=== PATIENT | female | born 1955 | race Caucasian/White ===

== ENCOUNTER 2017-02-23 10:58 | Observation (INO) | payer OTHER ==
[2017-02-23 11:09] VITALS: BMI 33.9
--- NOTE | 2017-02-23 12:08 | PDOC ---
History of Present Illness - General Chief Complaint: Revisit, Lab Variance Stated Complaint: EVALUATION LOW H/H Time Seen by Provider: 02/23/17 12:05 History Source: Patient Exam Limitations: No Limitations - History of Present Illness Initial Comments: CHIEF COMPLAINT: 61 y/o afebrile female with PMH IDDM, HTN, HLD, CHF, anemia ( last transfusion was 09/2016) sent in by her PCP for low H&H. HISTORY OF PRESENT ILLNESS: The patient had blood work drawn by Dr. Johnson yesterday. he called her today and told her to come to the ER because her H&H was low and her Potassium was high as well. The patient states she feels slightly lightheaded. She denies f/c, n/v/d, JENKINS, cough, CP, SOB, abd pain, back pain, hematuria, dysuris. Vital signs on arrival are within normal limits. REVIEW OF SYSTEMS: GENERAL/CONSTITUTIONAL: No fever/chills. No weakness. No weight change. HEAD, EYES, EARS, NOSE AND THROAT: No change in vision. No ear pain or discharge. No sore throat. CARDIOVASCULAR: No chest pain or shortness of breath. RESPIRATORY: No cough, wheezing, or hemoptysis. GASTROINTESTINAL: No abd pain, nausea, vomiting, diarrhea. GENITOURINARY: No dysuria, frequency, or change in urination. MUSCULOSKELETAL: No joint or muscle swelling or pain. No neck or back pain. SKIN: No rash or easy bruising. NEUROLOGIC: +lightheaded. No headache, loss of consciousness, or loss of sensation. PHYSICAL EXAM: GENERAL: The patient is awake, alert, and fully oriented, in no acute distress. She is obese, well appearing and ambulatory. HEAD: Normal with no signs of trauma. ENT: Pupils equal, round and reactive to light, extraocular movements intact, sclera anicteric, conjunctiva pale. Neck supple. Mucous membranes moist. LUNGS: Clear to auscultation bilaterally. Normal excursion. No respiratory distress or use of accessory muscles. CV: RRR, S1/S2, no MRG. Cap refill < 2 sec. ABDOMEN: Soft, non-distended, non-tender even to deep palpation, no hepatomegaly or splenomegaly, no masses. EXTREMITIES: Normal range of motion, no edema. NEUROLOGICAL: Normal speech, normal gait. CN II-XII grossly intact. PSYCH: Normal mood, normal affect. SKIN: Warm, dry, normal turgor, no rashes or lesions noted. Past History - Past Medical History Allergies/Adverse Reactions: Allergies Allergy/AdvReac Type Severity Reaction Status Date / Time black pepper Allergy Severe Swelling Verified 02/23/17 11:09 Penicillins Allergy Severe Rash Verified 02/23/17 11:09 strawberries Allergy Severe Rash Uncoded 02/23/17 11:09 Home Medications: Ambulatory Orders Acetaminophen [Pain Reliever] 500 mg PO PRN PRN 04/16/16 Amlodipine Besylate [Norvasc -] 10 mg PO DAILY 04/16/16 Hydralazine HCl [Apresoline -] 50 mg PO ASDIR 04/16/16 Levothyroxine [Synthroid -] 100 mcg PO DAILY 04/16/16 Metoprolol Tartrate [Lopressor] 100 mg PO BID 04/16/16 Omeprazole [Prilosec] 40 mg PO DAILY 04/16/16 Fenofibric Acid [Trilipix -] 45 mg PO DAILY cap 04/20/16 Insulin (Levemir) [Levemir Vial] 38 units SQ DAILY@0700 #30 ml 04/20/16 Enalapril Maleate [Vasotec] 10 mg PO ASDIR 02/23/17 Ferrous Sulfate 325 mg PO ASDIR 02/23/17 Furosemide [Lasix -] 40 mg PO ASDIR 02/23/17 Insulin Lispro [Humalog] 0 unit SQ ASDIR 02/23/17 Labetalol HCl [Normodyne -] 200 mg PO ASDIR 02/23/17 Simvastatin 40 mg PO DAILY 02/23/17 Sodium Bicarbonate - 650 mg PO ASDIR 02/23/17 Anemia: Yes Asthma: No Cancer: No Cardiac Disorders: No CVA: No COPD: No CHF: No Dementia: No Diabetes: Yes GI Disorders: Yes (REFLUX) Disorders: Yes (1 kidney) HTN: Yes Hypercholesterolemia: Yes Liver Disease: No Suicide Attempt (Hx): No Seizures: No Thyroid Disease: Yes (hypothyroid) - Surgical History Abdominal Surgery: No Appendectomy: No Cardiac Surgery: No Cholecystectomy: Yes Lung Surgery: No Neurologic Surgery: No Orthopedic Surgery: Yes (R knee replacement 09/17/13) - Psycho/Social/Smoking Cessation Hx Anxiety: No Suicidal Ideation: No Smoking Status: No Smoking History: Never smoked Have you smoked in the past 12 months: No Number of Cigarettes Smoked Daily: 0 Information on smoking cessation initiated: No Hx Alcohol Use: No Drug/Substance Use Hx: No Substance Use Type: None Hx Substance Use Treatment: No *Physical Exam - Vital Signs Last Vital Signs Temp Pulse Resp BP Pulse Ox 98.1 F 67 17 134/64 100 02/23/17 11:07 02/23/17 11:07 02/23/17 11:07 02/23/17 11:07 02/23/17 11:07 Heart Score/ECG Review - ECG Intrepretation Comment:: Twelve-lead EKG was performed and reviewed by Dr. Kahn. There is sinus bradycardia with 1st degree AV block. Impression: Otherwise normal twelve-lead EKG ED Treatment Course - LABORATORY CBC & Chemistry Diagram: 02/23/17 12:20 02/23/17 12:23 Medical Decision Making - Medical Decision Making A/P: 61 y/o female sent in by PCP for possible blood transfusion and high potassium. Plan is as follows: 1. EKG 2. Labs 3. UA 4. Type and screen hemoglobin is 7.6. Potassium normal Ordered 1 unit of PRBCs. Informed the patient of plan for admission. Spoke with Dr. Johnson's HOUSEKEEPING ATTENDANT and she said admit to the hospitalist. Spoke with the hospitalist, Dr. Hightower, accepts admission. *DC/Admit/Observation/Transfer Diagnosis at time of Disposition: Lightheaded Anemia Qualifiers: Anemia type: unspecified type Qualified Code(s): D64.9 - Anemia, unspecified - Discharge Dispostion Admit: Yes - Referrals Referrals: Van Johnson [Primary Care Provider] -
[2017-02-23 13:04] LABS: BASOPHIL 0.8 % (0-2.0); EOSINOPHIL 5.4 % (0-4.5); MCH 30.5 pg (25.7-33.7); MCHC 32.6 g/dl (32.0-36.0); MEAN CELL VOLUME 93.5 fl (80-96); MEAN PLT VOLUME 9.9 fl (7.5-11.1); PLATELET COUNT 180 K/MM3 (134-434); RDW 14.5 % (11.6-15.6)
[2017-02-23 13:18] LABS: INR 1.17 (0.82-1.09); PROTHROMBIN TIME (PATIENT) 12.9 SEC (9.98-11.88)
[2017-02-23 13:31] LABS: ALBUMIN 3.4 g/dl (3.4-5.0); ANION GAP 12 (8-16); BILIRUBIN,TOTAL 0.3 mg/dL (0.2-1.0); CALCIUM 8.4 mg/dL (8.5-10.1); CO2 20 mmol/L (21-32); COCKROFT - GAULT 25.6955; CREATININE 3.5 mg/dL (0.55-1.02); GLUCOSE,RANDOM 128 mg/dL (74-106); SGOT/AST 14 U/L (15-37); SGPT/ALT 28 U/L (12-78); TOT PROT 7.3 g/dl (6.4-8.2)
[2017-02-23 13:33] LABS: ALK PHOS 63 U/L (45-117); TROPONIN I < 0.02 ng/ml (0.00-0.05)
--- NOTE | 2017-02-23 14:16 | EKG ---
Test Reason : Blood Pressure : / mmHG Vent. Rate : 059 BPM Atrial Rate : 059 BPM P-R Int : 218 ms QRS Dur : 082 ms QT Int : 444 ms P-R-T Axes : 053 010 -02 degrees QTc Int : 439 ms SINUS BRADYCARDIA WITH 1ST DEGREE A-V BLOCK OTHERWISE NORMAL ECG WHEN COMPARED WITH ECG OF 13-OCT-2016 13:15, NO SIGNIFICANT CHANGE WAS FOUND Confirmed by MARRY CESAR, [place] ([id number]) on 02/23/2017 2:16:24 PM Referred By: Confirmed By:[place] TUTTLE MD
[2017-02-23] MEDS ORDERED: ACETAMINOPHEN 500 MG TABLET (FP) PO PRN (16:16)
--- NOTE | 2017-02-23 16:24 | HP ---
CHIEF COMPLAINT: "my doctor told me to come here" PCP: Dr Johnson REnal: Dr Reza HISTORY OF PRESENT ILLNESS: This is a 61 yo F known to me with PMH of chronic anemia due to CKD (baseline Hgb 8), CKD (baseline creat 3.5), horseshoe kidney, HFPEF, CAD, HTN, HLD, hypothyroidism, IDDM and morbid obesity, who presents to ED at urging of her PCP , who recently checked her blood and found her to be more anemic than baseline and hyperkalemic. She was at [facility] for anemia and acute on chronic HFPER, at which time her Hgb was 6.5, she was transfused 1 u and d/cd with hgb 8.3 ( baseline). She was also treated for acute failure (had sob and edema) with lasix IV. Her creat on d/c was 3.5. She followed up with Dr Reza on d/c. Her last colonoscopy was in [address] Ahuja, with normal findings. She denies chest pain, sob, cough, orthopnea, weight gain or peripheral edema. She denies weakness or lightheadedness. She denies rectal bleed or melena. ER course was notable for: (1)ekg (2)labs (3)1 u pRBC Recent Travel: denies PAST MEDICAL HISTORY: as above PAST SURGICAL HISTORY: x3 , cholecystectomy, R knee replacement Social History: Smoking: Never Alcohol:2 drinks per month Drugs: Never Family History: Lives alone. Father is alive and has HTN, DMII; mother of DMII complication , had enlarged heart and limb amputation; brother has DMII; sister has DMII, daughter and son have DMII Allergies black pepper Allergy (Severe, Verified 02/23/17 11:09) Swelling Penicillins Allergy (Severe, Verified 02/23/17 11:09) Rash strawberries Allergy (Severe, Uncoded 02/23/17 11:09) Rash HOME MEDICATIONS: Home Medications Medication Instructions Recorded Acetaminophen [Pain Reliever] 500 mg PO PRN PRN 04/16/16 Amlodipine Besylate [Norvasc -] 10 mg PO DAILY 04/16/16 Hydralazine HCl [Apresoline -] 50 mg PO ASDIR 04/16/16 Levothyroxine [Synthroid -] 100 mcg PO DAILY 04/16/16 Metoprolol Tartrate [Lopressor] 100 mg PO BID 04/16/16 Omeprazole [Prilosec] 40 mg PO DAILY 04/16/16 Fenofibric Acid [Trilipix -] 45 mg PO DAILY cap 04/20/16 Insulin (Levemir) [Levemir Vial] 38 units SQ DAILY@0700 #30 ml 04/20/16 Enalapril Maleate [Vasotec] 10 mg PO ASDIR 02/23/17 Ferrous Sulfate 325 mg PO ASDIR 02/23/17 Furosemide [Lasix -] 40 mg PO ASDIR 02/23/17 Insulin Lispro [Humalog] 0 unit SQ ASDIR 02/23/17 Labetalol HCl [Normodyne -] 200 mg PO ASDIR 02/23/17 Simvastatin 40 mg PO DAILY 02/23/17 Sodium Bicarbonate - 650 mg PO ASDIR 02/23/17 REVIEW OF SYSTEMS CONSTITUTIONAL: Absent: fever, chills, diaphoresis, generalized weakness, malaise, loss of appetite, weight change HEENT: Absent: rhinorrhea, nasal congestion, throat pain CARDIOVASCULAR: Absent: chest pain, syncope, palpitations, lightheadedness, peripheral edema RESPIRATORY: Absent: cough, shortness of breath, orthopnea, hemoptysis GASTROINTESTINAL: Absent: abdominal pain, abdominal distension, nausea, vomiting, diarrhea, constipation, melena, hematochezia GENITOURINARY: Absent: dysuria, hematuria, flank pain MUSCULOSKELETAL: Absent: back pain, neck pain SKIN: Absent: rash, itching, pallor HEMATOLOGIC/IMMUNOLOGIC: Absent: easy bleeding, easy bruising ENDOCRINE: Absent: unexplained weight gain, unexplained weight loss NEUROLOGIC: Absent: headache, focal weakness or paresthesias PSYCHIATRIC: Absent: anxiety, depression PHYSICAL EXAMINATION Vital Signs - 24 hr 02/23/17 15:47 Temperature 97.8 F Pulse Rate [ 60 Apical] Respiratory 18 Rate Blood Pressure 153/61 [Right Arm] O2 Sat by Pulse 99 Oximetry (%) GENERAL: Awake, alert, and fully oriented, in no acute distress. HEAD: Normal with no signs of trauma. EYES: Pupils equal, round and reactive to light, extraocular movements intact, sclera anicteric, conjunctiva clear. No lid lag. EARS, NOSE, THROAT: Moist mucous membranes. NECK: supple without JVD LUNGS: Breath sounds equal, clear to auscultation bilaterally. HEART: Regular rate and rhythm, normal S1 and S2 ABDOMEN: Soft, nontender, not distended, normoactive bowel sounds. JONNIE: no lesions, trace brown stool MUSCULOSKELETAL: No CVA tenderness. UPPER EXTREMITIES: 2+ pulses, warm, well-perfused. No cyanosis. No clubbing. No peripheral edema. LOWER EXTREMITIES: 2+ pulses, warm, well-perfused. No calf tenderness. No peripheral edema. NEUROLOGICAL: Cranial nerves II-XII grossly intact. Normal speech. PSYCHIATRIC: Cooperative. Good eye contact. Appropriate mood and affect. SKIN: Warm, dry ASSESSMENT/PLAN: This is a 61 yo F known to me with PMH of chronic anemia due to CKD (baseline Hgb 8), CKD (baseline creat 3.5), horseshoe kidney, HFPEF, CAD, HTN, HLD, hypothyroidism, IDDM and morbid obesity, who presents to ED at urging of her PCP , who recently checked her blood and found her to be more anemic than baseline and hyperkalemic. She was at [facility] for anemia and acute on chronic HFPER, at which time her Hgb was 6.5, she was transfused 1 u and d/cd with hgb 8.3 ( baseline). Chronic anemia -due to CKD -hgb 7.3 (baseline 8.3) -asymptomatic but qualifies for transfusion on 1 U pRBC due to comorbidities -check CBC at 8 pm, then AM -trop negative x1, trend 2 more -r/o GIB: stool guaiaac. Last colonoscopy 2012 -f/u Dr Perez outpatient for further management CKD -creat 3.5 at baseline -f/u dr Reza outpatient IDDM -sliding scale -BGM achs -levemir 38 u daily HFPEF -lasix 40 po bid HTN -norvasc 10 d -hydralazine 50 bid -lopressor 100 bid HLD -atorvastatin 40 d hypothyroidism -levothyroxine 100 d FEN no ivf lytes stable (K 4.3 today) SCD, ppi Dispo: obs in med han Problem List - Problem (1) Anemia Code(s): D64.9 - ANEMIA, UNSPECIFIED Qualifiers: Anemia type: unspecified type Qualified Code(s): D64.9 - Anemia, unspecified (2) Congestive heart failure (CHF) Code(s): I50.9 - HEART FAILURE, UNSPECIFIED (3) Hypothyroidism Code(s): E03.9 - HYPOTHYROIDISM, UNSPECIFIED (4) Kidney disease Code(s): N28.9 - DISORDER OF KIDNEY AND URETER, UNSPECIFIED (5) Obesity Code(s): E66.9 - OBESITY, UNSPECIFIED (6) Renal insufficiency Code(s): N28.9 - DISORDER OF KIDNEY AND URETER, UNSPECIFIED (7) (HFpEF) heart failure with preserved ejection fraction Code(s): I50.30 - UNSPECIFIED DIASTOLIC (CONGESTIVE) HEART FAILURE (8) HLD (hyperlipidemia) Code(s): E78.5 - HYPERLIPIDEMIA, UNSPECIFIED (9) IDDM (insulin dependent diabetes mellitus) Code(s): E11.9 - TYPE 2 DIABETES MELLITUS WITHOUT COMPLICATIONS Z79.4 - RESIDENTIAL (CURRENT) USE OF INSULIN Visit type - Emergency Visit Emergency Visit: Yes ED Registration Date: 02/23/17 Care time: The patient presented to the Emergency Department on the above date and was hospitalized for further evaluation of their emergent condition. - New Patient This patient is new to me today: No - Critical Care Critical Care patient: No
[2017-02-23] MEDS ORDERED: ENALAPRIL MALEATE 10 MG TABLET (FP) PO SCH (16:30)
[2017-02-23] MEDS ORDERED: SODIUM BICARBONATE 650 MG TABLET PO SCH (16:30)
[2017-02-23] MEDS ORDERED: INSULIN SLIDING SCALE (NOVOLOG) 1 VIAL SQ SCH (16:30)
[2017-02-23] MEDS ORDERED: hydrALAZINE HCL 50 MG TABLET (FP) PO SCH (16:30)
[2017-02-23] MEDS ORDERED: LABETALOL HCL 200 MG TABLET (FP) PO SCH (16:30)
[2017-02-23] MEDS ORDERED: FUROSEMIDE 40 MG TABLET (FP) PO SCH (16:30)
--- NOTE | 2017-02-23 17:12 | PN ---
Teaching Attending Note Name of Resident: Padmini Garnica ATTENDING PHYSICIAN STATEMENT I saw and evaluated the patient. I reviewed the resident's note and discussed the case with the resident. I agree with the resident's findings and plan as documented. Patient presented with Lightheadedness, was sent by for elevated Potassium Vital Signs Temperature 98.5 F 02/23/17 16:34 Pulse Rate 61 02/23/17 16:34 Respiratory Rate 18 02/23/17 16:34 Blood Pressure 164/83 02/23/17 16:34 O2 Sat by Pulse Oximetry (%) 99 02/23/17 15:47 CBCD WBC 6.0 K/mm3 (4.0-10.0) 02/23/17 12:20 RBC 2.39 M/mm3 (3.60-5.2) L 02/23/17 12:20 Hgb 7.3 GM/dL (10.7-15.3) L D 02/23/17 12:20 Hct 22.3 % (32.4-45.2) L 02/23/17 12:20 MCV 93.5 fl (80-96) 02/23/17 12:20 MCHC 32.6 g/dl (32.0-36.0) 02/23/17 12:20 RDW 14.5 % (11.6-15.6) 02/23/17 12:20 Plt Count 180 K/MM3 (134-434) 02/23/17 12:20 MPV 9.9 fl (7.5-11.1) 02/23/17 12:20 CMP Sodium 141 mmol/L (136-145) 02/23/17 12:23 Potassium 4.3 mmol/L (3.5-5.1) 02/23/17 12:23 Chloride 109 mmol/L (98-107) H 02/23/17 12:23 Carbon Dioxide 20 mmol/L (21-32) L 02/23/17 12:23 Anion Gap 12 (8-16) 02/23/17 12:23 BUN 50 mg/dL (7-18) H D 02/23/17 12:23 Creatinine 3.5 mg/dL (0.55-1.02) H 02/23/17 12:23 Creat Clearance w eGFR 13.32 (>60) 02/23/17 12:23 Random Glucose 128 mg/dL (74-106) H D 02/23/17 12:23 Calcium 8.4 mg/dL (8.5-10.1) L 02/23/17 12:23 Total Bilirubin 0.3 mg/dL (0.2-1.0) D 02/23/17 12:23 AST 14 U/L (15-37) L D 02/23/17 12:23 ALT 28 U/L (12-78) D 02/23/17 12:23 Alkaline Phosphatase 63 U/L (45-117) 02/23/17 12:23 Total Protein 7.3 g/dl (6.4-8.2) 02/23/17 12:23 Albumin 3.4 g/dl (3.4-5.0) 02/23/17 12:23 CARDIAC ENZYMES Creatine Kinase 81 IU/L (26-192) 02/23/17 12:23 Troponin I < 0.02 ng/ml (0.00-0.05) 02/23/17 12:23 Current Medications Generic Name Dose Route Start Last Admin Trade Name Freq PRN Reason Stop Dose Admin Amlodipine Besylate 10 mg 02/24/17 10:00 Norvasc - PO DAILY [facility] Atorvastatin Calcium 40 mg 02/23/17 22:00 Lipitor - PO HS [facility] Fenofibric Acid 45 mg 02/24/17 10:00 Trilipix - PO DAILY [facility] Furosemide 40 mg 02/23/17 22:00 Lasix - PO BID [facility] Hydralazine HCl 50 mg 02/23/17 22:00 Apresoline - PO BID [facility] Insulin Aspart 1 vial 02/23/17 16:30 Novolog Vial Sliding Scale - SQ TIDAC [facility] Protocol Insulin Detemir 20 units 02/23/17 22:00 Levemir Vial SQ HS [facility] Levothyroxine Sodium 100 mcg 02/24/17 07:00 Synthroid - PO DAILY@0700 [facility] Metoprolol Tartrate 100 mg 02/23/17 22:00 Lopressor - PO BID [facility] Pantoprazole Sodium 40 mg 02/24/17 10:00 Protonix - PO DAILY [facility] Home Medications Medication Instructions Recorded Acetaminophen [Pain Reliever] 500 mg PO PRN PRN 04/16/16 Amlodipine Besylate [Norvasc -] 10 mg PO DAILY 04/16/16 Hydralazine HCl [Apresoline -] 50 mg PO ASDIR 04/16/16 Levothyroxine [Synthroid -] 100 mcg PO DAILY 04/16/16 Metoprolol Tartrate [Lopressor] 100 mg PO BID 04/16/16 Omeprazole [Prilosec] 40 mg PO DAILY 04/16/16 Fenofibric Acid [Trilipix -] 45 mg PO DAILY cap 04/20/16 Insulin (Levemir) [Levemir Vial] 38 units SQ DAILY@0700 #30 ml 04/20/16 Enalapril Maleate [Vasotec] 10 mg PO ASDIR 02/23/17 Ferrous Sulfate 325 mg PO ASDIR 02/23/17 Furosemide [Lasix -] 40 mg PO ASDIR 02/23/17 Insulin Lispro [Humalog] 0 unit SQ ASDIR 02/23/17 Labetalol HCl [Normodyne -] 200 mg PO ASDIR 02/23/17 Simvastatin 40 mg PO DAILY 02/23/17 Sodium Bicarbonate - 650 mg PO ASDIR 02/23/17 ASSESSMENT AND PLAN: Was sent by due to elevated potassium but was found to be in normal range in ED. # Acute symptomatic anemia ; Patient is getting transfused 2 units today # CKF stable at 3.5 # Hx of HTN continue home meds # Hx of DM on Insulin at home SS with coverage #Hx of hypothyroidism continue meds
[2017-02-23 20:34] LABS: MCH 30.6 pg (25.7-33.7); MCHC 33.2 g/dl (32.0-36.0); MEAN CELL VOLUME 92.1 fl (80-96); MEAN PLT VOLUME 10.3 fl (7.5-11.1); PLATELET COUNT 177 K/MM3 (134-434); RDW 14.3 % (11.6-15.6); WHITE BLOOD COUNT 6.4 K/mm3 (4.0-10.0)
[2017-02-23 20:59] LABS: CALCIUM 8.5 mg/dL (8.5-10.1); COCKROFT - GAULT 27.2595; CREATININE 3.3 mg/dL (0.55-1.02)
[2017-02-23] MEDS: FUROSEMIDE 40 MG TABLET (FP) PO SCH (21:45)
[2017-02-23] MEDS: METOPROLOL TARTRATE 50 MG TABLET (FP) PO SCH (21:45)
[2017-02-23] MEDS: hydrALAZINE HCL 50 MG TABLET (FP) PO SCH (21:45)
[2017-02-23] MEDS ORDERED: INSULIN DETEMIR 100 UNITS/ML MDV SQ SCH (22:00)
[2017-02-23] MEDS ORDERED: ATORVASTATIN CA 40 MG TABLET (FP) PO SCH (22:00)
[2017-02-24] MEDS: INSULIN SLIDING SCALE (NOVOLOG) 1 VIAL SQ SCH ×2 (06:32→12:35)
[2017-02-24] MEDS ORDERED: INSULIN DETEMIR 100 UNITS/ML MDV SQ ONE (06:42)
[2017-02-24] MEDS ORDERED: INSULIN DETEMIR 100 UNITS/ML MDV SQ SCH (07:00)
[2017-02-24] MEDS ORDERED: LEVOTHYROXINE NA 100 MCG TABLET (FP) PO SCH (07:00)
[2017-02-24 07:28] LABS: MCH 30.9 pg (25.7-33.7); MCHC 33.7 g/dl (32.0-36.0); MEAN CELL VOLUME 91.6 fl (80-96); MEAN PLT VOLUME 10.1 fl (7.5-11.1); PLATELET COUNT 173 K/MM3 (134-434); RDW 14.5 % (11.6-15.6); WHITE BLOOD COUNT 6.8 K/mm3 (4.0-10.0)
[2017-02-24 07:39] LABS: INR 1.13 (0.82-1.09); PROTHROMBIN TIME (PATIENT) 12.5 SEC (9.98-11.88)
[2017-02-24 07:41] LABS: ACTIVATED PTT 30.8 SECONDS (26.9-34.4)
[2017-02-24 07:44] LABS: CALCIUM 8.7 mg/dL (8.5-10.1); COCKROFT - GAULT 28.1095; CREATININE 3.2 mg/dL (0.55-1.02)
[2017-02-24] MEDS: FUROSEMIDE 40 MG TABLET (FP) PO SCH (09:26)
[2017-02-24] MEDS: hydrALAZINE HCL 50 MG TABLET (FP) PO SCH (09:26)
[2017-02-24] MEDS: METOPROLOL TARTRATE 50 MG TABLET (FP) PO SCH (09:27)
[2017-02-24] MEDS ORDERED: LABETALOL HCL 200 MG TABLET (FP) PO SCH (10:00)
[2017-02-24] MEDS ORDERED: amLODIPine BESYLATE 10 MG TABLET (FP) PO SCH (10:00)
[2017-02-24] MEDS ORDERED: ENALAPRIL MALEATE 10 MG TABLET (FP) PO SCH (10:00)
[2017-02-24] MEDS ORDERED: FENOFIBRIC ACID 45 MG CAP PO SCH (10:00)
[2017-02-24] MEDS ORDERED: PANTOPRAZOLE 40 MG TABLET (FP) PO SCH (10:00)
[2017-02-24 11:00] LABS: URINE APPEARANCE CLEAR; URINE BILIRUBIN NEGATIVE (NEGATIVE); URINE BLOOD NEGATIVE (NEGATIVE); URINE COLOR STRAW; URINE GLUCOSE (UA) NEGATIVE (NEGATIVE); URINE KETONE NEGATIVE (NEGATIVE); URINE LEUK ESTERASE NEGATIVE (NEGATIVE); URINE NITRITE NEGATIVE (NEGATIVE); URINE UROBILINOGEN NEGATIVE E.U./dl (0.2-1.0)
[2017-02-24 11:09] LABS: URINE PROTEIN 2+ (NEGATIVE)
[2017-02-24 11:21] LABS: URINE HYALINE CAST 1 /lpf; URINE MUCUS RARE; URINE RBC <1 /hpf (0-3); URINE WBC 1 /hpf (3-5)
--- NOTE | 2017-02-24 12:52 | DS ---
Physical Exam: SUBJECTIVE: Patient seen and examined Patient resting in bed NAD, No acute events, afebrile, hemodynamically stable. BP 180 systolic so added her enalapril and labetalol, which was confirmed this morning with patient. s/p 1 u PRBC. No dizziness, feels well. denies lightheadedness, chest pain, loc, f/c, cough, abd pain. OBJECTIVE: Vital Signs Period Temp Pulse Resp BP Sys/Duque Pulse Ox Last 24 Hr 97.9 F-98.5 F 60-98 18-20 164-184/62-83 99 PHYSICAL EXAM GENERAL: Awake, alert, and fully oriented, in no acute distress. HEAD: Normal with no signs of trauma. EYES: Pupils equal, round and reactive to light, extraocular movements intact, sclera anicteric, conjunctiva clear. No lid lag. EARS, NOSE, THROAT: Moist mucous membranes. NECK: supple without JVD LUNGS: Breath sounds equal, clear to auscultation bilaterally. HEART: Regular rate and rhythm, normal S1 and S2 ABDOMEN: Soft, nontender, not distended, normoactive bowel sounds. JONNIE: no lesions, trace brown stool MUSCULOSKELETAL: No CVA tenderness. UPPER EXTREMITIES: 2+ pulses, warm, well-perfused. No cyanosis. No clubbing. No peripheral edema. LOWER EXTREMITIES: 2+ pulses, warm, well-perfused. No calf tenderness. No peripheral edema. NEUROLOGICAL: Cranial nerves II-XII grossly intact. Normal speech. PSYCHIATRIC: Cooperative. Good eye contact. Appropriate mood and affect. SKIN: Warm, dry LABS Laboratory Results - last 24 hr 02/23/17 02/23/17 02/23/17 17:00 17:08 19:45 WBC RBC Hgb Hct MCV MCHC RDW Plt Count MPV INR PTT (Actin FS) Sodium Potassium Chloride Carbon Dioxide Anion Gap BUN Creatinine POC Glucometer 138 Random Glucose Calcium Troponin I < 0.02 Stool Occult Blood Cancelled 02/23/17 02/23/17 02/23/17 19:45 19:45 21:38 WBC 6.4 RBC 2.76 L Hgb 8.5 L D Hct 25.5 L MCV 92.1 MCHC 33.2 RDW 14.3 Plt Count 177 MPV 10.3 INR PTT (Actin FS) Sodium 140 Potassium 4.1 Chloride 107 Carbon Dioxide 23 Anion Gap 10 BUN 51 H Creatinine 3.3 H POC Glucometer 191 Random Glucose 193 H D Calcium 8.5 Troponin I Stool Occult Blood 02/24/17 02/24/17 02/24/17 06:00 06:00 06:00 WBC 6.8 RBC 2.82 L Hgb 8.7 L Hct 25.8 L MCV 91.6 MCHC 33.7 RDW 14.5 Plt Count 173 MPV 10.1 INR 1.13 PTT (Actin FS) 30.8 Sodium 141 Potassium 4.0 Chloride 109 H Carbon Dioxide 22 Anion Gap 10 BUN 48 H Creatinine 3.2 H POC Glucometer Random Glucose 76 D Calcium 8.7 Troponin I Stool Occult Blood 02/24/17 02/24/17 06:31 11:42 WBC RBC Hgb Hct MCV MCHC RDW Plt Count MPV INR PTT (Actin FS) Sodium Potassium Chloride Carbon Dioxide Anion Gap BUN Creatinine POC Glucometer 75 125 Random Glucose Calcium Troponin I Stool Occult Blood HOSPITAL COURSE: Date of Admission:02/23/17 This is a 61 yo F, known to ma, with PMH of chronic anemia due to CKD (baseline Hgb 8), CKD (baseline creat 3.5), horseshoe kidney, HFPEF, CAD, HTN, HLD, hypothyroidism, IDDM and morbid obesity, who presents to ED at urging of her PCP , who recently checked her blood and found her to be more anemic than baseline and hyperkalemic. She was at [facility] for anemia and acute on chronic HFPER, at which time her Hgb was 6.5, she was transfused 1 u and d/cd with hgb 8.3 ( baseline). She was also treated for acute failure (had sob and edema) with lasix IV. Her creat on d/c was 3.5. She followed up with Dr Reza on d/c. Her last colonoscopy was in [address] Ahuja, with normal findings. She denies chest pain, sob, cough, orthopnea, weight gain or peripheral edema. She denies weakness or lightheadedness. She denied rectal bleed or melena. No blood on JONNIE. She was admitted for a transfusion on 1 unit pRBC, which brought her hgb to 8.7 from 7.3. She felt well on hosp day 2 and was sent home and asked to f/u with an oncologist Dr Perez and Dr Ahuja for further anemia workup. Date of Discharge: 02/24/17 Minutes to complete discharge: 48 (na) Discharge Summary Reason For Visit: ANEMIA,LIGHTHEADNESS Current Active Problems (HFpEF) heart failure with preserved ejection fraction (Acute) Anemia (Acute) HLD (hyperlipidemia) (Acute) IDDM (insulin dependent diabetes mellitus) (Acute) Lightheaded (Acute) - Instructions Diet, Activity, Other Instructions: You were here because of low hemoglobin (low red blood count). your potassium was normal. you received a transfusion of 1 unit of blood. your hemoglobin went up to your baseline of 8.7. WE recommend you follow up with a blood specialist Dr Perez in 1 week to investigate the cause of anemia and talk about potential treatment like procrit injection. Follow up with Dr Ahuja for a potential colonoscopy Follow up with Dr Cummins in a week Follow up with Dr Cooper to review new blood pressure medication Resume home meds Return to hospital if symptoms worsen. Referrals: Rashawn Ahuja MD [Staff Physician] - 2 Weeks Piter Castaneda MD [Staff Physician] - 2 Weeks Van Johnson [Primary Care Provider] - 1 Week Nick Perez MD [Staff Physician] - 2 Weeks Jourdan Cummins MD [Staff Physician] - 1 Week - Home Medications Comprehensive Discharge Medication List: Ambulatory Orders Acetaminophen [Pain Reliever] 500 mg PO PRN PRN 04/16/16 Amlodipine Besylate [Norvasc -] 10 mg PO DAILY 04/16/16 Hydralazine HCl [Apresoline -] 50 mg PO ASDIR 04/16/16 Levothyroxine [Synthroid -] 100 mcg PO DAILY 04/16/16 Metoprolol Tartrate [Lopressor] 100 mg PO BID 04/16/16 Omeprazole [Prilosec] 40 mg PO DAILY 04/16/16 Fenofibric Acid [Trilipix -] 45 mg PO DAILY cap 04/20/16 Enalapril Maleate [Vasotec] 10 mg PO ASDIR 02/23/17 Ferrous Sulfate 325 mg PO ASDIR 02/23/17 Furosemide [Lasix -] 40 mg PO ASDIR 02/23/17 Insulin Lispro [Humalog Kwikpen U-100] 0 unit SQ ASDIR 02/23/17 Labetalol HCl [Normodyne -] 200 mg PO ASDIR 02/23/17 Simvastatin 40 mg PO DAILY 02/23/17 Sodium Bicarbonate - 650 mg PO ASDIR 02/23/17 Insulin (Levemir) [Levemir Vial] 20 units SQ HS ml 02/24/17 Problem List - Problems (1) Anemia Code(s): D64.9 - ANEMIA, UNSPECIFIED Qualifiers: Anemia type: unspecified type Qualified Code(s): D64.9 - Anemia, unspecified (2) Congestive heart failure (CHF) Code(s): I50.9 - HEART FAILURE, UNSPECIFIED (3) Hypothyroidism Code(s): E03.9 - HYPOTHYROIDISM, UNSPECIFIED (4) Kidney disease Code(s): N28.9 - DISORDER OF KIDNEY AND URETER, UNSPECIFIED (5) Obesity Code(s): E66.9 - OBESITY, UNSPECIFIED (6) Renal insufficiency Code(s): N28.9 - DISORDER OF KIDNEY AND URETER, UNSPECIFIED (7) (HFpEF) heart failure with preserved ejection fraction Code(s): I50.30 - UNSPECIFIED DIASTOLIC (CONGESTIVE) HEART FAILURE (8) HLD (hyperlipidemia) Code(s): E78.5 - HYPERLIPIDEMIA, UNSPECIFIED (9) IDDM (insulin dependent diabetes mellitus) Code(s): E11.9 - TYPE 2 DIABETES MELLITUS WITHOUT COMPLICATIONS Z79.4 - CUSTODIAL (CURRENT) USE OF INSULIN This patient is new to me today: No Emergency Visit: Yes ED Registration Date: 02/23/17 Care time: The patient presented to the Emergency Department on the above date and was hospitalized for further evaluation of their emergent condition. Critical Care patient: No - Discharge Referral Referred to [facility] No
[2017-02-24 13:50] VITALS: BP 174/68; PULSE 65; TEMP 98
--- NOTE | 2017-02-24 17:16 | PN ---
Teaching Attending Note Name of Resident: Padmini Garnica ATTENDING PHYSICIAN STATEMENT I saw and evaluated the patient. I reviewed the resident's note and discussed the case with the resident. I agree with the resident's findings and plan as documented. Patient is comfortable with no further dizziness, no shortness of breath, was transfused 2 units. Vital Signs Temperature 98 F 02/24/17 13:48 Pulse Rate 65 02/24/17 13:48 Respiratory Rate 20 02/24/17 13:48 Blood Pressure 174/68 02/24/17 13:48 O2 Sat by Pulse Oximetry (%) 99 02/24/17 08:00 CBCD WBC 6.8 K/mm3 (4.0-10.0) 02/24/17 06:00 RBC 2.82 M/mm3 (3.60-5.2) L 02/24/17 06:00 Hgb 8.7 GM/dL (10.7-15.3) L 02/24/17 06:00 Hct 25.8 % (32.4-45.2) L 02/24/17 06:00 MCV 91.6 fl (80-96) 02/24/17 06:00 MCHC 33.7 g/dl (32.0-36.0) 02/24/17 06:00 RDW 14.5 % (11.6-15.6) 02/24/17 06:00 Plt Count 173 K/MM3 (134-434) 02/24/17 06:00 MPV 10.1 fl (7.5-11.1) 02/24/17 06:00 CMP Sodium 141 mmol/L (136-145) 02/24/17 06:00 Potassium 4.0 mmol/L (3.5-5.1) 02/24/17 06:00 Chloride 109 mmol/L (98-107) H 02/24/17 06:00 Carbon Dioxide 22 mmol/L (21-32) 02/24/17 06:00 Anion Gap 10 (8-16) 02/24/17 06:00 BUN 48 mg/dL (7-18) H 02/24/17 06:00 Creatinine 3.2 mg/dL (0.55-1.02) H 02/24/17 06:00 Creat Clearance w eGFR 13.32 (>60) 02/23/17 12:23 Random Glucose 76 mg/dL (74-106) D 02/24/17 06:00 Calcium 8.7 mg/dL (8.5-10.1) 02/24/17 06:00 Total Bilirubin 0.3 mg/dL (0.2-1.0) D 02/23/17 12:23 AST 14 U/L (15-37) L D 02/23/17 12:23 ALT 28 U/L (12-78) D 02/23/17 12:23 Alkaline Phosphatase 63 U/L (45-117) 02/23/17 12:23 Total Protein 7.3 g/dl (6.4-8.2) 02/23/17 12:23 Albumin 3.4 g/dl (3.4-5.0) 02/23/17 12:23 CARDIAC ENZYMES Creatine Kinase 81 IU/L (26-192) 02/23/17 12:23 Troponin I < 0.02 ng/ml (0.00-0.05) 02/23/17 19:45 Home Medications Medication Instructions Recorded Acetaminophen [Pain Reliever] 500 mg PO PRN PRN 04/16/16 Amlodipine Besylate [Norvasc -] 10 mg PO DAILY 04/16/16 Hydralazine HCl [Apresoline -] 50 mg PO ASDIR 04/16/16 Levothyroxine [Synthroid -] 100 mcg PO DAILY 04/16/16 Metoprolol Tartrate [Lopressor] 100 mg PO BID 04/16/16 Omeprazole [Prilosec] 40 mg PO DAILY 04/16/16 Fenofibric Acid [Trilipix -] 45 mg PO DAILY cap 04/20/16 Enalapril Maleate [Vasotec] 10 mg PO ASDIR 02/23/17 Ferrous Sulfate 325 mg PO ASDIR 02/23/17 Furosemide [Lasix -] 40 mg PO ASDIR 02/23/17 Insulin Lispro [Humalog Kwikpen 0 unit SQ ASDIR 02/23/17 U-100] Labetalol HCl [Normodyne -] 200 mg PO ASDIR 02/23/17 Simvastatin 40 mg PO DAILY 02/23/17 Sodium Bicarbonate - 650 mg PO ASDIR 02/23/17 Insulin (Levemir) [Levemir Vial] 20 units SQ HS ml 04/13/17 ASSESSMENT AND PLAN: Patient is a 61yo female was sent by due to elevated potassium but was found to be in normal range in ED. # Acute symptomatic anemia improved post 2 units of PRBC , will send patient home on iron supplements # CKF stable at 3.5-->today 3.2 # Hx of HTN continue home meds # Hx of DM continue Levemir at home , and Humalog #Hx of hypothyroidism continue home meds will discharge patient home with follow up with for further treatment and management.
== END 2017-02-24 15:09 | disposition home or self-care (01) ==
LOC: JER 10:58 → UNDOADMOB 15:02 → INTOOBSV 15:02 → JERBED 15:02 → J7W 16:22
PROVIDERS: ADMIT Internal Medicine; ATTEND Internal Medicine
PROC: 3E013VG Introduction of Insulin into Subcutaneous Tissue, Percutaneous Approach (ICD-10-PCS; principal; 2017-02-23)
PROC: 30233N1 Transfusion of Nonautologous Red Blood Cells into Peripheral Vein, Percutaneous Approach (ICD-10-PCS; 2017-02-23)
DX: I12.9 Hypertensive chronic kidney disease with stage 1 through stage 4 chronic kidney disease, or unspecified chronic kidney disease (principal); N18.9 Chronic kidney disease, unspecified; E11.22 Type 2 diabetes mellitus with diabetic chronic kidney disease; Z79.4 Long term (current) use of insulin; D63.1 Anemia in chronic kidney disease; I50.33 Acute on chronic diastolic (congestive) heart failure; E78.5 Hyperlipidemia, unspecified; E03.9 Hypothyroidism, unspecified; K21.9 Gastro-esophageal reflux disease without esophagitis; E66.01 Morbid (severe) obesity due to excess calories; Z68.33 Body mass index [BMI] 33.0-33.9, adult; Z96.651 Presence of right artificial knee joint
CPT/HCPCS: 36415; 36430; 80048; 80053; 81003; 81015; 82550; 84484; 85025; 85027; 85610; 85730; 86850; 86900; 86901; 86922; 93005; 93010; 99284-25; G0378; P9038; P9058

== ENCOUNTER 2017-04-16 11:52 | Observation (INO) | payer OTHER ==
[2017-04-16 11:57] VITALS: BMI 33.9
--- NOTE | 2017-04-16 12:28 | PDOC ---
History of Present Illness - General History Source: Patient, Family (Daughter) Exam Limitations: No Limitations - History of Present Illness Initial Comments: 04/16/17 12:34 The patient is a 61 year old female with a significant past medical history of IDDM, CHF, CAD, horseshoe kidney, HTN, HLD, CHF, anemia (last transfusion was ), who presents to the ER with abdominal pain for five days. Patient was referred to the ER today by her PCP, Dr. Johnson, for low H&H levels (7&21). Patient says she has diffuse abdominal pain accompanied by diarrhea and dark stool. As per patients daughter, patient had two episodes of low H&H levels in the past three months without reason of why this is happening. Denies fever, chills Denies nausea, vomiting Denies lightheadedness PCP: Dr. Van Johnson <Kristy Suarez - Last Filed: 04/16/17 17:24> <Abby Jean - Last Filed: 04/17/17 11:09> - General Chief Complaint: Revisit, Lab Variance Stated Complaint: ABD PAIN (PCP SENT) Time Seen by Provider: 04/16/17 12:03 Past History <Kristy Suarez - Last Filed: 04/16/17 17:24> - Past Medical History Anemia: Yes Asthma: No Cancer: No Cardiac Disorders: No CVA: No COPD: No CHF: No Dementia: No Diabetes: Yes GI Disorders: Yes (REFLUX) Disorders: Yes (1 kidney) HTN: Yes Hypercholesterolemia: Yes Liver Disease: No Suicide Attempt (Hx): No Seizures: No Thyroid Disease: Yes (hypothyroid) - Surgical History Abdominal Surgery: No Appendectomy: No Cardiac Surgery: No Cholecystectomy: Yes Lung Surgery: No Neurologic Surgery: No Orthopedic Surgery: Yes (R knee replacement 09/17/13) - Psycho/Social/Smoking Cessation Hx Anxiety: No Suicidal Ideation: No Smoking Status: No Smoking History: Never smoked Have you smoked in the past 12 months: No Number of Cigarettes Smoked Daily: 0 Hx Alcohol Use: No Drug/Substance Use Hx: No Substance Use Type: None Hx Substance Use Treatment: No <Abby Jean - Last Filed: 04/17/17 11:09> - Past Medical History Allergies/Adverse Reactions: Allergies Allergy/AdvReac Type Severity Reaction Status Date / Time black pepper Allergy Severe Swelling Verified 04/16/17 11:57 Penicillins Allergy Severe Rash Verified 04/16/17 11:57 strawberry Allergy Rash Verified 04/16/17 11:59 Home Medications: Ambulatory Orders Acetaminophen [Pain Reliever] 500 mg PO PRN PRN 04/16/16 Amlodipine Besylate [Norvasc -] 10 mg PO DAILY 04/16/16 Hydralazine HCl [Apresoline -] 50 mg PO BID 04/16/16 Levothyroxine [Synthroid -] 100 mcg PO DAILY 04/16/16 Metoprolol Tartrate [Lopressor] 100 mg PO BID 04/16/16 Omeprazole [Prilosec] 40 mg PO DAILY 04/16/16 Fenofibric Acid [Trilipix -] 45 mg PO DAILY cap 04/20/16 Enalapril Maleate [Vasotec] 10 mg PO DAILY 02/23/17 Ferrous Sulfate 325 mg PO BID 02/23/17 Furosemide [Lasix -] 40 mg PO BID 02/23/17 Insulin Lispro [Humalog Kwikpen U-100] See Protocol SQ ASDIR 02/23/17 Labetalol HCl [Normodyne -] 200 mg PO BID 02/23/17 Simvastatin 40 mg PO DAILY 02/23/17 Sodium Bicarbonate - 650 mg PO DAILY 02/23/17 Review of Systems - Review of Systems Able to Perform ROS?: Yes Comments:: 04/16/17 12:34 GENERAL/CONSTITUTIONAL: No fever or chills. No weakness. HEAD, EYES, EARS, NOSE AND THROAT: No change in vision. No ear pain or discharge. No sore throat. CARDIOVASCULAR: No chest pain or shortness of breath. RESPIRATORY: No cough, wheezing, or hemoptysis. GASTROINTESTINAL: (+) abdominal pain, (+) diarrhea, (+) dark stool. No nausea, vomiting, constipation. GENITOURINARY: No dysuria, frequency, or change in urination. MUSCULOSKELETAL: No joint or muscle swelling or pain. No neck or back pain. SKIN: No rash NEUROLOGIC: No headache, vertigo, loss of consciousness, or change in strength/ sensation. ENDOCRINE: No increased thirst. No abnormal weight change. HEMATOLOGIC/LYMPHATIC: No anemia, easy bleeding, or history of blood clots. ALLERGIC/IMMUNOLOGIC: No hives or skin allergy. <UtsKristy - Last Filed: 04/16/17 17:24> *Physical Exam - Vital Signs Last Vital Signs Temp Pulse Resp BP Pulse Ox 98.0 F 65 20 138/60 100 04/16/17 11:55 04/16/17 11:55 04/16/17 11:55 04/16/17 11:55 04/16/17 11:55 <UtsKristy - Last Filed: 04/16/17 17:24> - Vital Signs Last Vital Signs Temp Pulse Resp BP Pulse Ox 98.0 F 65 20 138/60 100 04/16/17 11:55 04/16/17 11:55 04/16/17 11:55 04/16/17 11:55 04/16/17 11:55 - Physical Exam Comments: GENERAL: Awake, alert, and fully oriented, in no acute distress. Morbidly obese. HEAD: No signs of trauma EYES: PERRLA, EOMI, sclera anicteric, conjunctiva clear ENT: Auricles normal inspection, hearing grossly normal, nares patent, oropharynx clear without exudates. Moist mucosa NECK: Normal ROM, supple, no lymphadenopathy, JVD, or masses LUNGS: Breath sounds equal, clear to auscultation bilaterally. No wheezes, and no crackles HEART: Regular rate and rhythm, normal S1 and S2, no murmurs, rubs or gallops ABDOMEN: Soft, diffusely tender, normoactive bowel sounds. No guarding, no rebound. No masses EXTREMITIES: Normal range of motion, no edema. No clubbing or cyanosis. No cords, erythema, or tenderness NEUROLOGICAL: Cranial nerves II through XII grossly intact. Normal speech, normal gait SKIN: Warm, Dry, normal turgor, no rashes or lesions noted. <Abby Jean - Last Filed: 04/17/17 11:09> Heart Score/ECG Review - ECG Impressions Comment:: EKG read 12:46- NSR 62 bpm, no acute ST/T changes <Abby Jean - Last Filed: 04/17/17 11:09> ED Treatment Course - LABORATORY CBC & Chemistry Diagram: 04/16/17 12:40 04/16/17 12:40 - RADIOLOGY Radiograph Interpretation: 04/16/17 16:[address] impression reported by Dr. 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 This can be confirmed by additional imaging. No evidence of bowel obstruction. <Kristy Suarez - Last Filed: 04/16/17 17:24> - LABORATORY CBC & Chemistry Diagram: 04/17/17 06:30 04/17/17 06:30 <Abby Jean - Last Filed: 04/17/17 11:09> Medical Decision Making - Medical Decision Making Pt sent by Dr. Johnson. She has history of anemia requiring transfusion in the past, she is unclear on the etiology. She has cardiac history, including history of CHF, which will require slow transfusions followed by lasix. In addition to the anemia she has been having abdominal pain for past day with diarrhea. I obtained CT a/p without contrast (history of CKD with history of horseshoe kidney), no acute findings. Endorsed to hospitalist. <Abby Jean - Last Filed: 04/17/17 11:09> *DC/Admit/Observation/Transfer - Attestations Scribe Attestion: 04/16/17 12:35 Documentation prepared by Kristy Suarez, acting as regional medical director for Abby Jean MD. <Kristy Suarez - Last Filed: 04/16/17 17:24> - Discharge Dispostion Admit: Yes <Abby Jean - Last Filed: 04/17/17 11:09> Diagnosis at time of Disposition: Symptomatic anemia Congestive heart failure (CHF) Qualifiers: Congestive heart failure type: unspecified congestive heart failure type Congestive heart failure chronicity: unspecified congestive heart failure chronicity Qualified Code(s): I50.9 - Heart failure, unspecified Anemia Qualifiers: Anemia type: unspecified type Qualified Code(s): D64.9 - Anemia, unspecified - Discharge Dispostion Condition at time of disposition: Stable - Referrals - Patient Instructions
[2017-04-16] MEDS ORDERED: ACETAMINOPHEN 1000 MG/100 ML VIAL (NON FORMULARY) IVPB ONE (12:30)
[2017-04-16] MEDS ORDERED: SODIUM CHLORIDE 1,000 ML IV STA (12:30)
[2017-04-16] MEDS ORDERED: ACETAMINOPHEN INJECTION 100 ML IVPB ONE (12:41)
[2017-04-16 12:56] LABS: BASOPHIL 0.8 % (0-2.0); EOSINOPHIL 5.2 % (0-4.5); MCH 30.9 pg (25.7-33.7); MCHC 32.6 g/dl (32.0-36.0); MEAN CELL VOLUME 94.8 fl (80-96); MEAN PLT VOLUME 9.8 fl (7.5-11.1); NEUTROPHILS 79.7 % (42.8-82.8); PLATELET COUNT 176 K/MM3 (134-434); RDW 15.2 % (11.6-15.6); WHITE BLOOD COUNT 7.3 K/mm3 (4.0-10.0)
[2017-04-16 13:11] LABS: INR 1.28 (0.82-1.09); PROTHROMBIN TIME (PATIENT) 14.2 SEC (9.98-11.88)
[2017-04-16 13:22] LABS: ALBUMIN 3.3 g/dl (3.4-5.0); BILIRUBIN,TOTAL 0.3 mg/dL (0.2-1.0); CALCIUM 9.4 mg/dL (8.5-10.1); COCKROFT - GAULT 25.6955; CREATININE 3.5 mg/dL (0.55-1.02); TOT PROT 7.4 g/dl (6.4-8.2)
[2017-04-16 14:37] LABS: FERRITIN 288.638 ng/ml (6.9-282.5)
[2017-04-16 15:46] LABS: URINE APPEARANCE CLEAR; URINE BILIRUBIN NEGATIVE (NEGATIVE); URINE BLOOD NEGATIVE (NEGATIVE); URINE COLOR LTYELLOW; URINE GLUCOSE (UA) 2+ (NEGATIVE); URINE KETONE NEGATIVE (NEGATIVE); URINE LEUK ESTERASE NEGATIVE (NEGATIVE); URINE NITRITE NEGATIVE (NEGATIVE); URINE UROBILINOGEN NEGATIVE E.U./dl (0.2-1.0)
[2017-04-16 15:49] LABS: URINE PROTEIN 2+ (NEGATIVE)
[2017-04-16 16:00] LABS: URINE HYALINE CAST 1 /lpf; URINE MUCUS RARE; URINE RBC 1 /hpf (0-3); URINE WBC 2 /hpf (3-5)
--- NOTE | 2017-04-16 17:45 | PN ---
Teaching Attending Note Name of Resident: Prashant Ritchie ATTENDING PHYSICIAN STATEMENT I saw and evaluated the patient. I reviewed the resident's note and discussed the case with the resident. I agree with the resident's findings and plan as documented. 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 Denies lightheadedness, dizziness, SOB or syncope. ROS positive for 2 day history of loose BM x 2 episodes otherwise all points are negative Most recent blood transfusion was in February 2017 PAST MEDICAL HISTORY: Anemia of Chronic Disease requiring multiple transfusions in the past CKD with baseline CR 3.5 HFPEF HTN CAD HLD Hypothyroidism IDDM Morbid obesity Horseshoe kidney PAST SURGICAL HISTORY: x3 cholecystectomy R knee replacement Social History: Smoking: Never Alcohol:2 drinks per month Drugs: Never Family History: LFather is alive and has HTN, DMII; mother of DMII complications brother and sister has DMII daughter and son have DMII Allergies black pepper Allergy (Severe, Verified 02/23/17 11:09) Swelling Penicillins Allergy (Severe, Verified 02/23/17 11:09) Rash strawberries Allergy (Severe, Uncoded 02/23/17 11:09) Rash OBJECTIVE: Vital Signs Temperature 97.7 F 04/16/17 16:15 Pulse Rate 57 L 04/16/17 16:15 Respiratory Rate 18 04/16/17 16:15 Blood Pressure 146/90 04/16/17 16:15 O2 Sat by Pulse Oximetry (%) 97 04/16/17 16:15 ENERAL: Awake, alert, and fully oriented, in no acute distress. HEAD: Normal with no signs of trauma. EYES: Pupils equal, round and reactive to light EARS, NOSE, THROAT: Moist mucous membranes. NECK: supple without JVD HEART: Regular rate and rhythm, normal S1 and S2 ABDOMEN: Soft, nontender,obese not distended MUSCULOSKELETAL: No CVA tenderness. UPPER EXTREMITIES: 2+ pulses, warm, well-perfused. No cyanosis. No clubbing. LOWER EXTREMITIES: 2+ pulses, warm, well-perfused. No calf tenderness. 2+ peripheral edema. NEUROLOGICAL: Cranial nerves II-XII grossly intact. Normal speech. PSYCHIATRIC: Cooperative. Good eye contact. Appropriate mood and affect Abnormal Lab Results 04/16/17 04/16/17 04/16/17 12:40 12:40 12:40 RBC 2.29 L Hgb 7.1 L D Hct 21.7 L D Eosinophils % 5.2 H Retic Count INR 1.28 H Potassium 5.3 H D Carbon Dioxide 18 L BUN 51 H Creatinine 3.5 H Random Glucose 205 H D Ferritin AST 7 L D Albumin 3.3 L Urine Protein Urine Glucose (UA) Crossmatch 04/16/17 04/16/17 04/16/17 12:40 13:15 13:57 RBC Hgb Hct Eosinophils % Retic Count 2.12 H D INR Potassium Carbon Dioxide BUN Creatinine Random Glucose Ferritin 288.638 H AST Albumin Urine Protein Urine Glucose (UA) Crossmatch See Detail 04/16/17 15:30 RBC Hgb Hct Eosinophils % Retic Count INR Potassium Carbon Dioxide BUN Creatinine Random Glucose Ferritin AST Albumin Urine Protein 2+ H Urine Glucose (UA) 2+ H Crossmatch ASSESSMENT AND PLAN: 1. Anemia - chronic , asymptomatic at this time. - 1 unit of PRBC ordered in ED and being transfused - will check cbc after transfusion - Lasix post transfusion considering history of CHF 2. Hyperkalemia - secondary to renal insufficiency - lasix - insulin/cagl/dextrose -repeat BMP 3. CKD - at baseline otherwise stable at this time and should be followed on OP basis May d/c after transfusion if K improved
[2017-04-16] MEDS ORDERED: INSULIN REGULAR HUMAN 100 UNITS/ML *VIAL IVPUSH ONE (18:03)
[2017-04-16] MEDS ORDERED: CALCIUM GLUCONATE 10% - 1,000 MG/10 ML VIAL IVPB ONE (18:04)
[2017-04-16] MEDS ORDERED: DEXTROSE 50%-WATER 50 ML DISP.SYRIN IVPUSH ONE ×2 (18:06→18:45)
[2017-04-16] MEDS ORDERED: ACETAMINOPHEN 500 MG TABLET (FP) PO PRN (18:09)
[2017-04-16] MEDS ORDERED: FUROSEMIDE 40 MG/4 ML INJECTABLE VIAL IVPUSH ONE (18:11)
[2017-04-16] MEDS ORDERED: SODIUM POLYSTYRENE SULFONATE 15 GM/60 ML BOTTLE PO ONE (18:45)
--- NOTE | 2017-04-16 18:56 | HP ---
CHIEF COMPLAINT: Abdominal pain PCP:Dr. Van Johnson HISTORY OF PRESENT ILLNESS: 61 yo F with a significant PMHx of IDDM, CHF, CAD, horseshoe kidney, HTN, HLD, CHF, anemia (last transfusion was 02/28), who presents to the ER sent by PCP for low Hgb levels found on routine labs. She was found to have a Hgb of 7.1. She endorses 5 day history of intermittent 10/10 epigastric tightness that radiates to bilateral upper quadrants. No aggravating factors and alleviated Tylenol. She states that she has recently start a new physical therapy regimen. She had mentioned some diarrhea to ER doc , however upon further questioning it was only two bouts of loose stool 1 day apart. No blood noted and she said they were dark but she's also on iron supplementation. She denies symptoms of JENKINS, SOB, fatigue, lightheadedness, chest pain, or fever. ER course was notable for: (1)CT of abdomen showed no acute pathology. (2)K+ - 5.3 (3)Stool occult blood was negative. Recent Travel: denies. PAST MEDICAL HISTORY: IDDM, CHF, CAD, horseshoe kidney, HTN, HLD, CHF PAST SURGICAL HISTORY: CCY and 3 Social History: Smoking:never Alcohol:no Drugs: no Family History: Allergies black pepper Allergy (Severe, Verified 04/16/17 11:57) Swelling Penicillins Allergy (Severe, Verified 04/16/17 11:57) Rash strawberry Allergy (Verified 04/16/17 11:59) Rash HOME MEDICATIONS: Home Medications Medication Instructions Recorded Acetaminophen [Pain Reliever] 500 mg PO PRN PRN 04/16/16 Amlodipine Besylate [Norvasc -] 10 mg PO DAILY 04/16/16 Hydralazine HCl [Apresoline -] 50 mg PO DAILY 04/16/16 Levothyroxine [Synthroid -] 100 mcg PO DAILY 04/16/16 Metoprolol Tartrate [Lopressor] 100 mg PO BID 04/16/16 Omeprazole [Prilosec] 40 mg PO DAILY 04/16/16 Fenofibric Acid [Trilipix -] 45 mg PO DAILY cap 04/20/16 Enalapril Maleate [Vasotec] 10 mg PO DAILY 02/23/17 Ferrous Sulfate 325 mg PO BID 02/23/17 Furosemide [Lasix -] 40 mg PO BID 02/23/17 Insulin Lispro [Humalog Kwikpen 0 unit SQ ASDIR 02/23/17 U-100] Labetalol HCl [Normodyne -] 200 mg PO BID 02/23/17 Simvastatin 40 mg PO DAILY 02/23/17 Sodium Bicarbonate - 650 mg PO DAILY 02/23/17 Insulin (Levemir) [Levemir Vial] 20 units SQ HS ml 02/24/17 REVIEW OF SYSTEMS CONSTITUTIONAL: Absent: fever, chills, diaphoresis, generalized weakness, malaise, loss of appetite, weight change HEENT: Absent: rhinorrhea, nasal congestion, throat pain, throat swelling, difficulty swallowing, mouth swelling, ear pain, eye pain, visual changes CARDIOVASCULAR: Absent: chest pain, syncope, palpitations, irregular heart rate, lightheadedness , peripheral edema RESPIRATORY: Absent: cough, shortness of breath, dyspnea with exertion, orthopnea, wheezing, stridor, hemoptysis GASTROINTESTINAL:(+)abdominal pain Absent: , abdominal distension, nausea, vomiting, diarrhea, constipation, melena , hematochezia GENITOURINARY: Absent: dysuria, frequency, urgency, hesitancy, hematuria, flank pain, genital pain MUSCULOSKELETAL: Absent: myalgia, arthralgia, joint swelling, back pain, neck pain SKIN: Absent: rash, itching, pallor HEMATOLOGIC/IMMUNOLOGIC: Absent: easy bleeding, easy bruising, lymphadenopathy, frequent infections ENDOCRINE: Absent: unexplained weight gain, unexplained weight loss, heat intolerance, cold intolerance NEUROLOGIC: Absent: headache, focal weakness or paresthesias, dizziness, unsteady gait, seizure, mental status changes, bladder or bowel incontinence PSYCHIATRIC: Absent: anxiety, depression, suicidal or homicidal ideation, hallucinations. PHYSICAL EXAMINATION Vital Signs - 24 hr 04/16/17 17:53 Temperature 97.7 F Pulse Rate 57 L Respiratory 18 Rate Blood Pressure 146/90 O2 Sat by Pulse 97 Oximetry (%) GENERAL: AAOx3 , NAD, hirsutism HEAD: NC/AT EYES: PERRLA, extraocular movements intact, sclera pale/anicteric, conjunctiva clear. No lid lag. EARS, NOSE, THROAT: dry mucous membranes. NECK: Normal range of motion, supple without lymphadenopathy, JVD, or masses. LUNGS: CTAB. No wheezes, and no crackles. No accessory muscle use. HEART: RRR, no M/G/R ABDOMEN: Soft,obese, epigastric tender, not distended, normoactive bowel sounds , no guarding, no rebound, no masses. No hepatomegaly or splenomegaly. MUSCULOSKELETAL: decreased ROM of lower ext. UPPER EXTREMITIES: 2+ pulses, warm, well-perfused. No cyanosis. No clubbing. No peripheral edema. LOWER EXTREMITIES: 2+ pulses, warm, well-perfused. No calf tenderness. 1+ edema. NEUROLOGICAL: Cranial nerves II-XII intact. Normal speech. gait not observed( ambulates with walker) ASSESSMENT/PLAN: 61 yo F with a significant PMHx of IDDM, CHF, CAD, horseshoe kidney, HTN, HLD, CHF, anemia (last transfusion was 02/28), who presents to the ER sent by PCP for transfusion of PRBC after discovering low Hgb levels on routine labs. Problem List - Problem (1) Anemia Assessment/Plan: * Transfuse one unit PRBC * Repeat CBC post transfusion * Will give lasix 20mg IV post transfusion. * Iron studies pending (2) Hyperkalemia Assessment/Plan: * Kayexelate 15gm PO * Repeat BMP 22:00 (3) Abdominal pain of unknown cause Assessment/Plan: * CT was negative for acute process. * Most likely MS from new physical therapy regimen. * Tylenol PRN (4) (HFpEF) heart failure with preserved ejection fraction Assessment/Plan: * No acute exacerbation * Continue * Atorvastatin Calcium (Lipitor -) 20 mg PO HS * Enalapril Maleate (Vasotec -) 10 mg PO DAILY * Furosemide (Lasix -) 40 mg PO BID REZA Metoprolol Tartrate (Lopressor -) 100 mg PO BID REZA (5) Hypothyroidism Assessment/Plan: * Continue Levothyroxin 100mcg daily (6) IDDM (insulin dependent diabetes mellitus) Assessment/Plan: * ADA/sodium diet * BGM ACHS * ISS ACHS * Levemir 20units. (7) CKD (chronic kidney disease) Assessment/Plan: * Seen by Dr. Yuan * history of horseshoe kidney * At baseline for BUN and Cr. Visit type - Emergency Visit Emergency Visit: Yes ED Registration Date: 04/16/17 Care time: The patient presented to the Emergency Department on the above date and was hospitalized for further evaluation of their emergent condition. - New Patient This patient is new to me today: Yes Date on this admission: 04/17/17 - Critical Care Critical Care patient: No
--- NOTE | 2017-04-16 19:15 | EKG ---
Test Reason : Blood Pressure : / mmHG Vent. Rate : 062 BPM Atrial Rate : 062 BPM P-R Int : 206 ms QRS Dur : 078 ms QT Int : 430 ms P-R-T Axes : 027 017 005 degrees QTc Int : 436 ms NORMAL SINUS RHYTHM NORMAL ECG WHEN COMPARED WITH ECG OF 23-FEB-2017 13:12, NO SIGNIFICANT CHANGE WAS FOUND Confirmed by KAYLI LUGO MD ([id number]) on 04/16/2017 7:14:42 PM Referred By: Confirmed By:KAYLI LUGO MD
[2017-04-16] MEDS ORDERED: FUROSEMIDE 40 MG/4 ML INJECTABLE VIAL ONE (20:36)
[2017-04-16] MEDS ORDERED: INSULIN DETEMIR 100 UNITS/ML MDV SQ SCH (22:00)
[2017-04-16] MEDS ORDERED: ATORVASTATIN CA 20 MG TABLET (FP) PO SCH (22:00)
[2017-04-16] MEDS: LABETALOL HCL 200 MG TABLET (FP) PO SCH (22:18)
[2017-04-16] MEDS: FERROUS SO4 325 MG TABLET (FP) PO SCH (22:18)
[2017-04-16] MEDS: METOPROLOL TARTRATE 50 MG TABLET (FP) PO SCH (22:18)
[2017-04-16] MEDS: FUROSEMIDE 40 MG TABLET (FP) PO SCH (22:18)
[2017-04-16 22:29] LABS: CALCIUM 8.9 mg/dL (8.5-10.1); COCKROFT - GAULT 25.6955; CREATININE 3.5 mg/dL (0.55-1.02)
[2017-04-17] MEDS ORDERED: LEVOTHYROXINE NA 100 MCG TABLET (FP) PO SCH (07:00)
[2017-04-17 08:43] LABS: MCH 30.7 pg (25.7-33.7); MCHC 33.8 g/dl (32.0-36.0); MEAN PLT VOLUME 9.9 fl (7.5-11.1); PLATELET COUNT 196 K/MM3 (134-434); RDW 17.1 % (11.6-15.6); WHITE BLOOD COUNT 8.5 K/mm3 (4.0-10.0)
[2017-04-17 08:46] LABS: CALCIUM 9.2 mg/dL (8.5-10.1); COCKROFT - GAULT 27.2595; CREATININE 3.3 mg/dL (0.55-1.02)
[2017-04-17] MEDS: FERROUS SO4 325 MG TABLET (FP) PO SCH (09:52)
[2017-04-17] MEDS: METOPROLOL TARTRATE 50 MG TABLET (FP) PO SCH (09:52)
[2017-04-17] MEDS: FUROSEMIDE 40 MG TABLET (FP) PO SCH (09:52)
[2017-04-17] MEDS: LABETALOL HCL 200 MG TABLET (FP) PO SCH (09:52)
[2017-04-17] MEDS ORDERED: ENALAPRIL MALEATE 10 MG TABLET (FP) PO SCH (10:00)
[2017-04-17] MEDS ORDERED: hydrALAZINE HCL 50 MG TABLET (FP) PO SCH (10:00)
[2017-04-17] MEDS ORDERED: SODIUM BICARBONATE 650 MG TABLET PO SCH (10:00)
[2017-04-17] MEDS ORDERED: PANTOPRAZOLE 40 MG TABLET (FP) PO SCH (10:00)
[2017-04-17] MEDS ORDERED: FENOFIBRIC ACID 45 MG CAP PO SCH (10:00)
[2017-04-17] MEDS ORDERED: amLODIPine BESYLATE 10 MG TABLET (FP) PO SCH (10:00)
[2017-04-17 10:29] VITALS: BP 156/57; PULSE 69; TEMP 98.4
--- NOTE | 2017-04-17 15:28 | DS ---
Physical Examination Vital Signs: Vital Signs Temperature 98.4 F 04/17/17 10:00 Pulse Rate 69 04/17/17 10:00 Respiratory Rate 18 04/17/17 10:00 Blood Pressure 156/57 04/17/17 10:00 O2 Sat by Pulse Oximetry (%) 97 04/17/17 10:00 Findings/Remarks: denies any abd pain today, has no SOB , denies any GI bleed or diarrhea . has no urinary sx . Constitutional: Yes: Well Nourished, No Distress, Calm Eyes: Yes: Conjunctiva Clear, EOM Intact HENT: Yes: Atraumatic, Normocephalic Neck: Yes: Supple Cardiovascular: Yes: Regular Rate and Rhythm, S1. No: JVD, Murmur Respiratory: Yes: Regular, CTA Bilaterally Gastrointestinal: Yes: Normal Bowel Sounds, Soft, Abdomen, Obese. No: Palpable Mass, Tenderness Extremities: No: Cold, Cool, Cyanosis Edema: No Neurological: Yes: Alert, Oriented Labs: CBC, BMP 04/17/17 06:30 04/17/17 06:30 Discharge Summary Reason For Visit: CHF, ANEMIA Hospital Course: 61 y/o lady with h/o DM , CHF, CAD, horseshoe kidney with CKD , HTN, HLD, and chronic anemia needing transfusion , who presented with low HB from her PCP office . upon presentation , her HB was 7.1 without any evidence of active bleed. she also had abd pain. work up in ER included CT of abd /pelvis which showed no active acute process in Abd ( horse shoe kidney) . on admission she had abd pain but that resolved today and abd exam was benign. HEr anemia was thought to be due to worsening chronic anemia due to chronic Dz / renal failure . she received 2 units of RBC and HB improved to 10 . she has no sx today. of note , last colonoscopy and EGD were [address] Ahuja ( in office a) and showed no evidence of bleed per her. last colonoscopy in our system from 2012 with polyp . She showed no evidence of fluid overload. last echo 09/29 with nl EF . her cr was at [facility] and she is to follow with her renal doctor . dispo : dc home condition : stable f/u PMD, GI and renal Condition: Stable - Instructions Diet, Activity, Other Instructions: - please follow with your pCP in 1 week - please report any bleeding to your PCP . - follow with your GI and renal doctors. - no change i n your home meds Referrals: Rashawn Ahuja MD [Staff Physician] - Van Johnson [Primary Care Provider] - 1 Week Jourdan Cummins MD [Staff Physician] - Disposition: HOME - Home Medications Comprehensive Discharge Medication List: Ambulatory Orders Acetaminophen [Pain Reliever] 500 mg PO PRN PRN 04/16/16 Amlodipine Besylate [Norvasc -] 10 mg PO DAILY 04/16/16 Hydralazine HCl [Apresoline -] 50 mg PO BID 04/16/16 Levothyroxine [Synthroid -] 100 mcg PO DAILY 04/16/16 Metoprolol Tartrate [Lopressor] 100 mg PO BID 04/16/16 Omeprazole [Prilosec] 40 mg PO DAILY 04/16/16 Fenofibric Acid [Trilipix -] 45 mg PO DAILY cap 04/20/16 Enalapril Maleate [Vasotec] 10 mg PO DAILY 02/23/17 Ferrous Sulfate 325 mg PO BID 02/23/17 Furosemide [Lasix -] 40 mg PO BID 02/23/17 Insulin Lispro [Humalog Kwikpen U-100] See Protocol SQ ASDIR 02/23/17 Labetalol HCl [Normodyne -] 200 mg PO BID 02/23/17 Simvastatin 40 mg PO DAILY 02/23/17 Sodium Bicarbonate - 650 mg PO DAILY 02/23/17 This patient is new to me today: Yes Date on this admission: 04/17/17 Emergency Visit: Yes ED Registration Date: 04/16/17 Care time: The patient presented to the Emergency Department on the above date and was hospitalized for further evaluation of their emergent condition. Critical Care patient: No - Discharge Referral Referred to [facility] No
[2017-04-19 08:10] LABS: HAPTOGLOBIN 118 mg/dL (34-200); TRANSFERRIN 199 mg/dL (200-370)
[2017-04-22 06:07] LABS: SERUM IRON 97 ug/dL (27-159); TOTAL IRON BINDING CAPACITY 234 ug/dL (250-450); UIBC 137 ug/dL (131-425)
== END 2017-04-17 12:51 | disposition home or self-care (01) | DRG 812 ==
LOC: JER 11:52 → UNDOADMIN 17:20 → JERBED 17:20 → UNDOADMIN 17:25 → JERBED 17:25 → INTOOBSV 17:52 → J8W 18:16 → JERBED 18:16
PROVIDERS: ADMIT Internal Medicine; ATTEND Internal Medicine
PROC: 30233N1 Transfusion of Nonautologous Red Blood Cells into Peripheral Vein, Percutaneous Approach (ICD-10-PCS; principal; 2017-04-16)
DX: D64.9 Anemia, unspecified (principal); I13.0 Hypertensive heart and chronic kidney disease with heart failure and stage 1 through stage 4 chronic kidney disease, or unspecified chronic kidney disease; I50.20 Unspecified systolic (congestive) heart failure; I25.10 Atherosclerotic heart disease of native coronary artery without angina pectoris; Q63.1 Lobulated, fused and horseshoe kidney; D63.8 Anemia in other chronic diseases classified elsewhere; E78.5 Hyperlipidemia, unspecified; E87.5 Hyperkalemia; K21.9 Gastro-esophageal reflux disease without esophagitis; E03.9 Hypothyroidism, unspecified; E66.01 Morbid (severe) obesity due to excess calories; Z68.33 Body mass index [BMI] 33.0-33.9, adult; Z71.3 Dietary counseling and surveillance; E11.22 Type 2 diabetes mellitus with diabetic chronic kidney disease; N18.9 Chronic kidney disease, unspecified; Z96.651 Presence of right artificial knee joint; Z79.4 Long term (current) use of insulin
CPT/HCPCS: 36415; 36430; 74176-TC; 80048; 80053; 81003; 81015; 82272; 82728; 83010; 83540; 83550; 83615; 83690; 84466; 85025; 85027; 85044; 85610; 86850; 86900; 86901; 86922; 93005; 93010; 99285-25; G0378; P9038; P9058

== ENCOUNTER 2017-10-13 09:05 | Day surgery (SDC) | payer OTHER ==
[2017-10-13 10:56] VITALS: BMI 30.7
[2017-10-13] MEDS ORDERED: MIDAZOLAM HCL 2 MG/2 ML SINGLE DOSE VIAL ONE ×2 (12:36)
[2017-10-13] MEDS ORDERED: LIDOCAINE HCL 1%, 10 MG/ML (20ML VIAL) ONE (12:42)
[2017-10-13] MEDS ORDERED: HEPARIN NA (PORCINE) 5,000 UNITS/ML 1ML VIAL ONE ×2 (12:42→13:22)
--- NOTE | 2017-10-13 12:49 | HP ---
History & Physical Update - History History: No Change - Physical Physical: No Change - Assessment Assessment: No Change - Plan Plan: No Change
[2017-10-13] MEDS ORDERED: ONDANSETRON 4 MG/2 ML VIAL IVPUSH PRN (13:16)
[2017-10-13] MEDS ORDERED: oxyCODONE HCL 5 MG TABLET PO PRN (13:16)
[2017-10-13] MEDS ORDERED: LIDOCAINE HCL/PF 2% SDV 5ML VIAL ONE (13:22)
[2017-10-13] MEDS ORDERED: PROPOFOL 20 ML ONE ×2 (13:22)
[2017-10-13] MEDS ORDERED: SODIUM CHLORIDE 1,000 ML IV SCH (13:30)
[2017-10-13] MEDS ORDERED: ceFAZolin SODIUM 1 GM VIAL ONE (13:43)
[2017-10-13] MEDS ORDERED: hydrALAZINE HCL 20 MG/ML VIAL ONE (13:45)
[2017-10-13] MEDS ORDERED: ceFAZolin SODIUM 1 GM VIAL IVPB ONE (13:48)
[2017-10-13] MEDS ORDERED: LIDOCAINE HCL 1%, 10 MG/ML (20ML VIAL) NR ONE (14:15)
--- NOTE | 2017-10-13 15:26 | SURG ---
Surgery Claims Adjustor Note Claims Adjustor: Harper Pinzon PA-C Date of Service: 10/13/17 Diagnosis: End stage renal disease Procedure: Creation of left cephalic vein fistula I was present for the entirety of the operative procedure. For further detail, please refer to operative report. Visit type - Case Type Case Type: Scheduled Admission - Emergency Emergency Visit: No - New patient This patient is new to me today: Yes Date on this admission: 10/13/17
--- NOTE | 2017-10-13 15:28 | OP ---
Operative Note - Note: Operative Date: 10/13/17 Pre-Operative Diagnosis: CRF Operation: creation of left cephalic vein fistula. Post-Operative Diagnosis: Same as Pre-op Surgeon: Jesse Ledesma Anesthesia: Fractional Estimated Blood Loss (mls): 30 Operative Report Dictated: Yes
[2017-10-13 17:05] VITALS: TEMP 98
--- NOTE | 2017-10-13 17:37 | OP ---
DATE OF OPERATION: 10/13/2017 PREOPERATIVE DIAGNOSIS: Chronic renal failure. POSTOPERATIVE DIAGNOSIS: Chronic renal failure. PROCEDURE: Creation of left arteriovenous fistula. SURGEON: Jesse Hernandez DO ANESTHESIA: Nerve block and fractional. INDICATION FOR PROCEDURE: The patient is a 62-year-old female who needs permanent dialysis access because she is going to be going onto dialysis in a couple of months. She had a preoperative ultrasound showing that she has a good cephalic vein in her left arm, and it was decided that she should get a left AV fistula. Patient was consented for the procedure understanding all risks, benefits, and alternatives, then taken to the operating room. Prior to going to [facility] operating room, she received a supraclavicular nerve block to the left arm, and patient was then brought into the operating room. PROCEDURE IN DETAIL: She was laid on the operating room table in the supine manner, and the area of the left arm was prepped and draped in a sterile surgical manner. Under ultrasound guidance, we were able to visualize the cephalic vein below the antecubital space, and that was marked on the skin with a skin marker, along with the brachial artery being marked as well. We then christiano a diagonal incision across both blood vessels, below the antecubital fossa. We then injected 10 mL of % in the area. We then took a number-15 blade and made our 4-cm incision using a 15 blade. Bovie electrocautery used to control hemostasis, and we were able to get down to the cephalic vein. The cephalic vein was then dissected anterior and posterior, and all branches were ligated using 4-0 silk. We then went medially and went through the fascia and dissected out our brachial artery. Brachial artery was dissected anteriorly and posteriorly, and Vesseloops were placed proximally and distally. At this point, 5000 units of IV heparin were administered to the patient. We then went ahead and ligated our vein distally using 2-0 silk. We then placed a 4-Qatari feeding tube into the vein and into the cephalic vein. There was good blood flow, and there was good back-bleeding. At this point, we went ahead and made a 7-mm venotomy on the vein. We then got distal and proximal control on our artery. We then used a 15 blade, made an arteriotomy, extended it to 7 mm using Hill scissors. Next, 6-0 Prolene stay sutures were placed. We then used 6-0 Prolene double arm, went outside in on the vein and inside on the artery and ran the suture around, performing anastomosis between the artery and the vein. Once completed, we opened the distal artery first, then the proximal artery. There was no bleeding. Our AV fistula vein bifurcated up higher to the basilic vein, and the basilic vein was then tied off using 2-0 silk. All the blood flow went into the cephalic vein, and there was a good thrill in the cephalic vein in the upper arm. At this point, we irrigated the wound copiously. Next, 3-0 Vicryl was used, and the subcutaneous tissue was approximated in interrupted manner, and the skin was closed with skin mya. Area was wet and dried, and 4 x 4, Tegaderms were placed. The patient tolerated the procedure with no complication. Patient transferred to PACU in stable condition. JESSE HERNANDEZ DO NP/[id number]
[2017-10-13 18:00] VITALS: BP 136/47; PULSE 58
== END 2017-10-13 18:02 | disposition home or self-care (01) ==
LOC: JASU-SURG 09:05
PROVIDERS: ATTEND Surgery Vascular Surgery
PROC: 03180ZD Bypass Left Brachial Artery to Upper Arm Vein, Open Approach (ICD-10-PCS; principal; 2017-10-13 12:00)
DX: I12.0 Hypertensive chronic kidney disease with stage 5 chronic kidney disease or end stage renal disease (principal); E11.9 Type 2 diabetes mellitus without complications; I50.9 Heart failure, unspecified; N18.6 End stage renal disease
CPT/HCPCS: 36415; 84132; 94760; J1644

== ENCOUNTER 2018-01-11 15:47 | Emergency (ER) | payer OTHER ==
[2018-01-11 15:53] VITALS: BP 158/61; PULSE 72; TEMP 97.6; BMI 28.0
--- NOTE | 2018-01-11 17:26 | PDOC ---
History of Present Illness - General Chief Complaint: Revisit, Lab Variance Stated Complaint: HEADACHES, LAB VARIANCE (PCP SENT) Time Seen by Provider: 01/11/18 17:24 History Source: Patient - History of Present Illness Timing/Duration: other Associated Symptoms: reports: headaches, nausea/vomiting. denies: chest pain, cough, diaphoresis, fever/chills, shortness of breath, weakness Past History - Past Medical History Allergies/Adverse Reactions: Allergies Allergy/AdvReac Type Severity Reaction Status Date / Time black pepper Allergy Severe Swelling Verified 01/11/18 15:50 Penicillins Allergy Severe Rash Verified 01/11/18 15:50 strawberry Allergy Rash Verified 01/11/18 15:50 Home Medications: Ambulatory Orders Acetaminophen [Pain Reliever] 500 mg PO PRN PRN 04/16/16 Amlodipine Besylate [Norvasc -] 10 mg PO DAILY 04/16/16 Levothyroxine [Synthroid -] 100 mcg PO DAILY 04/16/16 Metoprolol Tartrate [Lopressor] 100 mg PO BID 04/16/16 Omeprazole [Prilosec] 40 mg PO DAILY 04/16/16 hydrALAZINE HCL [Apresoline -] 50 mg PO BID 04/16/16 Fenofibric Acid [Trilipix -] 45 mg PO DAILY cap 04/20/16 Enalapril Maleate [Vasotec] 10 mg PO DAILY 02/23/17 Ferrous Sulfate 325 mg PO BID 02/23/17 Furosemide [Lasix -] 40 mg PO BID 02/23/17 Labetalol HCl [Normodyne -] 200 mg PO BID 02/23/17 Simvastatin 40 mg PO DAILY 02/23/17 Aspirin [ASA -] 81 mg PO DAILY 08/22/17 Insulin Glargine,Hum.rec.anlog [Lantus (nf)] 20 units SQ DAILY 10/13/17 Insulin NPH Human Isophane [Humulin N] 20 unit SQ HS 10/13/17 Anemia: Yes Asthma: No Cancer: No Cardiac Disorders: No CVA: No COPD: No CHF: No Dementia: No Diabetes: Yes GI Disorders: Yes (REFLUX) Disorders: Yes (1 kidney) HTN: Yes Hypercholesterolemia: Yes Liver Disease: No Seizures: No Thyroid Disease: Yes (hypothyroid) - Surgical History Abdominal Surgery: No Appendectomy: No Cardiac Surgery: No Cholecystectomy: Yes Lung Surgery: No Neurologic Surgery: No Orthopedic Surgery: Yes (R knee replacement 09/17/13) - Suicide/Smoking/Psychosocial Hx Smoking Status: No Smoking History: Never smoked Have you smoked in the past 12 months: No Number of Cigarettes Smoked Daily: 0 Hx Alcohol Use: No Drug/Substance Use Hx: No Substance Use Type: None Hx Substance Use Treatment: No Review of Systems - Review of Systems Constitutional: No: Chills, Fever Respiratory: No: Cough, Shortness of Breath Cardiac (ROS): No: Chest Pain ABD/GI: Yes: Nausea. No: Diarrhea, Vomiting, Abdominal cramping : No: Dysuria Neurological: Yes: Headache. No: Dizziness *Physical Exam - Vital Signs Last Vital Signs Temp Pulse Resp BP Pulse Ox 97.6 F 72 19 158/61 98 01/11/18 15:50 01/11/18 15:50 01/11/18 15:50 01/11/18 15:50 01/11/18 15:50 - Physical Exam General Appearance: Yes: Appropriately Dressed. No: Apparent Distress HEENT: positive: Normal Voice Respiratory/Chest: positive: Lungs Clear, Normal Breath Sounds. negative: Respiratory Distress Cardiovascular: positive: Regular Rate, S1, S2 Gastrointestinal/Abdominal: positive: Soft. negative: Tender Musculoskeletal: negative: CVA Tenderness Integumentary: positive: Dry, Warm Neurologic: positive: Fully Oriented, Alert, Normal Mood/Affect, Motor Strength 5/5. negative: Facial Droop, Confused, Disoriented ED Treatment Course - LABORATORY CBC & Chemistry Diagram: 01/11/18 18:30 01/11/18 18:30 Medical Decision Making - Medical Decision Making 01/11/18 17:25 62-year-old female, history of diabetes, CHF, CAD, horseshoe kidney with COPD, hypertension, hyperlipidemia, chronic anemia needing transfusions, sent in from her doctor for hyperkalemia on labs today. States her potassium was 6.3. Complaining of a headache today and states she threw up once last night. Otherwise states she is feeling well with no weakness, dizziness, chest pain, shortness of breath, abdominal pain, change in bowel movements or dysuria. See exam Hyperkalemia K 6.3 in pmd's office today H/o CKD, not on HD Currently c/o vague JENKINS only Stable in ED -labs/dispo pending 01/11/18 19:00 Signed out to RANJANA Vieyra pending chem and renal c/s
[2018-01-11 18:35] LABS: BASO % 0.3 % (0-2.0); EOS % 8.2 % (0-4.5); HEMATOCRIT 28.6 % (32.4-45.2); HEMOGLOBIN 9.6 GM/dL (10.7-15.3); LYMPH % 8.6 % (8-40); MCH 31.3 pg (25.7-33.7); MCHC 33.4 g/dl (32.0-36.0); MEAN CELL VOLUME 93.5 fl (80-96); MEAN PLT VOLUME 8.8 fl (7.5-11.1); MONO % 5.7 % (3.8-10.2); NEUT % 77.2 % (42.8-82.8); PLATELET COUNT 260 K/MM3 (134-434); RBC 3.06 M/mm3 (3.60-5.2); RDW 14.1 % (11.6-15.6); WHITE BLOOD COUNT 9.3 K/mm3 (4.0-10.0)
[2018-01-11 18:59] LABS: ALBUMIN 2.7 g/dl (3.4-5.0); ANION GAP 11 (8-16); BILIRUBIN,TOTAL 0.3 mg/dL (0.2-1.0); BLOOD UREA NITROGEN 63 mg/dL (7-18); CALCIUM 8.3 mg/dL (8.5-10.1); CHLORIDE 106 mmol/L (98-107); CO2 20 mmol/L (21-32); CREATININE 4.5 mg/dL (0.55-1.02); GLUCOSE,RANDOM 159 mg/dL (74-106); SGOT/AST 23 U/L (15-37); SGPT/ALT 47 U/L (12-78); SODIUM 137 mmol/L (136-145)
[2018-01-11 19:00] LABS: ALK PHOS 110 U/L (45-117)
--- NOTE | 2018-01-11 19:59 | PDOC ---
*Physical Exam - Vital Signs Last Vital Signs Temp Pulse Resp BP Pulse Ox 97.6 F 72 19 158/61 98 01/11/18 15:50 01/11/18 15:50 01/11/18 15:50 01/11/18 15:50 01/11/18 15:50 - Physical Exam General Appearance: Yes: Appropriately Dressed Respiratory/Chest: positive: Lungs Clear, Normal Breath Sounds Cardiovascular: positive: Regular Rhythm, Regular Rate Gastrointestinal/Abdominal: positive: Normal Bowel Sounds, Soft Extremity: positive: Normal Capillary Refill, Normal Inspection, Normal Range of Motion, Other (Left AC AV fistula + bruit. ) Integumentary: positive: Normal Color, Dry, Warm Neurologic: positive: Fully Oriented, Alert, Normal Mood/Affect ED Treatment Course - LABORATORY CBC & Chemistry Diagram: 01/11/18 18:30 01/11/18 18:30 - ADDITIONAL ORDERS Additional order review: Laboratory Results 01/11/18 18:30 Sodium 137 Potassium 5.0 Chloride 106 Carbon Dioxide 20 L Anion Gap 11 BUN 63 H Creatinine 4.5 H Creat Clearance w eGFR 9.94 Random Glucose 159 H Calcium 8.3 L Total Bilirubin 0.3 D AST 23 ALT 47 Alkaline Phosphatase 110 Total Protein 7.0 Albumin 2.7 L 01/11/18 18:30 RBC 3.06 L MCV 93.5 MCHC 33.4 RDW 14.1 MPV 8.8 D Neutrophils % 77.2 D Lymphocytes % 8.6 D Monocytes % 5.7 Eosinophils % 8.2 H Basophils % 0.3 Medical Decision Making - Medical Decision Making 01/11/18 20:21 Repeat Potassium 5.0. patient is asymptomatic. 01/11/18 20:22 patient reports headache today, typical in nature for patient. usually take Tylenol. will give dose now. 01/11/18 20:27 *DC/Admit/Observation/Transfer Diagnosis at time of Disposition: CKD (chronic kidney disease) Qualifiers: Chronic kidney disease stage: stage 4 (severe) Qualified Code(s): N18.4 - Chronic kidney disease, stage 4 (severe) Anemia Qualifiers: Anemia type: due to chronic kidney disease Chronic kidney disease stage: stage 3 (moderate) Qualified Code(s): N18.3 - Chronic kidney disease, stage 3 ( moderate); D63.1 - Anemia in chronic kidney disease; D63.1 - Anemia in chronic kidney disease - Discharge Dispostion Disposition: HOME - Referrals - Patient Instructions Printed Discharge Instructions: Chronic Renal Failure Additional Instructions: follow up with Dr. dalton and Dr. Johnson as soon as possible. return to the ER if symptoms worsen - Post Discharge Activity
--- NOTE | 2018-01-11 20:19 | PDOC ---
*Physical Exam - Vital Signs Last Vital Signs Temp Pulse Resp BP Pulse Ox 97.6 F 72 19 158/61 98 01/11/18 15:50 01/11/18 15:50 01/11/18 15:50 01/11/18 15:50 01/11/18 15:50 ED Treatment Course - LABORATORY CBC & Chemistry Diagram: 01/11/18 18:30 01/11/18 18:30 - ADDITIONAL ORDERS Additional order review: Laboratory Results 01/11/18 18:30 Sodium 137 Potassium 5.0 Chloride 106 Carbon Dioxide 20 L Anion Gap 11 BUN 63 H Creatinine 4.5 H Creat Clearance w eGFR 9.94 Random Glucose 159 H Calcium 8.3 L Total Bilirubin 0.3 D AST 23 ALT 47 Alkaline Phosphatase 110 Total Protein 7.0 Albumin 2.7 L 01/11/18 18:30 RBC 3.06 L MCV 93.5 MCHC 33.4 RDW 14.1 MPV 8.8 D Neutrophils % 77.2 D Lymphocytes % 8.6 D Monocytes % 5.7 Eosinophils % 8.2 H Basophils % 0.3 Medical Decision Making - Medical Decision Making 01/11/18 20:19 agree with care from RANJANA Vieyra
[2018-01-11] MEDS ORDERED: ACETAMINOPHEN 325 MG TABLET (FP) PO ONE (20:20)
== END 2018-01-11 21:19 | disposition home or self-care (01) ==
LOC: JER 15:47
DX: N18.4 Chronic kidney disease, stage 4 (severe) (principal); N18.3 Chronic kidney disease, stage 3 (moderate)
CPT/HCPCS: 36415; 80053; 85025; 99282-25

== ENCOUNTER 2018-01-19 08:52 | Day surgery (SDC) | payer OTHER ==
[2018-01-19] MEDS ORDERED: LIDOCAINE HCL/PF 2% SDV 5ML VIAL ONE (09:30)
[2018-01-19] MEDS ORDERED: HEPARIN NA (PORCINE) 5,000 UNITS/ML 1ML VIAL ONE (09:30)
[2018-01-19] MEDS ORDERED: MIDAZOLAM HCL 2 MG/2 ML SINGLE DOSE VIAL ONE (09:31)
[2018-01-19] MEDS ORDERED: PROPOFOL 20 ML ONE ×2 (09:31)
[2018-01-19] MEDS ORDERED: ceFAZolin SODIUM 1 GM VIAL IVPB ONE (11:47)
[2018-01-19] MEDS ORDERED: LIDOCAINE HCL 1%, 10 MG/ML (20ML VIAL) INF ONE ×2 (11:53)
--- NOTE | 2018-01-19 12:25 | OP ---
Operative Note - Note: Operative Date: 01/19/18 Pre-Operative Diagnosis: stenosis left avf Operation: venogram, venoplasty left avf Post-Operative Diagnosis: Same as Pre-op Surgeon: Jesse Ledesma Anesthesia: Fractional Estimated Blood Loss (mls): 10 Operative Report Dictated: Yes
--- NOTE | 2018-01-19 12:26 | HP ---
Admitting History and Physical - Admission Chief Complaint: Stenosis left avf, immature. Limitations to Obtaining History: No Limitations - Past Medical History Cardiovascular: Yes: CHF, HTN, Hyperlipdemia. No: AFIB, Aneurysm, Aortic Insufficiency, Aortic Stenosis, CAD, Deep Vein Thrombosis, PR, Mitral Insufficiency, Mitral Stenosis, Murmur, Pulmonary Hypertension, Other Pulmonary: No: Asthma, Bronchitis, Cancer, COPD, O2 Dependent, Pneumonia, Previously Intubated, Pulmonary Embolus, Pulmonary Fibrosis, Sleep Apnea, Other Renal/: Yes: Renal Inusuff, Other (congential horseshoe kidney). No: Renal Failure, BPH, Cancer, Hematuria, Hemodialysis, Neurogenic Bladder, Renal Calculi , UTI Heme/Onc: No: Anemia, B12 Deficiency, Bleeding Disorder, Cancer, Current Chemotherapy, Current Radiation Therapy, Hemochromatosis, Hypercoaguable State, Myeloproliferative Synd, Sickle Cell Disease, Sickle Cell Trait, Thrombocytopenia, Other Endocrine: Yes: Diabetes Mellitus, Hypothyroidism, Other (hyponatremia) - Past Surgical History Past Surgical History: Yes: Cataract Removal, Cholecystectomy, (x3), Tubal Ligation - Smoking History Smoking history: Never smoked Have you smoked in the past 12 months: No Aproximately how many cigarettes per day: 0 - Alcohol/Substance Use Hx Alcohol Use: No History of Substance Use: reports: None - Social History ADL: Support Services ([facility] 4 hours for 2days/week) History of Recent Travel: No Home Medications - Allergies Allergies/Adverse Reactions: Allergies Allergy/AdvReac Type Severity Reaction Status Date / Time black pepper Allergy Severe Swelling Verified 01/18/18 09:52 Penicillins Allergy Severe Rash Verified 01/18/18 09:52 strawberry Allergy Rash Verified 01/18/18 09:52 - Home Medications Home Medications: Ambulatory Orders Acetaminophen [Pain Reliever] 500 mg PO PRN PRN 04/16/16 Amlodipine Besylate [Norvasc -] 10 mg PO DAILY 04/16/16 Levothyroxine [Synthroid -] 100 mcg PO DAILY 04/16/16 hydrALAZINE HCL [Apresoline -] 50 mg PO BID 04/16/16 Fenofibric Acid [Trilipix -] 45 mg PO DAILY cap 04/20/16 Enalapril Maleate [Vasotec] 10 mg PO DAILY 02/23/17 Ferrous Sulfate 325 mg PO BID 02/23/17 Furosemide [Lasix -] 40 mg PO BID 02/23/17 Labetalol HCl [Normodyne -] 200 mg PO BID 02/23/17 Aspirin [ASA -] 81 mg PO DAILY 08/22/17 Insulin Glargine,Hum.rec.anlog [Lantus (nf)] 20 units SQ DAILY 10/13/17 Insulin NPH Human Isophane [Humulin N] 20 unit SQ HS 10/13/17 Metoprolol Tartrate 100 mg PO BID 01/19/18 Omeprazole 40 mg PO DAILY 01/19/18 Simvastatin 40 mg PO DAILY 01/19/18 Family Disease History - Family Disease History Family Disease History: Diabetes: Father, Mother, Heart Disease: Mother Review of Systems - Review of Systems Constitutional: reports: No Symptoms Eyes: reports: No Symptoms HENT: reports: No Symptoms Neck: reports: No Symptoms Cardiovascular: reports: No Symptoms Respiratory: reports: No Symptoms Gastrointestinal: reports: No Symptoms Genitourinary: reports: No Symptoms Musculoskeletal: reports: No Symptoms Integumentary: reports: No Symptoms Neurological: reports: No Symptoms Physical Examination Vital Signs: Vital Signs Temperature 98.2 F 01/19/18 10:29 Pulse Rate 57 L 01/19/18 10:29 Respiratory Rate 20 01/19/18 10:29 Blood Pressure 149/63 01/19/18 10:29 O2 Sat by Pulse Oximetry (%) 100 01/19/18 10:28 Constitutional: Yes: Well Nourished, No Distress, Calm Eyes: Yes: WNL, Conjunctiva Clear, EOM Intact HENT: Yes: WNL, Atraumatic, Normocephalic Neck: Yes: WNL, Supple, Trachea Midline Cardiovascular: Yes: WNL, Regular Rate and Rhythm Respiratory: Yes: WNL, Regular, CTA Bilaterally Gastrointestinal: Yes: WNL, Normal Bowel Sounds Musculoskeletal: Yes: WNL Extremities: Yes: WNL Edema: No Integumentary: Yes: WNL Neurological: Yes: WNL, Alert, Oriented ...Motor Strength: WNL Psychiatric: Yes: WNL Labs: CBC, BMP 01/19/18 09:00 Problem List - Problems (1) Hemodialysis AV fistula stenosis Code(s): T82.858A - STENOSIS OF OTHER VASCULAR PROSTH DEV/GRFT, INIT Assessment/Plan Stenosis left avf 1. For venogram today
[2018-01-19] MEDS ORDERED: ONDANSETRON 4 MG/2 ML VIAL IVPUSH PRN (12:41)
[2018-01-19] MEDS ORDERED: ACETAMINOPHEN 325 MG TABLET (FP) PO PRN (12:41)
[2018-01-19 13:14] VITALS: TEMP 98.2
[2018-01-19 14:24] VITALS: BP 158/71; PULSE 63
--- NOTE | 2018-01-19 15:32 | OP ---
DATE OF OPERATION: 01/19/2018 PREOPERATIVE DIAGNOSIS: Stenosis, left arteriovenous fistula. POSTOPERATIVE DIAGNOSIS: Stenosis, left arteriovenous fistula. PROCEDURE: Venogram, venoplasty of left arteriovenous fistula. SURGEON: Jesse Hernandez DO ANESTHESIA: Fractional. BLOOD LOSS: 10 mL INDICATION FOR PROCEDURE: The patient is a 62-year-old female who is not on dialysis yet but has a fistula that was created 3 months ago. Due to lack of followup, you know, the fistula has not matured as of yet and seems stenotic in the body of the fistula. It was decided that she would need a venogram. Patient came in through Ambulatory Surgery. Patient was consented for the procedure, understanding all risks, benefits, and alternatives, then taken to the operating room. DESCRIPTION OF PROCEDURE: Once in the operating room, she was laid down on the operating room table in supine manner, and the area of the left arm was prepped and draped in a sterile surgical manner. We then injected 5 mL of lidocaine 1% in the proximal AV fistula and used our micropuncture needle and punctured the AV fistula. A micropuncture wire was inserted. Micropuncture sheath was inserted, and a traditional short 6-Tajik sheath was inserted. Next, 5000 units of IV heparin were administered to the patient. We then shot a venogram of the left AV fistula, showing that the fistula was small in size. However, the vein was very winding and tortuous. At this point, we placed a 0.035 floppy guidewire up into the shoulder area into the cephalic vein, and we then went ahead and used a 6 x 8 balloon and performed venoplasty of the entire AV fistula. We then used an 8 x 8 balloon Durata balloon and performed venoplasty of the entire AV fistula. A completion venogram now showed that the fistula size was much greater. There was good brisk flow in the fistula. All the tortuous stenotic areas were now relieved. There were no recoil in the fistula, and at this point, we decided that there was no more intervention needed. We then took a 4-0 Biosyn stitch and placed a figure-of-8 stitch around our sheath, and the sheath was pulled. The area was wet and dried, and Dermabond was placed. Patient tolerated the procedure with no complication. Patient transferred to PACU in stable condition. JESSE HERNANDEZ DO [employer]OR [employer]/[id number]
== END 2018-01-19 14:41 | disposition home or self-care (01) ==
LOC: JASU-SURG 08:52
PROVIDERS: ATTEND Surgery Vascular Surgery
PROC: 057F3ZZ Dilation of Left Cephalic Vein, Percutaneous Approach (ICD-10-PCS; principal; 2018-01-19 09:00)
DX: T82.858A Stenosis of other vascular prosthetic devices, implants and grafts, initial encounter (principal); I12.0 Hypertensive chronic kidney disease with stage 5 chronic kidney disease or end stage renal disease; E11.22 Type 2 diabetes mellitus with diabetic chronic kidney disease; N18.6 End stage renal disease; Z99.2 Dependence on renal dialysis; I25.10 Atherosclerotic heart disease of native coronary artery without angina pectoris; E03.9 Hypothyroidism, unspecified; E78.5 Hyperlipidemia, unspecified
CPT/HCPCS: 36415; 76000-TC-FY; 80048; 82962; 84132; 94760; J1644

== ENCOUNTER 2018-10-20 13:36 | Observation (INO) | payer OTHER ==
--- NOTE | 2018-10-20 14:38 | PDOC ---
History of Present Illness - General Chief Complaint: Chest Pain Stated Complaint: CHEST PAIN Time Seen by Provider: 10/20/18 14:17 - History of Present Illness Initial Comments: 10/20/18 14:34 63 yo F with h/o IDDM, HTN, HLD, anemia, hypothyroidism, CHF, congenital horsehoe kidney, CKD ( HD m/w/f with left AVF placement), HfpEF who p/w left sided chest pain. Patient reports left sided, unremitting, sharp, pleuritic, non radiating chest pain with radiation to jaw and neck beginning yesterday evening with activity. Symptoms now present at rest beginning this AM. No identifiable alleviators. Patient attended dialysis today. Patient denies N/V, palpitations, leg pain/swelling, wheezing, cough, swelling, wheezing, F/C, SOB, urinary complaints, abdominal pain, diarrhea, constipation, lightheadedness, weakness, sensory changes. PMHx: as noted above. H/o cath 2012, and stress test 2014 unremarkable. ROS: as noted SHx: Allergies: NKDA Human Factors Ergonomist : Dr. Curry Past History - Past Medical History Allergies/Adverse Reactions: Allergies Allergy/AdvReac Type Severity Reaction Status Date / Time black pepper Allergy Severe Swelling Verified 10/20/18 13:48 Penicillins Allergy Severe Rash Verified 10/20/18 13:48 strawberry Allergy Rash Verified 10/20/18 13:48 Home Medications: Ambulatory Orders Acetaminophen [Pain Reliever] 500 mg PO PRN PRN 04/16/16 Amlodipine Besylate [Norvasc -] 10 mg PO DAILY 04/16/16 Levothyroxine [Synthroid -] 100 mcg PO DAILY 04/16/16 hydrALAZINE HCL [Apresoline -] 50 mg PO BID 04/16/16 Fenofibric Acid [Trilipix -] 45 mg PO DAILY cap 04/20/16 Enalapril Maleate [Vasotec] 10 mg PO DAILY 02/23/17 Ferrous Sulfate 325 mg PO BID 02/23/17 Furosemide [Lasix -] 40 mg PO BID 02/23/17 Labetalol HCl [Normodyne -] 200 mg PO BID 02/23/17 Insulin Glargine,Hum.rec.anlog [Lantus (nf)] 20 units SQ DAILY 10/13/17 Insulin NPH Human Isophane [Humulin N] 20 unit SQ HS 10/13/17 Metoprolol Tartrate 100 mg PO BID 01/19/18 Omeprazole 40 mg PO DAILY 01/19/18 Simvastatin 40 mg PO DAILY 01/19/18 Anemia: Yes Asthma: No Cancer: No Cardiac Disorders: Yes (enlarged heart) CVA: No COPD: No CHF: No Dementia: No Diabetes: Yes GI Disorders: Yes (REFLUX) Disorders: Yes (1 kidney) HTN: Yes Hypercholesterolemia: Yes Liver Disease: No Seizures: No Thyroid Disease: Yes (hypothyroid) - Surgical History Abdominal Surgery: No Appendectomy: No Cardiac Surgery: No Cholecystectomy: Yes Lung Surgery: No Neurologic Surgery: No Orthopedic Surgery: Yes (R knee replacement 09/17/13) - Suicide/Smoking/Psychosocial Hx Smoking Status: No Smoking History: Never smoked Have you smoked in the past 12 months: No Number of Cigarettes Smoked Daily: 0 Hx Alcohol Use: Yes (occasionally) Drug/Substance Use Hx: No Substance Use Type: None Hx Substance Use Treatment: No Review of Systems - Review of Systems Comments:: 10/20/18 14:37 GENERAL/CONSTITUTIONAL: No fever or chills. No weakness. HEAD, EYES, EARS, NOSE AND THROAT: No change in vision. No ear pain or discharge. No sore throat. CARDIOVASCULAR: +chest pain. No shortness of breath RESPIRATORY: No cough, wheezing, or hemoptysis. GASTROINTESTINAL: No nausea, vomiting, diarrhea or constipation. GENITOURINARY: No dysuria, frequency, or change in urination. MUSCULOSKELETAL: No joint or muscle swelling or pain. No neck or back pain. SKIN: No rash NEUROLOGIC: No headache, vertigo, loss of consciousness, or change in strength/ sensation. ENDOCRINE: No increased thirst. No abnormal weight change HEMATOLOGIC/LYMPHATIC: No anemia, easy bleeding, or history of blood clots. ALLERGIC/IMMUNOLOGIC: No hives or skin allergy. *Physical Exam - Vital Signs Last Vital Signs Temp Pulse Resp BP Pulse Ox 98.2 F 67 18 146/44 L 99 10/20/18 13:48 10/20/18 13:48 10/20/18 13:48 10/20/18 13:48 10/20/18 13:48 - Physical Exam Comments: 10/20/18 14:37 GENERAL: Awake, alert, and fully oriented, in no acute distress HEAD: No signs of trauma, normocephalic, atraumatic EYES: PERRLA, EOMI, sclera anicteric, conjunctiva clear ENT: Hearing grossly normal, nares patent, oropharynx clear without exudates. Moist mucosa NECK: Normal ROM, supple, no lymphadenopathy, JVD, or masses LUNGS: No distress, speaks full sentences, clear to auscultation bilaterally HEART: Regular rate and rhythm, normal S1 and S2, no murmurs, rubs or gallops, peripheral pulses normal and equal bilaterally. ABDOMEN: Soft, nontender, normoactive bowel sounds. No guarding, no rebound. No masses EXTREMITIES : R sided AV fistula preset with audible flow.Normal inspection, Normal range of motion, no edema. No clubbing or cyanosis. SKIN: Warm, Dry, normal turgor, no rashes or lesions noted Moderate Sedation - Procedure Monitoring Vital Signs: Procedure Monitoring Vital Signs Temperature 98.2 F 10/20/18 13:48 Pulse Rate 67 10/20/18 13:48 Respiratory Rate 18 10/20/18 13:48 Blood Pressure 146/44 L 10/20/18 13:48 O2 Sat by Pulse Oximetry (%) 99 10/20/18 13:48 Heart Score/ECG Review - History History: Moderately suspicious - Electrocardiogram EKG: Non specific repolarization disturbance - Age Age: 45-65 - Risk Factors Risk Factors Heart Score: Yes Hx Hypercholesterolemia, Yes Hx Hypertension, Yes Hx Diabetes, Yes Smoking History, Yes Positive family hx of cardiac disease, Yes Hx Obesity Based on the list above the patient has:: >/=3 risk factors or Hx atherosclerotic disease - Troponin Troponin: </= normal limit - Score Heart Score - Total: 5 ED Treatment Course - LABORATORY CBC & Chemistry Diagram: 10/20/18 16:50 10/20/18 16:50 Medical Decision Making - Medical Decision Making 10/20/18 15:16 63 yo F with h/o IDDM, HTN, HLD, anemia, hypothyroidism, CHF, congenital horsehoe kidney, CKD ( HD m/w/f with left AVF placement), HfpEF who p/w left sided chest pain. VSS, AF, A&Ox3. ACS/OH r/o. R/o PNA. Although, low suspicion will consider CHF, COPD, Ao dissection, pancreatitis, pericarditis, pleural effusion. Low risk PE Weils criteria. ED Course: CBC, CMP, Cardiac Pr. Lipase, UA Ranitidine, sublinugal nitro EKG, CXR EKG: NSR with rate 62, absent acute DAFNE, STD. Nml interval duration and axis. Poor R wave progression. 10/20/18 16:[address] Dominguez. CXR: Unremarkable 10/20/18 18:36 Heart score 5 Bedside cardiac and lung U/S unremarkable with absent effusions ( pericardial or pleural) Will admit tele/obs 10/20/18 21:[address] Cruz Admit to tele/obs Ifudu *DC/Admit/Observation/Transfer Diagnosis at time of Disposition: Chest pain at rest - Discharge Dispostion Condition at time of disposition: Stable Decision to Admit order: Yes - Referrals - Patient Instructions Additional Instructions: Please return to the emergency department with any new or worsening symptoms or concerns. Please follow up with your primary care physician within 72 hours. - Post Discharge Activity - Attestations Physician Attestion: 10/20/18 14:38 I attest to the information provided in this note.
[2018-10-20] MEDS ORDERED: ASPIRIN 325 MG ENTERIC COATED TABLET (FP) PO ONE (14:50)
[2018-10-20] MEDS ORDERED: NITROGLYCERIN SUBLINGUAL 1/150 0.4 MG TAB SL ONE (16:49)
[2018-10-20] MEDS ORDERED: RANITIDINE HCL 150 MG TABLET (FP) PO ONE (16:49)
[2018-10-20] MEDS ORDERED: ASPIRIN 325 MG TABLET ONE (16:52)
[2018-10-20 17:13] LABS: BASO % 0.6 % (0-2.0); EOS % 8.1 % (0-4.5); HEMATOCRIT 32.1 % (32.4-45.2); HEMOGLOBIN 11.2 GM/dL (10.7-15.3); LYMPH % 20.1 % (8-40); MCH 33.5 pg (25.7-33.7); MEAN CELL VOLUME 95.9 fl (80-96); MEAN PLT VOLUME 9.8 fl (7.5-11.1); MONO % 7.8 % (3.8-10.2); NEUT % 63.4 % (42.8-82.8); PLATELET COUNT 223 K/MM3 (134-434); RBC 3.35 M/mm3 (3.60-5.2); RDW 13.3 % (11.6-15.6); WHITE BLOOD COUNT 8.5 K/mm3 (4.0-10.0)
--- NOTE | 2018-10-20 17:31 | PDOC ---
Attending Attestation - HPI HPI: 10/20/18 17:43 The patient is a 63-year-old female with a past medical history significant for CHF, HTN, HLD, congenital horseshoe Kidney, DM and CKD (on HD M/W/F) presents to the emergency department with chest pain. The patient presents with 2 days of localized sharp pain to the L. anterior chest, thats intensified with deep breathing, that worsened into constant pain earlier today. Allergies: Penicillins, Pepper, and [place]. PCP: Dr Johnson Renal: Dr. Reza. - Medical Decision Making 10/20/18 17:43 Documentation prepared by Anna Marx, acting as medical records assistant for Slmi Pickens MD. <Anna Marx - Last Filed: 10/20/18 17:43> - Resident Resident Name: Pavel Mcintosh - Physicial Exam PE: 10/20/18 18:32 Patient is awake and alert, well-nourished, in no distress Normocephalic and atraumatic PERRLA, EOMI, conjunctiva pink + Poor dentition No JVD CTA RRR No lower extremity edema - Medical Decision Making 10/20/18 18:33 63-year-old female with multiple comorbidities, history of end-stage renal disease on hemodialysis (Tuesday/Tuesday/Tuesday) presents with intermittent substernal chest pain radiating to the left arm and throat. EKG shows poor R- wave progression but no evidence of acute ischemia. Bedside echo shows no evidence of pericardial or pleural effusion. First set of cardiac enzymes within normal limit. Chest x-ray reveals no evidence of infiltrate or effusion. Patient's heart score is 5. We'll administer aspirin, sublingual nitroglycerin and H2 blockers. Will consult cardiology. Will place on telemetry. <Slim Pickens - Last Filed: 10/20/18 18:34> Heart Score/ECG Review - History History: Moderately suspicious - Electrocardiogram EKG: Non specific repolarization disturbance - Age Age: 45-65 - Risk Factors Risk Factors Heart Score: Yes Hx Hypercholesterolemia, Yes Hx Hypertension, Yes Hx Diabetes, Yes Hx Obesity Based on the list above the patient has:: >/=3 risk factors or Hx atherosclerotic disease - Troponin Troponin: </= normal limit - Score Heart Score - Total: 5 <Slim Pickens - Last Filed: 10/20/18 18:34>
[2018-10-20 17:49] LABS: ALBUMIN 3.5 g/dl (3.4-5.0); ALK PHOS 97 U/L (45-117); ANION GAP 11 MMOL/L (8-16); BILIRUBIN,TOTAL 0.3 mg/dL (0.2-1); BLOOD UREA NITROGEN 43 mg/dL (7-18); CALCIUM 9.3 mg/dL (8.5-10.1); CHLORIDE 98 mmol/L (98-107); CO2 25 mmol/L (21-32); CREATININE 4.2 mg/dL (0.55-1.3); GLUCOSE,RANDOM 102 mg/dL (74-106); LIPASE 311 U/L (73-393); SGOT/AST 14 U/L (15-37); SGPT/ALT 16 U/L (13-61); SODIUM 134 mmol/L (136-145); TOT PROT 7.8 g/dl (6.4-8.2)
[2018-10-20] MEDS ORDERED: RANITIDINE HCL 150 MG TABLET (FP) ONE (18:18)
[2018-10-20] MEDS ORDERED: NITROGLYCERIN SUBLINGUAL 1/150 0.4 MG TAB ONE (18:19)
--- NOTE | 2018-10-20 20:23 | PN ---
Teaching Attending Note Name of Resident: Jorge Luis Cruz ATTENDING PHYSICIAN STATEMENT I saw and evaluated the patient. I reviewed the resident's note and discussed the case with the resident. I agree with the resident's findings and plan as documented. SUBJECTIVE: Patient is a 63 year old woman with history of Insulin-treated DM, HTN, HLD, anemia, hypothyroidism, CHF, congenital horsehoe kidney, ESRD ( HD m/w/f with left AVF placement), HfpEF who p/w left sided chest pain. Patient reports left sided, unremitting, sharp, pleuritic, non radiating chest pain with radiation to jaw and neck beginning yesterday evening with activity. Symptoms now present at rest beginning this AM. No identifiable alleviators. Patient attended dialysis today. Patient denies N/V, palpitations, leg pain/swelling, wheezing, cough, swelling, wheezing, SOB, or lightheadedness. OBJECTIVE: Alert Vital Signs Period Temp Pulse Resp BP Sys/[place]que Pulse Ox Last 24 Hr 98.2 F 67-75 18-18 146-172/44-54 97-99 HEENT: No Jaundice, eye redness or discharge, PERRLA, EOMI. Normocephalic, atraumatic. External ears are normal and hearing is grossly intact. No nasal discharge. Neck: Supple, nontender. No palpable adenopathy or thyromegaly. No JVD Chest: Good effort. Clear to auscultation and percussion. Heart: Regular. No S3, rub or murmur Abdomen: Not distended, soft, nontender and no HSM. No rebound or guarding. Normoactive bowel sounds. Ext: Peripheral pulses intact. No leg edema. Right arm AVF. Skin: Warm and dry. No petechiae, rash or ecchymosis. Neuro: Alert. Oriented x3. CN 2-12 grossly intact. Sensation grossly intact in all four extremities and DTR are symmetric. Home Medications Medication Instructions Recorded Acetaminophen [Pain Reliever] 500 mg PO PRN PRN 04/16/16 Amlodipine Besylate [Norvasc -] 10 mg PO DAILY 04/16/16 Levothyroxine [Synthroid -] 100 mcg PO DAILY 04/16/16 hydrALAZINE HCL [Apresoline -] 50 mg PO BID 04/16/16 Fenofibric Acid [Trilipix -] 45 mg PO DAILY cap 04/20/16 Enalapril Maleate [Vasotec] 10 mg PO DAILY 02/23/17 Ferrous Sulfate 325 mg PO BID 02/23/17 Furosemide [Lasix -] 40 mg PO BID 02/23/17 Labetalol HCl [Normodyne -] 200 mg PO BID 02/23/17 Insulin Glargine,Hum.rec.anlog 20 units SQ DAILY 10/13/17 [Lantus (nf)] Insulin NPH Human Isophane 20 unit SQ HS 10/13/17 [Humulin N] Metoprolol Tartrate 100 mg PO BID 01/19/18 Omeprazole 40 mg PO DAILY 01/19/18 Simvastatin 40 mg PO DAILY 01/19/18 Abnormal Lab Results 10/20/18 10/20/18 16:50 16:50 RBC 3.35 L Hct 32.1 L D Eosinophils % 8.1 H D Sodium 134 L BUN 43 H Creatinine 4.2 H AST 14 L ASSESSMENT AND PLAN: 1. Chest pain - No significant ST-T wave changes on EKG and troponin is negative. Has multiple risk factors for ACS. Will admit to telemetry to rule out ACS, get ECHO, fasting lipid and consult cardiology. Getting metoprolol, aspirin and nitroglycerin. 2. DM - For now, we will hold the home diabetes drugs and implement sliding scale insulin regimen. Provide comprehensive diabetes care with patient teaching and counseling about the importance of euglycemia, eye care and foot care. 3. Obesity - Will provide patient all the necessary assistance, counseling and positive reinforcement to facilitate weight loss. Consult scrap separator. 4. DVT prophylaxis - Heparin 5000u sq tid. 5. Advance directives - Full code
--- NOTE | 2018-10-20 22:35 | CON.CARD ---
Consult Consult Specialty:: cardiology Reason for Consultation:: atypical chest pain. - History of Present Illness Chief Complaint: Pt A&Ox3; intermittent left chest and shoulder sharp pains. Daughter at bedside History of Present Illness: 63 yo woman with h/o ESRD (on HD , , Tue); left AVF placement, IDDM, HTN, HLD, anemia, hypothyroidism, congenital horsehoe kidney, reported HfpEF who c/o left sided chest pain. Patient reports left sided, unremitting, sharp, pleuritic , non radiating chest pain with radiation to jaw and neck beginning yesterday evening with activity. Symptoms now present at rest beginning this AM. No identifiable alleviators. Patient attended dialysis today. She says she was told of having "clots" in the AV graft, and feels this triggered the left arm and chest pain. Sedentary (" I get tired and short of breath if I walk too much"). Denies cigarettes; occasional drink of alcohol. PMHx: as noted above. H/o cath 2012 showing nonobstructive CAD (?after 09/2013 stress MIBI that showed moderate ischemia), and stress test 2014 that was unremarkable. ROS: as noted SHx: Allergies: NKDA Butcher Supervisor : Dr. Castaneda - History Source History Provided By: Patient, Family Member, Medical Record Limitations to Obtaining History: No Limitations - Past Medical History Cardio/Vascular: Yes: CHF, HTN, Hyperlipdemia. No: AFIB, Aneurysm, Aortic Insufficiency, Aortic Stenosis, CAD, Deep Vein Thrombosis, [place], Mitral Insufficiency, Mitral Stenosis, Murmur, Pulmonary Hypertension, Other Pulmonary: No: Asthma, Bronchitis, Cancer, COPD, O2 Dependent, Pneumonia, Previously Intubated, Pulmonary Embolus, Pulmonary Fibrosis, Sleep Apnea, Other Renal/: Yes: Renal Inusuff, Other (congential horseshoe kidney). No: Renal Failure, BPH, Cancer, Hematuria, Hemodialysis, Neurogenic Bladder, Renal Calculi , UTI Reproductive: Yes: Postmenopausal Heme/Onc: Yes: Anemia Endocrine: Yes: Diabetes Mellitus, Hypothyroidism, Other (hyponatremia) Additional Medical History: hyperkalemia, morbid obesity BMI=37 - Past Surgical History Past Surgical History: Yes: Cataract Removal, Cholecystectomy, (x3), Tubal Ligation - Alcohol/Substance Use Hx Alcohol Use: Yes (occasionally) History of Substance Use: reports: None - Smoking History Smoking history: Never smoked Have you smoked in the past 12 months: No Aproximately how many cigarettes per day: 0 - Social History Usual Living Arrangement: Alone ADL: Support Services ([facility]AA 4 hours for 2days/week) History of Recent Travel: No Home Medications - Allergies Allergies/Adverse Reactions: Allergies Allergy/AdvReac Type Severity Reaction Status Date / Time black pepper Allergy Severe Swelling Verified 10/20/18 13:48 Penicillins Allergy Severe Rash Verified 10/20/18 13:48 strawberry Allergy Rash Verified 10/20/18 13:48 - Home Medications Home Medications: Ambulatory Orders Acetaminophen [Pain Reliever] 500 mg PO PRN PRN 04/16/16 Amlodipine Besylate [Norvasc -] 10 mg PO DAILY 04/16/16 Levothyroxine [Synthroid -] 100 mcg PO DAILY 04/16/16 hydrALAZINE HCL [Apresoline -] 50 mg PO BID 04/16/16 Fenofibric Acid [Trilipix -] 45 mg PO DAILY cap 04/20/16 Enalapril Maleate [Vasotec] 10 mg PO DAILY 02/23/17 Ferrous Sulfate 325 mg PO BID 02/23/17 Furosemide [Lasix -] 40 mg PO BID 02/23/17 Labetalol HCl [Normodyne -] 200 mg PO BID 02/23/17 Insulin Glargine,Hum.rec.anlog [Lantus (nf)] 20 units SQ DAILY 10/13/17 Insulin NPH Human Isophane [Humulin N] 20 unit SQ HS 10/13/17 Metoprolol Tartrate 100 mg PO BID 01/19/18 Omeprazole 40 mg PO DAILY 01/19/18 Simvastatin 40 mg PO DAILY 01/19/18 Family Disease History - Family Disease History Family Disease History: Diabetes: Father, Mother, Heart Disease: Mother Review of Systems - Review of Systems Constitutional: reports: Weakness Eyes: reports: No Symptoms HENT: reports: No Symptoms Neck: reports: No Symptoms Cardiovascular: reports: Chest Pain Respiratory: reports: SOB on Exertion Gastrointestinal: reports: Bloating Genitourinary: reports: No Symptoms Breasts: reports: No Symptoms Reported Musculoskeletal: reports: Extremity Pain, Muscle Weakness Integumentary: reports: Bruising, Other (left UE AV graft) Neurological: reports: Weakness Endocrine: reports: No Symptoms Hematology/Lymphatic: reports: No Symptoms Psychiatric: reports: Anxiety - Risk Factors Known Risk Factors: Yes: Age, Diabetes Mellitus, Hypercholesterolemia, Hypertension, Physical Inactivity Vital Signs: Vital Signs Temperature 98.1 F 10/20/18 19:10 Pulse Rate 67 10/20/18 19:10 Respiratory Rate 20 10/20/18 19:10 Blood Pressure 147/54 L 10/20/18 19:10 O2 Sat by Pulse Oximetry (%) 100 10/20/18 19:10 Constitutional: Yes: Calm, Obese Eyes: Yes: WNL HENT: Yes: WNL Neck: Yes: WNL Respiratory: Yes: WNL Gastrointestinal: Yes: Soft, Abdomen, Obese Renal/: Yes: Anuria Cardiovascular: Yes: WNL JVD: No Carotid Bruit: No PMI: Non-Displaced Heart Sounds: Yes: S1, S2 Musculoskeletal: Yes: Other (palpatin of left sided chest wall or left shoulder , or pt moving left shoulder reproduces pain pt presented to ER with) Extremities: Yes: Other (left UE AV graft) Edema: No Peripheral Pulses WNL: Yes Integumentary: Yes: Other Neurological: Yes: Alert, Oriented, Weakness Psychiatric: Yes: WNL - Other Data Labs, Other Data: CBC, BMP 10/20/18 16:50 10/20/18 16:50 Troponin, BNP 10/20/18 16:50 Troponin I < 0.02 Troponin, BNP 10/20/18 16:50 Troponin I < 0.02 Abnormal Lab Results 10/20/18 10/20/18 16:50 16:50 RBC 3.35 L Hct 32.1 L D Eosinophils % 8.1 H D Sodium 134 L BUN 43 H Creatinine 4.2 H AST 14 L Imaging - Results Chest X-ray: Image Reviewed (enlarged heart; no acute pathology) EKG: Image Reviewed (NSR; 1st degree AV block) Problem List - Problems (1) [place] cardiac risk >20% in next 10 years Assessment/Plan: Initially TNI < 0.02; F/u serially F/u EKG. Lipid profile. Stress MIBI when stable; consider doing as outpatient. Code(s): Z91.89 - OT PERSONAL RISK FACTORS, NOT ELSEWHERE CLASSIFIED (2) Chest pain at rest Assessment/Plan: atypical presentation; pain is reproduced with palpation of left-sided chest wall or left shoulder. Code(s): R07.9 - CHEST PAIN, UNSPECIFIED (3) AV fistula Code(s): I77.0 - ARTERIOVENOUS FISTULA, ACQUIRED (4) Anemia Code(s): D64.9 - ANEMIA, UNSPECIFIED Qualifiers: Anemia type: due to chronic kidney disease Chronic kidney disease stage: stage 3 (moderate) Qualified Code(s): N18.3 - Chronic kidney disease, stage 3 (moderate); D63.1 - Anemia in chronic kidney disease; D63.1 - Anemia in chronic kidney disease (5) HLD (hyperlipidemia) Assessment/Plan: f/u lipid profile. 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
--- NOTE | 2018-10-20 22:45 | HP ---
CHIEF COMPLAINT: Chest pain w/ radiation to neck and left arm PCP: Dr. Christina HISTORY OF PRESENT ILLNESS: Pt. states that chest pain started during dialysis and has gotten progressively worse. Pt. states that the pain radiates to her neck and to her left arm. Pt. states that the nurse told her she has a clot on her left arm and that she should see Dr. Ledesma. Pt. believes that the clot is what started her chest pain. Pt. denies having clots in the past in her legs, heart or lungs. Pt. denies any family history of clots. Pt. denies any chest pain, shortness of breath or any symptoms at this time. 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 Now lives alone and is able to take care of herself with [employer] on . Family History: Mom of MT in 2013, Dad has DM and kidney stones. Pt. has 2 brothers (61 and 52) with DM2. Pt. has 1 sister(51) with pre-diabetes and 1 sister (50) with DM2 Allergies black pepper Allergy (Severe, Verified 10/20/18 13:48) Swelling Penicillins Allergy (Severe, Verified 10/20/18 13:48) Rash strawberry Allergy (Verified 10/20/18 13:48) Rash HOME MEDICATIONS: Home Medications Medication Instructions Recorded Acetaminophen [Pain Reliever] 500 mg PO PRN PRN 04/16/16 Amlodipine Besylate [Norvasc -] 10 mg PO DAILY 04/16/16 Levothyroxine [Synthroid -] 100 mcg PO DAILY 04/16/16 hydrALAZINE HCL [Apresoline -] 50 mg PO BID 04/16/16 Fenofibric Acid [Trilipix -] 45 mg PO DAILY cap 04/20/16 Enalapril Maleate [Vasotec] 10 mg PO DAILY 02/23/17 Ferrous Sulfate 325 mg PO BID 02/23/17 Furosemide [Lasix -] 40 mg PO BID 02/23/17 Labetalol HCl [Normodyne -] 200 mg PO BID 02/23/17 Insulin Glargine,Hum.rec.anlog 20 units SQ DAILY 10/13/17 [Lantus (nf)] Insulin NPH Human Isophane 20 unit SQ HS 10/13/17 [Humulin N] Metoprolol Tartrate 100 mg PO BID 01/19/18 Omeprazole 40 mg PO DAILY 01/19/18 Simvastatin 40 mg PO DAILY 01/19/18 REVIEW OF SYSTEMS CONSTITUTIONAL: Absent: fever, chills, diaphoresis, generalized weakness, malaise, loss of appetite, weight change HEENT: Absent: rhinorrhea, nasal congestion, throat pain, throat swelling, difficulty swallowing, mouth swelling, ear pain, eye pain, visual changes CARDIOVASCULAR: Present: chest pain, lightheadedness Absent: syncope, palpitations, irregular heart rate, peripheral edema RESPIRATORY: Absent: cough, shortness of breath, dyspnea with exertion, orthopnea, wheezing, stridor, hemoptysis GASTROINTESTINAL: Absent: abdominal pain, abdominal distension, nausea, vomiting , diarrhea, constipation, melena, hematochezia GENITOURINARY: Absent: dysuria, frequency, urgency, hesitancy, hematuria, flank pain, genital pain MUSCULOSKELETAL: Absent: myalgia, arthralgia, joint swelling, back pain, neck pain SKIN: Absent: rash, itching, pallor HEMATOLOGIC/IMMUNOLOGIC: Absent: easy bleeding, easy bruising, lymphadenopathy, frequent infections ENDOCRINE: Absent: unexplained weight gain, unexplained weight loss, heat intolerance, cold intolerance NEUROLOGIC: Absent: headache, focal weakness or paresthesias, dizziness, unsteady gait, seizure, mental status changes, bladder or bowel incontinence PSYCHIATRIC: Absent: anxiety, depression, suicidal or homicidal ideation, hallucinations. PHYSICAL EXAMINATION Vital Signs - 24 hr 10/20/18 10/20/18 10/20/18 13:48 18:50 19:10 Temperature 98.2 F 98.1 F Pulse Rate 67 Pulse Rate [ 75 67 Radial] Respiratory 18 18 20 Rate Blood Pressure 146/44 L Blood Pressure 172/54 H 147/54 L [Right Arm] O2 Sat by Pulse 99 97 100 Oximetry (%) GENERAL: Awake, alert, and fully oriented, in no acute distress. HEAD: Normal with no signs of trauma. EYES: Pupils equal, round and reactive to light, sclera anicteric, conjunctiva clear. No lid lag. EARS, NOSE, THROAT: Ears normal, nares patent, oropharynx clear without exudates. Moist mucous membranes. NECK: Normal range of motion, supple without lymphadenopathy, JVD LUNGS: Breath sounds equal, clear to auscultation bilaterally. No wheezes, and no crackles. No accessory muscle use. No CVA tenderness. HEART: Regular rate and rhythm, normal S1 and S2 without murmur. Chest pain reproducible on palpation. ABDOMEN: Soft, nontender, not distended, normoactive bowel sounds, no guarding, no rebound UPPER EXTREMITIES: 2+ radial pulses, warm, well-perfused. No cyanosis. No clubbing. No peripheral edema, AVF on LUE, thrills present, clot no appreciated LOWER EXTREMITIES: Warm, well-perfused. No calf tenderness. No peripheral edema. NEUROLOGICAL: Normal speech. Gait not assessed PSYCHIATRIC: Cooperative. Good eye contact. Appropriate mood and affect. SKIN: Warm, dry, normal turgor, no rashes or lesions noted. Laboratory Results - last 24 hr 10/20/18 10/20/18 10/20/18 16:50 16:50 16:50 WBC 8.5 RBC 3.35 L Hgb 11.2 Hct 32.1 L D MCV 95.9 MCH 33.5 MCHC 35.0 RDW 13.3 Plt Count 223 MPV 9.8 Absolute Neuts (auto) 5.4 Neutrophils % 63.4 Lymphocytes % 20.1 D Monocytes % 7.8 Eosinophils % 8.1 H D Basophils % 0.6 Nucleated RBC % 0 Sodium 134 L Potassium 5.0 Chloride 98 Carbon Dioxide 25 Anion Gap 11 BUN 43 H Creatinine 4.2 H Creat Clearance w eGFR 10.72 Random Glucose 102 Calcium 9.3 Total Bilirubin 0.3 AST 14 L ALT 16 Alkaline Phosphatase 97 Creatine Kinase 77 Troponin I < 0.02 Total Protein 7.8 Albumin 3.5 Lipase 311 ASSESSMENT/PLAN: Pt. is a 63 y.o. F w/ PMHx. of NIDDM, HTN, HLD, Anemia, Hypothyroidism, CHFpEF, ESRD(T,Th,Sat) presents with chest pain radiating to neck and left arm. #R/O ACS EKG: QTc: 416, cannot r/o anterior infarct, age undetermined f/u rpt. EKG and Troponin Troponin - c/w cardiac monitoring Stress test in 2014 was unremarkable Cardiology consult (Dr. Li) appreciated Lipid Panel wnl #ESRD w/ anemia Hemodialysis Tuesday, , Tuesday- Pt. completed HD yesterday(10/19/18) c/w Sevelamer consider nephrology consult consider consult to Dr. Ledesma to evaluate for clot in AVF #CHFrEF c/w Lasix #Hypothyroidism c/w Levothyroxine #HLD c/w Simvastatin or pharmacy equivalent #HTN c/w Hydralazine, Labetalol, Enalapril and Norvasc #GERD c/w Omeprazole #NIDDM Hold home meds ISS ACHS BGM ACHS #DVT Ppx. Lovenox 40mg SQ #F/E/N -No IVF, encourage PO intake -monitor electrolytes and replete as needed -Diabetic salt restricted diet. Visit type - Emergency Visit Emergency Visit: Yes ED Registration Date: 10/20/18 Care time: The patient presented to the Emergency Department on the above date and was hospitalized for further evaluation of their emergent condition. - New Patient This patient is new to me today: Yes Date on this admission: 10/20/18 - Critical Care Critical Care patient: No
[2018-10-20] MEDS ORDERED: ACETAMINOPHEN 500 MG TABLET (FP) PO PRN (23:35)
[2018-10-21 01:02] LABS: CHOLESTEROL 151 mg/dL (50-200); HDL CHOLESTEROL 56 mg/dL (40-60); TRIGLYCERIDES 115 mg/dL (0-150)
[2018-10-21 01:22] VITALS: BMI 31.1
[2018-10-21] MEDS: FUROSEMIDE 40 MG TABLET (FP) PO SCH ×2 (05:57→13:31)
[2018-10-21] MEDS: HEPARIN NA (PORCINE) 5,000 UNITS/ML 1ML VIAL SQ SCH ×3 (05:57→21:36)
[2018-10-21] MEDS: INSULIN SLIDING SCALE (NOVOLOG) 1 VIAL SQ SCH ×4 (06:08→21:45)
[2018-10-21] MEDS: LEVOTHYROXINE NA 100 MCG TABLET (FP) PO SCH (06:08)
[2018-10-21] MEDS: ENALAPRIL MALEATE 10 MG TABLET (FP) PO SCH (09:43)
[2018-10-21] MEDS: METOPROLOL TARTRATE 50 MG TABLET (FP) PO SCH ×2 (09:43→21:36)
[2018-10-21] MEDS: FERROUS SO4 325 MG TABLET (FP) PO SCH ×2 (09:43→18:39)
[2018-10-21] MEDS: PANTOPRAZOLE 40 MG TABLET (FP) PO SCH (09:43)
[2018-10-21] MEDS: hydrALAZINE HCL 50 MG TABLET (FP) PO SCH ×2 (09:44→21:36)
[2018-10-21] MEDS: amLODIPine BESYLATE 10 MG TABLET (FP) PO SCH (09:44)
[2018-10-21] MEDS: LABETALOL HCL 200 MG TABLET (FP) PO SCH ×2 (09:44→21:36)
--- NOTE | 2018-10-21 21:19 | EKG ---
Test Reason : Blood Pressure : / mmHG Vent. Rate : 071 BPM Atrial Rate : 071 BPM P-R Int : 226 ms QRS Dur : 086 ms QT Int : 410 ms P-R-T Axes : 068 007 025 degrees QTc Int : 445 ms SINUS RHYTHM WITH SINUS ARRHYTHMIA WITH 1ST DEGREE A-V BLOCK OTHERWISE NORMAL ECG WHEN COMPARED WITH ECG OF 20-OCT-2018 13:47, NO SIGNIFICANT CHANGE WAS FOUND Confirmed by MARRY CESAR, [place] ([id number]) on 10/21/2018 9:19:18 PM Referred By: Confirmed By:[place] TUTTLE MD
--- NOTE | 2018-10-21 21:23 | EKG ---
Test Reason : Blood Pressure : / mmHG Vent. Rate : 062 BPM Atrial Rate : 062 BPM P-R Int : 202 ms QRS Dur : 076 ms QT Int : 410 ms P-R-T Axes : 068 -01 016 degrees QTc Int : 416 ms POOR DATA QUALITY, INTERPRETATION MAY BE ADVERSELY AFFECTED SINUS RHYTHM WITH MARKED SINUS ARRHYTHMIA CANNOT RULE OUT ANTERIOR INFARCT , AGE UNDETERMINED ABNORMAL ECG WHEN COMPARED WITH ECG OF 30-JUN-2018 15:17, PREMATURE SUPRAVENTRICULAR COMPLEXES ARE NO LONGER PRESENT Confirmed by MARRY CESAR, [place] ([id number]) on 10/21/2018 9:22:43 PM Referred By: Confirmed By:[place] TUTTLE MD
[2018-10-21] MEDS ORDERED: INSULIN (NOVOLOG) ASPART 100 UNITS/ML 10ML VIAL ONE (21:39)
[2018-10-22] MEDS: HEPARIN NA (PORCINE) 5,000 UNITS/ML 1ML VIAL SQ SCH ×2 (06:59→16:53)
[2018-10-22] MEDS: LEVOTHYROXINE NA 100 MCG TABLET (FP) PO SCH (06:59)
[2018-10-22] MEDS: FUROSEMIDE 40 MG TABLET (FP) PO SCH ×2 (06:59→16:53)
[2018-10-22] MEDS: INSULIN SLIDING SCALE (NOVOLOG) 1 VIAL SQ SCH ×4 (07:00→17:49)
--- NOTE | 2018-10-22 07:30 | PN ---
Progress Note (short form) - Note Progress Note: Patient is comfortable with no further chest pain. No nausea or vomiting. Vital Signs Temperature 98.0 F 10/22/18 02:01 Pulse Rate 64 10/22/18 02:01 Respiratory Rate 18 10/22/18 02:01 Blood Pressure 115/47 L 10/22/18 02:01 O2 Sat by Pulse Oximetry (%) 98 10/21/18 21:00 GENERAL: Awake, alert, and fully oriented, in NAD. HEAD: Normal with no signs of trauma. EYES: Pupils equal, round and reactive to light, sclera anicteric, conjunctiva clear. EARS, NOSE, THROAT: Ears normal, oropharynx clear without exudates. Moist mucous membranes. NECK: Normal range of motion, supple without lymphadenopathy, JVD LUNGS: Breath sounds equal, clear to auscultation bilaterally. No wheezes, and no crackles. No accessory muscle use. HEART: Regular rate and rhythm, normal S1 and S2 without murmur. Chest pain reproducible on palpation. ABDOMEN: Soft, nontender, not distended, normoactive bowel sounds, no guarding, no rebound EXTREMITIES: 2+ pulses, warm, well-perfused. No peripheral edema, LUE: AVF, positive for bruit . NEUROLOGICAL: Normal speech. Gait not assessed PSYCHIATRIC: Cooperative. Good eye contact. Appropriate mood and affect. SKIN: Warm, dry, normal turgor, no rashes or lesions noted. CBCD WBC 8.5 K/mm3 (4.0-10.0) 10/20/18 16:50 RBC 3.35 M/mm3 (3.60-5.2) L 10/20/18 16:50 Hgb 11.2 GM/dL (10.7-15.3) 10/20/18 16:50 Hct 32.1 % (32.4-45.2) L D 10/20/18 16:50 MCV 95.9 fl (80-96) 10/20/18 16:50 MCHC 35.0 g/dl (32.0-36.0) 10/20/18 16:50 RDW 13.3 % (11.6-15.6) 10/20/18 16:50 Plt Count 223 K/MM3 (134-434) 10/20/18 16:50 MPV 9.8 fl (7.5-11.1) 10/20/18 16:50 CMP Sodium 134 mmol/L (136-145) L 10/20/18 16:50 Potassium 5.0 mmol/L (3.5-5.1) 10/20/18 16:50 Chloride 98 mmol/L (98-107) 10/20/18 16:50 Carbon Dioxide 25 mmol/L (21-32) 10/20/18 16:50 Anion Gap 11 MMOL/L (8-16) 10/20/18 16:50 BUN 43 mg/dL (7-18) H 10/20/18 16:50 Creatinine 4.2 mg/dL (0.55-1.3) H 10/20/18 16:50 Creat Clearance w eGFR 10.72 (>60) 10/20/18 16:50 Random Glucose 102 mg/dL (74-106) 10/20/18 16:50 Calcium 9.3 mg/dL (8.5-10.1) 10/20/18 16:50 Total Bilirubin 0.3 mg/dL (0.2-1) 10/20/18 16:50 AST 14 U/L (15-37) L 10/20/18 16:50 ALT 16 U/L (13-61) 10/20/18 16:50 Alkaline Phosphatase 97 U/L (45-117) 10/20/18 16:50 Total Protein 7.8 g/dl (6.4-8.2) 10/20/18 16:50 Albumin 3.5 g/dl (3.4-5.0) 10/20/18 16:50 CARDIAC ENZYMES Creatine Kinase 77 IU/L (26-192) 10/20/18 16:50 Troponin I < 0.02 ng/ml (0.00-0.05) 10/20/18 23:13 Current Medications Generic Name Dose Route Start Last Admin Trade Name Freq PRN Reason Stop Dose Admin Acetaminophen 500 mg 10/20/18 23:35 Tylenol - PO Q4H PRN PAIN LEVEL 1-5 Amlodipine Besylate 10 mg 10/21/18 10:00 10/21/18 09:44 Norvasc - PO 10 mg DAILY REZA Administration Enalapril Maleate 10 mg 10/21/18 10:00 10/21/18 09:43 Vasotec - PO 10 mg DAILY REZA Administration Ferrous Sulfate 325 mg 10/21/18 08:00 10/21/18 18:39 Feosol - PO 325 mg BIDWM REZA Administration Furosemide 40 mg 10/21/18 06:00 10/22/18 06:59 Lasix - PO 40 mg BIDLASIX REZA Administration Heparin Sodium (Porcine) 5,000 unit 10/21/18 06:00 10/22/18 06:59 Heparin - SQ 5,000 unit TID REZA Administration Hydralazine HCl 50 mg 10/21/18 10:00 10/21/18 21:36 Apresoline - PO 50 mg BID REZA Administration Insulin Aspart 1 vial 10/21/18 07:00 10/22/18 07:00 Novolog Vial Sliding Scale - SQ 2 units ACHS REZA Administration Protocol Labetalol HCl 200 mg 10/21/18 10:00 10/21/18 21:36 Normodyne - PO 200 mg BID REZA Administration Levothyroxine Sodium 100 mcg 10/21/18 07:00 10/22/18 06:59 Synthroid - PO 100 mcg DAILY@0700 REZA Administration Metoprolol Tartrate 100 mg 10/21/18 10:00 10/21/18 21:36 Lopressor - PO 100 mg BID REZA Administration Pantoprazole Sodium 40 mg 10/21/18 10:00 10/21/18 09:43 Protonix - PO 40 mg DAILY REZA Administration Home Medications Medication Instructions Recorded Acetaminophen [Pain Reliever] 500 mg PO PRN PRN 04/16/16 Amlodipine Besylate [Norvasc -] 10 mg PO DAILY 04/16/16 Levothyroxine [Synthroid -] 100 mcg PO DAILY 04/16/16 hydrALAZINE HCL [Apresoline -] 50 mg PO BID 04/16/16 Fenofibric Acid [Trilipix -] 45 mg PO DAILY cap 04/20/16 Enalapril Maleate [Vasotec] 10 mg PO DAILY 02/23/17 Ferrous Sulfate 325 mg PO BID 02/23/17 Furosemide [Lasix -] 40 mg PO BID 02/23/17 Labetalol HCl [Normodyne -] 200 mg PO BID 02/23/17 Insulin Glargine,Hum.rec.anlog 20 units SQ DAILY 10/13/17 [Lantus (nf)] Insulin NPH Human Isophane 20 unit SQ HS 10/13/17 [Humulin N] Metoprolol Tartrate 100 mg PO BID 01/19/18 Omeprazole 40 mg PO DAILY 01/19/18 Simvastatin 40 mg PO DAILY 01/19/18 Chest X-ray: Image Reviewed (enlarged heart; no acute pathology) EKG: Image Reviewed (NSR; 1st degree AV block) EKG: QTc: 416, cannot r/o anterior infarct, age undetermined A/P: Pt. is a 63 y.o. F w/ PMHx. of NIDDM, HTN, HLD, Anemia, Hypothyroidism, CHFpEF, ESRD(T,Th,Sat) presents with chest pain radiating to neck and left arm. # Acute chest pain R/O ACS : 1st set of troponins is negative, in tele. Stress test in 2014 was unremarkable Cardiology consult (Dr. Li) appreciated, Lipid Panel WNL # Anemia of chronic disease on Feso4 #ESRD on HD (TTRSa) completed HD (10/19/18), nephro appreciated, continue home meds.,Dr. Ledesma to evaluate for clot in AVF #CHFrEF continue Lasix #Hypothyroidism continue Levothyroxine #HLD continue Simvastatin #HTN continue Hydralazine, Labetalol, Enalapril and Norvasc #GERD continue Omeprazole #NIDDM with Sliding scale ,BGM ACHS DVT Ppx: Lovenox 40mg SQ Visit type - Emergency Visit Emergency Visit: Yes ED Registration Date: 10/20/18 Care time: The patient presented to the Emergency Department on the above date and was hospitalized for further evaluation of their emergent condition. - New Patient This patient is new to me today: Yes Date on this admission: 10/21/18 - Critical Care Critical Care patient: No - Discharge Referral Referred to [facility] No
[2018-10-22] MEDS: FERROUS SO4 325 MG TABLET (FP) PO SCH ×2 (08:33→17:49)
[2018-10-22 09:00] LABS: HEMOGLOBIN 9.9 GM/dL (10.7-15.3); MCH 31.4 pg (25.7-33.7); MCHC 32.1 g/dl (32.0-36.0); MEAN PLT VOLUME 9.9 fl (7.5-11.1); PLATELET COUNT 195 K/MM3 (134-434); RBC 3.16 M/mm3 (3.60-5.2); RDW 13.3 % (11.6-15.6); WHITE BLOOD COUNT 6.5 K/mm3 (4.0-10.0)
[2018-10-22 09:40] LABS: ALBUMIN 3.1 g/dl (3.4-5.0); ALK PHOS 90 U/L (45-117); ANION GAP 16 MMOL/L (8-16); BILIRUBIN,TOTAL 0.5 mg/dL (0.2-1); BLOOD UREA NITROGEN 69 mg/dL (7-18); CALCIUM 8.4 mg/dL (8.5-10.1); CHLORIDE 98 mmol/L (98-107); CO2 20 mmol/L (21-32); CREATININE 5.9 mg/dL (0.55-1.3); GLUCOSE,RANDOM 79 mg/dL (74-106); POTASSIUM 4.7 mmol/L (3.5-5.1); SGOT/AST 12 U/L (15-37); SGPT/ALT 15 U/L (13-61); SODIUM 133 mmol/L (136-145); TOT PROT 7.3 g/dl (6.4-8.2)
[2018-10-22] MEDS: ENALAPRIL MALEATE 10 MG TABLET (FP) PO SCH (10:04)
[2018-10-22] MEDS: hydrALAZINE HCL 50 MG TABLET (FP) PO SCH (10:04)
[2018-10-22] MEDS: LABETALOL HCL 200 MG TABLET (FP) PO SCH (10:05)
[2018-10-22] MEDS: METOPROLOL TARTRATE 50 MG TABLET (FP) PO SCH (10:05)
[2018-10-22] MEDS: amLODIPine BESYLATE 10 MG TABLET (FP) PO SCH (10:05)
[2018-10-22] MEDS: PANTOPRAZOLE 40 MG TABLET (FP) PO SCH (10:05)
[2018-10-22] MEDS ORDERED: SODIUM CHLORIDE 250 ML IV PRN (10:30)
--- NOTE | 2018-10-22 12:53 | PN ---
Teaching Attending Note Name of Resident: Madeleine Vernon ATTENDING PHYSICIAN STATEMENT I saw and evaluated the patient. I reviewed the resident's note and discussed the case with the resident. I agree with the resident's findings and plan as documented. SUBJECTIVE: Patient is comfortable with no acute distress. OBJECTIVE: Vital Signs Temperature 97.5 F L 10/22/18 08:41 Pulse Rate 64 10/22/18 08:41 Respiratory Rate 16 10/22/18 09:00 Blood Pressure 136/52 L 10/22/18 08:41 O2 Sat by Pulse Oximetry (%) 98 10/22/18 09:00 GENERAL: Awake, alert, and fully oriented, in NAD. HEAD: Normal with no signs of trauma. EYES: Pupils equal, round and reactive to light, sclera anicteric, conjunctiva clear. EARS, NOSE, THROAT: Ears normal, oropharynx clear without exudates. Moist mucous membranes. NECK: Normal range of motion, supple without lymphadenopathy, JVD LUNGS: Breath sounds equal, clear to auscultation bilaterally. No wheezes, and no crackles. No accessory muscle use. HEART: Regular rate and rhythm, normal S1 and S2 without murmur. Chest pain reproducible on palpation. ABDOMEN: Soft, nontender, not distended, normoactive bowel sounds, no guarding, no rebound EXTREMITIES: 2+ pulses, warm, well-perfused. No peripheral edema, LUE: AVF, positive for bruit . NEUROLOGICAL: Normal speech. Gait not assessed PSYCHIATRIC: Cooperative. Good eye contact. Appropriate mood and affect. SKIN: Warm, dry, normal turgor, no rashes or lesions noted. CBCD WBC 6.5 K/mm3 (4.0-10.0) 10/22/18 08:20 RBC 3.16 M/mm3 (3.60-5.2) L 10/22/18 08:20 Hgb 9.9 GM/dL (10.7-15.3) L 10/22/18 08:20 Hct 31.0 % (32.4-45.2) L 10/22/18 08:20 MCV 98.0 fl (80-96) H 10/22/18 08:20 MCHC 32.1 g/dl (32.0-36.0) 10/22/18 08:20 RDW 13.3 % (11.6-15.6) 10/22/18 08:20 Plt Count 195 K/MM3 (134-434) 10/22/18 08:20 MPV 9.9 fl (7.5-11.1) 10/22/18 08:20 CMP Sodium 133 mmol/L (136-145) L 10/22/18 08:20 Potassium 4.7 mmol/L (3.5-5.1) 10/22/18 08:20 Chloride 98 mmol/L (98-107) 10/22/18 08:20 Carbon Dioxide 20 mmol/L (21-32) L 10/22/18 08:20 Anion Gap 16 MMOL/L (8-16) 10/22/18 08:20 BUN 69 mg/dL (7-18) H 10/22/18 08:20 Creatinine 5.9 mg/dL (0.55-1.3) H 10/22/18 08:20 Creat Clearance w eGFR 7.24 (>60) 10/22/18 08:20 Random Glucose 79 mg/dL (74-106) 10/22/18 08:20 Calcium 8.4 mg/dL (8.5-10.1) L 10/22/18 08:20 Total Bilirubin 0.5 mg/dL (0.2-1) 10/22/18 08:20 AST 12 U/L (15-37) L 10/22/18 08:20 ALT 15 U/L (13-61) 10/22/18 08:20 Alkaline Phosphatase 90 U/L (45-117) 10/22/18 08:20 Total Protein 7.3 g/dl (6.4-8.2) 10/22/18 08:20 Albumin 3.1 g/dl (3.4-5.0) L 10/22/18 08:20 CARDIAC ENZYMES Creatine Kinase 77 IU/L (26-192) 10/20/18 16:50 Troponin I < 0.02 ng/ml (0.00-0.05) 10/20/18 23:13 Current Medications Generic Name Dose Route Start Last Admin Trade Name Freq PRN Reason Stop Dose Admin Acetaminophen 500 mg 10/20/18 23:35 Tylenol - PO Q4H PRN PAIN LEVEL 1-5 Amlodipine Besylate 10 mg 10/21/18 10:00 10/22/18 10:05 Norvasc - PO 10 mg DAILY REZA Administration Enalapril Maleate 10 mg 10/21/18 10:00 10/22/18 10:04 Vasotec - PO 10 mg DAILY REZA Administration Ferrous Sulfate 325 mg 10/21/18 08:00 10/22/18 08:33 Feosol - PO 325 mg BIDWM REZA Administration Furosemide 40 mg 10/21/18 06:00 10/22/18 06:59 Lasix - PO 40 mg BIDLASIX REZA Administration Heparin Sodium (Porcine) 5,000 unit 10/21/18 06:00 10/22/18 06:59 Heparin - SQ 5,000 unit TID REZA Administration Hydralazine HCl 50 mg 10/21/18 10:00 10/22/18 10:04 Apresoline - PO 50 mg BID REZA Administration Sodium Chloride 250 mls @ 3,000 mls/hr 10/22/18 10:30 Normal Saline - IV 10/23/18 10:30 PRN PRN Hypotension during Dialysis Insulin Aspart 1 vial 10/21/18 07:00 10/22/18 12:03 Novolog Vial Sliding Scale - SQ Not Given ACHS [facility] Protocol Labetalol HCl 200 mg 10/21/18 10:00 10/22/18 10:05 Normodyne - PO 200 mg BID REZA Administration Levothyroxine Sodium 100 mcg 10/21/18 07:00 10/22/18 06:59 Synthroid - PO 100 mcg DAILY@0700 [facility] Administration Metoprolol Tartrate 100 mg 10/21/18 10:00 10/22/18 10:05 Lopressor - PO 100 mg BID REZA Administration Pantoprazole Sodium 40 mg 10/21/18 10:00 10/22/18 10:05 Protonix - PO 40 mg DAILY REZA Administration Home Medications Medication Instructions Recorded Acetaminophen [Pain Reliever] 500 mg PO PRN PRN 04/16/16 Amlodipine Besylate [Norvasc -] 10 mg PO DAILY 04/16/16 Levothyroxine [Synthroid -] 100 mcg PO DAILY 04/16/16 hydrALAZINE HCL [Apresoline -] 50 mg PO BID 04/16/16 Fenofibric Acid [Trilipix -] 45 mg PO DAILY cap 04/20/16 Enalapril Maleate [Vasotec] 10 mg PO DAILY 02/23/17 Ferrous Sulfate 325 mg PO BID 02/23/17 Furosemide [Lasix -] 40 mg PO BID 02/23/17 Labetalol HCl [Normodyne -] 200 mg PO BID 02/23/17 Insulin Glargine,Hum.rec.anlog 20 units SQ DAILY 10/13/17 [Lantus (nf)] Insulin NPH Human Isophane 20 unit SQ HS 10/13/17 [Humulin N] Metoprolol Tartrate 100 mg PO BID 01/19/18 Omeprazole 40 mg PO DAILY 01/19/18 Simvastatin 40 mg PO DAILY 01/19/18 Chest X-ray: Image Reviewed (enlarged heart; no acute pathology) EKG: Image Reviewed (NSR; 1st degree AV block) EKG: QTc: 416, cannot r/o anterior infarct, age undetermined ASSESSMENT AND PLAN: Pt. is a 63 y.o. F w/ PMHx of NIDDM, HTN, HLD, Anemia, Hypothyroidism, CHFpEF, ESRD(T,Th,Sat) presents with chest pain radiating to neck and left arm. # Acute chest pain R/O ACS : 2 sets of troponins are negative, off tele. now Stress test in 2014 was unremarkable Cardiology consult (Dr. Li) appreciated, Lipid Panel WNL # Anemia of chronic disease on Feso4 #ESRD on HD (TTRSa) , nephro appreciated, continue home meds. patient is going for HD today.Dr. au for consult. #CHFrEF continue Lasix #Hypothyroidism continue Levothyroxine #HLD continue Simvastatin #HTN continue Hydralazine, Labetalol, Enalapril and Norvasc #GERD continue Omeprazole #NIDDM with Sliding scale ,BGM ACHS DVT Ppx: Lovenox 40mg SQ discharge today if stable.
[2018-10-22] MEDS ORDERED: EPOETIN ALFA 10,000 UNIT/1 ML VIAL IVPUSH ONE (16:03)
--- NOTE | 2018-10-22 16:08 | CONSULT ---
Consult Consult Specialty:: Nephrology Reason for Consultation:: ESRD - History of Present Illness Chief Complaint: chest pain History of Present Illness: Pt is a 63 year old female with pmhx of ESRD, DM, anemia, HTN, hypothyroidism and CHF who presents for chest pain. She missed her HD yesterday. She was worked up for chest pain and was to be discharged today however she is unable to get HD until Tuesday so I was called. She denies shortness of breath. She currently denies chest pain. She is tolerating HD. She denies palpitations. - Past Medical History Cardio/Vascular: Yes: CHF, HTN, Hyperlipdemia Renal/: Yes: Renal Inusuff, Hemodialysis, Other (congential horseshoe kidney) ...: No Endocrine: Yes: Diabetes Mellitus, Hypothyroidism, Other (hyponatremia) Additional Medical History: hyperkalemia, morbid obesity BMI=37 - Past Surgical History Past Surgical History: Yes: AV Fistula/Graft, Cataract Removal, Cholecystectomy , (x3), Tubal Ligation - Alcohol/Substance Use Hx Alcohol Use: Yes (occasionally) History of Substance Use: reports: None - Smoking History Smoking history: Never smoked Have you smoked in the past 12 months: No Aproximately how many cigarettes per day: 0 - Social History Usual Living Arrangement: Alone ADL: Support Services ([facility] 4 hours for 2days/week) History of Recent Travel: No Home Medications - Allergies Allergies/Adverse Reactions: Allergies Allergy/AdvReac Type Severity Reaction Status Date / Time black pepper Allergy Severe Swelling Verified 10/20/18 13:48 Penicillins Allergy Severe Rash Verified 10/20/18 13:48 strawberry Allergy Rash Verified 10/20/18 13:48 - Home Medications Home Medications: Ambulatory Orders RX: Acetaminophen [Pain Reliever] 500 mg PO PRN PRN 04/16/16 RX: Amlodipine Besylate [Norvasc -] 10 mg PO DAILY 04/16/16 RX: Levothyroxine [Synthroid -] 100 mcg PO DAILY 04/16/16 RX: hydrALAZINE HCL [Apresoline -] 50 mg PO BID 04/16/16 RX: Fenofibric Acid [Trilipix -] 45 mg PO DAILY cap 04/20/16 RX: Enalapril Maleate [Vasotec] 10 mg PO DAILY 02/23/17 RX: Ferrous Sulfate 325 mg PO BID 02/23/17 RX: Furosemide [Lasix -] 40 mg PO BID 02/23/17 RX: Labetalol HCl [Normodyne -] 200 mg PO BID 02/23/17 Insulin Glargine,Hum.rec.anlog [Lantus (nf)] 20 units SQ DAILY 10/13/17 Insulin NPH Human Isophane [Humulin N] 20 unit SQ HS 10/13/17 RX: Metoprolol Tartrate 100 mg PO BID 01/19/18 RX: Omeprazole 40 mg PO DAILY 01/19/18 RX: Simvastatin 40 mg PO DAILY 01/19/18 Family Disease History - Family Disease History Family Disease History: Diabetes: Father, Mother, Heart Disease: Mother Review of Systems - Review of Systems Constitutional: reports: No Symptoms Eyes: reports: No Symptoms HENT: reports: No Symptoms Neck: reports: No Symptoms Cardiovascular: reports: Chest Pain Respiratory: reports: No Symptoms Gastrointestinal: reports: No Symptoms Genitourinary: reports: No Symptoms Musculoskeletal: reports: No Symptoms Integumentary: reports: No Symptoms Neurological: reports: No Symptoms Endocrine: reports: No Symptoms Hematology/Lymphatic: reports: No Symptoms Physical Exam Vital Signs: Vital Signs Temperature 97.4 F L 10/22/18 12:50 Pulse Rate 60 10/22/18 15:30 Respiratory Rate 18 10/22/18 15:30 Blood Pressure 101/44 L 10/22/18 15:30 O2 Sat by Pulse Oximetry (%) 98 10/22/18 09:00 Constitutional: Yes: Calm Eyes: Yes: Conjunctiva Clear HENT: Yes: Atraumatic Neck: Yes: Supple Cardiovascular: Yes: S1, S2 Respiratory: Yes: CTA Bilaterally Gastrointestinal: Yes: Normal Bowel Sounds, Soft, Abdomen, Obese Renal/: Yes: WNL Musculoskeletal: Yes: WNL Edema: No Neurological: Yes: Oriented Psychiatric: Yes: Oriented Labs: CBC, BMP 10/22/18 08:20 10/22/18 08:20 Imaging - Results Chest X-ray: Report Reviewed Problem List - Problems (1) ESRD (end stage renal disease) Code(s): N18.6 - END STAGE RENAL DISEASE (2) Anemia Code(s): D64.9 - ANEMIA, UNSPECIFIED Qualifiers: Anemia type: due to chronic kidney disease Chronic kidney disease stage: stage 3 (moderate) Qualified Code(s): N18.3 - Chronic kidney disease, stage 3 (moderate); D63.1 - Anemia in chronic kidney disease; D63.1 - Anemia in chronic kidney disease Assessment/Plan Current Medications Generic Name Dose Route Start Last Admin Trade Name Freq PRN Reason Stop Dose Admin Acetaminophen 500 mg 10/20/18 23:35 Tylenol - PO Q4H PRN PAIN LEVEL 1-5 Amlodipine Besylate 10 mg 10/21/18 10:00 10/22/18 10:05 Norvasc - PO 10 mg DAILY REZA Administration Enalapril Maleate 10 mg 10/21/18 10:00 10/22/18 10:04 Vasotec - PO 10 mg DAILY REZA Administration Epoetin Jordan 5,000 unit 10/22/18 16:03 Procrit - IVPUSH 10/22/18 16:04 ONCE ONE Ferrous Sulfate 325 mg 10/21/18 08:00 10/22/18 08:33 Feosol - PO 325 mg BIDWM REZA Administration Furosemide 40 mg 10/21/18 06:00 10/22/18 06:59 Lasix - PO 40 mg BIDLASIX REZA Administration Heparin Sodium (Porcine) 5,000 unit 10/21/18 06:00 10/22/18 06:59 Heparin - SQ 5,000 unit TID REZA Administration Hydralazine HCl 50 mg 10/21/18 10:00 10/22/18 10:04 Apresoline - PO 50 mg BID REZA Administration Sodium Chloride 250 mls @ 3,000 mls/hr 10/22/18 10:30 Normal Saline - IV 10/23/18 10:30 PRN PRN Hypotension during Dialysis Insulin Aspart 1 vial 10/21/18 07:00 10/22/18 12:03 Novolog Vial Sliding Scale - SQ Not Given ACHS [facility] Protocol Labetalol HCl 200 mg 10/21/18 10:00 10/22/18 10:05 Normodyne - PO 200 mg BID REZA Administration Levothyroxine Sodium 100 mcg 10/21/18 07:00 10/22/18 06:59 Synthroid - PO 100 mcg DAILY@0700 REZA Administration Metoprolol Tartrate 100 mg 10/21/18 10:00 10/22/18 10:05 Lopressor - PO 100 mg BID REZA Administration Pantoprazole Sodium 40 mg 10/21/18 10:00 10/22/18 10:05 Protonix - PO 40 mg DAILY REZA Administration Impression 1. ESRD 2. horseshoe kidney 3. chest pain 4. DM 5. HTN 6. hypothryoidism 7. anemia 8. CHF Plan - will arrange for HD today, nurse called in - monitor bp - epogen for anemia - chest pain has resolved - discussed with medical team - next HD is on Tuesday - will follow while in the hospital Dr Yuan
[2018-10-22] MEDS ORDERED: EPOETIN ALFA 2,000 UNIT, EPOETIN ALFA 3,000 UNIT IVPUSH ONE (16:30)
--- NOTE | 2018-10-22 17:39 | DS ---
Physical Exam: SUBJECTIVE: Patient seen today and without complaints. No acute events overnight. OBJECTIVE: Vital Signs Period Temp Pulse Resp BP Sys/Duque Pulse Ox Last 24 Hr 97.4 F-98.0 F 60-64 16-18 92-136/43-52 98-98 PHYSICAL EXAM GENERAL: Awake, alert, and fully oriented, in no acute distress. HEAD: Normal with no signs of trauma. EYES: Pupils equal, round and reactive to light, sclera anicteric, conjunctiva clear. No lid lag. EARS, NOSE, THROAT: Ears normal, nares patent, oropharynx clear without exudates. Moist mucous membranes. NECK: Normal range of motion, supple without lymphadenopathy, JVD LUNGS: Breath sounds equal, clear to auscultation bilaterally. No wheezes, and no crackles. No accessory muscle use. No CVA tenderness. HEART: Regular rate and rhythm, normal S1 and S2 without murmur. Chest pain reproducible on palpation. ABDOMEN: Soft, nontender, not distended, normoactive bowel sounds, no guarding, no rebound UPPER EXTREMITIES: 2+ radial pulses, warm, well-perfused. No cyanosis. No clubbing. No peripheral edema, AVF on LUE, thrills present, clot no appreciated LOWER EXTREMITIES: Warm, well-perfused. No calf tenderness. No peripheral edema. NEUROLOGICAL: Normal speech. Gait not assessed PSYCHIATRIC: Cooperative. Good eye contact. Appropriate mood and affect. SKIN: Warm, dry, normal turgor, no rashes or lesions noted. LABS 2 CBC, BMP 10/22/18 08:20 10/22/18 08:20 HOSPITAL COURSE: Date of Admission:10/20/18 Patient was admitted for chest pain. Trops negative x2 and ekg showed no abnormalities. Patient evaluated by Dr. gonzalez and to have a stress test done as an outpatient. Pain resolved. While here patient received dialysis and fistula functioning properly. patient stable with stable vitals. CXR: no acute pathology Date of Discharge: 10/22/18 Minutes to complete discharge: 35 Discharge Summary Reason For Visit: CHEST PAIN AT REST Current Active Problems ESRD (end stage renal disease) (Acute) [place] cardiac risk >20% in next 10 years (Chronic) Sedentary lifestyle (Chronic) Condition: Improved - Instructions Diet, Activity, Other Instructions: You were admitted to the hospital for chest pain. We monitored your heart and found that its functioning properly. While you were here you received dialysis. Please continue to have your dialysis on your regular schedule and follow up with your cabin equipment supervisor in one week. To continue to monitor your heart make an appointment with your Gastrointestinal Technician in one week. Please follow up with your primary care physician within one week. Please continue all of your home medications as prescribed. Return to the Emergency Department if you have headache, nausea, vomiting, shortness of breath, chest pain or your fistula is not working. Referrals: Piter Castaneda MD [Staff Physician] - 1 Week Disposition: HOME - Home Medications Comprehensive Discharge Medication List: Ambulatory Orders Acetaminophen [Pain Reliever] 500 mg PO PRN PRN 04/16/16 Amlodipine Besylate [Norvasc -] 10 mg PO DAILY 04/16/16 Levothyroxine [Synthroid -] 100 mcg PO DAILY 04/16/16 hydrALAZINE HCL [Apresoline -] 50 mg PO BID 04/16/16 Fenofibric Acid [Trilipix -] 45 mg PO DAILY cap 04/20/16 Enalapril Maleate [Vasotec] 10 mg PO DAILY 02/23/17 Ferrous Sulfate 325 mg PO BID 02/23/17 Furosemide [Lasix -] 40 mg PO BID 02/23/17 Labetalol HCl [Normodyne -] 200 mg PO BID 02/23/17 Insulin Glargine,Hum.rec.anlog [Lantus (nf)] 20 units SQ DAILY 10/13/17 Insulin NPH Human Isophane [Humulin N] 20 unit SQ HS 10/13/17 Metoprolol Tartrate 100 mg PO BID 01/19/18 Omeprazole 40 mg PO DAILY 01/19/18 Simvastatin 40 mg PO DAILY 01/19/18 This patient is new to me today: No Emergency Visit: No Critical Care patient: No - Discharge Referral Referred to [facility] Med [facility] No
[2018-10-22 19:28] VITALS: BP 133/90; PULSE 68; TEMP 98.8
[2018-10-24 22:12] LABS: HBSAG SCREEN Negative (Negative); HEP A AB, IGM Negative (Negative); HEP B CORE AB, TOT Negative (Negative)
== END 2018-10-22 19:04 | disposition home or self-care (01) ==
LOC: JER 13:36 → JERBED 18:39 → J4W 23:52
PROVIDERS: ADMIT Internal Medicine; ATTEND Internal Medicine
PROC: 3E033GC Introduction of Other Therapeutic Substance into Peripheral Vein, Percutaneous Approach (ICD-10-PCS; principal; 2018-10-20)
PROC: 3E013VG Introduction of Insulin into Subcutaneous Tissue, Percutaneous Approach (ICD-10-PCS; 2018-10-20)
PROC: BB4BZZZ Ultrasonography of Pleura (ICD-10-PCS; 2018-10-20)
DX: R07.9 Chest pain, unspecified (principal); I25.10 Atherosclerotic heart disease of native coronary artery without angina pectoris; Z98.61 Coronary angioplasty status; I13.2 Hypertensive heart and chronic kidney disease with heart failure and with stage 5 chronic kidney disease, or end stage renal disease; N18.6 End stage renal disease; I50.89 Other heart failure; F17.210 Nicotine dependence, cigarettes, uncomplicated; Z99.2 Dependence on renal dialysis; D63.1 Anemia in chronic kidney disease; E11.9 Type 2 diabetes mellitus without complications; Z79.4 Long term (current) use of insulin; E03.9 Hypothyroidism, unspecified; E78.5 Hyperlipidemia, unspecified; K21.9 Gastro-esophageal reflux disease without esophagitis; Z91.89 Other specified personal risk factors, not elsewhere classified; Z96.651 Presence of right artificial knee joint; Z88.0 Allergy status to penicillin; E66.9 Obesity, unspecified; Z68.31 Body mass index [BMI] 31.0-31.9, adult; Z87.448 Personal history of other diseases of urinary system; Q63.1 Lobulated, fused and horseshoe kidney
CPT/HCPCS: 36415; 71045-TC-FY; 80053; 80061; 82550; 82962; 83690; 83721; 84484; 85025; 85027; 86704; 86706; 86708; 86803; 87340; 93005; 93010; 96372; 96374; 99284-25; G0378; J0885; J1644

== ENCOUNTER 2018-10-31 11:16 | Inpatient (IN) | payer OTHER ==
[2018-10-31] MEDS ORDERED: HEPARIN NA (PORCINE) 5,000 UNITS/ML 1ML VIAL ONE (13:48)
[2018-10-31] MEDS ORDERED: LIDOCAINE HCL 1%, 10 MG/ML (20ML VIAL) ONE (13:48)
[2018-10-31] MEDS ORDERED: PROPOFOL 20 ML ONE (14:03)
[2018-10-31] MEDS ORDERED: LIDOCAINE HCL/PF 2% SDV 5ML VIAL ONE (14:04)
[2018-10-31] MEDS ORDERED: MIDAZOLAM HCL 2 MG/2 ML SINGLE DOSE VIAL ONE (14:04)
[2018-10-31] MEDS ORDERED: ceFAZolin SODIUM 1 GM VIAL ONE (14:14)
[2018-10-31] MEDS ORDERED: ceFAZolin SODIUM 1 GM VIAL IVPB ONE (14:17)
[2018-10-31] MEDS ORDERED: LIDOCAINE HCL 1%, 10 MG/ML (20ML VIAL) INF ONE (14:32)
--- NOTE | 2018-10-31 15:21 | OP ---
Operative Note - Note: Operative Date: 10/31/18 Pre-Operative Diagnosis: Stenosis left aVF Operation: venogram, venoplasty left avf Findings: occlusion of cephalic vein Post-Operative Diagnosis: Same as Pre-op Surgeon: Jesse Ledesma Anesthesia: Fractional Estimated Blood Loss (mls): 20 Operative Report Dictated: Yes
--- NOTE | 2018-10-31 15:22 | HP ---
Admitting History and Physical - Admission Chief Complaint: stenosis left avf Limitations to Obtaining History: No Limitations - Past Medical History Cardiovascular: Yes: CHF, HTN, Hyperlipdemia Pulmonary: No: Asthma, Bronchitis, Cancer, COPD, O2 Dependent, Pneumonia, Previously Intubated, Pulmonary Embolus, Pulmonary Fibrosis, Sleep Apnea, Other Renal/: Yes: Renal Inusuff, Hemodialysis, Other Heme/Onc: Yes: Anemia Endocrine: Yes: Diabetes Mellitus, Hypothyroidism, Other (hyponatremia) - Past Surgical History Past Surgical History: Yes: AV Fistula/Graft, Cataract Removal, Cholecystectomy , , Tubal Ligation - Smoking History Smoking history: Never smoked Have you smoked in the past 12 months: No Aproximately how many cigarettes per day: 0 - Alcohol/Substance Use Hx Alcohol Use: No (occasionally) History of Substance Use: reports: None - Social History ADL: Support Services ([facility] 4 hours for 2days/week) History of Recent Travel: No Home Medications - Allergies Allergies/Adverse Reactions: Allergies Allergy/AdvReac Type Severity Reaction Status Date / Time black pepper Allergy Severe Swelling Verified 10/20/18 13:48 Penicillins Allergy Severe Rash Verified 10/20/18 13:48 strawberry Allergy Rash Verified 10/20/18 13:48 - Home Medications Home Medications: Ambulatory Orders Acetaminophen [Pain Reliever] 500 mg PO PRN PRN 04/16/16 Amlodipine Besylate [Norvasc -] 10 mg PO DAILY 04/16/16 Levothyroxine [Synthroid -] 100 mcg PO DAILY 04/16/16 hydrALAZINE HCL [Apresoline -] 50 mg PO BID 04/16/16 Fenofibric Acid [Trilipix -] 45 mg PO DAILY cap 04/20/16 Enalapril Maleate [Vasotec] 10 mg PO DAILY 02/23/17 Ferrous Sulfate 325 mg PO BID 02/23/17 Furosemide [Lasix -] 40 mg PO BID 02/23/17 Labetalol HCl [Normodyne -] 200 mg PO BID 02/23/17 Insulin Glargine,Hum.rec.anlog [Lantus (nf)] 20 units SQ DAILY 10/13/17 Insulin NPH Human Isophane [Humulin N] 20 unit SQ HS 10/13/17 Metoprolol Tartrate 100 mg PO BID 01/19/18 Omeprazole 40 mg PO DAILY 01/19/18 Simvastatin 40 mg PO DAILY 01/19/18 Aspirin Coated [Ecotrin -] 25 mg PO DAILY 10/31/18 Family Disease History - Family Disease History Family Disease History: Diabetes: Father, Mother, Heart Disease: Mother Review of Systems - Review of Systems Constitutional: reports: No Symptoms Eyes: reports: No Symptoms HENT: reports: No Symptoms Neck: reports: No Symptoms Cardiovascular: reports: No Symptoms Respiratory: reports: No Symptoms Gastrointestinal: reports: No Symptoms Genitourinary: reports: No Symptoms Musculoskeletal: reports: No Symptoms Integumentary: reports: No Symptoms Neurological: reports: No Symptoms Endocrine: reports: No Symptoms Hematology/Lymphatic: reports: No Symptoms Psychiatric: reports: No Symptoms Physical Examination Vital Signs: Vital Signs Temperature 98.2 F 10/31/18 12:09 Pulse Rate 63 10/31/18 12:09 Respiratory Rate 18 10/31/18 12:09 Blood Pressure 122/64 10/31/18 12:09 O2 Sat by Pulse Oximetry (%) 100 10/31/18 12:09 Constitutional: Yes: Well Nourished, No Distress, Calm Eyes: Yes: WNL, Conjunctiva Clear, EOM Intact HENT: Yes: WNL, Atraumatic, Normocephalic Neck: Yes: WNL, Supple, Trachea Midline Cardiovascular: Yes: WNL, Regular Rate and Rhythm Respiratory: Yes: WNL, Regular, CTA Bilaterally Gastrointestinal: Yes: WNL, Normal Bowel Sounds Musculoskeletal: Yes: WNL Extremities: Yes: WNL Edema: No Integumentary: Yes: WNL Neurological: Yes: WNL, Alert, Oriented ...Motor Strength: WNL Psychiatric: Yes: WNL Labs: CBC, BMP 10/31/18 11:46 Problem List - Problems (1) ESRD (end stage renal disease) Assessment/Plan: stenosis left avf 1. For venogram today Code(s): N18.6 - END STAGE RENAL DISEASE
[2018-10-31] MEDS ORDERED: SODIUM CHLORIDE 250 ML IV PRN (16:39)
[2018-10-31] MEDS ORDERED: EPOETIN ALFA 2,000 UNIT/1 ML VIAL IVPUSH ONE (16:45)
[2018-10-31 17:33] LABS: ANION GAP 11 MMOL/L (8-16); BLOOD UREA NITROGEN 71 mg/dL (7-18); CALCIUM 8.7 mg/dL (8.5-10.1); CHLORIDE 102 mmol/L (98-107); CO2 19 mmol/L (21-32); CREATININE 6.4 mg/dL (0.55-1.3); GLUCOSE,RANDOM 96 mg/dL (74-106); SODIUM 132 mmol/L (136-145)
--- NOTE | 2018-10-31 17:50 | CONSULT ---
Consult Consult Specialty:: Nephrology Reason for Consultation:: ESRD - History of Present Illness Chief Complaint: s/p venogram History of Present Illness: Pt is a 63 year old female with pmhx of ESRD who is here getting and venogram. She missed her last HD. I was called by vascular as she was hyperkalemic. She denies shortness of breath. - History Source History Provided By: Patient, Medical Record - Past Medical History Cardio/Vascular: Yes: CHF, HTN, Hyperlipdemia Renal/: Yes: Renal Inusuff, Hemodialysis, Other Endocrine: Yes: Diabetes Mellitus, Hypothyroidism, Other (hyponatremia) Additional Medical History: hyperkalemia, morbid obesity BMI=37 - Past Surgical History Past Surgical History: Yes: AV Fistula/Graft, Cataract Removal, Cholecystectomy , , Tubal Ligation - Alcohol/Substance Use Hx Alcohol Use: No (occasionally) History of Substance Use: reports: None - Smoking History Smoking history: Never smoked Have you smoked in the past 12 months: No Aproximately how many cigarettes per day: 0 - Social History Usual Living Arrangement: Alone ADL: Support Services ([facility] 4 hours for 2days/week) History of Recent Travel: No Home Medications - Allergies Allergies/Adverse Reactions: Allergies Allergy/AdvReac Type Severity Reaction Status Date / Time black pepper Allergy Severe Swelling Verified 10/20/18 13:48 Penicillins Allergy Severe Rash Verified 10/20/18 13:48 strawberry Allergy Rash Verified 10/20/18 13:48 - Home Medications Home Medications: Ambulatory Orders RX: Acetaminophen [Pain Reliever] 500 mg PO PRN PRN 04/16/16 RX: Amlodipine Besylate [Norvasc -] 10 mg PO DAILY 04/16/16 RX: Levothyroxine [Synthroid -] 100 mcg PO DAILY 04/16/16 RX: hydrALAZINE HCL [Apresoline -] 50 mg PO BID 04/16/16 RX: Fenofibric Acid [Trilipix -] 45 mg PO DAILY cap 04/20/16 RX: Enalapril Maleate [Vasotec] 10 mg PO DAILY 02/23/17 RX: Ferrous Sulfate 325 mg PO BID 02/23/17 RX: Furosemide [Lasix -] 40 mg PO BID 02/23/17 RX: Labetalol HCl [Normodyne -] 200 mg PO BID 02/23/17 Insulin Glargine,Hum.rec.anlog [Lantus (nf)] 20 units SQ DAILY 10/13/17 Insulin NPH Human Isophane [Humulin N] 20 unit SQ HS 10/13/17 RX: Metoprolol Tartrate 100 mg PO BID 01/19/18 RX: Omeprazole 40 mg PO DAILY 01/19/18 RX: Simvastatin 40 mg PO DAILY 01/19/18 Aspirin Coated [Ecotrin -] 25 mg PO DAILY 10/31/18 Family Disease History - Family Disease History Family Disease History: Diabetes: Father, Mother, Heart Disease: Mother Review of Systems - Review of Systems Constitutional: reports: No Symptoms Eyes: reports: No Symptoms HENT: reports: No Symptoms Neck: reports: No Symptoms Cardiovascular: reports: No Symptoms Respiratory: reports: No Symptoms Gastrointestinal: reports: No Symptoms Genitourinary: reports: No Symptoms Musculoskeletal: reports: No Symptoms Integumentary: reports: No Symptoms Neurological: reports: No Symptoms Endocrine: reports: No Symptoms Hematology/Lymphatic: reports: No Symptoms Psychiatric: reports: No Symptoms Physical Exam Vital Signs: Vital Signs Temperature 98.1 F 10/31/18 16:00 Pulse Rate 58 L 10/31/18 16:25 Respiratory Rate 18 10/31/18 16:25 Blood Pressure 121/44 L 10/31/18 16:25 O2 Sat by Pulse Oximetry (%) 100 10/31/18 15:45 Constitutional: Yes: Calm Eyes: Yes: Conjunctiva Clear HENT: Yes: Atraumatic Neck: Yes: Supple Cardiovascular: Yes: S1, S2 Respiratory: Yes: CTA Bilaterally Gastrointestinal: Yes: Normal Bowel Sounds, Soft, Abdomen, Obese Musculoskeletal: Yes: WNL Edema: Yes Edema: LLE: 1+, RLE: 1+ Neurological: Yes: Oriented Psychiatric: Yes: Oriented Labs: CBC, BMP 10/31/18 16:30 Problem List - Problems (1) ESRD (end stage renal disease) Code(s): N18.6 - END STAGE RENAL DISEASE Assessment/Plan Current Medications Generic Name Dose Route Start Last Admin Trade Name Freq PRN Reason Stop Dose Admin Amlodipine Besylate 10 mg 11/01/18 10:00 Norvasc - PO DAILY REZA Enalapril Maleate 10 mg 11/01/18 10:00 Vasotec - PO DAILY REZA Fentanyl 25 mcg 10/31/18 15:46 Sublimaze Injection - IVPUSH [id number] PRN PAIN-PACU ORDER X 4 DOSES ONLY Furosemide 40 mg 11/01/18 06:00 Lasix - PO BID@0600,1400 REZA Hydralazine HCl 50 mg 10/31/18 22:00 Apresoline - PO BID [facility] Sodium Chloride 250 mls @ 3,000 mls/hr 10/31/18 16:39 Normal Saline - IV 11/01/18 16:38 PRN PRN Hypotension during Dialysis Metoprolol Succinate 100 mg 10/31/18 22:00 Toprol Xl - PO BID REZA Impression 1. ESRD 2. horseshoe kidney 3. av fistula malfunction 4. DM 5. HTN 6. hypothryoidism 7. anemia 8. CHF 9. hyperkalemia Plan - will arrange for HD today - will treat potassium with HD - discussed with vascular - discussed with HD team - orders written - pre HD potassium is elevated - monitor vitals - will follow Dr Yuan
[2018-10-31 21:08] LABS: CREATININE 2.7 mg/dL (0.55-1.3)
[2018-10-31] MEDS: hydrALAZINE HCL 50 MG TABLET (FP) PO SCH (22:06)
[2018-11-01 04:18] VITALS: BMI 31.6
[2018-11-01] MEDS ORDERED: FUROSEMIDE 40 MG TABLET (FP) PO SCH (06:00)
[2018-11-01] MEDS ORDERED: LEVOTHYROXINE NA 100 MCG TABLET (FP) PO SCH (06:15)
[2018-11-01 07:54] LABS: ANION GAP 8 MMOL/L (8-16); BLOOD UREA NITROGEN 36 mg/dL (7-18); CALCIUM 8.6 mg/dL (8.5-10.1); CHLORIDE 100 mmol/L (98-107); CO2 28 mmol/L (21-32); CREATININE 4.3 mg/dL (0.55-1.3); GLUCOSE,RANDOM 102 mg/dL (74-106); POTASSIUM 4.7 mmol/L (3.5-5.1); SODIUM 136 mmol/L (136-145)
--- NOTE | 2018-11-01 09:06 | PN ---
Progress Note (short form) - Note Progress Note: 63yo F s/p fistulagram POD 1. Pt received HD yesterday after fistulagram. Pt states that she feels well, denies fever, chills, n/v. Last Vital Signs Temp Pulse Resp BP Pulse Ox 98.3 F 64 20 109/49 L 98 11/01/18 06:00 11/01/18 06:00 11/01/18 06:00 11/01/18 06:00 10/31/18 21:20 CBC, BMP 11/01/18 06:45 PE: Gen: A&O x3 Resp: breathing comfortably Ext: LUE show fistula in place, good thrill, hand is warm, no numbness/weakness Problem List - Problems (1) AV fistula Assessment/Plan: Plan -Pt appears to be doing well. Is cleared to be discharged home. -pt should follow up with [facility] in 1 week for suture removal Code(s): I77.0 - ARTERIOVENOUS FISTULA, ACQUIRED
[2018-11-01] MEDS ORDERED: ENALAPRIL MALEATE 10 MG TABLET (FP) PO SCH (10:00)
[2018-11-01] MEDS ORDERED: amLODIPine BESYLATE 10 MG TABLET (FP) PO SCH (10:00)
[2018-11-01 10:41] VITALS: BP 142/57; PULSE 71; TEMP 98.4
[2018-11-01] MEDS: hydrALAZINE HCL 50 MG TABLET (FP) PO SCH (10:42)
--- NOTE | 2018-11-01 11:50 | PN ---
Progress Note, Physician History of Present Illness: Pt seen and examined at bedside. She is awake and alert. She denies shortness of breath. She tolerated HD last night. - Current Medication List Current Medications: Active Medications Amlodipine Besylate (Norvasc -) 10 mg PO DAILY [facility] Last Admin: 11/01/18 10:42 Dose: 10 mg Enalapril Maleate (Vasotec -) 10 mg PO DAILY [facility] Last Admin: 11/01/18 10:42 Dose: 10 mg Fentanyl (Sublimaze Injection -) 25 mcg IVPUSH [id number] PRN PRN Reason: PAIN-PACU ORDER X 4 DOSES ONLY Furosemide (Lasix -) 40 mg PO BID@0600,1400 [facility] Last Admin: 11/01/18 05:56 Dose: 40 mg Hydralazine HCl (Apresoline -) 50 mg PO BID [facility] Last Admin: 11/01/18 10:42 Dose: 50 mg Sodium Chloride (Normal Saline -) 250 mls @ 3,000 mls/hr IV PRN PRN PRN Reason: Hypotension during Dialysis Stop: 11/01/18 16:38 Levothyroxine Sodium (Synthroid -) 100 mcg PO DAILY@0600 [facility] Last Admin: 11/01/18 06:50 Dose: 100 mcg Metoprolol Succinate (Toprol Xl -) 100 mg PO BID [facility] Last Admin: 11/01/18 10:42 Dose: 100 mg - Objective Vital Signs: Vital Signs Temperature 98.4 F 11/01/18 10:34 Pulse Rate 71 11/01/18 10:34 Respiratory Rate 20 11/01/18 10:34 Blood Pressure 142/57 L 11/01/18 10:34 O2 Sat by Pulse Oximetry (%) 98 10/31/18 21:20 Constitutional: Yes: Calm Eyes: Yes: Conjunctiva Clear HENT: Yes: Atraumatic Neck: Yes: Supple Cardiovascular: Yes: S1, S2 Respiratory: Yes: CTA Bilaterally Gastrointestinal: Yes: Normal Bowel Sounds, Soft Genitourinary: Yes: WNL Extremities: Yes: Other (fistula with thrill and bruit) Neurological: Yes: Oriented Psychiatric: Yes: Oriented Labs: CBC, BMP 11/01/18 06:45 Problem List - Problems (1) ESRD (end stage renal disease) Code(s): N18.6 - END STAGE RENAL DISEASE Assessment/Plan Current Medications Generic Name Dose Route Start Last Admin Trade Name Freq PRN Reason Stop Dose Admin Amlodipine Besylate 10 mg 11/01/18 10:00 11/01/18 10:42 Norvasc - PO 10 mg DAILY REZA Administration Enalapril Maleate 10 mg 11/01/18 10:00 11/01/18 10:42 Vasotec - PO 10 mg DAILY REZA Administration Fentanyl 25 mcg 10/31/18 15:46 Sublimaze Injection - IVPUSH [id number] PRN PAIN-PACU ORDER X 4 DOSES ONLY Furosemide 40 mg 11/01/18 06:00 11/01/18 05:56 Lasix - PO 40 mg BID@0600,1400 REZA Administration Hydralazine HCl 50 mg 10/31/18 22:00 11/01/18 10:42 Apresoline - PO 50 mg BID REZA Administration Sodium Chloride 250 mls @ 3,000 mls/hr 10/31/18 16:39 Normal Saline - IV 11/01/18 16:38 PRN PRN Hypotension during Dialysis Levothyroxine Sodium 100 mcg 11/01/18 06:15 11/01/18 06:50 Synthroid - PO 100 mcg DAILY@0600 REZA Administration Metoprolol Succinate 100 mg 10/31/18 22:00 11/01/18 10:42 Toprol Xl - PO 100 mg BID REZA Administration Impression 1. ESRD 2. horseshoe kidney 3. av fistula malfunction 4. DM 5. HTN 6. hypothryoidism 7. anemia 8. CHF 9. hyperkalemia Plan - pt tolerated HD last night - potassium is improved - pt has HD scheduled as outpt tomorrow - discussed with surgical team - renal diet - will follow Dr Yuan
--- NOTE | 2018-11-16 10:55 | OP ---
DATE OF OPERATION: 10/31/2018 PREOPERATIVE DIAGNOSIS: Stenosis, left arteriovenous fistula. POSTOPERATIVE DIAGNOSIS: Stenosis, left arteriovenous fistula. PROCEDURE: Venogram, venoplasty, left arteriovenous fistula. FINDINGS: Occlusion of cephalic vein. SURGEON: Jesse Hernandez DO ANESTHESIA: Fractional. BLOOD LOSS: 20 mL The patient is a 63-year-old female who had a preoperative ultrasound showing that she has an occlusion of her cephalic vein in her upper arm. It was decided that she would need a venogram. Patient was consented for the procedure, understanding all risks, benefits, and alternatives, and came in through Ambulatory Surgery. Patient was then brought into the operating room, laid on the operating table in supine manner, and the area of the left arm was prepped and draped in a sterile surgical manner. We then went ahead and injected 10 mL of lidocaine 1% over the proximal AV fistula above the anastomosis. We then took our micropuncture needle, punctured the fistula, and micropuncture wire was inserted. Micropuncture sheath was inserted, and our short 6-Jordanian sheath was inserted. We then administered 3000 units of IV heparin to the patient. We then shot our venogram showing that the cephalic vein was patent, but in the [id number] arm the cephalic vein was occluded. At this point, we placed a 0.035 floppy guidewire along with the catheter, and we were able to cross the occlusion and place the wire all the way up into the cephalic arch. We then went ahead and used a 7 x 7 Forrest balloon and performed venoplasty of the entire fistula from the arch all the way to the mid/upper arm. Completion venogram now showed that the cephalic vein was patent all the way up to the cephalic arch with good outflow. At this point, no more intervention was needed. There was a good thrill in the AV fistula going up the arm. We went ahead and used a 4-0 Biosyn stitch and a [id number] stitch was placed around the sheath and the sheath was pulled. Area was wet and dried, and Dermabond was placed. Patient tolerated the procedure with no complications. Patient transferred to PACU in stable condition. JESSE HERNANDEZ DO THAI MASSEUR/[id number]
== END 2018-11-01 14:23 | disposition home or self-care (01) | DRG 252 ==
LOC: JASU-SURG 11:16 → JSAMEDAYSX 15:13 → J5S 19:59
PROVIDERS: ADMIT Surgery Vascular Surgery; ATTEND Surgery Vascular Surgery
PROC: B51NZZZ Fluoroscopy of Left Upper Extremity Veins (ICD-10-PCS; 2018-10-31)
PROC: 057F3ZZ Dilation of Left Cephalic Vein, Percutaneous Approach (ICD-10-PCS; principal; 2018-10-31 14:00)
DX: T82.590A Other mechanical complication of surgically created arteriovenous fistula, initial encounter (principal); N18.6 End stage renal disease; I13.2 Hypertensive heart and chronic kidney disease with heart failure and with stage 5 chronic kidney disease, or end stage renal disease; T82.868A Thrombosis due to vascular prosthetic devices, implants and grafts, initial encounter; Y83.8 Other surgical procedures as the cause of abnormal reaction of the patient, or of later complication, without mention of misadventure at the time of the procedure; I50.9 Heart failure, unspecified; Z99.2 Dependence on renal dialysis; E11.22 Type 2 diabetes mellitus with diabetic chronic kidney disease; E03.9 Hypothyroidism, unspecified; D64.9 Anemia, unspecified; E87.5 Hyperkalemia; Q63.1 Lobulated, fused and horseshoe kidney; E78.5 Hyperlipidemia, unspecified; E66.9 Obesity, unspecified; Z68.31 Body mass index [BMI] 31.0-31.9, adult
CPT/HCPCS: 36415; 76000-TC-FY; 80048; 82565; 82962; 84132; 84520; 94760; G0463-25; J0885; J1644

== ENCOUNTER 2019-02-01 08:34 | Inpatient (IN) | payer OTHER ==
[2019-01-31 12:24] VITALS: BMI 36.2
[2019-02-01] MEDS ORDERED: LIDOCAINE HCL 1%, 10 MG/ML (20ML VIAL) ONE (11:02)
[2019-02-01] MEDS ORDERED: HEPARIN NA (PORCINE) 5,000 UNITS/ML 1ML VIAL ONE (11:02)
[2019-02-01] MEDS ORDERED: CALCIUM GLUCONATE 10% - 1,000 MG/10 ML VIAL IVPUSH ONE (12:38)
[2019-02-01] MEDS ORDERED: INSULIN REGULAR HUMAN 100 UNITS/ML *VIAL IVPUSH ONE (12:38)
[2019-02-01] MEDS ORDERED: DEXTROSE 50%-WATER - 25 GM/50 ML VIAL IVPUSH ONE (12:39)
[2019-02-01] MEDS ORDERED: SODIUM BICARBONATE 8.4% 50 MEQ/50 ML DISP.SYRIN IVPUSH ONE (12:39)
[2019-02-01] MEDS ORDERED: ALBUTEROL SO4 0.083% IH SOL 2.5 MG/3 ML VIAL.NEB. NEB ONE ×5 (12:39→14:04)
[2019-02-01] MEDS ORDERED: SODIUM POLYSTYRENE SULFONATE 15 GM/60 ML BOTTLE PO ONE (12:56)
--- NOTE | 2019-02-01 13:19 | PN ---
Progress Note (short form) - Note Progress Note: VAscular Surgery K is 6.9 with ekg changes. Left femoral shiley placed. Guidewire removed. All ports flushed. CAn use for HD. Will do venogram shelby at 330pm. Jesse Ledesma DO
--- NOTE | 2019-02-01 14:45 | CONSULT ---
Consult Consult Specialty:: Nephrology Reason for Consultation:: ESRD - History of Present Illness Chief Complaint: admitted for access repair and found to be hyperkalemic History of Present Illness: Pt is a 63 year old female with pmhx of ESRD, DM, HTN, anemia, CHF, and hypothyroidism was was admitted to [facility] surgery for hd access repair. She was found to have elevated potassium. I was called this afternoon to evaluate her. She did get her regular HD however it appears that she may have been recirculating. She denies chest pain or palpitaitons. She denies shortness of breath. She denies fevers or chills. She does complain of lower ext edema. - History Source History Provided By: Patient - Past Medical History Cardio/Vascular: Yes: CHF, HTN, Hyperlipdemia Renal/: Yes: Renal Inusuff, Hemodialysis, Other ...: No Endocrine: Yes: Diabetes Mellitus, Hypothyroidism, Other (hyponatremia) Additional Medical History: hyperkalemia, morbid obesity BMI=37 - Past Surgical History Past Surgical History: Yes: AV Fistula/Graft, Cataract Removal, Cholecystectomy , , Tubal Ligation - Alcohol/Substance Use Hx Alcohol Use: No (occasionally) History of Substance Use: reports: None - Smoking History Smoking history: Never smoked Have you smoked in the past 12 months: No Aproximately how many cigarettes per day: 0 - Social History Usual Living Arrangement: Alone ADL: Support Services ([facility] 4 hours for 2days/week) History of Recent Travel: No Home Medications - Allergies Allergies/Adverse Reactions: Allergies Allergy/AdvReac Type Severity Reaction Status Date / Time black pepper Allergy Severe Swelling Verified 02/01/19 09:33 Penicillins Allergy Severe Rash Verified 02/01/19 09:33 strawberry Allergy Rash Verified 02/01/19 09:33 - Home Medications Home Medications: Ambulatory Orders Acetaminophen [Pain Reliever] 500 mg PO PRN PRN 04/16/16 Amlodipine Besylate [Norvasc -] 10 mg PO DAILY 04/16/16 Levothyroxine [Synthroid -] 100 mcg PO DAILY 04/16/16 hydrALAZINE HCL [Apresoline -] 50 mg PO BID 04/16/16 Fenofibric Acid [Trilipix -] 45 mg PO DAILY cap 04/20/16 Enalapril Maleate [Vasotec] 10 mg PO DAILY 02/23/17 Ferrous Sulfate 325 mg PO BID 02/23/17 Furosemide [Lasix -] 40 mg PO BID 02/23/17 Labetalol HCl [Normodyne -] 200 mg PO BID 02/23/17 Insulin Glargine,Hum.rec.anlog [Lantus (10mL VIAL) -] 20 units SQ DAILY Insulin NPH Human Isophane [Humulin N] 20 unit SQ HS 10/13/17 Metoprolol Tartrate 100 mg PO BID 01/19/18 Omeprazole 40 mg PO DAILY 01/19/18 Simvastatin 40 mg PO DAILY 01/19/18 Aspirin Coated [Ecotrin -] 81 mg PO DAILY 10/31/18 Family Disease History - Family Disease History Family Disease History: Diabetes: Father, Mother, Heart Disease: Mother Review of Systems - Review of Systems Constitutional: reports: No Symptoms Eyes: reports: No Symptoms HENT: reports: No Symptoms Neck: reports: No Symptoms Cardiovascular: reports: No Symptoms Respiratory: reports: No Symptoms Gastrointestinal: reports: No Symptoms Genitourinary: reports: No Symptoms Musculoskeletal: reports: No Symptoms Integumentary: reports: No Symptoms Neurological: reports: No Symptoms Endocrine: reports: No Symptoms Hematology/Lymphatic: reports: No Symptoms Psychiatric: reports: No Symptoms Physical Exam Vital Signs: Vital Signs Temperature 98.2 F 02/01/19 09:31 Pulse Rate 58 L 02/01/19 09:31 Respiratory Rate 18 02/01/19 09:31 Blood Pressure 134/62 02/01/19 09:31 O2 Sat by Pulse Oximetry (%) 99 02/01/19 09:30 Constitutional: Yes: Calm Eyes: Yes: Conjunctiva Clear HENT: Yes: Atraumatic Neck: Yes: Supple Cardiovascular: Yes: S1, S2 Respiratory: Yes: On Nasal O2 Gastrointestinal: Yes: Soft, Abdomen, Obese Renal/: Yes: WNL Musculoskeletal: Yes: WNL Edema: Yes Edema: LLE: 1+, RLE: 1+ Neurological: Yes: Oriented Psychiatric: Yes: Oriented Labs: CBC, BMP 02/01/19 08:45 Laboratory Tests 02/01/19 08:45 Potassium 6.9 H* Problem List - Problems (1) Hyperkalemia Code(s): E87.5 - HYPERKALEMIA (2) ESRD (end stage renal disease) Code(s): N18.6 - END STAGE RENAL DISEASE Assessment/Plan Impression 1. ESRD 2. horseshoe kidney 3. chest pain 4. DM 5. HTN 6. hypothryoidism 7. anemia 8. CHF 9. hyperkalemia Plan - potassium treated medically in amb surgery as HD was not available - pt will get HD at about 3:30 - admit to tele on monitored unit - peaked t waves on ecg - discussed with medical attending - pt has rubens for HD - hd - av fistula, 3:30 2 k bath, 450 abf, aranesp 35, heparin [address] Yuan
--- NOTE | 2019-02-01 15:36 | PN ---
Teaching Attending Note Name of Resident: Steffany Stewart ATTENDING PHYSICIAN STATEMENT I saw and evaluated the patient. I reviewed the resident's note and discussed the case with the resident. I agree with the resident's findings and plan as documented. CC: I feel fine HPI: Ms Scott is a 63 year old female who is here for recanalization of her AV fistula. She was found to be hyperkalemic with peaked T-waves so surgery was cancelled and she is presenting for admission. Ms Scott is without complaint and says she is feeling fine aside from the fact she wants to sit up. She denies fevers, chills, lightheadedness, dizziness, chest pain or pressure, palpitation , shortness of breath, nausea, vomiting, diarrhea, constipation, difficulty or pain on urination, or swelling. PMHx: ESRD on HD, HLD, HTN, DM, hypothyroid, iron deficiency anemia, GERD PSHx: fistula Allergies: pcn Meds: Home Medications Medication Instructions Recorded Acetaminophen [Pain Reliever] 500 mg PO PRN PRN 04/16/16 Amlodipine Besylate [Norvasc -] 10 mg PO DAILY 04/16/16 Levothyroxine [Synthroid -] 100 mcg PO DAILY 04/16/16 hydrALAZINE HCL [Apresoline -] 50 mg PO BID 04/16/16 Fenofibric Acid [Trilipix -] 45 mg PO DAILY cap 04/20/16 Enalapril Maleate [Vasotec] 10 mg PO DAILY 02/23/17 Ferrous Sulfate 325 mg PO BID 02/23/17 Furosemide [Lasix -] 40 mg PO BID 02/23/17 Labetalol HCl [Normodyne -] 200 mg PO BID 02/23/17 Insulin Glargine,Hum.rec.anlog 20 units SQ DAILY 10/13/17 [Lantus (10mL VIAL) -] Insulin NPH Human Isophane 20 unit SQ HS 10/13/17 [Humulin N] Metoprolol Tartrate 100 mg PO BID 01/19/18 Omeprazole 40 mg PO DAILY 01/19/18 Simvastatin 40 mg PO DAILY 01/19/18 Aspirin Coated [Ecotrin -] 81 mg PO DAILY 10/31/18 SHx: denies tobacco, alcohol, [employer] FHx: father with DM, mother with DM and CAD ROS: full review of systems obtained, as per HPI and otherwise negative OBJECTIVE: Last Vital Signs Temp Pulse Resp BP Pulse Ox 36.9 C 62 18 152/53 L 100 02/01/19 15:13 02/01/19 15:13 02/01/19 15:13 02/01/19 15:13 02/01/19 14:10 Gen: nad, obese Pulm: ctab w/o w/r/r CV: rrr w/o m/r/g Abd: +bs, s/nt/nd Ext: no c/c/e Labs: potassium 6.9, full labs pending Problem List - Problems (1) Hyperkalemia Assessment/Plan: -case d/w Dr Yuan -will give albuterol, calcium gluconate, sodium bicarbonate, IV insulin with D50 , and kayexalate -planning for urgent HD when available Code(s): E87.5 - HYPERKALEMIA (2) ESRD (end stage renal disease) Assessment/Plan: -case d/w Dr Yuan -HD today Code(s): N18.6 - END STAGE RENAL DISEASE (3) Anemia Assessment/Plan: -monitor -transfuse if needed Code(s): D64.9 - ANEMIA, UNSPECIFIED Qualifiers: Anemia type: due to chronic kidney disease Chronic kidney disease stage: stage 3 (moderate) Qualified Code(s): N18.3 - Chronic kidney disease, stage 3 (moderate); D63.1 - Anemia in chronic kidney disease; D63.1 - Anemia in chronic kidney disease (4) HLD (hyperlipidemia) Assessment/Plan: -continue statin Code(s): E78.5 - HYPERLIPIDEMIA, UNSPECIFIED (5) Hypothyroidism Assessment/Plan: -continue levothyroxine Code(s): E03.9 - HYPOTHYROIDISM, UNSPECIFIED Qualifiers: Hypothyroidism type: acquired Qualified Code(s): E03.9 - Hypothyroidism, unspecified (6) IDDM (insulin dependent diabetes mellitus) Assessment/Plan: -diabetic diet -SSI and levemir Code(s): E11.9 - TYPE 2 DIABETES MELLITUS WITHOUT COMPLICATIONS; Z79.4 - PRISON (CURRENT) USE OF INSULIN (7) Obesity Assessment/Plan: -outpatient management Code(s): E66.9 - OBESITY, UNSPECIFIED
--- NOTE | 2019-02-01 15:49 | EKG ---
Test Reason : Blood Pressure : / mmHG Vent. Rate : 062 BPM Atrial Rate : 062 BPM P-R Int : 214 ms QRS Dur : 088 ms QT Int : 430 ms P-R-T Axes : 069 003 027 degrees QTc Int : 436 ms SINUS RHYTHM WITH 1ST DEGREE A-V BLOCK OTHERWISE NORMAL ECG WHEN COMPARED WITH ECG OF 21-OCT-2018 10:08, NO SIGNIFICANT CHANGE WAS FOUND Confirmed by CRISTINA CESAR, ARNOLD ([id number]) on 02/01/2019 3:49:11 PM Referred By: Jesse Ledesma Confirmed By:ARNOLD EVANS MD
[2019-02-01 15:58] LABS: ANION GAP 10 MMOL/L (8-16); BLOOD UREA NITROGEN 65 mg/dL (7-18); CALCIUM 9.8 mg/dL (8.5-10.1); CHLORIDE 101 mmol/L (98-107); CO2 24 mmol/L (21-32); CREATININE 6.2 mg/dL (0.55-1.3); GLUCOSE,RANDOM 104 mg/dL (74-106); POTASSIUM 5.9 mmol/L (3.5-5.1); SODIUM 134 mmol/L (136-145)
[2019-02-01] MEDS ORDERED: SODIUM CHLORIDE 250 ML IV PRN (16:01)
[2019-02-01] MEDS ORDERED: HEPARIN NA (PORCINE) 5,000 UNITS/ML 1ML VIAL IVPUSH ONE (16:15)
--- NOTE | 2019-02-01 16:22 | HP ---
CHIEF COMPLAINT: abnormal lab PCP: Dr. Reza HISTORY OF PRESENT ILLNESS: This is a 63 year old female with a history of ESRD, (TTS), was here for AV fistula placement when she was found to have a potassium of 6.9 and peaked T waves on ECG. Patient was given calcium gluconate, insulin, bicarb, albuterol, d5IVP. She was then placed in telemetry. NO associated symptoms were reported. Denies chest pain, sob, cunningham, blurry vision , n, v. Allergies; penicillin Recent Travel: no PAST MEDICAL HISTORY: PMHx: NIDDM, HTN, HLD, anemia, hypothyroid, diastolic CHF, ESRD (T, T, S), PAST SURGICAL HISTORY: PSHx: 3 C sections; cataract, knee surgery Social History:Social HX; denies tobacco, alcohol, drug use Family History: Allergies black pepper Allergy (Severe, Verified 02/01/19 09:33) Swelling Penicillins Allergy (Severe, Verified 02/01/19 09:33) Rash strawberry Allergy (Verified 02/01/19 09:33) Rash HOME MEDICATIONS: Home Medications Medication Instructions Recorded Acetaminophen [Pain Reliever] 500 mg PO PRN PRN 04/16/16 Amlodipine Besylate [Norvasc -] 10 mg PO DAILY 04/16/16 Levothyroxine [Synthroid -] 100 mcg PO DAILY 04/16/16 hydrALAZINE HCL [Apresoline -] 50 mg PO BID 04/16/16 Fenofibric Acid [Trilipix -] 45 mg PO DAILY cap 04/20/16 Enalapril Maleate [Vasotec] 10 mg PO DAILY 02/23/17 Ferrous Sulfate 325 mg PO BID 02/23/17 Furosemide [Lasix -] 40 mg PO BID 02/23/17 Labetalol HCl [Normodyne -] 200 mg PO BID 02/23/17 Insulin Glargine,Hum.rec.anlog 20 units SQ DAILY 10/13/17 [Lantus (10mL VIAL) -] Insulin NPH Human Isophane 20 unit SQ HS 10/13/17 [Humulin N] Metoprolol Tartrate 100 mg PO BID 01/19/18 Omeprazole 40 mg PO DAILY 01/19/18 Simvastatin 40 mg PO DAILY 01/19/18 Aspirin Coated [Ecotrin -] 81 mg PO DAILY 10/31/18 REVIEW OF SYSTEMS CONSTITUTIONAL: Absent: fever, chills, diaphoresis, generalized weakness, malaise, loss of appetite, weight change HEENT: Absent: rhinorrhea, nasal congestion, throat pain, throat swelling, difficulty swallowing, mouth swelling, ear pain, eye pain, visual changes CARDIOVASCULAR: Absent: chest pain, syncope, palpitations, irregular heart rate, lightheadedness , peripheral edema RESPIRATORY: Absent: cough, shortness of breath, dyspnea with exertion, orthopnea, wheezing, stridor, hemoptysis GASTROINTESTINAL: Absent: abdominal pain, abdominal distension, nausea, vomiting, diarrhea, constipation, melena, hematochezia GENITOURINARY: Absent: dysuria, frequency, urgency, hesitancy, hematuria, flank pain, genital pain MUSCULOSKELETAL: Absent: myalgia, arthralgia, joint swelling, back pain, neck pain SKIN: Absent: rash, itching, pallor HEMATOLOGIC/IMMUNOLOGIC: Absent: easy bleeding, easy bruising, lymphadenopathy, frequent infections ENDOCRINE: Absent: unexplained weight gain, unexplained weight loss, heat intolerance, cold intolerance NEUROLOGIC: Absent: headache, focal weakness or paresthesias, dizziness, unsteady gait, seizure, mental status changes, bladder or bowel incontinence PSYCHIATRIC: Absent: anxiety, depression, suicidal or homicidal ideation, hallucinations. PHYSICAL EXAMINATION Vital Signs - 24 hr 02/01/19 02/01/19 02/01/19 09:27 09:30 09:31 Temperature 98.2 F Pulse Rate 58 L Respiratory 18 Rate Blood Pressure 134/62 O2 Sat by Pulse 99 99 Oximetry (%) 02/01/19 02/01/19 02/01/19 12:25 12:40 12:55 Temperature 98 F Pulse Rate 71 77 81 Respiratory 18 20 20 Rate Blood Pressure 184/72 H 188/93 H 191/100 H O2 Sat by Pulse 100 100 100 Oximetry (%) 02/01/19 02/01/19 02/01/19 13:10 13:25 13:40 Temperature Pulse Rate 71 72 77 Respiratory 18 20 18 Rate Blood Pressure 180/50 H 189/93 H 153/83 O2 Sat by Pulse 100 100 100 Oximetry (%) 02/01/19 02/01/19 02/01/19 13:55 14:10 15:13 Temperature 97.8 F 98.4 F Pulse Rate 70 70 62 Respiratory 20 20 18 Rate Blood Pressure 191/91 H 180/91 H 152/53 L O2 Sat by Pulse 100 100 Oximetry (%) GENERAL: Awake, alert, and fully oriented, in no acute distress; obese LUNGS: Breath sounds equal, clear to auscultation bilaterally. No wheezes, and no crackles. No accessory muscle use. HEART: Regular rate and rhythm, normal S1 and S2 without murmur, rub or gallop. ABDOMEN: Soft, nontender, not distended, normoactive bowel sounds, no guarding, no rebound, no masses. No hepatomegaly or splenomegaly. MUSCULOSKELETAL: Normal range of motion at all joints. No bony deformities or tenderness. No CVA tenderness. UPPER EXTREMITIES: 2+ pulses, warm, well-perfused. No cyanosis. No clubbing. No peripheral edema. LOWER EXTREMITIES: 2+ pulses, warm, well-perfused. No calf tenderness. No peripheral edema. NEUROLOGICAL: Cranial nerves II-XII intact. Normal speech. Laboratory Results - last 24 hr 02/01/19 02/01/19 02/01/19 08:45 09:20 14:30 Sodium 134 L Potassium 6.9 H* 5.9 H Chloride 101 Carbon Dioxide 24 Anion Gap 10 BUN 65 H Creatinine 6.2 H Creat Clearance w eGFR 6.84 POC Glucometer 163 Random Glucose 104 Calcium 9.8 ASSESSMENT/PLAN: This is a 63 year old female with a history of ESRD planned for AV today although she as found to have peaked t waves on ECG and K of 6.9. #Hyperkalemia: -s/p cocktail; calcium gluc, insulin, albuterol, bicarb -repeat bmp -will get dialyzed today #ESRD: -shiley placed today; will get HD today -venogram tomorrow -vascular following DIET: renal ; npo aftermidnight VTE; heparin sq Visit type - Emergency Visit Emergency Visit: No - New Patient This patient is new to me today: Yes Date on this admission: 02/01/19 - Critical Care Critical Care patient: No
[2019-02-01 21:04] LABS: ANION GAP 9 MMOL/L (8-16); BLOOD UREA NITROGEN 30 mg/dL (7-18); CALCIUM 8.5 mg/dL (8.5-10.1); CHLORIDE 99 mmol/L (98-107); CO2 28 mmol/L (21-32); CREATININE 3.2 mg/dL (0.55-1.3); GLUCOSE,RANDOM 163 mg/dL (74-106); POTASSIUM 4.4 mmol/L (3.5-5.1); SODIUM 136 mmol/L (136-145)
[2019-02-01] MEDS: HEPARIN NA (PORCINE) 5,000 UNITS/ML 1ML VIAL IVPUSH SCH (21:38)
[2019-02-01] MEDS: HEPARIN NA (PORCINE) 5,000 UNITS/ML 1ML VIAL SQ SCH (21:52)
[2019-02-02] MEDS: HEPARIN NA (PORCINE) 5,000 UNITS/ML 1ML VIAL SQ SCH ×3 (05:30→21:55)
[2019-02-02 06:32] LABS: BASO % 0.7 % (0-2.0); HEMATOCRIT 35.7 % (32.4-45.2); HEMOGLOBIN 12.2 GM/dL (10.7-15.3); LYMPH % 18.2 % (8-40); MCH 33.8 pg (25.7-33.7); MCHC 34.2 g/dl (32.0-36.0); MEAN CELL VOLUME 98.7 fl (80-96); MEAN PLT VOLUME 9.3 fl (7.5-11.1); MONO % 7.2 % (3.8-10.2); NEUT % 69.9 % (42.8-82.8); PLATELET COUNT 194 K/MM3 (134-434); RBC 3.61 M/mm3 (3.60-5.2); RDW 14.8 % (11.6-15.6); WHITE BLOOD COUNT 6.3 K/mm3 (4.0-10.0)
[2019-02-02 07:03] LABS: ALK PHOS 96 U/L (45-117); ANION GAP 9 MMOL/L (8-16); BILIRUBIN,TOTAL 0.4 mg/dL (0.2-1); BLOOD UREA NITROGEN 40 mg/dL (7-18); CALCIUM 8.7 mg/dL (8.5-10.1); CHLORIDE 99 mmol/L (98-107); CO2 26 mmol/L (21-32); CREATININE 4.4 mg/dL (0.55-1.3); GLUCOSE,RANDOM 162 mg/dL (74-106); MAGNESIUM 2.4 mg/dL (1.8-2.4); PHOSPHOROUS 6.8 mg/dL (2.5-4.9); SGOT/AST 6 U/L (15-37); SGPT/ALT 13 U/L (13-61); SODIUM 134 mmol/L (136-145); TOT PROT 7.3 g/dl (6.4-8.2)
[2019-02-02] MEDS ORDERED: PATIENT'S OWN MEDICATION (NON-FORMULARY) (Insulin Glargine,Hum.Rec.Anlog 20 UNITS) SQ SCH (10:00)
[2019-02-02] MEDS ORDERED: ASPIRIN COATED 81 MG TABLET.EC PO SCH (10:00)
[2019-02-02] MEDS ORDERED: FENOFIBRIC ACID 45 MG CAP PO SCH (10:00)
[2019-02-02] MEDS ORDERED: LABETALOL HCL 200 MG TABLET (FP) PO SCH ×2 (10:00→22:00)
[2019-02-02] MEDS ORDERED: ENALAPRIL MALEATE 10 MG TABLET (FP) PO SCH (10:15)
[2019-02-02] MEDS ORDERED: FERROUS SO4 325 MG TABLET (FP) PO SCH (10:15)
[2019-02-02] MEDS ORDERED: amLODIPine BESYLATE 10 MG TABLET (FP) PO SCH (10:15)
[2019-02-02] MEDS ORDERED: hydrALAZINE HCL 50 MG TABLET (FP) PO SCH (10:15)
[2019-02-02] MEDS ORDERED: LIDOCAINE HCL 1%, 10 MG/ML (20ML VIAL) ONE (10:25)
[2019-02-02] MEDS ORDERED: HEPARIN NA (PORCINE) 5,000 UNITS/ML 1ML VIAL ONE ×2 (10:25→11:26)
[2019-02-02] MEDS: INSULIN SLIDING SCALE (NOVOLOG) 1 VIAL SQ SCH ×3 (10:29→21:59)
[2019-02-02] MEDS: LEVOTHYROXINE NA 100 MCG TABLET (FP) PO SCH (10:29)
[2019-02-02] MEDS ORDERED: MIDAZOLAM HCL 2 MG/2 ML SINGLE DOSE VIAL ONE ×2 (10:54→11:46)
[2019-02-02] MEDS ORDERED: ceFAZolin SODIUM 1 GM VIAL IVPB ONE (11:12)
[2019-02-02] MEDS ORDERED: LIDOCAINE HCL 1%, 10 MG/ML (20ML VIAL) NR ONE (11:14)
[2019-02-02] MEDS ORDERED: ceFAZolin SODIUM 1 GM VIAL ONE (11:21)
--- NOTE | 2019-02-02 12:16 | OP ---
Operative Note - Note: Operative Date: 02/02/19 Pre-Operative Diagnosis: clotted left avf Operation: venogram, suction thrombectomy left avf. Insertion of permacath Findings: Pt with good basilic vein -- can do avg using left avf . Post-Operative Diagnosis: Same as Pre-op Surgeon: Jesse Ledesma Anesthesia: Fractional Estimated Blood Loss (mls): 50 Operative Report Dictated: Yes
[2019-02-02] MEDS: FUROSEMIDE 40 MG TABLET (FP) PO SCH ×2 (12:19→17:56)
--- NOTE | 2019-02-02 12:19 | PN ---
Progress Note (short form) - Note Progress Note: Vascular Surgery S/P suction thrombectomy left avf. Unable to open avf as there is occlusion of the vein in the cephalic arch. Permacath placed right IJ Pt can be DC home after HD. Can place left avg as outpt using proximal portion of avf. Pt has a good basilic vein to connect to. Jesse Ledesma DO
[2019-02-02] MEDS: METOPROLOL TARTRATE 50 MG TABLET (FP) PO SCH ×2 (12:20→21:56)
[2019-02-02] MEDS: FERROUS SO4 325 MG TABLET (FP) PO SCH ×2 (12:21→21:56)
[2019-02-02] MEDS ORDERED: SODIUM CHLORIDE 1,000 ML IV SCH (12:30)
[2019-02-02] MEDS: hydrALAZINE HCL 50 MG TABLET (FP) PO SCH ×2 (15:00→21:56)
--- NOTE | 2019-02-02 15:44 | PN ---
Physical Exam: SUBJECTIVE: Patient seen and examined; no acute events ; gettin OBJECTIVE: Vital Signs Period Temp Pulse Resp BP Sys/Duque Pulse Ox Last 24 Hr 97.5 F-98.4 F 60-100 15-20 107-165/41-78 95-100 GENERAL: The patient is awake, alert, and fully oriented, in no acute distress. NECK: permacath right IJ LUNGS: Breath sounds equal, clear to auscultation bilaterally, no wheezes, no crackles, no accessory muscle use. HEART: Regular rate and rhythm, S1, S2 without murmur, rub or gallop. ABDOMEN: Soft, nontender, nondistended, normoactive bowel sounds, no guarding, no rebound, no hepatosplenomegaly, no masses. EXTREMITIES: 2+ pulses, warm, well-perfused, no edema. NEUROLOGICAL: Cranial nerves II through XII grossly intact. Normal speech, gait not observed. PSYCH: Normal mood, normal affect. SKIN: Warm, dry, normal turgor, no rashes or lesions noted Laboratory Results - last 24 hr 02/01/19 02/01/19 02/02/19 14:30 20:00 05:30 WBC 6.3 RBC 3.61 Hgb 12.2 Hct 35.7 MCV 98.7 H MCH 33.8 H MCHC 34.2 RDW 14.8 Plt Count 194 MPV 9.3 Absolute Neuts (auto) 4.4 Neutrophils % 69.9 Lymphocytes % 18.2 Monocytes % 7.2 Eosinophils % 4.0 Basophils % 0.7 Nucleated RBC % 0 Sodium 134 L 136 Potassium 5.9 H 4.4 Chloride 101 99 Carbon Dioxide 24 28 Anion Gap 10 9 BUN 65 H 30 H Creatinine 6.2 H 3.2 H Creat Clearance w eGFR 6.84 14.68 POC Glucometer Random Glucose 104 163 H Calcium 9.8 8.5 Phosphorus Magnesium Total Bilirubin AST ALT Alkaline Phosphatase Total Protein Albumin 02/02/19 02/02/19 02/02/19 05:30 07:23 13:48 WBC RBC Hgb Hct MCV MCH MCHC RDW Plt Count MPV Absolute Neuts (auto) Neutrophils % Lymphocytes % Monocytes % Eosinophils % Basophils % Nucleated RBC % Sodium 134 L Potassium 5.0 Chloride 99 Carbon Dioxide 26 Anion Gap 9 BUN 40 H Creatinine 4.4 H Creat Clearance w eGFR 10.16 POC Glucometer 163 128 Random Glucose 162 H Calcium 8.7 Phosphorus 6.8 H Magnesium 2.4 Total Bilirubin 0.4 AST 6 L ALT 13 Alkaline Phosphatase 96 Total Protein 7.3 Albumin 3.0 L Active Medications Generic Name Dose Route Start Last Admin Trade Name Freq PRN Reason Stop Dose Admin Atorvastatin Calcium 20 mg 02/02/19 22:00 Lipitor - PO HS [facility] Fenofibric Acid 45 mg 02/02/19 10:00 02/02/19 12:20 Trilipix - PO Not Given DAILY [facility] Fentanyl 25 mcg 02/02/19 12:28 Sublimaze Injection - IVPUSH [id number] PRN PAIN-PACU ORDER X 4 DOSES ONLY Ferrous Sulfate 325 mg 02/02/19 12:00 02/02/19 12:21 Feosol - PO Not Given BID [facility] Furosemide 40 mg 02/02/19 10:00 02/02/19 12:19 Lasix - PO Not Given BIDLASIX [facility] Heparin Sodium (Porcine) 5,000 unit 02/01/19 22:00 02/02/19 05:30 Heparin - SQ 5,000 unit TID [facility] Administration Hydralazine HCl 50 mg 02/02/19 14:00 Apresoline - PO TID [facility] Sodium Chloride 250 mls @ 3,000 mls/hr 02/01/19 16:01 Normal Saline - IV 02/02/19 16:00 PRN PRN Hypotension during Dialysis Sodium Chloride 1,000 mls @ 42 mls/hr 02/02/19 12:30 Normal Saline - IV ASDIR [facility] Insulin Aspart 1 vial 02/02/19 10:00 02/02/19 10:29 Novolog Vial Sliding Scale - SQ Not Given Q6H [facility] Protocol Levothyroxine Sodium 100 mcg 02/02/19 10:15 02/02/19 10:29 Synthroid - PO 100 mcg DAILY@0700 [facility] Administration Metoprolol Tartrate 100 mg 02/02/19 10:00 02/02/19 12:20 Lopressor - PO Not Given BID [facility] ASSESSMENT/PLAN: This is a 63 year old female with a history of ESRD planned for AV today although she as found to have peaked t waves on ECG and K of 6.9. #S/P suction thrombectomy left AV fistula -as per surgery note; unable to open avf due to occlusion of the vein in the cephalic arch. -Permacath placed right IJ #Hyperkalemia:resolved -s/p cocktail; calcium gluc, insulin, albuterol, bicarb -repeat bmp -will get dialyzed today #ESRD: HD tomorrow #hypothyroid; cont levothyroxine #dchf; cont lasix #HTN: hydralizine; metoprolol DIET: renal ; VTE; heparin sq Disposition; can d/c after HD [facility] Visit type - Emergency Visit Emergency Visit: Yes ED Registration Date: 02/01/19 Care time: The patient presented to the Emergency Department on the above date and was hospitalized for further evaluation of their emergent condition. - New Patient This patient is new to me today: No - Critical Care Critical Care patient: No
--- NOTE | 2019-02-02 15:54 | PN ---
Progress Note, Physician History of Present Illness: Pt seen and examined at bedside. She is awake and alert. She had the permacath placed today. - Current Medication List Current Medications: Active Medications Atorvastatin Calcium (Lipitor -) 20 mg PO HS [facility] Fenofibric Acid (Trilipix -) 45 mg PO DAILY [facility] Last Admin: 02/02/19 12:20 Dose: Not Given Fentanyl (Sublimaze Injection -) 25 mcg IVPUSH [id number] PRN PRN Reason: PAIN-PACU ORDER X 4 DOSES ONLY Ferrous Sulfate (Feosol -) 325 mg PO BID [facility] Last Admin: 02/02/19 12:21 Dose: Not Given Furosemide (Lasix -) 40 mg PO BIDLASIX [facility] Last Admin: 02/02/19 12:19 Dose: Not Given Heparin Sodium (Porcine) (Heparin -) 5,000 unit SQ TID [facility] Last Admin: 02/02/19 05:30 Dose: 5,000 unit Hydralazine HCl (Apresoline -) 50 mg PO TID [facility] Sodium Chloride (Normal Saline -) 250 mls @ 3,000 mls/hr IV PRN PRN PRN Reason: Hypotension during Dialysis Stop: 02/02/19 16:00 Sodium Chloride (Normal Saline -) 1,000 mls @ 42 mls/hr IV ASDIR [facility] Insulin Aspart (Novolog Vial Sliding Scale -) 1 vial SQ Q6H [facility]; Protocol Last Admin: 02/02/19 10:29 Dose: Not Given Levothyroxine Sodium (Synthroid -) 100 mcg PO DAILY@0700 [facility] Last Admin: 02/02/19 10:29 Dose: 100 mcg Metoprolol Tartrate (Lopressor -) 100 mg PO BID [facility] Last Admin: 02/02/19 12:20 Dose: Not Given - Objective Vital Signs: Vital Signs Temperature 98.7 F 02/02/19 14:51 Pulse Rate 84 02/02/19 14:51 Respiratory Rate 20 02/02/19 14:51 Blood Pressure 142/65 02/02/19 14:51 O2 Sat by Pulse Oximetry (%) 98 02/02/19 14:51 Constitutional: Yes: Calm Eyes: Yes: Conjunctiva Clear HENT: Yes: Atraumatic Neck: Yes: Supple Cardiovascular: Yes: S1, S2 Respiratory: Yes: CTA Bilaterally Gastrointestinal: Yes: Soft, Abdomen, Obese Genitourinary: Yes: WNL Musculoskeletal: Yes: WNL Edema: Yes Edema: LLE: 1+, RLE: 1+ Neurological: Yes: Oriented Psychiatric: Yes: Oriented Labs: CBC, BMP 02/02/19 05:30 02/02/19 05:30 Problem List - Problems (1) Hyperkalemia Code(s): E87.5 - HYPERKALEMIA (2) ESRD (end stage renal disease) Code(s): N18.6 - END STAGE RENAL DISEASE Assessment/Plan Current Medications Generic Name Dose Route Start Last Admin Trade Name Freq PRN Reason Stop Dose Admin Atorvastatin Calcium 20 mg 02/02/19 22:00 Lipitor - PO HS [facility] Fenofibric Acid 45 mg 02/02/19 10:00 02/02/19 12:20 Trilipix - PO Not Given DAILY [facility] Fentanyl 25 mcg 02/02/19 12:28 Sublimaze Injection - IVPUSH [id number] PRN PAIN-PACU ORDER X 4 DOSES ONLY Ferrous Sulfate 325 mg 02/02/19 12:00 02/02/19 12:21 Feosol - PO Not Given BID [facility] Furosemide 40 mg 02/02/19 10:00 02/02/19 12:19 Lasix - PO Not Given BIDLASIX [facility] Heparin Sodium (Porcine) 5,000 unit 02/01/19 22:00 02/02/19 05:30 Heparin - SQ 5,000 unit TID [facility] Administration Hydralazine HCl 50 mg 02/02/19 14:00 Apresoline - PO TID [facility] Sodium Chloride 250 mls @ 3,000 mls/hr 02/01/19 16:01 Normal Saline - IV 02/02/19 16:00 PRN PRN Hypotension during Dialysis Sodium Chloride 1,000 mls @ 42 mls/hr 02/02/19 12:30 Normal Saline - IV ASDIR [facility] Insulin Aspart 1 vial 02/02/19 10:00 02/02/19 10:29 Novolog Vial Sliding Scale - SQ Not Given Q6H [facility] Protocol Levothyroxine Sodium 100 mcg 02/02/19 10:15 02/02/19 10:29 Synthroid - PO 100 mcg DAILY@0700 [facility] Administration Metoprolol Tartrate 100 mg 02/02/19 10:00 02/02/19 12:20 Lopressor - PO Not Given BID [facility] Impression 1. ESRD 2. horseshoe kidney 3. chest pain 4. DM 5. HTN 6. hypothryoidism 7. anemia 8. CHF 9. hyperkalemia Plan - will arrange for HD tomorrow - pt had permacath placed - will need follow up with vascular - renal diet - discussed with medical team - hd - av fistula, 3:30 2 k bath, 450 abf, aranesp 35, heparin [address] Yuan
--- NOTE | 2019-02-02 16:49 | PN ---
Teaching Attending Note Name of Resident: Steffany Stewart ATTENDING PHYSICIAN STATEMENT I saw and evaluated the patient. I reviewed the resident's note and discussed the case with the resident. I agree with the resident's findings and plan as documented. SUBJECTIVE: Ms Scott is without complaint. No cp, sob, n/v. OBJECTIVE: Last Vital Signs Temp Pulse Resp BP Pulse Ox 37.1 C 84 20 142/65 98 02/02/19 14:51 02/02/19 14:51 02/02/19 14:51 02/02/19 14:51 02/02/19 14:51 Gen: nad, obese Pulm: ctab w/o w/r/r CV: rrr w/o m/r/g Abd: +bs, s/nt/nd Ext: no c/c/e CBC, BMP 02/02/19 05:30 02/02/19 05:30 ASSESSMENT AND PLAN: (1) Hyperkalemia Assessment/Plan: -case d/w Dr Yuan -improved -will need HD tomorrow Code(s): E87.5 - HYPERKALEMIA (2) ESRD (end stage renal disease) Assessment/Plan: -permacath placed today -will need HD before discharge per Dr Yuan and Dr Ledesma -plan for HD tomorrow Code(s): N18.6 - END STAGE RENAL DISEASE (3) Anemia Assessment/Plan: -no need for transfusion Code(s): D64.9 - ANEMIA, UNSPECIFIED Qualifiers: Anemia type: due to chronic kidney disease Chronic kidney disease stage: stage 3 (moderate) Qualified Code(s): N18.3 - Chronic kidney disease, stage 3 (moderate); D63.1 - Anemia in chronic kidney disease; D63.1 - Anemia in chronic kidney disease (4) HLD (hyperlipidemia) Assessment/Plan: -continue statin Code(s): E78.5 - HYPERLIPIDEMIA, UNSPECIFIED (5) Hypothyroidism Assessment/Plan: -continue levothyroxine Code(s): E03.9 - HYPOTHYROIDISM, UNSPECIFIED Qualifiers: Hypothyroidism type: acquired Qualified Code(s): E03.9 - Hypothyroidism, unspecified (6) IDDM (insulin dependent diabetes mellitus) Assessment/Plan: -diabetic diet -SSI and levemir Code(s): E11.9 - TYPE 2 DIABETES MELLITUS WITHOUT COMPLICATIONS; Z79.4 - [facility] (CURRENT) USE OF INSULIN (7) Obesity Assessment/Plan: -outpatient management Code(s): E66.9 - OBESITY, UNSPECIFIED Problem List - Problems (1) Hyperkalemia Code(s): E87.5 - HYPERKALEMIA (2) ESRD (end stage renal disease) Code(s): N18.6 - END STAGE RENAL DISEASE (3) Anemia Code(s): D64.9 - ANEMIA, UNSPECIFIED Qualifiers: Anemia type: due to chronic kidney disease Chronic kidney disease stage: stage 3 (moderate) Qualified Code(s): N18.3 - Chronic kidney disease, stage 3 (moderate); D63.1 - Anemia in chronic kidney disease; D63.1 - Anemia in chronic kidney disease (4) HLD (hyperlipidemia) Code(s): E78.5 - HYPERLIPIDEMIA, UNSPECIFIED (5) Hypothyroidism Code(s): E03.9 - HYPOTHYROIDISM, UNSPECIFIED Qualifiers: Hypothyroidism type: acquired Qualified Code(s): E03.9 - Hypothyroidism, unspecified (6) IDDM (insulin dependent diabetes mellitus) Code(s): E11.9 - TYPE 2 DIABETES MELLITUS WITHOUT COMPLICATIONS; Z79.4 - [facility] (CURRENT) USE OF INSULIN (7) Obesity Code(s): E66.9 - OBESITY, UNSPECIFIED
[2019-02-02] MEDS ORDERED: ATORVASTATIN CA 20 MG TABLET (FP) PO SCH (22:00)
[2019-02-03] MEDS: INSULIN SLIDING SCALE (NOVOLOG) 1 VIAL SQ SCH ×3 (05:47→11:27)
[2019-02-03] MEDS: FUROSEMIDE 40 MG TABLET (FP) PO SCH (05:47)
[2019-02-03] MEDS: hydrALAZINE HCL 50 MG TABLET (FP) PO SCH (05:47)
[2019-02-03] MEDS: HEPARIN NA (PORCINE) 5,000 UNITS/ML 1ML VIAL SQ SCH (05:47)
[2019-02-03] MEDS: LEVOTHYROXINE NA 100 MCG TABLET (FP) PO SCH (06:34)
[2019-02-03 07:27] LABS: ANION GAP 9 MMOL/L (8-16); BLOOD UREA NITROGEN 52 mg/dL (7-18); CALCIUM 8.6 mg/dL (8.5-10.1); CHLORIDE 100 mmol/L (98-107); CO2 26 mmol/L (21-32); CREATININE 5.6 mg/dL (0.55-1.3); GLUCOSE,RANDOM 95 mg/dL (74-106); MAGNESIUM 2.4 mg/dL (1.8-2.4); PHOSPHOROUS 8.3 mg/dL (2.5-4.9); POTASSIUM 5.1 mmol/L (3.5-5.1); SODIUM 135 mmol/L (136-145)
[2019-02-03] MEDS ORDERED: FERROUS SO4 325 MG TABLET (FP) PO SCH (08:00)
[2019-02-03] MEDS ORDERED: PT OWN MED DRAWER 7, Y5N ONE ×2 (09:15→11:27)
[2019-02-03] MEDS ORDERED: METOPROLOL TARTRATE 50 MG TABLET (FP) PO SCH (10:00)
[2019-02-03] MEDS ORDERED: FENOFIBRIC ACID 45 MG CAP PO SCH (10:00)
--- NOTE | 2019-02-03 10:48 | DS ---
Physical Examination Vital Signs: Vital Signs Temperature 36.8 C 02/03/19 09:00 Pulse Rate 68 02/03/19 09:00 Respiratory Rate 18 02/03/19 09:00 Blood Pressure 132/59 L 02/03/19 09:00 O2 Sat by Pulse Oximetry (%) 98 02/03/19 09:00 Constitutional: Yes: No Distress, Calm, Obese Cardiovascular: Yes: Regular Rate and Rhythm. No: Gallop, Murmur, Rub Respiratory: Yes: Regular, CTA Bilaterally. No: Rales, Rhonchi, Wheezes Gastrointestinal: Yes: Normal Bowel Sounds, Soft. No: Distention, Tenderness Extremities: Yes: WNL Edema: No Labs: CBC, BMP 02/02/19 05:30 02/03/19 05:30 Discharge Summary Reason For Visit: STENOSIS LEFT AVF Current Active Problems Hyperkalemia (Acute) Hospital Course: (1) Hyperkalemia Code(s): E87.5 - HYPERKALEMIA (2) ESRD (end stage renal disease) Code(s): N18.6 - END STAGE RENAL DISEASE (3) Anemia Code(s): D64.9 - ANEMIA, UNSPECIFIED Qualifiers: Anemia type: due to chronic kidney disease Chronic kidney disease stage: stage 3 (moderate) Qualified Code(s): N18.3 - Chronic kidney disease, stage 3 (moderate); D63.1 - Anemia in chronic kidney disease; D63.1 - Anemia in chronic kidney disease (4) HLD (hyperlipidemia) Code(s): E78.5 - HYPERLIPIDEMIA, UNSPECIFIED (5) Hypothyroidism Code(s): E03.9 - HYPOTHYROIDISM, UNSPECIFIED Qualifiers: Hypothyroidism type: acquired Qualified Code(s): E03.9 - Hypothyroidism, unspecified (6) IDDM (insulin dependent diabetes mellitus) Code(s): E11.9 - TYPE 2 DIABETES MELLITUS WITHOUT COMPLICATIONS; Z79.4 - [facility] (CURRENT) USE OF INSULIN (7) Obesity Code(s): E66.9 - OBESITY, UNSPECIFIED Ms Scott is a very pleasant 63 year old female who came in for fistula repair and was found to have hyperkalemia with peaked T waves. She was admitted to telemetry. She received albuterol, calcium gluconate, sodium bicarbonate, regular insulin w/ D50, and kayexalate. Case was discussed with Dr Yuan who followed her potassium. It improved with medical management and her EKG normalized. She had a tunnel catheter placed for HD. She successfully had HD and is safe for discharge home. 32 minutes spent in preparation of this discharge Condition: Stable - Instructions Diet, Activity, Other Instructions: resume previous diet and activity Referrals: Jesse Ledemsa MD [Staff Physician] - Jourdan Cummins MD [Staff Physician] - Disposition: HOME - Home Medications Comprehensive Discharge Medication List: Ambulatory Orders Acetaminophen [Pain Reliever] 500 mg PO PRN PRN 04/16/16 Levothyroxine [Synthroid -] 100 mcg PO DAILY 04/16/16 Fenofibric Acid [Trilipix -] 45 mg PO DAILY cap 04/20/16 Ferrous Sulfate 325 mg PO BID 02/23/17 Furosemide [Lasix -] 40 mg PO BID 02/23/17 Metoprolol Tartrate 100 mg PO BID 01/19/18 Amlodipine Besylate [Norvasc -] 10 mg PO DAILY tablet 02/03/19 Aspirin Coated [Ecotrin -] 81 mg PO DAILY #30 tablet.ec 02/03/19 Atorvastatin Ca [Lipitor] 20 mg PO HS #30 tablet 02/03/19 Insulin Glargine,Hum.rec.anlog 20 units SQ DAILY units 02/03/19 Labetalol HCl [Normodyne -] 200 mg PO BID tablet 02/03/19 hydrALAZINE HCL [Apresoline -] 50 mg PO TID #90 tablet 02/03/19
[2019-02-03 11:15] LABS: HBSAG SCREEN Negative (Negative); HEP A AB, IGM Negative (Negative); HEP B CORE AB, TOT Negative (Negative)
[2019-02-03 12:33] LABS: HEMATOCRIT 33.5 % (32.4-45.2); HEMOGLOBIN 11.5 GM/dL (10.7-15.3); MCH 34.5 pg (25.7-33.7); MCHC 34.5 g/dl (32.0-36.0); MEAN CELL VOLUME 100.1 fl (80-96); MEAN PLT VOLUME 10.3 fl (7.5-11.1); PLATELET COUNT 171 K/MM3 (134-434); RBC 3.34 M/mm3 (3.60-5.2); RDW 14.4 % (11.6-15.6); WHITE BLOOD COUNT 7.6 K/mm3 (4.0-10.0)
[2019-02-03 13:19] VITALS: PULSE 60
[2019-02-03 13:42] VITALS: TEMP 98
[2019-02-03] MEDS ORDERED: hydrALAZINE HCL 50 MG TABLET (FP) PO SCH (14:00)
[2019-02-03] MEDS ORDERED: HEPARIN NA (PORCINE) 5,000 UNITS/ML 1ML VIAL SQ SCH (14:00)
[2019-02-03] MEDS ORDERED: FUROSEMIDE 40 MG TABLET (FP) PO SCH (14:00)
[2019-02-03 14:28] VITALS: BP 109/56
[2019-02-03] MEDS: HEPARIN NA (PORCINE) 5,000 UNITS/ML 1ML VIAL IVPUSH SCH ×2 (14:30→15:30)
[2019-02-03] MEDS ORDERED: SODIUM CHLORIDE 250 ML IV PRN (14:30)
[2019-02-03] MEDS ORDERED: HEPARIN NA (PORCINE) 5,000 UNITS/ML 1ML VIAL IVPUSH ONE (14:30)
--- NOTE | 2019-02-03 15:16 | PN ---
Progress Note, Physician History of Present Illness: Pt seen and examined at bedside. SHe is awake and alert. She denies shortness of breath. She is tolerating HD. - Current Medication List Current Medications: Active Medications Atorvastatin Calcium (Lipitor -) 20 mg PO HS [facility] Fenofibric Acid (Trilipix -) 45 mg PO DAILY [facility] Last Admin: 02/03/19 09:25 Dose: 45 mg Fentanyl (Sublimaze Injection -) 25 mcg IVPUSH [id number] PRN PRN Reason: PAIN-PACU ORDER X 4 DOSES ONLY Ferrous Sulfate (Feosol -) 325 mg PO BIDWM [facility] Last Admin: 02/03/19 09:24 Dose: 325 mg Furosemide (Lasix -) 40 mg PO BIDLASIX [facility] Last Admin: 02/03/19 15:03 Dose: 40 mg Heparin Sodium (Porcine) (Heparin -) 500 unit IVPUSH Q1H [facility] Stop: 02/03/19 16:31 Heparin Sodium (Porcine) (Heparin -) 5,000 unit SQ TID [facility] Last Admin: 02/03/19 13:21 Dose: 5,000 unit Hydralazine HCl (Apresoline -) 50 mg PO TID [facility] Last Admin: 02/03/19 15:03 Dose: 50 mg Insulin Aspart (Novolog Vial Sliding Scale -) 1 vial SQ Q6HPO [facility]; Protocol Last Admin: 02/03/19 11:27 Dose: 4 units Levothyroxine Sodium (Synthroid -) 100 mcg PO DAILY@0700 [facility] Metoprolol Tartrate (Lopressor -) 100 mg PO BID [facility] Last Admin: 02/03/19 09:24 Dose: 100 mg - Objective Vital Signs: Vital Signs Temperature 98 F 02/03/19 13:00 Pulse Rate 60 02/03/19 14:15 Respiratory Rate 18 02/03/19 14:15 Blood Pressure 109/56 L 02/03/19 14:15 O2 Sat by Pulse Oximetry (%) 98 02/03/19 09:00 Constitutional: Yes: Calm Eyes: Yes: Conjunctiva Clear HENT: Yes: Atraumatic Neck: Yes: Supple Cardiovascular: Yes: S1, S2 Respiratory: Yes: CTA Bilaterally Gastrointestinal: Yes: Normal Bowel Sounds, Soft Genitourinary: Yes: WNL Musculoskeletal: Yes: WNL Edema: Yes Edema: LLE: 1+, RLE: 1+ Neurological: Yes: Oriented Psychiatric: Yes: Oriented Labs: CBC, BMP 02/03/19 11:20 02/03/19 05:30 Problem List - Problems (1) Hyperkalemia Code(s): E87.5 - HYPERKALEMIA (2) ESRD (end stage renal disease) Code(s): N18.6 - END STAGE RENAL DISEASE Assessment/Plan Current Medications Generic Name Dose Route Start Last Admin Trade Name Freq PRN Reason Stop Dose Admin Atorvastatin Calcium 20 mg 02/03/19 22:00 Lipitor - PO HS [facility] Fenofibric Acid 45 mg 02/03/19 10:00 02/03/19 09:25 Trilipix - PO 45 mg DAILY [facility] Administration Fentanyl 25 mcg 02/02/19 12:28 Sublimaze Injection - IVPUSH [id number] PRN PAIN-PACU ORDER X 4 DOSES ONLY Ferrous Sulfate 325 mg 02/03/19 08:00 02/03/19 09:24 Feosol - PO 325 mg BIDWM [facility] Administration Furosemide 40 mg 02/03/19 14:00 02/03/19 15:03 Lasix - PO 40 mg BIDLASIX [facility] Administration Heparin Sodium (Porcine) 500 unit 02/03/19 14:30 Heparin - IVPUSH 02/03/19 16:31 Q1H [facility] Heparin Sodium (Porcine) 5,000 unit 02/03/19 14:00 02/03/19 13:21 Heparin - SQ 5,000 unit TID [facility] Administration Hydralazine HCl 50 mg 02/03/19 14:00 02/03/19 15:03 Apresoline - PO 50 mg TID [facility] Administration Insulin Aspart 1 vial 02/03/19 07:45 02/03/19 11:27 Novolog Vial Sliding Scale - SQ 4 units Q6HPO [facility] Administration Protocol Levothyroxine Sodium 100 mcg 02/04/19 07:00 Synthroid - PO DAILY@0700 [facility] Metoprolol Tartrate 100 mg 02/03/19 10:00 02/03/19 09:24 Lopressor - PO 100 mg BID [facility] Administration Impression 1. ESRD 2. horseshoe kidney 3. chest pain 4. DM 5. HTN 6. hypothryoidism 7. anemia 8. CHF 9. hyperkalemia Plan - HD today - will need vascular follow up - pt has permacath - renal diet - discussed with medical team - hd - av fistula, 3:30 2 k bath, 450 abf, aranesp 35, heparin [address] Yuan
[2019-02-03] MEDS ORDERED: ATORVASTATIN CA 20 MG TABLET (FP) PO SCH (22:00)
[2019-02-04] MEDS ORDERED: LEVOTHYROXINE NA 100 MCG TABLET (FP) PO SCH (07:00)
--- NOTE | 2019-02-06 01:08 | OP ---
DATE OF OPERATION: 02/02/2019 PREOPERATIVE DIAGNOSIS: Clotted left arteriovenous graft. POSTOPERATIVE DIAGNOSIS: Clotted left arteriovenous graft. PROCEDURE: Venogram, suction thrombectomy of left arteriovenous fistula, and instruction of PermCath. SURGEON: Jesse Hernandez DO ANESTHESIA: Fractional. BLOOD LOSS: 50 mL. INDICATIONS: Patient is a 63-year-old female that comes in with a clotted left AV fistula. She could not be dialyzed at the dialysis unit and thus came in to us. Patient came into Ambulatory Surgery. Patient was consented for the procedure, understanding all risks, benefits, and alternatives. At that time, a potassium was drawn and she was found to have a potassium of 6.7 and a Shiley catheter was placed. We went ahead and dialyzed her overnight and now she comes back today as an inpatient for suction thrombectomy, possible PermCath insertion. Patient consented for the procedure, understanding all risks, benefits, and alternatives. DESCRIPTION OF PROCEDURE: Patient was taken to the operating room where once again was placed on the operating table in the supine manner. The upper left arm was prepped and draped in the sterile surgical manner. We then injected 5 mL of lidocaine 1% over the proximal AV fistula where there was a good thrill. We then went ahead and punctured the AV fistula using a micropuncture needle above the anastomosis. Micropuncture wire was inserted and a micropuncture sheath was inserted. A short 6-Guamanian sheath was inserted. We then shot a venogram showing that the fistula was patent only for the first 7 cm and then was occluded. We then placed a 0.035 floppy guidewire with a burn catheter all of the way up to the upper arm. We could not pass the wire past the cephalic arch. We then went ahead and used an AVX suction thrombectomy catheter and performed suction thrombectomy of the occluded segment. Completion venogram now showed that the vein was still not open since there was no outflow and we could not open the distal vein and get into the chest. At this point, we decided that the vein cannot be opened and that would need a PermCath. We now removed everything and removed our wire and removed or AVX catheter. We then used an 0 Biosyn stitch and [id number] stitch was placed around our 6-Guamanian sheath and the sheath was pulled. Areas were then dried and Dermabond was placed. We then went ahead and prepped and draped the right neck and chest. Under ultrasound guidance, we were able to visualize the right internal jugular vein and 10 mL of lidocaine 1% was then injected over the vein with ultrasound guidance. We then used the micropuncture needle to puncture the right internal jugular vein. Micropuncture wire was inserted. Micropuncture sheath was then placed and a 0.035 floppy guidewire was inserted. We then injected 10 mL of lidocaine 1% above and below the clavicle. We then used a number 15-blade and a 1-cm incision was made at the puncture site. We used a 15-blade and made a 1-cm incision below the clavicle. We then tunneled the PermCath up to the puncture site. We then placed a break-away sheath over the guidewire into the vein under fluoroscopy and the cannula and guidewire were removed. The cannula was placed within the sheath. The sheath was broken away as the catheter was placed at the vein. Neck of the catheter was nice and smooth. The tip of the catheter was located outside the right atrium. We then christiano back on each port of the catheter and there was good flow. Heparinized saline was injected then 2000 units of IV heparin were injected into each port. We then used 4-0 Biosyn and 2 simple sutures were placed at the puncture site. Then 3-0 nylon u sedimentation rate and the catheter was attached to the skin. Biopatch, Steri-Strips, 4 x 4's, and Tegaderm were placed. Patient tolerated the procedure with no complications. The patient was transferred to the PACU in stable condition where a chest x-ray will be ordered. JESSE HERNANDEZ DO [id number]
== END 2019-02-03 16:08 | disposition home or self-care (01) | DRG 628 ==
LOC: JASU-SURG 08:34 → JSAMEDAYSX 11:43 → J4W 14:23
PROVIDERS: ADMIT Surgery Vascular Surgery; ATTEND Surgery Vascular Surgery
PROC: 5A1D70Z Performance of Urinary Filtration, Intermittent, Less than 6 Hours Per Day (ICD-10-PCS; 2019-02-01)
PROC: B50NYZZ Plain Radiography of Left Upper Extremity Veins using Other Contrast (ICD-10-PCS; 2019-02-02)
PROC: 3E043GC Introduction of Other Therapeutic Substance into Central Vein, Percutaneous Approach (ICD-10-PCS; 2019-02-02)
PROC: 02HV33Z Insertion of Infusion Device into Superior Vena Cava, Percutaneous Approach (ICD-10-PCS; 2019-02-02)
PROC: B548ZZA Ultrasonography of Superior Vena Cava, Guidance (ICD-10-PCS; 2019-02-02)
PROC: 05CF3ZZ Extirpation of Matter from Left Cephalic Vein, Percutaneous Approach (ICD-10-PCS; principal; 2019-02-02 16:30)
DX: E87.5 Hyperkalemia (principal); N18.6 End stage renal disease; I13.2 Hypertensive heart and chronic kidney disease with heart failure and with stage 5 chronic kidney disease, or end stage renal disease; I50.32 Chronic diastolic (congestive) heart failure; I82.612 Acute embolism and thrombosis of superficial veins of left upper extremity; E11.22 Type 2 diabetes mellitus with diabetic chronic kidney disease; Z99.2 Dependence on renal dialysis; E03.9 Hypothyroidism, unspecified; E66.01 Morbid (severe) obesity due to excess calories; Z68.37 Body mass index [BMI] 37.0-37.9, adult; Z79.4 Long term (current) use of insulin; Z88.0 Allergy status to penicillin; D50.9 Iron deficiency anemia, unspecified; D63.1 Anemia in chronic kidney disease
CPT/HCPCS: 36415; 71045-TC-FY; 76000-TC-FY; 80048; 80053; 82962; 83735; 84100; 84132; 85025; 85027; 86704; 86706; 86708; 86803; 87340; 93005; 93010; 93990-TC; 94760; G0463-25; J1644

== ENCOUNTER 2019-05-24 09:34 | Day surgery (SDC) | payer OTHER ==
[2019-05-24 11:12] VITALS: BMI 34.5
[2019-05-24] MEDS ORDERED: MIDAZOLAM HCL 2 MG/2 ML SINGLE DOSE VIAL ONE ×3 (13:26→15:31)
[2019-05-24] MEDS ORDERED: SUCCINYLCHOLINE CHLORIDE 200 MG/10 ML SYRINGE ONE (14:03)
[2019-05-24] MEDS ORDERED: POVIDONE-IODINE OINTMENT 10% - 28.4 GM TUBE ONE (14:15)
[2019-05-24] MEDS ORDERED: LIDOCAINE HCL 1%, 10 MG/ML (20ML VIAL) ONE (14:15)
[2019-05-24] MEDS ORDERED: HEPARIN NA (PORCINE) 5,000 UNITS/ML 1ML VIAL ONE (14:15)
[2019-05-24] MEDS ORDERED: ceFAZolin SODIUM 1 GM VIAL IVPB ONE ×2 (14:46)
[2019-05-24] MEDS ORDERED: POVIDONE-IODINE 10% SOLN 118 ML BOTTLE TP ONE (15:00)
--- NOTE | 2019-05-24 16:50 | OP ---
<Nikita Brand - Last Filed: 05/24/19 16:49> Operative Note - Note: Operative Date: 05/24/19 Pre-Operative Diagnosis: ESRD on HD Operation: LUE AV Graft Post-Operative Diagnosis: Same as Pre-op Surgeon: Jesse Ledesma Overweaver: Nikita Brand Anesthesiologist/SKI INSTRUCTOR: Wang Seymour Anesthesia: Local Estimated Blood Loss (mls): 10 Fluid Volume Replaced (mls): 600 Operative Report Dictated: Yes <Jesse Ledesma - Last Filed: 05/24/19 17:15> Operative Note - Note: Operation: accuseal graft inserted
--- NOTE | 2019-05-24 16:51 | SURG ---
Surgery Tyre Fitter Note Tyre Fitter: Nikita Brand PA-C Date of Service: 05/24/19 Diagnosis: ESRD on HD Procedure: LUE AV Graft I was present for the entirety of the operative procedure. For further detail, please refer to operative report. Visit type - Case Type Case Type: Scheduled - New patient This patient is new to me today: Yes Date on this admission: 05/24/19
[2019-05-24] MEDS ORDERED: oxyCODONE HCL 5 MG TABLET PO PRN (16:52)
[2019-05-24] MEDS ORDERED: ONDANSETRON 4 MG/2 ML VIAL IVPUSH PRN (16:52)
--- NOTE | 2019-05-24 17:14 | HP ---
Admitting History and Physical - Admission Chief Complaint: pt here for left avg placement for permanent HD access - Past Medical History Cardiovascular: Yes: CHF, HTN, Hyperlipdemia Pulmonary: No: Asthma, Bronchitis, Cancer, COPD, O2 Dependent, Pneumonia, Previously Intubated, Pulmonary Embolus, Pulmonary Fibrosis, Sleep Apnea, Other Renal/: Yes: Renal Inusuff, Hemodialysis, Other ...: No Heme/Onc: Yes: Anemia Endocrine: Yes: Diabetes Mellitus, Hypothyroidism, Other (hyponatremia) - Past Surgical History Past Surgical History: Yes: AV Fistula/Graft, Cataract Removal, Cholecystectomy , , Tubal Ligation - Smoking History Smoking history: Never smoked Have you smoked in the past 12 months: No Aproximately how many cigarettes per day: 0 - Alcohol/Substance Use Hx Alcohol Use: No (occasionally) History of Substance Use: reports: None - Social History ADL: Support Services ([facility] 4 hours for 2days/week) History of Recent Travel: No Home Medications - Allergies Allergies/Adverse Reactions: Allergies Allergy/AdvReac Type Severity Reaction Status Date / Time black pepper Allergy Severe Swelling Verified 05/24/19 10:44 Penicillins Allergy Severe Rash Verified 05/24/19 10:44 strawberry Allergy Rash Verified 05/24/19 10:44 - Home Medications Home Medications: Ambulatory Orders Acetaminophen [Pain Reliever] 500 mg PO PRN PRN 04/16/16 Levothyroxine [Synthroid -] 100 mcg PO DAILY 04/16/16 Metoprolol Tartrate 100 mg PO BID 01/19/18 Amlodipine Besylate [Norvasc -] 10 mg PO DAILY tablet 02/03/19 Aspirin Coated [Ecotrin -] 81 mg PO DAILY #30 tablet.ec 02/03/19 Insulin Glargine,Hum.rec.anlog 20 units SQ DAILY units 02/03/19 hydrALAZINE HCL [Apresoline -] 50 mg PO TID #90 tablet 02/03/19 Acetaminophen W/ Codeine #3 [Tylenol # 3 -] 1 tab PO Q6H #20 tablet MDD 4 Family Disease History - Family Disease History Family Disease History: Diabetes: Father, Mother, Heart Disease: Mother Review of Systems - Review of Systems Constitutional: reports: No Symptoms Eyes: reports: No Symptoms HENT: reports: No Symptoms Neck: reports: No Symptoms Cardiovascular: reports: No Symptoms Respiratory: reports: No Symptoms Gastrointestinal: reports: No Symptoms Genitourinary: reports: No Symptoms Musculoskeletal: reports: No Symptoms Integumentary: reports: No Symptoms Neurological: reports: No Symptoms Endocrine: reports: No Symptoms Hematology/Lymphatic: reports: No Symptoms Psychiatric: reports: No Symptoms Physical Examination Vital Signs: Vital Signs Temperature 98.5 F 05/24/19 10:52 Pulse Rate 61 05/24/19 10:52 Respiratory Rate 16 05/24/19 10:52 Blood Pressure 135/68 05/24/19 10:52 O2 Sat by Pulse Oximetry (%) 97 05/24/19 10:52 Constitutional: Yes: Well Nourished, No Distress, Calm Eyes: Yes: WNL, Conjunctiva Clear, EOM Intact HENT: Yes: WNL, Atraumatic, Normocephalic Neck: Yes: WNL, Supple, Trachea Midline Cardiovascular: Yes: WNL, Regular Rate and Rhythm Respiratory: Yes: WNL, Regular, CTA Bilaterally Gastrointestinal: Yes: WNL, Normal Bowel Sounds Musculoskeletal: Yes: WNL Extremities: Yes: WNL Edema: No Peripheral Pulses WNL: Yes Integumentary: Yes: WNL Neurological: Yes: WNL, Alert, Oriented ...Motor Strength: WNL Psychiatric: Yes: WNL Labs: CBC, BMP 05/24/19 09:40 Problem List - Problems (1) ESRD (end stage renal disease) Assessment/Plan: for insertion of left avg today Code(s): N18.6 - END STAGE RENAL DISEASE
[2019-05-24 19:22] VITALS: BP 131/55; PULSE 65; TEMP 98
--- NOTE | 2019-06-02 15:58 | OP ---
DATE OF OPERATION: 05/24/2019 PREOPERATIVE DIAGNOSIS: End-stage renal disease. POSTOPERATIVE DIAGNOSIS: End-stage renal disease. PROCEDURE: Insertion of left arteriovenous graft. SURGEON: Jesse Ledesma DO JACQUARD LOOM WEAVER: KEENA Dee ANESTHESIOLOGIST: Cody Seymour MD ANESTHESIA: Fractional. BLOOD LOSS: 10 mL. VOLUME REPLACED: 600. The patient is a 63-year-old female who comes in with a fistula that is clotted, but the proximal and distal portions are patent. It was decided that we would do a jump graft with an AV graft. Patient was consented for the procedure, understanding all risks, benefits, and alternatives; was then taken to the operating room. Once in the operating room, she was laid on the operating table in supine manner, and the area of the left arm was prepped and draped in sterile surgical manner. Using ultrasound guidance, we were able to visualize the proximal AV fistula above the anastomosis, and a 4-cm incision was drawn above it. We then went ahead and under ultrasound guidance looked at our axillary vein, and the axillary vein was marked with a skin marker. We then went ahead and injected 10 mL of lidocaine 1% over the axillary vein. We then made a 5-cm incision using a 15 blade. Bovie electrocautery used to control hemostasis and we were able to get down through all the subcutaneous tissue using Bovie electrocautery and we were able to dissect out the axillary vein using Metzenbaum scissors. We then went ahead and placed vessel loops proximally and distally on the axillary vein. We then went above our anastomosis, and we injected 15 mL of lidocaine 1%. We then used a 15 blade and made a 4-cm incision. Bovie electrocautery used to control hemostasis and we were able to get down through all the subcutaneous tissue. We then dissected out the proximal AV fistula anteriorly and posteriorly using Metzenbaum scissors, and we then placed vessel loops. We then went ahead and used an Acuseal 4 to 7 graft and tunneled it from the venous to the arterial portion. We then beveled our arterial portion. We then administered 5000 units of IV heparin. After 3 minutes, we got proximal and distal control on the proximal AV fistula. We then went ahead and used a 15 blade and made an arteriotomy extending it to 7 mm using Hill scissors. We then went ahead and used 6-0 Prolene double-arm, and we went inside out on the artery and outside in on the graft and ran the stitch around from the anastomosis between the proximal AV fistula and the graft. Once completed, we opened the distal portion of the AV fistula first, then the proximal AV fistula, and there was good flow through the graft, and our vascular clamp was used to clamp the graft. We then flushed the graft with heparinized saline. We then beveled the graft to 1 cm and got proximal and distal control on our vein. We made a venotomy using a 15 blade, extending it to 1 cm using Hill scissors. Next, 6-0 Prolene stay sutures were placed on the vein. We then used 6-0 Prolene double-arm, went outside in on the graft and inside out on the vein, and ran the stitch around to perform an anastomosis between the vein and the graft. Once completed, we let go of our vascular clamp, and there was good flow in our graft. Proximal and distal vein were open. There was a good thrill in our AV graft. On Doppler, there was a good bruit. At this point, we irrigated both the wounds copiously and 3-0 Vicryl was used and the subcutaneous tissue was approximated in an interrupted manner. Skin was closed with skin mya; 4 x 4, Tegaderms were placed. Patient tolerated the procedure with no complications. Total blood loss 10 mL. JESSE LEDESMA DO [id number]
== END 2019-05-24 19:00 | disposition home or self-care (01) ==
LOC: JASU-SURG 09:34
PROVIDERS: ATTEND Surgery Vascular Surgery
PROC: 03160JD Bypass Left Axillary Artery to Upper Arm Vein with Synthetic Substitute, Open Approach (ICD-10-PCS; principal; 2019-05-24 13:30)
DX: I12.0 Hypertensive chronic kidney disease with stage 5 chronic kidney disease or end stage renal disease (principal); E11.22 Type 2 diabetes mellitus with diabetic chronic kidney disease; N18.6 End stage renal disease; Z99.2 Dependence on renal dialysis
CPT/HCPCS: 36415; 82962; 84132; 94760; J1644

== ENCOUNTER 2019-06-21 07:00 | Day surgery (SDC) | payer OTHER ==
[2019-06-20 14:08] VITALS: BMI 34.5
[2019-06-21] MEDS ORDERED: HEPARIN NA (PORCINE) 5,000 UNITS/ML 1ML VIAL ONE ×2 (09:05→09:43)
[2019-06-21] MEDS ORDERED: LIDOCAINE HCL 2% (20ML MULTI-DOSE VIAL) NR ONE (09:06)
[2019-06-21] MEDS ORDERED: LIDOCAINE HCL 1%, 10 MG/ML (20ML VIAL) ONE (09:12)
--- NOTE | 2019-06-21 09:19 | HP ---
Admitting History and Physical - Admission Chief Complaint: clotted left avg . Here for suction thrombectomy Limitations to Obtaining History: No Limitations - Past Medical History Cardiovascular: Yes: CHF, HTN, Hyperlipdemia Pulmonary: No: Asthma, Bronchitis, Cancer, COPD, O2 Dependent, Pneumonia, Previously Intubated, Pulmonary Embolus, Pulmonary Fibrosis, Sleep Apnea, Other Renal/: Yes: Renal Inusuff, Hemodialysis, Other Heme/Onc: Yes: Anemia Endocrine: Yes: Diabetes Mellitus, Hypothyroidism, Other (hyponatremia) - Past Surgical History Past Surgical History: Yes: AV Fistula/Graft, Cataract Removal, Cholecystectomy , , Tubal Ligation - Smoking History Smoking history: Never smoked Have you smoked in the past 12 months: No Aproximately how many cigarettes per day: 0 - Alcohol/Substance Use Hx Alcohol Use: No (occasionally) History of Substance Use: reports: None - Social History ADL: Support Services ([facility] 4 hours for 2days/week) History of Recent Travel: No Home Medications - Allergies Allergies/Adverse Reactions: Allergies Allergy/AdvReac Type Severity Reaction Status Date / Time black pepper Allergy Severe Swelling Verified 06/21/19 07:42 Penicillins Allergy Severe Rash Verified 06/21/19 07:42 strawberry Allergy Rash Verified 06/21/19 07:42 - Home Medications Home Medications: Ambulatory Orders Acetaminophen [Pain Reliever] 500 mg PO PRN PRN 04/16/16 Levothyroxine [Synthroid -] 100 mcg PO DAILY 04/16/16 Metoprolol Tartrate 100 mg PO BID 01/19/18 Amlodipine Besylate [Norvasc -] 10 mg PO DAILY tablet 02/03/19 Aspirin Coated [Ecotrin -] 81 mg PO DAILY #30 tablet.ec 02/03/19 Insulin Glargine,Hum.rec.anlog 20 units SQ DAILY units 02/03/19 hydrALAZINE HCL [Apresoline -] 50 mg PO TID #90 tablet 02/03/19 Acetaminophen W/ Codeine #3 [Tylenol # 3 -] 1 tab PO Q6H #20 tablet MDD 4 Family Disease History - Family Disease History Family Disease History: Diabetes: Father, Mother, Heart Disease: Mother Review of Systems - Review of Systems Constitutional: reports: No Symptoms Eyes: reports: No Symptoms HENT: reports: No Symptoms Neck: reports: No Symptoms Cardiovascular: reports: No Symptoms Respiratory: reports: No Symptoms Gastrointestinal: reports: No Symptoms Genitourinary: reports: No Symptoms Musculoskeletal: reports: No Symptoms Integumentary: reports: No Symptoms Neurological: reports: No Symptoms Endocrine: reports: No Symptoms Hematology/Lymphatic: reports: No Symptoms Psychiatric: reports: No Symptoms Physical Examination Vital Signs: Vital Signs Temperature 98.0 F 06/21/19 07:49 Pulse Rate 56 L 06/21/19 07:49 Respiratory Rate 18 06/21/19 07:49 Blood Pressure 125/59 L 06/21/19 07:49 O2 Sat by Pulse Oximetry (%) 100 06/21/19 07:49 Constitutional: Yes: Well Nourished, No Distress, Calm Eyes: Yes: WNL, Conjunctiva Clear, EOM Intact HENT: Yes: WNL, Atraumatic, Normocephalic Neck: Yes: WNL, Supple, Trachea Midline Cardiovascular: Yes: WNL, Regular Rate and Rhythm Respiratory: Yes: WNL, Regular, CTA Bilaterally Gastrointestinal: Yes: WNL, Normal Bowel Sounds Musculoskeletal: Yes: WNL Extremities: Yes: WNL Edema: No Peripheral Pulses WNL: Yes Integumentary: Yes: WNL Neurological: Yes: WNL, Alert, Oriented ...Motor Strength: WNL Psychiatric: Yes: WNL Labs: CBC, BMP 06/21/19 07:02 Problem List - Problems (1) ESRD (end stage renal disease) Assessment/Plan: for venogram , suction thrombectomy today Code(s): N18.6 - END STAGE RENAL DISEASE
[2019-06-21] MEDS ORDERED: MIDAZOLAM HCL 2 MG/2 ML SINGLE DOSE VIAL ONE ×2 (09:36→09:45)
[2019-06-21] MEDS ORDERED: LIDOCAINE HCL 1%, 10 MG/ML (20ML VIAL) INF ONE ×2 (09:59)
[2019-06-21] MEDS ORDERED: ONDANSETRON 4 MG/2 ML VIAL IVPUSH PRN (10:59)
[2019-06-21] MEDS ORDERED: hydrALAZINE HCL 20 MG/ML VIAL IVPUSH ONE (10:59)
--- NOTE | 2019-06-21 11:08 | OP ---
Operative Note - Note: Operative Date: 06/21/19 Pre-Operative Diagnosis: clotted left avg Operation: Venogram, Suction thrombectomy, venoplasty, covered stent placement left axillary vein Post-Operative Diagnosis: Same as Pre-op Surgeon: Jesse Ledesma Anesthesia: Fractional Estimated Blood Loss (mls): 50 Operative Report Dictated: Yes
[2019-06-21 12:12] VITALS: TEMP 97.4
[2019-06-21 12:40] VITALS: BP 145/57; PULSE 57
--- NOTE | 2019-07-09 11:06 | OP ---
DATE OF OPERATION: 06/21/2019 PREOPERATIVE DIAGNOSIS: Clotted left atrioventricular graft. POSTOPERATIVE DIAGNOSIS: Clotted left atrioventricular graft. PROCEDURE: Venogram, suction thrombectomy, venoplasty, covered stent placement left axillary vein. SURGEON: Jesse Hernandez DO ANESTHESIA: Fractional. BLOOD LOSS: 50 mL. HISTORY: Patient is a 63-year-old female who comes in with a clotted left AV graft. It was decided that she would need a thrombectomy. Patient was consented for the procedure understanding all risks, benefits, alternatives. Was then taken to the operating room. DESCRIPTION OF PROCEDURE: Once in the operative suite, was laid on operating table in supine manner, and the area of the left arm was prepped and draped in a sterile surgical manner. We then went ahead and injected 10 mL of lidocaine 1% over the proximal AV graft above the anastomosis, and we used our micropuncture needle and punctured the AV graft. Micropuncture wire was inserted, and a short 6-American sheath was inserted. We then placed a 0.035 floppy guidewire up into the central vein. We then shot a venogram via hand showing that the graft was clotted. We then used an AV thrombectomy catheter, and we performed suction thrombectomy of the AV graft and the outflow veins including the axillary veins and the central veins. Completion venogram now showed that most of the clot has resolved, but there is a severe stenosis on the venous anastomosis and beyond that. At this point, we used an 8 x 8 [place] balloon, and we went ahead and performed venoplasty of the outflow veins. Patient had been administered 5000 units of IV heparin prior to this. We then went ahead and saw that there was a pseudoaneurysm of the axillary vein, and it was decided that we would go ahead and place a covered stent in that area, so we went ahead and used a Lifestream stent, and we placed a 7 x 3/8 Lifestream stent in the axillary vein and ballooned it in place because it was balloon mounted. Completion venogram now showed that the graft was patent and that the stent was PA and the pseudoaneurysm was excluded. At this point, we went to the distal AV graft, and we punctured it using our needle, and micropuncture wire was inserted. Micropuncture sheath was inserted, and a short 6-American sheath was inserted towards the arterial anastomosis. Placed a 0.035 floppy guidewire across the arterial anastomosis, and we used an AV catheter and did a proximal suction thrombectomy. Once that was performed, AV graft was patent. There was a good thrill in the AV graft. There was no stenosis of the proximal AV graft. At this point, we decided that since there is good flow in the graft, no more intervention is needed. We went ahead and used a 4-0 Biosyn stitch. A csaayv-al-linbh stitch was placed around each sheath, and the sheath was pulled. The area was wet and dried, and Dermabond was placed. Patient tolerated the procedure with no complications. Patient transferred to PACU in stable condition. JESSE HERNANDEZ DO [id number]
== END 2019-06-21 13:00 | disposition home or self-care (01) ==
LOC: JASU-SURG 07:00
PROVIDERS: ATTEND Surgery Vascular Surgery
PROC: 05783DZ Dilation of Left Axillary Vein with Intraluminal Device, Percutaneous Approach (ICD-10-PCS; principal; 2019-06-21 09:00)
DX: T82.898A Other specified complication of vascular prosthetic devices, implants and grafts, initial encounter (principal); I12.0 Hypertensive chronic kidney disease with stage 5 chronic kidney disease or end stage renal disease; E11.22 Type 2 diabetes mellitus with diabetic chronic kidney disease; N18.6 End stage renal disease; Z99.2 Dependence on renal dialysis
CPT/HCPCS: 36906; 36908; C1885; 36415; 76000-TC-FY; 82962; 84132; 94760; J1644

== ENCOUNTER 2019-08-06 10:27 | Day surgery (SDC) | payer OTHER ==
[2019-08-03 18:43] VITALS: BMI 36.6
[2019-08-06 10:50] LABS: HEMATOCRIT 32.8 % (32.4-45.2); HEMOGLOBIN 10.7 GM/dL (10.7-15.3); MCH 32.9 pg (25.7-33.7); MCHC 32.5 g/dl (32.0-36.0); MEAN CELL VOLUME 101.2 fl (80-96); PLATELET COUNT 179 K/MM3 (134-434); RBC 3.24 M/mm3 (3.60-5.2); RDW 14.4 % (11.6-15.6); WHITE BLOOD COUNT 6.6 K/mm3 (4.0-10.0)
[2019-08-06 11:32] LABS: ALBUMIN 3.4 g/dl (3.4-5.0); BILIRUBIN,TOTAL 0.3 mg/dL (0.2-1); BLOOD UREA NITROGEN 66.3 mg/dL (7-18); CALCIUM 9.3 mg/dL (8.5-10.1); CREATININE 5.6 mg/dL (0.55-1.3); POTASSIUM 5.9 mmol/L (3.5-5.1)
[2019-08-06] MEDS ORDERED: MIDAZOLAM HCL 2 MG/2 ML SINGLE DOSE VIAL ONE (13:27)
[2019-08-06] MEDS ORDERED: LIDOCAINE HCL 1%, 10 MG/ML (20ML VIAL) ONE (13:38)
[2019-08-06] MEDS ORDERED: HEPARIN NA (PORCINE) 5,000 UNITS/ML 1ML VIAL ONE ×2 (13:38→15:40)
[2019-08-06] MEDS ORDERED: SODIUM CHLORIDE 0.9% P/F 10 ML VIAL IJ ONE (14:19)
[2019-08-06] MEDS ORDERED: ceFAZolin SODIUM 1 GM VIAL IVPB ONE (14:25)
[2019-08-06] MEDS ORDERED: LIDOCAINE HCL 1%, 10 MG/ML (20ML VIAL) INF ONE (15:22)
--- NOTE | 2019-08-06 15:29 | HP ---
Admitting History and Physical - Admission Chief Complaint: Pt with clotted left avg for over a week Limitations to Obtaining History: No Limitations - Past Medical History Cardiovascular: Yes: CHF, HTN, Hyperlipdemia Pulmonary: No: Asthma, Bronchitis, Cancer, COPD, O2 Dependent, Pneumonia, Previously Intubated, Pulmonary Embolus, Pulmonary Fibrosis, Sleep Apnea, Other Renal/: Yes: Renal Inusuff, Hemodialysis, Other Heme/Onc: Yes: Anemia Endocrine: Yes: Diabetes Mellitus, Hypothyroidism, Other (hyponatremia) - Past Surgical History Past Surgical History: Yes: AV Fistula/Graft, Cataract Removal, Cholecystectomy , , Tubal Ligation - Smoking History Smoking history: Never smoked Have you smoked in the past 12 months: No Aproximately how many cigarettes per day: 0 - Alcohol/Substance Use Hx Alcohol Use: No (occasionally) History of Substance Use: reports: None - Social History ADL: Support Services ([facility] 4 hours for 2days/week) History of Recent Travel: No Home Medications - Allergies Allergies/Adverse Reactions: Allergies Allergy/AdvReac Type Severity Reaction Status Date / Time black pepper Allergy Severe Swelling Verified 06/21/19 07:42 Penicillins Allergy Severe Rash Verified 06/21/19 07:42 strawberry Allergy Rash Verified 06/21/19 07:42 - Home Medications Home Medications: Ambulatory Orders Levothyroxine [Synthroid -] 100 mcg PO DAILY 04/16/16 Metoprolol Tartrate 100 mg PO BID 01/19/18 Amlodipine Besylate [Norvasc -] 10 mg PO DAILY tablet 02/03/19 Aspirin Coated [Ecotrin -] 81 mg PO DAILY #30 tablet.ec 02/03/19 Insulin Glargine,Hum.rec.anlog 20 units SQ DAILY units 02/03/19 hydrALAZINE HCL [Apresoline -] 50 mg PO TID #90 tablet 02/03/19 Acetaminophen W/ Codeine #3 [Tylenol # 3 -] 1 tab PO Q6H #20 tablet MDD 4 Review of Systems - Review of Systems Constitutional: reports: No Symptoms Eyes: reports: No Symptoms HENT: reports: No Symptoms Neck: reports: No Symptoms Cardiovascular: reports: No Symptoms Respiratory: reports: No Symptoms Gastrointestinal: reports: No Symptoms Genitourinary: reports: No Symptoms Endocrine: reports: No Symptoms Hematology/Lymphatic: reports: No Symptoms Psychiatric: reports: No Symptoms Physical Examination Vital Signs: Vital Signs Temperature 97.9 F 08/06/19 12:06 Pulse Rate 59 L 08/06/19 12:06 Respiratory Rate 20 08/06/19 12:06 Blood Pressure 155/77 08/06/19 12:06 O2 Sat by Pulse Oximetry (%) 98 08/06/19 12:06 Constitutional: Yes: Well Nourished, No Distress, Calm Eyes: Yes: WNL, Conjunctiva Clear, EOM Intact HENT: Yes: WNL, Atraumatic, Normocephalic Neck: Yes: WNL, Supple, Trachea Midline Cardiovascular: Yes: WNL, Regular Rate and Rhythm Respiratory: Yes: WNL, Regular, CTA Bilaterally Gastrointestinal: Yes: WNL, Normal Bowel Sounds Musculoskeletal: Yes: WNL Extremities: Yes: WNL Edema: No Integumentary: Yes: WNL Neurological: Yes: WNL, Alert, Oriented ...Motor Strength: WNL Psychiatric: Yes: WNL Labs: CBC, BMP 08/06/19 10:35 08/06/19 10:35 Problem List - Problems (1) ESRD (end stage renal disease) Assessment/Plan: clotted left avg. For venogram today Code(s): N18.6 - END STAGE RENAL DISEASE
--- NOTE | 2019-08-06 15:31 | OP ---
Operative Note - Note: Operative Date: 08/06/19 Pre-Operative Diagnosis: clotted left avg Operation: venogram, suction thrombectomy, venoplasty left avg Post-Operative Diagnosis: Same as Pre-op Surgeon: Jesse Ledesma Anesthesia: Fractional Estimated Blood Loss (mls): 50 Operative Report Dictated: Yes
[2019-08-06] MEDS ORDERED: ONDANSETRON 4 MG/2 ML VIAL IVPUSH PRN (15:40)
[2019-08-06 18:24] VITALS: BP 152/70; PULSE 60; TEMP 98
--- NOTE | 2019-08-09 15:12 | OP ---
DATE OF OPERATION: 08/06/2019 PREOPERATIVE DIAGNOSIS: Clotted left arteriovenous graft. POSTOPERATIVE DIAGNOSIS: Clotted left arteriovenous graft. PROCEDURE: Venogram, suction thrombectomy, venoplasty, left arteriovenous graft. SURGEON: Jesse Hernandez DO ANESTHESIA: Fractional. BLOOD LOSS: 50 mL. Patient is a 63-year-old female who comes in with a clotted left AV graft for an unknown period of time. She has a right IJ PermCath. Patient came into ambulatory surgery. Patient was consented for the procedure, understanding all risks, benefits, and alternatives, then taken to the operating room. Once in the operating room, was laid on the operative table in supine manner, and the area of the left arm was prepped and draped in a sterile surgical manner. We then went ahead and injected 10 mL of lidocaine 1% above the arterial anastomosis proximally. We then went ahead and took our micropuncture needle, punctured the AV graft. Micropuncture wire was inserted. Micropuncture sheath was inserted, and a short 6-[place] sheath was inserted. We then went ahead and shot our venogram, showing that the graft was clotted. We then went ahead and placed a 0.035 floppy guidewire and got it all the way up into the central veins. We then used an ABX suction thrombectomy catheter and performed suction thrombectomy of the entire graft all the way up into the central veins. We then went ahead and used a 9 x 8 [place] balloon after administering 3000 units of IV heparin, and we performed venoplasty of the entire graft, but still, however, the graft was not patent. Patient had 2 areas that were highly pseudoaneurysmal, and there was a lot of clot in those areas. The flow got better, but, however, could not be sustainable and was closing on the table. We once again went ahead and used suction thrombectomy and performed suction thrombectomy of the entire graft again. However, the graft would not stay open due to the volume of clot and the pseudoaneurysms. At this point, we decided that no more intervention was needed, that this graft is not going to open, and patient will need new access. Next, 4-0 Biosyn was used and a smetee-sk-aeucs stitch was placed around the sheath and the sheath was pulled. Area was wet and dried, and Dermabond was placed. Patient tolerated the procedure with no complications. Patient transferred to PACU in stable condition. JESSE HERNANDEZ DO [id number]
== END 2019-08-06 18:00 | disposition home or self-care (01) ==
LOC: JASU-SURG 10:27
PROVIDERS: ATTEND Surgery Vascular Surgery
PROC: 05WY3JZ Revision of Synthetic Substitute in Upper Vein, Percutaneous Approach (ICD-10-PCS; principal; 2019-08-06 14:30)
DX: T82.898A Other specified complication of vascular prosthetic devices, implants and grafts, initial encounter (principal); I12.0 Hypertensive chronic kidney disease with stage 5 chronic kidney disease or end stage renal disease; E11.22 Type 2 diabetes mellitus with diabetic chronic kidney disease; N18.6 End stage renal disease; Z99.2 Dependence on renal dialysis; Z79.4 Long term (current) use of insulin; I50.9 Heart failure, unspecified; E78.5 Hyperlipidemia, unspecified; D64.9 Anemia, unspecified; E03.9 Hypothyroidism, unspecified
CPT/HCPCS: 36415; 76000-TC-FY; 80053; 85027; 94760; J1644

== ENCOUNTER 2020-06-13 05:02 | Day surgery (SDC) | payer OTHER ==
[2020-06-12 15:04] VITALS: BMI 36.6
[2020-06-13 06:25] LABS: HEMATOCRIT 33.8 % (32.4-45.2); HEMOGLOBIN 11.2 GM/dL (10.7-15.3); MCH 32.1 pg (25.7-33.7); MCHC 32.9 g/dl (32.0-36.0); MEAN CELL VOLUME 97.3 fl (80-96); MEAN PLT VOLUME 10.4 fl (7.5-11.1); PLATELET COUNT 172 K/MM3 (134-434); RBC 3.48 M/mm3 (3.60-5.2); RDW 13.9 % (11.6-15.6); WHITE BLOOD COUNT 9.3 K/mm3 (4.0-10.0)
[2020-06-13 06:38] LABS: INR 1.02 (0.83-1.09)
[2020-06-13 07:16] VITALS: TEMP 96
[2020-06-13] MEDS ORDERED: LIDOCAINE HCL 1%, 10 MG/ML (20ML VIAL) ONE (07:20)
[2020-06-13] MEDS ORDERED: HEPARIN NA (PORCINE) 5,000 UNITS/ML 1ML VIAL ONE ×2 (07:20→09:17)
[2020-06-13] MEDS ORDERED: POVIDONE-IODINE OINTMENT 10% - 28.4 GM TUBE ONE (07:20)
[2020-06-13] MEDS ORDERED: MIDAZOLAM HCL 2 MG/2 ML SINGLE DOSE VIAL ONE ×3 (07:40)
[2020-06-13] MEDS ORDERED: PROPOFOL 20 ML ONE ×3 (07:41)
--- NOTE | 2020-06-13 08:10 | HP ---
Admitting History and Physical - Admission Chief Complaint: pt here for creation of right avf History Source: Patient Limitations to Obtaining History: No Limitations - Past Medical History Cardiovascular: Yes: CHF, HTN, Hyperlipdemia Pulmonary: No: Asthma, Bronchitis, Cancer, COPD, O2 Dependent, Pneumonia, Previously Intubated, Pulmonary Embolus, Pulmonary Fibrosis, Sleep Apnea, Other Renal/: Yes: Renal Inusuff, Hemodialysis, Other Heme/Onc: Yes: Anemia Endocrine: Yes: Diabetes Mellitus, Hypothyroidism, Other (hyponatremia) - Past Surgical History Past Surgical History: Yes: AV Fistula/Graft, Cataract Removal, Cholecystectomy, , Tubal Ligation - Smoking History Smoking history: Never smoked Have you smoked in the past 12 months: No Aproximately how many cigarettes per day: 0 - Alcohol/Substance Use Hx Alcohol Use: No (occasionally) History of Substance Use: reports: None - Social History ADL: Support Services ([facility] 4 hours for 2days/week) History of Recent Travel: No Home Medications - Allergies Allergies/Adverse Reactions: Allergies Allergy/AdvReac Type Severity Reaction Status Date / Time black pepper Allergy Severe Swelling Verified 05/23/20 09:01 Penicillins Allergy Severe Rash Verified 05/23/20 09:01 strawberry Allergy Rash Verified 05/23/20 09:01 - Home Medications Home Medications: Ambulatory Orders Levothyroxine [Synthroid -] 100 mcg PO DAILY 04/16/16 Metoprolol Tartrate 100 mg PO BID 01/19/18 Amlodipine Besylate [Norvasc -] 10 mg PO DAILY tablet 02/03/19 Aspirin Coated [Ecotrin -] 81 mg PO DAILY #30 tablet.ec 02/03/19 Insulin Glargine,Hum.rec.anlog 20 units SQ DAILY units 02/03/19 hydrALAZINE HCL [Apresoline -] 50 mg PO TID #90 tablet 02/03/19 Acetaminophen W/ Codeine #3 [Tylenol # 3 -] 1 tab PO Q6H #20 tablet MDD 4 05/24/19 Review of Systems - Review of Systems Constitutional: reports: No Symptoms Eyes: reports: No Symptoms HENT: reports: No Symptoms Neck: reports: No Symptoms Cardiovascular: reports: No Symptoms Respiratory: reports: No Symptoms Gastrointestinal: reports: No Symptoms Genitourinary: reports: No Symptoms Breasts: reports: No Symptoms Reported Musculoskeletal: reports: No Symptoms Integumentary: reports: No Symptoms Neurological: reports: No Symptoms Endocrine: reports: No Symptoms Hematology/Lymphatic: reports: No Symptoms Psychiatric: reports: No Symptoms Physical Examination Vital Signs: Vital Signs Temperature 96.0 F L 06/13/20 07:04 Pulse Rate 62 06/13/20 07:04 Respiratory Rate 20 06/13/20 07:04 Blood Pressure 122/57 L 06/13/20 07:04 O2 Sat by Pulse Oximetry (%) 98 06/13/20 07:04 Constitutional: Yes: Well Nourished, No Distress, Calm Eyes: Yes: WNL, Conjunctiva Clear, EOM Intact HENT: Yes: WNL, Atraumatic, Normocephalic Neck: Yes: WNL, Supple, Trachea Midline Cardiovascular: Yes: WNL, Regular Rate and Rhythm Respiratory: Yes: WNL, Regular, CTA Bilaterally Gastrointestinal: Yes: WNL, Normal Bowel Sounds Musculoskeletal: Yes: WNL Extremities: Yes: WNL Edema: No Peripheral Pulses WNL: Yes Integumentary: Yes: WNL Neurological: Yes: WNL, Alert, Oriented ...Motor Strength: WNL Psychiatric: Yes: WNL Labs: CBC, BMP 06/13/20 06:13 06/13/20 06:13 Problem List - Problems (1) ESRD (end stage renal disease) Assessment/Plan: for right avf today Jesse Ledesma DO Problems reviewed: Yes Code(s): N18.6 - END STAGE RENAL DISEASE
[2020-06-13] MEDS ORDERED: ceFAZolin SODIUM 1 GM VIAL IVPB ONE (08:21)
[2020-06-13] MEDS ORDERED: DEXAMETHASONE SOD PHOSPHATE 4 MG/1 ML VIAL ONE (08:24)
[2020-06-13] MEDS ORDERED: ceFAZolin SODIUM 1 GM VIAL ONE (08:25)
[2020-06-13] MEDS ORDERED: LIDOCAINE HCL 1%, 10 MG/ML (20ML VIAL) INF ONE ×2 (08:38)
[2020-06-13] MEDS ORDERED: oxyCODONE HCL 5 MG TABLET PO PRN (09:48)
[2020-06-13] MEDS ORDERED: ONDANSETRON 4 MG/2 ML VIAL IVPUSH PRN (09:48)
--- NOTE | 2020-06-13 09:53 | OP ---
Operative Note - Note: Operative Date: 06/13/20 Pre-Operative Diagnosis: ESRD Operation: Creation of right avf Post-Operative Diagnosis: Same as Pre-op Surgeon: Jesse Ledesma Anesthesia: MAC Estimated Blood Loss (mls): 30 Operative Report Dictated: Yes
[2020-06-13] MEDS ORDERED: SODIUM CHLORIDE 1,000 ML IV SCH (10:00)
[2020-06-13 11:33] VITALS: PULSE 61
[2020-06-13 12:22] VITALS: BP 117/46
--- NOTE | 2020-06-13 13:56 | SURG ---
Surgery Shirring Tender Note Shirring Tender: Ezra Sanders PA-C (Suzy) Date of Service: 06/13/20 Diagnosis: ESRD Procedure: Operation: Creation of right avf I was present for the entirety of the operative procedure. For further detail, please refer to operative report.
--- NOTE | 2020-06-17 16:35 | OP ---
DATE OF OPERATION: 06/13/2020 PREOPERATIVE DIAGNOSIS: End-stage renal disease. POSTOPERATIVE DIAGNOSIS: End-stage renal disease. PROCEDURE: Creation of right arteriovenous fistula. SURGEON: Jesse Hernandez MD. ANESTHESIA: Fractional. BLOOD LOSS: 30 mL. INDICATION: The patient is a 64-year-old female who needs permanent dialysis access in the right arm. Preoperative vain mapping shows she has a good cephalic vein in the right arm. Patient was consented for the procedure understanding all risks, benefits, and alternatives and taken to the operating room. DESCRIPTION OF PROCEDURE: Once in the operating room, she was laid on the operating table in a supine manner, and the area of the right arm was prepped and draped in sterile surgical manner. Under ultrasound guidance, we mapped out the cephalic vein and the brachial artery, and we were able to draw a transverse incision about the antecubital fossa for about 5 cm. We then went ahead and injected 10 mL of lidocaine 1% in the area. We then took a number 15-blade and made a 4.5-cm incision. Bovie cautery was used to control hemostasis, and we got down through all the subcutaneous tissue. We then dissected out our cephalic vein, dissected it anteriorly and posteriorly, and all branches were ligated using 4-0 silk. We then went medially and went to the fascia using Bovie electrocautery, and then we dissected out our brachial artery. With the artery dissected anteriorly and posteriorly and Vesseloops were placed proximally and distally. 5000 units of IV heparin were administered to the patient. We then went ahead and ligated our cephalic vein distally and then transposed it over to the artery. We placed a 4 [place] feeding tube into the vein, and there was good drawback, and the vein dilated up appropriately. We then made a 7-mm venotomy on the vein. After 3 minutes of being on IV heparin, we got distal and proximal control on our artery using Vesseloops. We then using a number 15-blade, made an arteriotomy setting it to 7 mm using Hill scissors, 6-0 Prolene stay sutures were placed on the artery, we then using 6-0 Prolene outside-in on the vein, inside-out on the artery, and ran the suture around to form anastomosis between the artery and the vein. Once completed, we opened the distal artery first and the proximal artery, and there was good flow in our fistula, there was a good thrill, and there was a good bruit. At this point, we irrigated the wound copiously. Surgicel was placed at the anastomosis, 3-0 Vicryl was used interrupted manner. Skin was closed with skin mya. The area was dried, 4x4s and Tegaderms were placed. Patient tolerated the procedure with no complications. Patient transferred to PACU in stable condition. JESSE HERNANDEZ DO [id number]
== END 2020-06-13 14:09 | disposition home or self-care (01) ==
LOC: JASU-SURG 05:02
PROVIDERS: ATTEND Surgery Vascular Surgery
PROC: 03170ZD Bypass Right Brachial Artery to Upper Arm Vein, Open Approach (ICD-10-PCS; principal; 2020-06-13 08:00)
DX: E11.22 Type 2 diabetes mellitus with diabetic chronic kidney disease (principal); I13.2 Hypertensive heart and chronic kidney disease with heart failure and with stage 5 chronic kidney disease, or end stage renal disease; I50.9 Heart failure, unspecified; N18.6 End stage renal disease; Z99.2 Dependence on renal dialysis; Z79.4 Long term (current) use of insulin; E78.5 Hyperlipidemia, unspecified; E03.9 Hypothyroidism, unspecified; D64.9 Anemia, unspecified; Z79.82 Long term (current) use of aspirin
CPT/HCPCS: 36415; 82962; 84132; 85027; 85610; 85730; 94760; J1644

== ENCOUNTER 2020-06-30 15:51 | Inpatient (IN) | payer OTHER ==
--- NOTE | 2020-06-30 18:47 | PDOC ---
History of Present Illness - General Chief Complaint: Respiratory Stated Complaint: RESPIRATORY Time Seen by Provider: 06/30/20 18:43 - History of Present Illness Initial Comments: 06/30/20 18:43 64 yo female with pmh of IDDM, CHF, HTN, HLD, CKD presents to ED for chest pain and SOB for two days. Pt explains since yesterday morning pt has had midsternal stabbing chest pain that woke her up from sleep. Pt explains she never had symptoms before, pain comes and goes is pleuritic and worse with exertion but present during rest. Pain is nonpositional. Pt denies nausea, emesis, diaphoresis, and radiation to arms or back. Pt also has associated vertigo symptoms but has known history of vertigo where she takes meclizine for. Pt denies any fevers, chills, cough, abdominal pain or dysuria or urinary frequency. PMH: CHF, IDDM, HTN, HLD, CKD, HLD (T, TH, Sat), hypothyroidism PSH: Right AV fistula (June 13), knee surgery Allergies: Penicillin Social: Denies smoking, drugs and alcohol PCP: Dr. Tang Cardio: Dr. Georges Nephro: Dr. Denise Past History - Medical History Allergies/Adverse Reactions: Allergies Allergy/AdvReac Type Severity Reaction Status Date / Time black pepper Allergy Severe Swelling Verified 05/23/20 09:01 Penicillins Allergy Severe Rash Verified 05/23/20 09:01 strawberry Allergy Rash Verified 05/23/20 09:01 Home Medications: Ambulatory Orders Levothyroxine [Synthroid -] 100 mcg PO DAILY 04/16/16 Metoprolol Tartrate 100 mg PO BID 01/19/18 Amlodipine Besylate [Norvasc -] 10 mg PO DAILY tablet 02/03/19 Aspirin Coated [Ecotrin -] 81 mg PO DAILY #30 tablet.ec 02/03/19 Insulin Glargine,Hum.rec.anlog 20 units SQ DAILY units 02/03/19 hydrALAZINE HCL [Apresoline -] 50 mg PO TID #90 tablet 02/03/19 Acetaminophen W/ Codeine #3 [Tylenol # 3 -] 1 tab PO Q6H #20 tablet MDD 4 05/24 Anemia: Yes Asthma: No Cancer: No Cardiac Disorders: No CVA: No COPD: No CHF: Yes Dementia: No Diabetes: Yes Dialysis: Yes (tues,thurs,sat) GI Disorders: No Disorders: No HTN: Yes Hypercholesterolemia: Yes Liver Disease: No Seizures: No Thyroid Disease: Yes - Surgical History Abdominal Surgery: No Appendectomy: No Cardiac Surgery: No Cholecystectomy: Yes Lung Surgery: No Neurologic Surgery: No Orthopedic Surgery: Yes (right knee replacement) - Psycho-Social/Smoking History Smoking Status: No Smoking History: Never smoked Have you smoked in the past 12 months: No Number of Cigarettes Smoked Daily: 0 - Substance Abuse Hx (Audit-C & DAST Scrn) How often the patient has a drink containing alcohol: Never Score: In Men: 4 or > Positive; In Women: 3 or > Positive: 0 Screen Result (Pos requires Nsg. Audit-10AR): Negative Review of Systems - Review of Systems Comments:: 06/30/20 19:25 GENERAL/CONSTITUTIONAL: No fever or chills. Generalized weakness. HEAD, EYES, EARS, NOSE AND THROAT: No change in vision. . No sore throat. Left sided ear pain. CARDIOVASCULAR:Chest pain and SOB RESPIRATORY: No cough, wheezing, or hemoptysis. GASTROINTESTINAL: No nausea, vomiting, diarrhea or constipation. GENITOURINARY: No dysuria, frequency, or change in urination. MUSCULOSKELETAL: No joint or muscle swelling or pain. Chronic back pain and neck pain SKIN: No rash NEUROLOGIC: No headache, loss of consciousness, or change in strength/sensation. Chronic vertiog ENDOCRINE: No increased thirst. No abnormal weight change ALLERGIC/IMMUNOLOGIC: No hives or skin allergy. *Physical Exam - Vital Signs Last Vital Signs Temp Pulse Resp BP Pulse Ox 98.3 F 84 18 131/57 L 97 06/30/20 17:02 06/30/20 17:02 06/30/20 17:02 06/30/20 17:02 06/30/20 17:02 - Physical Exam 06/30/20 19:27 GENERAL: Awake, alert, and fully oriented, in no acute distress HEAD: No signs of trauma, normocephalic, atraumatic EYES: PERRLA, EOMI, sclera anicteric, conjunctiva clear ENT: Auricles normal inspection, hearing grossly normal, nares patent, oropharynx clear without exudates. Moist mucosa NECK: Normal ROM, supple, no lymphadenopathy, JVD, or masses LUNGS: No distress, speaks full sentences, clear to auscultation bilaterally HEART: Regular rate and rhythm, normal S1 and S2, no murmurs, rubs or gallops, peripheral pulses normal and equal bilaterally. Tenderness to chest wall palpation. ABDOMEN: Soft, nontender, normoactive bowel sounds. No guarding, no rebound. No masses EXTREMITIES : Normal inspection, Normal range of motion, no edema. No clubbing or cyanosis. NEUROLOGICAL: Cranial nerves II through XII grossly intact. Normal speech SKIN: Warm, Dry, normal turgor, no rashes or lesions noted Heart Score/ECG Review - History History: Moderately suspicious - Electrocardiogram EKG: Non specific repolarization disturbance - Age Age: 45-65 - Risk Factors Risk Factors Heart Score: Yes Hx Hypercholesterolemia, Yes Hx Hypertension, Yes Hx Diabetes, Yes Hx Obesity Based on the list above the patient has:: >/=3 risk factors or Hx atherosclerotic disease - ECG Impressions Comment:: 06/30/20 20:00 Normal sinus rhythm at 60 bpm GA interval prolonged to 272 (1st degree heart block), Normal QRS, Normal QT interval T wave inversion in III and aVF (aVF new from prior) ED Treatment Course - LABORATORY CBC & Chemistry Diagram: 06/30/20 19:30 06/30/20 19:30 Medical Decision Making - Medical Decision Making 06/30/20 19:28 64 yo female presents to ED for chest pain and SOB. Pt EKG showed new t wave inversions will R/o ACS. Initial trop was negative. Will admit to hospitalist. 324 mg of aspirin was given at presentation. Pt HPI, ED course, and plan was discussed with RANJANA Flores. Pt was admitted to Dr. Melvin. Consulted to Dr. Denise for dialysis tomorrow. Discharge - Discharge Information Problems reviewed: Yes Clinical Impression/Diagnosis: Chest pain, EKG abnormalities Condition: Guarded - Admission Yes - Follow up/Referral - Patient Discharge Instructions - Post Discharge Activity
[2020-06-30] MEDS ORDERED: ASPIRIN 81 MG CHEWABLE TABLETS PO ONE (19:10)
[2020-06-30] MEDS ORDERED: MECLIZINE HCL 25 MG TABLET (FP) PO ONE (19:11)
--- NOTE | 2020-06-30 19:19 | PDOC ---
Attending Attestation - Resident Resident Name: Checo Hart - ED Attending Attestation I have performed the following: I have examined & evaluated the patient, The case was reviewed & discussed with the resident, I agree w/resident's findings & plan - HPI HPI: 06/30/20 19:47 see resident hpi - Physicial Exam PE: 06/30/20 19:47 see resident exam - Medical Decision Making 06/30/20 19:50 64-year-old female with multiple cardiac risk factors complaining of intermittent chest pain on exertion EKG shows a sinus bradycardia at 59 bpm with a first-degree AV block Q waves present in inferior leads new when compared to previous dated January 2019 Otherwise there are no acute ST segment elevations There are new T wave inversions in lead aVF Pending labs plan for admission to medical service Of note patient is due for dialysis tomorrow, will notify nephrology as well Discharge - Discharge Information Problems reviewed: Yes Clinical Impression/Diagnosis: Chest pain, EKG abnormalities - Follow up/Referral Referrals: Justin Hyde MD [Primary Care Provider] - - Patient Discharge Instructions - Post Discharge Activity
[2020-06-30 20:00] LABS: BASO % 0.7 % (0-2.0); HEMATOCRIT 29.1 % (32.4-45.2); HEMOGLOBIN 9.7 GM/dL (10.7-15.3); LYMPH % 14.3 % (8-40); MCH 32.9 pg (25.7-33.7); MCHC 33.3 g/dl (32.0-36.0); MEAN CELL VOLUME 98.7 fl (80-96); MEAN PLT VOLUME 10.4 fl (7.5-11.1); MONO % 6.4 % (3.8-10.2); NEUT % 74.6 % (42.8-82.8); PLATELET COUNT 199 K/MM3 (134-434); RBC 2.95 M/mm3 (3.60-5.2); RDW 14.3 % (11.6-15.6); WHITE BLOOD COUNT 8.7 K/mm3 (4.0-10.0)
[2020-06-30 20:18] LABS: INR 1.02 (0.83-1.09)
[2020-06-30 20:21] LABS: ACTIVATED PTT 24.9 SECONDS (25.2-36.5)
[2020-06-30 20:41] LABS: ALBUMIN 3.3 g/dl (3.4-5.0); ALK PHOS 134 U/L (45-117); ANION GAP 13 MMOL/L (8-16); BILIRUBIN,TOTAL 0.3 mg/dL (0.2-1); BLOOD UREA NITROGEN 31.5 mg/dL (7-18); CALCIUM 9.3 mg/dL (8.5-10.1); CHLORIDE 93 mmol/L (98-107); CO2 22 mmol/L (21-32); CREATININE 4.3 mg/dL (0.55-1.3); GLUCOSE,RANDOM 167 mg/dL (74-106); SGOT/AST 10 U/L (15-37); SGPT/ALT 9 U/L (13-61); SODIUM 128 mmol/L (136-145); TOT PROT 7.7 g/dl (6.4-8.2)
--- NOTE | 2020-06-30 21:35 | HP ---
Admitting History and Physical - Primary Care Physician PCP: Justin Hyde - Admission Chief Complaint: SOB, Chest Pain History of Present Illness: This is a 64 y/o female with a PMHx of ESRD (HD- TuThSa), CHF, HTN, HLD, IDDM. Who presents to the ED with SOB and CP x 2 days. Patient describes the pain and sharp non-radiating occurred at rest. Patient reports her last dialysis was on Tuesday. Patient denies fever, chills, dizziness, JENKINS, palpitations, AP, N/V/D, constipation. Patient denies sick contacts or recent travel. History Source: Patient Limitations to Obtaining History: No Limitations - Past Medical History Cardiovascular: Yes: CHF, HTN, Hyperlipdemia Pulmonary: No: Asthma, Bronchitis, Cancer, COPD, O2 Dependent, Pneumonia, Previously Intubated, Pulmonary Embolus, Pulmonary Fibrosis, Sleep Apnea, Other Renal/: Yes: Renal Inusuff, Hemodialysis, Other Heme/Onc: Yes: Anemia Endocrine: Yes: Diabetes Mellitus, Hypothyroidism, Other (hyponatremia) - Past Surgical History Past Surgical History: Yes: AV Fistula/Graft, Cataract Removal, Cholecystectomy, , Tubal Ligation - Smoking History Smoking history: Never smoked Have you smoked in the past 12 months: No Aproximately how many cigarettes per day: 0 - Alcohol/Substance Use Hx Alcohol Use: No (occasionally) History of Substance Use: reports: None - Social History ADL: Support Services ([facility] 4 hours for 2days/week) History of Recent Travel: No Home Medications - Allergies Allergies/Adverse Reactions: Allergies Allergy/AdvReac Type Severity Reaction Status Date / Time black pepper Allergy Severe Swelling Verified 05/23/20 09:01 Penicillins Allergy Severe Rash Verified 05/23/20 09:01 strawberry Allergy Rash Verified 05/23/20 09:01 - Home Medications Home Medications: Ambulatory Orders Levothyroxine [Synthroid -] 100 mcg PO DAILY 04/16/16 Metoprolol Tartrate 100 mg PO BID 01/19/18 Amlodipine Besylate [Norvasc -] 10 mg PO DAILY tablet 02/03/19 Aspirin Coated [Ecotrin -] 81 mg PO DAILY #30 tablet.ec 02/03/19 hydrALAZINE HCL [Apresoline -] 50 mg PO TID #90 tablet 02/03/19 Acetaminophen W/ Codeine #3 [Tylenol # 3 -] 1 tab PO Q6H #20 tablet MDD 4 05/24/19 Ferric Citrate [Auryxia] 210 mg PO BID 06/30/20 Ferrous Sulfate 325 mg PO DAILY 06/30/20 Insulin (Levemir) [Levemir Vial] 0 units SQ BID 06/30/20 Insulin Glulisine [Apidra] 10 unit SQ AM 06/30/20 Insulin Glulisine [Apidra] 15 unit SQ HS 06/30/20 Family Medical History Family History: As Documented Family Hx Coronary Artery Disease: Mother ( age 75) Family Hx Diabetes: Father Physical Examination Vital Signs: Vital Signs Temperature 98.3 F 06/30/20 17:02 Pulse Rate 84 06/30/20 17:02 Respiratory Rate 18 06/30/20 17:02 Blood Pressure 131/57 L 06/30/20 17:02 O2 Sat by Pulse Oximetry (%) 97 06/30/20 17:02 Constitutional: Yes: Well Nourished, No Distress, Calm, Obese Eyes: Yes: WNL, Conjunctiva Clear, EOM Intact, PERRL HENT: Yes: WNL, Atraumatic, Normocephalic Neck: Yes: Supple, Trachea Midline Cardiovascular: Yes: Regular Rate and Rhythm, S1, S2, Other (permacath- RCW CP reproduciible to LCW) Respiratory: Yes: Regular, Diminished, On Nasal O2, SOB on Exertion Gastrointestinal: Yes: Normal Bowel Sounds, Soft, Abdomen, Obese ...Rectal Exam: Yes: Deferred Breast(s): Yes: WNL Musculoskeletal: Yes: WNL Extremities: Yes: WNL, Other (Right AV Fistula) Edema: Yes (facial swelling) Edema: LLE: 1+, RLE: 1+ Peripheral Pulses WNL: Yes Neurological: Yes: WNL, Alert, Oriented, Cran Nerves II-XII Intact ...Motor Strength: WNL Psychiatric: Yes: WNL, Alert, Oriented Labs: CBC, BMP 06/30/20 19:30 06/30/20 19:30 Laboratory Results - last 24 hr 06/30/20 06/30/20 06/30/20 19:30 19:30 19:30 WBC 8.7 RBC 2.95 L Hgb 9.7 L Hct 29.1 L MCV 98.7 H MCH 32.9 MCHC 33.3 RDW 14.3 Plt Count 199 MPV 10.4 Absolute Neuts (auto) 6.5 Neutrophils % 74.6 Lymphocytes % 14.3 Monocytes % 6.4 Eosinophils % 4.0 Basophils % 0.7 Nucleated RBC % 0 PT with INR 12.00 INR 1.02 PTT (Actin FS) 24.9 L Sodium 128 L Potassium 5.0 Chloride 93 L Carbon Dioxide 22 Anion Gap 13 BUN 31.5 H Creatinine 4.3 H Est GFR (CKD-EPI)AfAm 11.90 Est GFR (CKD-EPI)NonAf 10.27 POC Glucometer Random Glucose 167 H Calcium 9.3 Magnesium 2.0 Total Bilirubin 0.3 AST 10 L ALT 9 L Alkaline Phosphatase 134 H Creatine Kinase 62 Troponin I < 0.02 B-Natriuretic Peptide 8753.7 H Total Protein 7.7 Albumin 3.3 L 06/30/20 22:24 WBC RBC Hgb Hct MCV MCH MCHC RDW Plt Count MPV Absolute Neuts (auto) Neutrophils % Lymphocytes % Monocytes % Eosinophils % Basophils % Nucleated RBC % PT with INR INR PTT (Actin FS) Sodium Potassium Chloride Carbon Dioxide Anion Gap BUN Creatinine Est GFR (CKD-EPI)AfAm Est GFR (CKD-EPI)NonAf POC Glucometer 148 Random Glucose Calcium Magnesium Total Bilirubin AST ALT Alkaline Phosphatase Creatine Kinase Troponin I B-Natriuretic Peptide Total Protein Albumin Current Medications Generic Name Dose Route Start Last Admin Trade Name Freq PRN Reason Stop Dose Admin Amlodipine Besylate 10 mg 07/01/20 10:00 Norvasc - PO DAILY [facility] Aspirin 81 mg 07/01/20 10:00 Ecotrin - PO DAILY [facility] Atorvastatin Calcium 20 mg 07/01/20 22:00 Lipitor - PO HS [facility] Ferrous Sulfate 325 mg 07/01/20 10:00 Feosol - PO DAILY [facility] Gabapentin 300 mg 07/01/20 10:00 Neurontin - PO BID [facility] Levothyroxine Sodium 100 mcg 07/01/20 07:00 Synthroid - PO DAILY@0700 [facility] Metoprolol Tartrate 100 mg 07/01/20 10:00 Lopressor - PO BID [facility] Non-Formulary Medication 210 mg 07/01/20 10:00 Ferric Citrate [Auryxia] PO BID [facility] Imaging - Results Chest X-ray: Image Reviewed EKG: Image Reviewed Problem List - Problems (1) Chest pain Assessment/Plan: r/o ACS HEART Score 4 Continue cardiac monitoring Serial Enzymes Appreciate Cardiology consult Asa given in ED, will continue Chest Xray reviewed- pulm vascular congestion EKG reviewed- TWI in III, AVF new Monitor CBC, CMP last echo 2016- EF 56.5%, lvsf-nl, mild dilated-la, mild-mod mr, mild pvr Code(s): R07.9 - CHEST PAIN, UNSPECIFIED (2) EKG abnormalities Assessment/Plan: EKG reviewed Appreciate Cardiology consult Continue cardiac monitoring Serial Enzymes Code(s): R94.31 - ABNORMAL ELECTROCARDIOGRAM [ECG] [EKG] (3) Hyponatremia Assessment/Plan: Likely secondary to Dehydration Na Deficit 413 Appreciate Nephrology consult Will defer IVF secondary to ESRD, concern for fluid overload Monitor CMP Monitor vitals Code(s): E87.1 - HYPO-OSMOLALITY AND HYPONATREMIA (4) ESRD (end stage renal disease) Assessment/Plan: HD- ,,Sa Appreciate Nephrology consult- HD management Monitor CMP Monitor vitals Avoid nephrotoxic drugs Code(s): N18.6 - END STAGE RENAL DISEASE (5) Anemia Assessment/Plan: Likely due to ESRD Will transfuse if HgB < 7.0 Monitor CBC Code(s): D64.9 - ANEMIA, UNSPECIFIED Qualifiers: Anemia type: due to chronic kidney disease Chronic kidney disease stage: stage 3 (moderate) Qualified Code(s): N18.3 - Chronic kidney disease, stage 3 (moderate); D63.1 - Anemia in chronic kidney disease; D63.1 - Anemia in chronic kidney disease (6) HLD (hyperlipidemia) Assessment/Plan: stable Continue Atorvastatin Monitor LFTs Code(s): E78.5 - HYPERLIPIDEMIA, UNSPECIFIED (7) Hypothyroidism Assessment/Plan: stable Continue Levothyroxine TSH in am Code(s): E03.9 - HYPOTHYROIDISM, UNSPECIFIED Qualifiers: Hypothyroidism type: acquired Qualified Code(s): E03.9 - Hypothyroidism, unspecified (8) IDDM (insulin dependent diabetes mellitus) Assessment/Plan: stable BGMs ISS HgbA1c in am Code(s): E11.9 - TYPE 2 DIABETES MELLITUS WITHOUT COMPLICATIONS; Z79.4 - EXTENSION SERVICE ADVISOR (CURRENT) USE OF INSULIN (9) Obesity Assessment/Plan: Counseled on weight reduction and healthier lifestyle choices Code(s): E66.9 - OBESITY, UNSPECIFIED (10) Encounter for screening laboratory testing for COVID-19 virus Assessment/Plan: Low Risk COVID PCR-pending Isolation Precautions Code(s): Z11.59 - ENCOUNTER FOR SCREENING FOR OTHER VIRAL DISEASES Assessment/Plan This is a 64 y/o female with a PMHx of ESRD (HD- TuThSa), CHF, HTN, HLD, IDDM. Admitted to Telemetry for Chest Pain, Hyponatremia, ESRD for further evaluation of their emergent condition. Plan: See Problem List FEN Fluid Restriction 1L Replete lytes prn Renal, Diabetic Diet DVT ppx OOB SCDs Heparin SQ Dispo: Requires Inpatient Care Visit type - Emergency Visit Emergency Visit: Yes ED Registration Date: 06/30/20 Care time: The patient presented to the Emergency Department on the above date and was hospitalized for further evaluation of their emergent condition. - New Patient This patient is new to me today: Yes Date on this admission: 06/30/20 - Critical Care Critical Care patient: No
[2020-06-30] MEDS ORDERED: MORPHINE SULFATE 2 MG/ML VIAL IVPUSH ONE (21:42)
[2020-06-30] MEDS ORDERED: MORPHINE SULFATE 2 MG/ML VIAL ONE (22:53)
[2020-07-01 00:36] LABS: N-TERMINAL BNP 8753.7 pg/ml (5-125)
--- NOTE | 2020-07-01 07:34 | CON.CARD ---
Consult - History of Present Illness History of Present Illness: 64 yo female with pmh of IDDM, CHF, HTN, HLD, CKD presents to ED for chest pain and SOB for two days. Pt explains since yesterday morning pt has had midsternal stabbing chest pain that woke her up from sleep. Pt explains she never had symptoms before, pain comes and goes is pleuritic and worse with exertion but present during rest. Pain is nonpositional. Pt denies nausea, emesis, diaphoresis, and radiation to arms or back. Pt also has associated vertigo symptoms but has known history of vertigo where she takes meclizine for. Pt denies any fevers, chills, cough, abdominal pain or dysuria or urinary frequency. PMH: CHF, IDDM, HTN, HLD, CKD, HLD (, , Tue), hypothyroidism PSH: Right AV fistula (June 13), knee surgery Allergies: Penicillin Social: Denies smoking, drugs and alcohol PCP: Dr. Tang Cardio: Dr. Georges Nephro: Dr. Denise H ASHD Cardiac cath - OM2 50% otherwise non- obstructive disease 30- 40% October 05, 2013 CHF diastolic CRI 2014 DM HTN Hyperkalemia K 6.8 2011 [place] [facility]. Hyperlipidemia Negative MIBI stress test 2014, 2018 End stage Renal Disease on hemo- dialysis since 2017 - Past Medical History Cardio/Vascular: Yes: CHF, HTN, Hyperlipdemia Pulmonary: No: Asthma, Bronchitis, Cancer, COPD, O2 Dependent, Pneumonia, Previously Intubated, Pulmonary Embolus, Pulmonary Fibrosis, Sleep Apnea, Other Renal/: Yes: Renal Inusuff, Hemodialysis, Other Endocrine: Yes: Diabetes Mellitus, Hypothyroidism, Other (hyponatremia) Additional Medical History: hyperkalemia, morbid obesity BMI=37 - Past Surgical History Past Surgical History: Yes: AV Fistula/Graft, Cataract Removal, Cholecystectomy, , Tubal Ligation - Alcohol/Substance Use Hx Alcohol Use: No (occasionally) History of Substance Use: reports: None - Smoking History Smoking history: Never smoked Have you smoked in the past 12 months: No Aproximately how many cigarettes per day: 0 - Social History Usual Living Arrangement: Alone ADL: Support Services ([facility] 4 hours for 2days/week) History of Recent Travel: No Home Medications - Allergies Allergies/Adverse Reactions: Allergies Allergy/AdvReac Type Severity Reaction Status Date / Time black pepper Allergy Severe Swelling Verified 05/23/20 09:01 Penicillins Allergy Severe Rash Verified 05/23/20 09:01 strawberry Allergy Rash Verified 05/23/20 09:01 - Home Medications Home Medications: Ambulatory Orders Levothyroxine [Synthroid -] 100 mcg PO DAILY 04/16/16 Metoprolol Tartrate 100 mg PO BID 01/19/18 Amlodipine Besylate [Norvasc -] 10 mg PO DAILY tablet 02/03/19 Aspirin Coated [Ecotrin -] 81 mg PO DAILY #30 tablet.ec 02/03/19 hydrALAZINE HCL [Apresoline -] 50 mg PO TID #90 tablet 02/03/19 Acetaminophen W/ Codeine #3 [Tylenol # 3 -] 1 tab PO Q6H #20 tablet MDD 4 05/24/19 Ferric Citrate [Auryxia] 210 mg PO BID 06/30/20 Ferrous Sulfate 325 mg PO DAILY 06/30/20 Insulin (Levemir) [Levemir Vial] 0 units SQ BID 06/30/20 Insulin Glulisine [Apidra] 10 unit SQ AM 06/30/20 Insulin Glulisine [Apidra] 15 unit SQ HS 06/30/20 Family Medical History Family Hx Coronary Artery Disease: Mother ( age 75) Family Hx Diabetes: Father Review of Systems - Review of Systems Constitutional: reports: No Symptoms Eyes: reports: No Symptoms HENT: reports: No Symptoms Neck: reports: No Symptoms Cardiovascular: reports: Chest Pain Respiratory: reports: No Symptoms Gastrointestinal: reports: No Symptoms Genitourinary: reports: No Symptoms Breasts: reports: No Symptoms Reported Musculoskeletal: reports: No Symptoms Integumentary: reports: No Symptoms Neurological: reports: No Symptoms Endocrine: reports: No Symptoms Hematology/Lymphatic: reports: No Symptoms Psychiatric: reports: No Symptoms Vital Signs: Vital Signs Temperature 97.9 F 07/01/20 06:05 Pulse Rate 60 07/01/20 06:05 Respiratory Rate 19 07/01/20 06:05 Blood Pressure 138/64 07/01/20 06:05 O2 Sat by Pulse Oximetry (%) 98 07/01/20 06:05 Constitutional: Yes: Well Nourished, No Distress, Calm Eyes: Yes: WNL, Conjunctiva Clear, EOM Intact HENT: Yes: WNL, Atraumatic, Normocephalic Neck: Yes: WNL, Supple, Trachea Midline Respiratory: Yes: WNL, Regular, CTA Bilaterally Gastrointestinal: Yes: WNL, Normal Bowel Sounds Renal/: Yes: WNL Cardiovascular: Yes: WNL, Regular Rate and Rhythm Musculoskeletal: Yes: WNL Extremities: Yes: WNL Integumentary: Yes: WNL Neurological: Yes: WNL, Alert, Oriented ...Motor Strength: WNL Psychiatric: Yes: WNL, Alert, Oriented - Other Data Labs, Other Data: CBC, BMP 06/30/20 19:30 06/30/20 19:30 INR, PTT INR 1.02 (0.83-1.09) 06/30/20 19:30 Troponin, BNP 06/30/20 19:30 Troponin I < 0.02 B-Natriuretic Peptide 8753.7 H Troponin, BNP 06/30/20 19:30 Troponin I < 0.02 B-Natriuretic Peptide 8753.7 H Imaging - Results Chest X-ray: Image Reviewed (cnf) Problem List - Problems (1) Encounter for screening laboratory testing for COVID-19 virus Code(s): Z11.59 - ENCOUNTER FOR SCREENING FOR OTHER VIRAL DISEASES (2) Hyponatremia Code(s): E87.1 - HYPO-OSMOLALITY AND HYPONATREMIA (3) Chest pain Code(s): R07.9 - CHEST PAIN, UNSPECIFIED (4) EKG abnormalities Code(s): R94.31 - ABNORMAL ELECTROCARDIOGRAM [ECG] [EKG] (5) ESRD (end stage renal disease) Code(s): N18.6 - END STAGE RENAL DISEASE (6) Hyperkalemia Code(s): E87.5 - HYPERKALEMIA (7) (HFpEF) heart failure with preserved ejection fraction Code(s): I50.30 - UNSPECIFIED DIASTOLIC (CONGESTIVE) HEART FAILURE (8) AV fistula Code(s): I77.0 - ARTERIOVENOUS FISTULA, ACQUIRED (9) Anemia Code(s): D64.9 - ANEMIA, UNSPECIFIED Qualifiers: Anemia type: due to chronic kidney disease Chronic kidney disease stage: stage 3 (moderate) Qualified Code(s): N18.3 - Chronic kidney disease, stage 3 (moderate); D63.1 - Anemia in chronic kidney disease; D63.1 - Anemia in chronic kidney disease (10) CKD (chronic kidney disease) Code(s): N18.9 - CHRONIC KIDNEY DISEASE, UNSPECIFIED Qualifiers: (11) [place] cardiac risk >20% in next 10 years Code(s): Z91.89 - OT PERSONAL RISK FACTORS, NOT ELSEWHERE CLASSIFIED (12) HLD (hyperlipidemia) Code(s): E78.5 - HYPERLIPIDEMIA, UNSPECIFIED (13) Hypothyroidism Code(s): E03.9 - HYPOTHYROIDISM, UNSPECIFIED Qualifiers: Hypothyroidism type: acquired Qualified Code(s): E03.9 - Hypothyroidism, unspecified (14) IDDM (insulin dependent diabetes mellitus) Code(s): E11.9 - TYPE 2 DIABETES MELLITUS WITHOUT COMPLICATIONS; Z79.4 - ASSISTANT OFFICE MANAGER (CURRENT) USE OF INSULIN (15) Obesity Code(s): E66.9 - OBESITY, UNSPECIFIED (16) Sedentary lifestyle Code(s): Z91.89 - [facility] PERSONAL RISK FACTORS, NOT ELSEWHERE CLASSIFIED (17) Chest pain at rest Code(s): R07.9 - CHEST PAIN, UNSPECIFIED Assessment/Plan Chest pain sx ASHD Cardiac cath - OM2 50% otherwise non- obstructive disease 30- 40% October 05, 2013 CHF diastolic decompensated Hyponatremia DM HTN Hyperlipidemia Negative MIBI stress test 2018 End stage Renal Disease on hemo- dialysis since 2017 Plan; Telemetry r/o [place] HD DVT PLX
[2020-07-01] MEDS ORDERED: LEVOTHYROXINE NA 25 MCG TABLET (FP) ONE (08:04)
[2020-07-01] MEDS: LEVOTHYROXINE NA 100 MCG TABLET (FP) PO SCH (08:05)
[2020-07-01 08:49] LABS: BASO % 0.8 % (0-2.0); EOS % 4.6 % (0-4.5); HEMATOCRIT 29.8 % (32.4-45.2); HEMOGLOBIN 9.9 GM/dL (10.7-15.3); MCH 32.3 pg (25.7-33.7); MCHC 33.3 g/dl (32.0-36.0); MEAN CELL VOLUME 97.1 fl (80-96); MEAN PLT VOLUME 9.5 fl (7.5-11.1); MONO % 6.9 % (3.8-10.2); NEUT % 74.7 % (42.8-82.8); PLATELET COUNT 203 K/MM3 (134-434); RBC 3.07 M/mm3 (3.60-5.2); RDW 13.9 % (11.6-15.6)
--- NOTE | 2020-07-01 09:08 | EKG ---
Test Reason : Blood Pressure : / mmHG Vent. Rate : 059 BPM Atrial Rate : 059 BPM P-R Int : 272 ms QRS Dur : 104 ms QT Int : 448 ms P-R-T Axes : 078 044 -22 degrees QTc Int : 443 ms SINUS BRADYCARDIA WITH 1ST DEGREE A-V BLOCK INFERIOR INFARCT , AGE UNDETERMINED ABNORMAL ECG WHEN COMPARED WITH ECG OF 01-FEB-2019 13:10, INFERIOR INFARCT IS NOW PRESENT T WAVE INVERSION MORE EVIDENT IN INFERIOR LEADS Confirmed by David Haro MD ([id number]) on 07/01/2020 9:08:09 AM Referred By: Confirmed By:David Haro MD
[2020-07-01 09:13] LABS: ALBUMIN 3.2 g/dl (3.4-5.0); ALK PHOS 122 U/L (45-117); ANION GAP 13 MMOL/L (8-16); BILIRUBIN,TOTAL 0.3 mg/dL (0.2-1); BLOOD UREA NITROGEN 35.8 mg/dL (7-18); CALCIUM 9.1 mg/dL (8.5-10.1); CHLORIDE 96 mmol/L (98-107); CO2 22 mmol/L (21-32); CREATININE 4.6 mg/dL (0.55-1.3); GLUCOSE,RANDOM 167 mg/dL (74-106); MAGNESIUM 2.1 mg/dL (1.8-2.4); POTASSIUM 4.7 mmol/L (3.5-5.1); SGOT/AST 4 U/L (15-37); SGPT/ALT 8 U/L (13-61); SODIUM 131 mmol/L (136-145); TOT PROT 7.2 g/dl (6.4-8.2)
[2020-07-01 09:32] LABS: EPI CELLS 12 /uL (0-25.1); HYALINE CASTS 0 /uL (0-3.1); PH,URINE 7.5 (5.0-8.0); URINE APPEARANCE CLEAR; URINE BACTERIA 1283 /uL (0-1359); URINE BILIRUBIN NEGATIVE (NEGATIVE); URINE COLOR YELLOW; URINE GLUCOSE (UA) TRACE (NEGATIVE); URINE KETONE NEGATIVE (NEGATIVE); URINE LEUK ESTERASE NEGATIVE (NEGATIVE); URINE NITRITE NEGATIVE (NEGATIVE); URINE PROTEIN 1+ (NEGATIVE); URINE RBC 1 /uL (0-23.9); URINE UROBILINOGEN 0.2 mg/dL (0.2-1.0); URINE WBC 3 /uL (0-25.8)
[2020-07-01] MEDS ORDERED: PATIENT'S OWN MEDICATION (NON-FORMULARY) (Ferric Citrate [Auryxia] 210 MG) PO SCH (10:00)
[2020-07-01] MEDS ORDERED: METOPROLOL TARTRATE 50 MG TABLET (FP) ONE (10:31)
[2020-07-01] MEDS ORDERED: GABAPENTIN 100 MG CAPSULE ONE (10:31)
[2020-07-01] MEDS ORDERED: ASPIRIN COATED 81 MG TABLET.EC ONE (10:31)
[2020-07-01] MEDS ORDERED: FERROUS SO4 325 MG TABLET (FP) ONE (10:36)
[2020-07-01] MEDS: ASPIRIN COATED 81 MG TABLET.EC PO SCH (10:43)
[2020-07-01] MEDS: GABAPENTIN 300 MG CAPSULE PO SCH ×2 (10:43→21:18)
[2020-07-01] MEDS: amLODIPine BESYLATE 10 MG TABLET (FP) PO SCH (10:43)
[2020-07-01] MEDS: FERROUS SO4 325 MG TABLET (FP) PO SCH (10:43)
[2020-07-01] MEDS: METOPROLOL TARTRATE 50 MG TABLET (FP) PO SCH ×2 (10:43→21:18)
--- NOTE | 2020-07-01 11:33 | PN ---
Progress Note, Physician Chief Complaint: Pt A&Ox3; no chest pain presently. History of Present Illness: Ms. Scott is a 64 yo female with pmh of IDDM, diastolic CHF, HTN, HLD, hypothyroid, ESRD ? on hemodialysis 3x/wk, bilateral knee pains (s/p surgery on one), who presents to ED for chest pain and SOB for two days. Pt explains since yesterday morning pt has had midsternal stabbing chest pain that woke her up from sleep. Pt explains she never had symptoms before, pain comes and goes is pleuritic and worse with exertion but present during rest. Pain is nonpositional. Pt denies nausea, emesis, diaphoresis, and radiation to arms or back. Pt also has associated vertigo symptoms but has known history of vertigo where she takes meclizine for. Pt denies any fevers, chills, cough, abdominal pain or dysuria or urinary frequency. PMH: CHF, IDDM, HTN, HLD, CKD, HLD (T, , Sat), hypothyroidism PSH: Right AV fistula (June 13), knee surgery Allergies: Penicillin Social: Denies smoking, drugs and alcohol PCP: Dr. Tang Cardio: Dr. Georges Nephro: Dr. Damonpricedinesh Pt's daughter, Nakita, says her mother looked pale after HD Tuesday, and for the next 2 days seemed to be "in a zone", and "not herself". On Tuesday, mother said she felt short of breath. - Current Medication List Current Medications: Active Medications Amlodipine Besylate (Norvasc -) 10 mg PO DAILY [facility] Last Admin: 07/01/20 10:43 Dose: 10 mg Documented by: Aspirin (Ecotrin -) 81 mg PO DAILY [facility] Last Admin: 07/01/20 10:43 Dose: 81 mg Documented by: Atorvastatin Calcium (Lipitor -) 20 mg PO [facility] Ferrous Sulfate (Feosol -) 325 mg PO DAILY [facility] Last Admin: 07/01/20 10:43 Dose: 325 mg Documented by: Gabapentin (Neurontin -) 300 mg PO BID [facility] Last Admin: 07/01/20 10:43 Dose: 300 mg Documented by: Levothyroxine Sodium (Synthroid -) 100 mcg PO DAILY@0700 [facility] Last Admin: 07/01/20 08:05 Dose: 100 mcg Documented by: Metoprolol Tartrate (Lopressor -) 100 mg PO BID [facility] Last Admin: 07/01/20 10:43 Dose: 100 mg Documented by: Non-Formulary Medication (Ferric Citrate [Auryxia]) 210 mg PO BID [facility] - Objective Vital Signs: Vital Signs Temperature 97.9 F 07/01/20 06:05 Pulse Rate 66 07/01/20 10:45 Respiratory Rate 18 07/01/20 10:45 Blood Pressure 138/55 L 07/01/20 10:45 O2 Sat by Pulse Oximetry (%) 98 07/01/20 10:45 Constitutional: Yes: Obese Eyes: Yes: WNL HENT: Yes: WNL Labs: CBC, BMP 07/01/20 08:30 07/01/20 08:30 INR, PTT INR 1.02 (0.83-1.09) 06/30/20 19:30 Assessment/Plan Chest pain sx ASHD Cardiac cath - OM2 50% otherwise non- obstructive disease 30- 40% October 05, 2 013 CHF diastolic decompensated Hyponatremia DM HTN Hyperlipidemia Negative MIBI stress test 2014, 2018 EKG: sinus bradycardia with 1st degree AV block; ? old IWMI End stage Renal Disease on hemo- dialysis since 2017 Plan: Telemetry: NSR; no arrhythmias. r/o MS (initial TNI < 0.02; f/u serially). Undergoing hemodialysis today; F/u BUn/Cr, electrolytes, daily weight, Is and Os. DVT PLX
--- NOTE | 2020-07-01 11:44 | CON.NEP ---
Consult Consult Specialty:: nephrology Reason for Consultation:: esrd - History of Present Illness Chief Complaint: chest pain History of Present Illness: This is a 64 year old woman with a history of ESRD, HTN, type 2 dm who presents with dyspnea and chest pain for 2 days. Says she ate something spicy two days ago and started having dyspnea which only improved with oxygen in the emergency dept. She has had chest pain since 06/28. But its constant. She had a stress test not long ago and was good. She then had an avf placed and did well. - History Source History Provided By: Patient - Past Medical History Cardio/Vascular: Yes: CHF, HTN, Hyperlipdemia Pulmonary: No: Asthma, Bronchitis, Cancer, COPD, O2 Dependent, Pneumonia, Previously Intubated, Pulmonary Embolus, Pulmonary Fibrosis, Sleep Apnea, Other Renal/: Yes: Renal Inusuff, Hemodialysis, Other Endocrine: Yes: Diabetes Mellitus, Hypothyroidism, Other (hyponatremia) Additional Medical History: hyperkalemia, morbid obesity BMI=37 - Past Surgical History Past Surgical History: Yes: AV Fistula/Graft, Cataract Removal, Cholecystectomy, , Tubal Ligation - Alcohol/Substance Use Hx Alcohol Use: No (occasionally) History of Substance Use: reports: None - Smoking History Smoking history: Never smoked Have you smoked in the past 12 months: No Aproximately how many cigarettes per day: 0 - Social History Usual Living Arrangement: Alone ADL: Support Services ([facility] 4 hours for 2days/week) History of Recent Travel: No Home Medications - Allergies Allergies/Adverse Reactions: Allergies Allergy/AdvReac Type Severity Reaction Status Date / Time black pepper Allergy Severe Swelling Verified 05/23/20 09:01 Penicillins Allergy Severe Rash Verified 05/23/20 09:01 strawberry Allergy Rash Verified 05/23/20 09:01 - Home Medications Home Medications: Ambulatory Orders Levothyroxine [Synthroid -] 100 mcg PO DAILY 04/16/16 Metoprolol Tartrate 100 mg PO BID 01/19/18 Amlodipine Besylate [Norvasc -] 10 mg PO DAILY tablet 02/03/19 Aspirin Coated [Ecotrin -] 81 mg PO DAILY #30 tablet.ec 02/03/19 hydrALAZINE HCL [Apresoline -] 50 mg PO TID #90 tablet 02/03/19 Acetaminophen W/ Codeine #3 [Tylenol # 3 -] 1 tab PO Q6H #20 tablet MDD 4 05/24/19 Ferric Citrate [Auryxia] 210 mg PO BID 06/30/20 Ferrous Sulfate 325 mg PO DAILY 06/30/20 Insulin (Levemir) [Levemir Vial] 0 units SQ BID 06/30/20 Insulin Glulisine [Apidra] 10 unit SQ AM 06/30/20 Insulin Glulisine [Apidra] 15 unit SQ HS 06/30/20 Family Medical History Family Hx Coronary Artery Disease: Mother ( age 75) Family Hx Diabetes: Father Review of Systems - Review of Systems Constitutional: reports: No Symptoms Eyes: reports: No Symptoms HENT: reports: No Symptoms Neck: reports: No Symptoms Cardiovascular: reports: Chest Pain Respiratory: reports: SOB Gastrointestinal: reports: No Symptoms Genitourinary: reports: No Symptoms Breasts: reports: No Symptoms Reported Musculoskeletal: reports: No Symptoms Integumentary: reports: No Symptoms Neurological: reports: No Symptoms Endocrine: reports: No Symptoms Hematology/Lymphatic: reports: No Symptoms Nephrology Consult - Height Height: 5 ft 2 in - Weight Weight: 176 lb 5.917 oz - BMI Body Mass Index (BMI): 32.2 - Lab Results CBC,BMP: CBC, BMP 07/01/20 08:30 07/01/20 08:30 Anion Gap: Anion Gap Anion Gap 13 MMOL/L (8-16) 07/01/20 08:30 - Imaging Chest X-ray: Report Reviewed (some congestive changes) - Physical Examination Vital Signs: Vital Signs Temperature 97.9 F 07/01/20 06:05 Pulse Rate 66 07/01/20 10:45 Respiratory Rate 18 07/01/20 10:45 Blood Pressure 138/55 L 07/01/20 10:45 O2 Sat by Pulse Oximetry (%) 98 07/01/20 10:45 Constitutional: Yes: Well Nourished, No Distress, Calm Eyes: Yes: Conjunctiva Clear HENT: Yes: Atraumatic, Normocephalic Neck: Yes: Supple, Trachea Midline Cardiovascular: Yes: Regular Rate and Rhythm Respiratory: Yes: Regular, CTA Bilaterally Gastrointestinal: Yes: Normal Bowel Sounds, Soft Access for Hemodialysis: Permacath (has a maturing avf) Musculoskeletal: Yes: WNL Extremities: Yes: WNL Edema: No Integumentary: Yes: WNL Wound/Incision: Yes: Well Approximated Neurological: Yes: Alert, Oriented Psychiatric: Yes: Alert, Oriented Assessment/Plan ESRD HTN DM atypical chest pain possibly due to GERD fluid overload PLAN will order hd for today will use permcat vascular follow up of avf no TEMITOPE despite low hgb given chf MV
[2020-07-01] MEDS ORDERED: SODIUM CHLORIDE 250 ML IV PRN (11:52)
[2020-07-01 12:48] LABS: OSMOLALITY,SERUM 283 mosm/kg (278-305)
--- NOTE | 2020-07-01 13:44 | PN ---
Progress Note, Physician Chief Complaint: SOB Chest Pain Anemia ESRD History of Present Illness: NAD sitting at the edge of the bed denies any Chest pain Mild SOB - Current Medication List Current Medications: Active Medications Amlodipine Besylate (Norvasc -) 10 mg PO DAILY [facility] Last Admin: 07/01/20 10:43 Dose: 10 mg Documented by: Aspirin (Ecotrin -) 81 mg PO DAILY [facility] Last Admin: 07/01/20 10:43 Dose: 81 mg Documented by: Atorvastatin Calcium (Lipitor -) 20 mg PO [facility] Ferrous Sulfate (Feosol -) 325 mg PO DAILY [facility] Last Admin: 07/01/20 10:43 Dose: 325 mg Documented by: Gabapentin (Neurontin -) 300 mg PO BID [facility] Last Admin: 07/01/20 10:43 Dose: 300 mg Documented by: Heparin Sodium (Porcine) (Heparin -) 1,000 unit IVPUSH ONCE ONE Stop: 07/01/20 11:53 Sodium Chloride (Normal Saline -) 250 mls @ 3,000 mls/hr IV PRN PRN PRN Reason: Hypotension during Dialysis Stop: 07/02/20 11:52 Levothyroxine Sodium (Synthroid -) 100 mcg PO DAILY@0700 [facility] Last Admin: 07/01/20 08:05 Dose: 100 mcg Documented by: Metoprolol Tartrate (Lopressor -) 100 mg PO BID [facility] Last Admin: 07/01/20 10:43 Dose: 100 mg Documented by: Non-Formulary Medication (Ferric Citrate [Auryxia]) 210 mg PO BID [facility] - Objective Vital Signs: Vital Signs Temperature 97.9 F 07/01/20 06:05 Pulse Rate 66 07/01/20 10:45 Respiratory Rate 18 07/01/20 10:45 Blood Pressure 138/55 L 07/01/20 10:45 O2 Sat by Pulse Oximetry (%) 98 07/01/20 10:45 Constitutional: Yes: Well Nourished, No Distress, Calm Cardiovascular: Yes: Regular Rate and Rhythm Respiratory: Yes: Regular, CTA Bilaterally Gastrointestinal: Yes: Normal Bowel Sounds, Soft Genitourinary: Yes: Oliguria Musculoskeletal: Yes: Muscle Weakness Extremities: Yes: WNL Edema: No Peripheral Pulses WNL: Yes Neurological: Yes: Alert, Oriented Psychiatric: Yes: Alert, Oriented Labs: CBC, BMP 07/01/20 08:30 07/01/20 08:30 INR, PTT INR 1.02 (0.83-1.09) 06/30/20 19:30 Problem List - Problems (1) Chest pain Assessment/Plan: -Cardiology consult -EKG-no changes -Trops negative -2/2 to fluid overload? Problems reviewed: Yes Code(s): R07.9 - CHEST PAIN, UNSPECIFIED (2) ESRD (end stage renal disease) Assessment/Plan: -nephrology consult -Dialysis as per nephrology Problems reviewed: Yes Code(s): N18.6 - END STAGE RENAL DISEASE (3) Anemia Assessment/Plan: -Chronic -2/2 to ESRD -Monitor trend Problems reviewed: Yes Code(s): D64.9 - ANEMIA, UNSPECIFIED Qualifiers: Anemia type: due to chronic kidney disease Chronic kidney disease stage: stage 3 (moderate) Qualified Code(s): N18.3 - Chronic kidney disease, stage 3 (moderate); D63.1 - Anemia in chronic kidney disease; D63.1 - Anemia in chronic kidney disease (4) Shortness of breath Assessment/Plan: -Likely 2/2 to fluid overload -Pulmonary consult -Dialysis as per nephrology Problems reviewed: Yes Code(s): R06.02 - SHORTNESS OF BREATH Assessment/Plan See problem list
--- NOTE | 2020-07-01 14:31 | PN ---
Progress Note (short form) - Note Progress Note: PULMONARY CONSULTATION DICTATED 07/01/20 IMP DYSPNEA ATYPICAL CP ACUTE ON CHRONIC CHF ESRD ON HD HTN HLD IDDM HYPONATREMIA HYPOTHYROID ANEMIA PLAN SUPPLEMENTAL O2 HD PER RENAL MONITOR LYTES,RENAL FUNCTION,NA F/U CHEST X-RAY ECHO DVT PROPHYLAXIS CONSIDER V/Q SCAN DUPLEX LOWER EXT DR GARCIA Problem List - Problems (1) Hyponatremia Code(s): E87.1 - HYPO-OSMOLALITY AND HYPONATREMIA (2) Chest pain Code(s): R07.9 - CHEST PAIN, UNSPECIFIED (3) ESRD (end stage renal disease) Code(s): N18.6 - END STAGE RENAL DISEASE (4) Obesity Code(s): E66.9 - OBESITY, UNSPECIFIED (5) CHF (congestive heart failure) Code(s): I50.9 - HEART FAILURE, UNSPECIFIED (6) Diabetes Code(s): E11.9 - TYPE 2 DIABETES MELLITUS WITHOUT COMPLICATIONS (7) HTN (hypertension) Code(s): I10 - ESSENTIAL (PRIMARY) HYPERTENSION (8) Anemia Code(s): D64.9 - ANEMIA, UNSPECIFIED
[2020-07-01] MEDS ORDERED: HEPARIN NA (PORCINE) 5,000 UNITS/ML 1ML VIAL IVPUSH ONE (15:30)
[2020-07-01] MEDS: ATORVASTATIN CA 20 MG TABLET (FP) PO SCH (21:18)
[2020-07-01] MEDS: HEPARIN NA (PORCINE) 5,000 UNITS/ML 1ML VIAL SQ SCH (21:19)
--- NOTE | 2020-07-01 23:09 | CONSULT ---
Consult Consult Specialty:: Endocrine Referred by:: dr.Innabi Carrizales Reason for Consultation:: Diabetes mellitus esrd - History of Present Illness Chief Complaint: high sugars difficulty breathing History of Present Illness: 64yfemale,dmt2,esrd,htn,hld,ashd,chf,diabetic arthropathy,neuropathy,gastroparesis difficulty breathing and chest heaviness tired and feeling poor when strength and mobility difficulty controling blood sugars,nauseas and eating the wrong type of food despite checking blood sugars frequently. denies chest trauma or fall. - Past Medical History Cardio/Vascular: Yes: CHF, HTN, Hyperlipdemia Pulmonary: No: Asthma, Bronchitis, Cancer, COPD, O2 Dependent, Pneumonia, Previously Intubated, Pulmonary Embolus, Pulmonary Fibrosis, Sleep Apnea, Other Renal/: Yes: Renal Inusuff, Hemodialysis, Other ...: No Endocrine: Yes: Diabetes Mellitus, Hypothyroidism, Other (hyponatremia) Additional Medical History: hyperkalemia, morbid obesity BMI=37 - Past Surgical History Past Surgical History: Yes: AV Fistula/Graft, Cataract Removal, Cholecystectomy, , Tubal Ligation - Alcohol/Substance Use Hx Alcohol Use: No (occasionally) History of Substance Use: reports: None - Smoking History Smoking history: Never smoked Have you smoked in the past 12 months: No Aproximately how many cigarettes per day: 0 - Social History Usual Living Arrangement: Alone ADL: Support Services ([facility] 4 hours for 2days/week) History of Recent Travel: No Home Medications - Allergies Allergies/Adverse Reactions: Allergies Allergy/AdvReac Type Severity Reaction Status Date / Time black pepper Allergy Severe Swelling Verified 05/23/20 09:01 Penicillins Allergy Severe Rash Verified 05/23/20 09:01 strawberry Allergy Rash Verified 05/23/20 09:01 - Home Medications Home Medications: Ambulatory Orders Levothyroxine [Synthroid -] 100 mcg PO DAILY 04/16/16 Metoprolol Tartrate 100 mg PO BID 01/19/18 Amlodipine Besylate [Norvasc -] 10 mg PO DAILY tablet 02/03/19 Aspirin Coated [Ecotrin -] 81 mg PO DAILY #30 tablet.ec 02/03/19 hydrALAZINE HCL [Apresoline -] 50 mg PO TID #90 tablet 02/03/19 Acetaminophen W/ Codeine #3 [Tylenol # 3 -] 1 tab PO Q6H #20 tablet MDD 4 05/24/19 Ferric Citrate [Auryxia] 210 mg PO BID 06/30/20 Ferrous Sulfate 325 mg PO DAILY 06/30/20 Insulin (Levemir) [Levemir Vial] 0 units SQ BID 06/30/20 Insulin Glulisine [Apidra] 10 unit SQ AM 06/30/20 Insulin Glulisine [Apidra] 15 unit SQ HS 06/30/20 Family Medical History Family Hx Coronary Artery Disease: Mother ( age 75) Family Hx Diabetes: Father Review of Systems - Review of Systems Constitutional: reports: Lethargy, Malaise Eyes: reports: Blurred Vision HENT: reports: No Symptoms Neck: reports: No Symptoms Gastrointestinal: reports: Indigestion Genitourinary: reports: No Symptoms Breasts: reports: No Symptoms Reported Musculoskeletal: reports: Joint Pain, Muscle Weakness Integumentary: reports: No Symptoms Endocrine: reports: Unexplained Weight Gain Physical Exam Vital Signs: Vital Signs Temperature 98.1 F 07/01/20 21:00 Pulse Rate 67 07/01/20 21:00 Respiratory Rate 18 07/01/20 21:00 Blood Pressure 122/55 L 07/01/20 21:00 O2 Sat by Pulse Oximetry (%) 100 07/01/20 21:00 Constitutional: Yes: Calm Eyes: Yes: EOM Intact HENT: Yes: Normocephalic Neck: Yes: Trachea Midline Cardiovascular: Yes: Varicosities Respiratory: Yes: WNL Gastrointestinal: Yes: WNL ...Rectal Exam: Yes: Deferred Labs: CBC, BMP 07/01/20 08:30 07/01/20 08:30 Problem List - Problems (1) Anemia Problems reviewed: Yes Code(s): D64.9 - ANEMIA, UNSPECIFIED (2) CHF (congestive heart failure) Code(s): I50.9 - HEART FAILURE, UNSPECIFIED (3) Diabetes Code(s): E11.9 - TYPE 2 DIABETES MELLITUS WITHOUT COMPLICATIONS (4) Encounter for screening laboratory testing for COVID-19 virus Code(s): Z11.59 - ENCOUNTER FOR SCREENING FOR OTHER VIRAL DISEASES (5) HTN (hypertension) Code(s): I10 - ESSENTIAL (PRIMARY) HYPERTENSION (6) Hyponatremia Code(s): E87.1 - HYPO-OSMOLALITY AND HYPONATREMIA (7) Shortness of breath Code(s): R06.02 - SHORTNESS OF BREATH (8) Chest pain Code(s): R07.9 - CHEST PAIN, UNSPECIFIED Assessment/Plan Current Active Problems hypothyroidism lyndon Anemia (Acute) CHF (congestive heart failure) (Acute) Diabetes (Acute) Encounter for screening laboratory testing for COVID-19 virus (Acute) HTN (hypertension) (Acute) Hyponatremia (Acute) Shortness of breath (Acute) Abnormal Lab Results 06/30/20 07/01/20 07/01/20 19:30 06:50 08:00 RBC Hgb Hct MCV Eosinophils % Sodium 128 L Chloride 93 L BUN 31.5 H Creatinine 4.3 H Random Glucose 167 H AST 10 L ALT 9 L Alkaline Phosphatase 134 H B-Natriuretic Peptide 8753.7 H Albumin 3.3 L Ur Specific Powell 1.005 L Urine Protein 1+ H Urine Osmolality 141 L Ur Random Sodium 39 L Ur Random Potassium 9.0 L Ur Random Chloride 11 L 07/01/20 07/01/20 08:30 08:30 RBC 3.07 L Hgb 9.9 L Hct 29.8 L MCV 97.1 H Eosinophils % 4.6 H Sodium 131 L Chloride 96 L BUN 35.8 H Creatinine 4.6 H Random Glucose 167 H AST 4 L ALT 8 L Alkaline Phosphatase 122 H B-Natriuretic Peptide Albumin 3.2 L Ur Specific Powell Urine Protein Urine Osmolality Ur Random Sodium Ur Random Potassium Ur Random Chloride Laboratory Tests 09/17/19 07/01/20 07/01/20 09:37 08:30 21:22 Sodium 131 L Chloride 96 L Carbon Dioxide 22 Anion Gap 13 BUN 35.8 H Creatinine 4.6 H POC Glucometer 249 TSH 1.21 plan: synthroid 100mcg day check tsh bgm achs novolog scale using levemir dose titration levemir 20 units am diet nutrition consult
[2020-07-02] MEDS: LEVOTHYROXINE NA 100 MCG TABLET (FP) PO SCH (06:12)
[2020-07-02] MEDS: FERROUS SO4 325 MG TABLET (FP) PO SCH (09:00)
[2020-07-02] MEDS: GABAPENTIN 300 MG CAPSULE PO SCH ×2 (09:00→22:11)
[2020-07-02] MEDS: ASPIRIN COATED 81 MG TABLET.EC PO SCH (09:00)
[2020-07-02] MEDS: HEPARIN NA (PORCINE) 5,000 UNITS/ML 1ML VIAL SQ SCH ×2 (09:01→22:11)
--- NOTE | 2020-07-02 09:10 | CONS ---
DATE OF CONSULTATION: 07/01/2020 REFERRING PHYSICIAN: All Rincon MD CHIEF COMPLAINT: The patient is a 64-year-old female with past medical history of diabetes mellitus; congestive heart failure; hypertension; hyperlipidemia; chronic kidney disease on hemodialysis Tuesday, , and Saturdays; hypothyroidism; anemia; history of right AV fistula; history of knee surgery; nonsmoker, admitted to [facility] on June 30 with complaint of shortness of breath as well as chest pain. Patient states that the morning prior to admission she had intermittent stabbing chest pain that woke her up from sleep. She states that she never had the symptoms before. She said the pain comes and goes, pleuritic in nature, worse with exertion, but present during the rest. It is nonpositional. Denies any nausea, vomiting, or diaphoresis. She also complains of progressively increasing shortness of breath and dyspnea on exertion over the past couple of days. Patient presented to emergency with the above. In the ER she had a chest x-ray performed which showed mild pulmonary vascular congestion. Labs revealed elevated BNP of 8000 and noted to be hyponatremic. On admission, she was evaluated by cardiology as well as nephrology. PAST MEDICAL HISTORY: Again includes diabetes mellitus, hypertension, end-stage renal disease on hemodialysis, anemia, hyperlipidemia, hypothyroidism, heart failure with preserved ejection fraction, hyperkalemia, hyponatremia. CURRENT MEDICATIONS: Include Auryxia, heparin x1, x1, Neurontin, Lopressor, Norvasc, normal saline, Lipitor, Feosol, Ecotrin, and Synthroid. REVIEW OF SYSTEMS: No orthopnea. Positive shortness of breath with exertion. Positive chest pain. No fever, no chills. No cough, no hemoptysis. No abdominal pain. No lower extremity edema. PHYSICAL EXAMINATION: General: The patient is well-developed, well-nourished female, awake, alert, in no acute distress. Vital Signs: She is afebrile. Blood pressure is 124/58. Respiratory rate is 18. O2 saturation is 98% on 2 L nasal cannula. HEENT: Exam is normocephalic, atraumatic. Neck: Supple. Heart: Regular, S1, S2. Chest: Diminished breath sounds bilaterally. Abdomen: Soft. Bowel sounds are positive. Extremities: No cyanosis, edema. LABORATORY: WBC is 8, hemoglobin 9.9, hematocrit 29.8, with a platelet count of 203,000. INR is 1.02. BUN 35, creatinine 4.6. COVID is pending. Chest x-ray: congestion, prominent mediastinum. IMPRESSION: 1. Dyspnea, likely secondary to chronic congestive heart failure. 2. Atypical chest pain, musculoskeletal, rule out pleurisy, cannot exclude possible pulmonary embolism. 3. End-stage renal disease on hemodialysis. 4. Hypertension. 5. Hyperlipidemia. 6. Insulin-dependent diabetes mellitus. 7. Hyponatremia. 8. Hypothyroidism. 9. Anemia. PLAN: Supplemental O2, hemodialysis as per renal. Monitor electrolytes, renal function, sodium level. Obtain followup chest x-ray. Obtain echocardiogram, DVT prophylaxis. RACQUEL GARCIA M.D. [id number]
--- NOTE | 2020-07-02 10:38 | PN ---
Progress Note, Physician History of Present Illness: pulmonary alert,feeling better,sob improving - Current Medication List Current Medications: Active Medications Amlodipine Besylate (Norvasc -) 10 mg PO DAILY [facility] Last Admin: 07/01/20 10:43 Dose: 10 mg Documented by: Aspirin (Ecotrin -) 81 mg PO DAILY [facility] Last Admin: 07/02/20 09:00 Dose: 81 mg Documented by: Atorvastatin Calcium (Lipitor -) 20 mg PO HS [facility] Last Admin: 07/01/20 21:18 Dose: 20 mg Documented by: Ferrous Sulfate (Feosol -) 325 mg PO DAILY [facility] Last Admin: 07/02/20 09:00 Dose: 325 mg Documented by: Gabapentin (Neurontin -) 300 mg PO BID [facility] Last Admin: 07/02/20 09:00 Dose: 300 mg Documented by: Heparin Sodium (Porcine) (Heparin -) 5,000 unit SQ BID [facility] Last Admin: 07/02/20 09:01 Dose: 5,000 unit Documented by: Sodium Chloride (Normal Saline -) 250 mls @ 3,000 mls/hr IV PRN PRN PRN Reason: Hypotension during Dialysis Stop: 07/02/20 11:52 Levothyroxine Sodium (Synthroid -) 100 mcg PO DAILY@0700 [facility] Last Admin: 07/02/20 06:12 Dose: 100 mcg Documented by: Metoprolol Tartrate (Lopressor -) 100 mg PO BID [facility] Last Admin: 07/01/20 21:18 Dose: 100 mg Documented by: - Objective Vital Signs: Vital Signs Temperature 98.6 F 07/02/20 06:00 Pulse Rate 63 07/02/20 06:00 Respiratory Rate 20 07/02/20 08:56 Blood Pressure 125/57 L 07/02/20 06:00 O2 Sat by Pulse Oximetry (%) 97 07/02/20 08:56 Constitutional: Yes: Well Nourished, Calm Eyes: Yes: WNL HENT: Yes: WNL Neck: Yes: WNL Cardiovascular: Yes: Regular Rate and Rhythm, S1, S2 Respiratory: Yes: Diminished Gastrointestinal: Yes: Normal Bowel Sounds, Soft Extremities: Yes: WNL Edema: No Labs: CBC, BMP 07/01/20 08:3 Problem List - Problems (1) Hyponatremia Code(s): E87.1 - HYPO-OSMOLALITY AND HYPONATREMIA (2) Chest pain Code(s): R07.9 - CHEST PAIN, UNSPECIFIED (3) ESRD (end stage renal disease) Code(s): N18.6 - END STAGE RENAL DISEASE (4) Obesity Code(s): E66.9 - OBESITY, UNSPECIFIED (5) CHF (congestive heart failure) Code(s): I50.9 - HEART FAILURE, UNSPECIFIED (6) Diabetes Code(s): E11.9 - TYPE 2 DIABETES MELLITUS WITHOUT COMPLICATIONS (7) HTN (hypertension) Code(s): I10 - ESSENTIAL (PRIMARY) HYPERTENSION (8) Anemia Code(s): D64.9 - ANEMIA, UNSPECIFIED Assessment/Plan IMP DYSPNEA ATYPICAL CP ACUTE ON CHRONIC CHF ESRD ON HD HTN HLD IDDM HYPONATREMIA HYPOTHYROID ANEMIA PLAN SUPPLEMENTAL O2 HD PER RENAL MONITOR LYTES,RENAL FUNCTION,NA F/U CHEST X-RAY ECHO DVT PROPHYLAXIS DR GARCIA Problem List - Problems (1) Hyponatremia Code(s): E87.1 - HYPO-OSMOLALITY AND HYPONATREMIA (2) Chest pain Code(s): R07.9 - CHEST PAIN, UNSPECIFIED (3) ESRD (end stage renal disease) Code(s): N18.6 - END STAGE RENAL DISEASE (4) Obesity Code(s): E66.9 - OBESITY, UNSPECIFIED (5) CHF (congestive heart failure) Code(s): I50.9 - HEART FAILURE, UNSPECIFIED (6) Diabetes Code(s): E11.9 - TYPE 2 DIABETES MELLITUS WITHOUT COMPLICATIONS (7) HTN (hypertension) Code(s): I10 - ESSENTIAL (PRIMARY) HYPERTENSION (8) Anemia Code(s): D64.9 - ANEMIA, UNSPECIFIED
--- NOTE | 2020-07-02 10:45 | PN ---
Progress Note, Physician Chief Complaint: SOB Chest Pain Anemia ESRD History of Present Illness: NAD sitting at the edge of the bed denies any Chest pain Mild SOB, much improved from admission - Current Medication List Current Medications: Active Medications Amlodipine Besylate (Norvasc -) 10 mg PO DAILY [facility] Last Admin: 07/01/20 10:43 Dose: 10 mg Documented by: Aspirin (Ecotrin -) 81 mg PO DAILY [facility] Last Admin: 07/02/20 09:00 Dose: 81 mg Documented by: Atorvastatin Calcium (Lipitor -) 20 mg PO HS [facility] Last Admin: 07/01/20 21:18 Dose: 20 mg Documented by: Ferrous Sulfate (Feosol -) 325 mg PO DAILY [facility] Last Admin: 07/02/20 09:00 Dose: 325 mg Documented by: Gabapentin (Neurontin -) 300 mg PO BID [facility] Last Admin: 07/02/20 09:00 Dose: 300 mg Documented by: Heparin Sodium (Porcine) (Heparin -) 5,000 unit SQ BID [facility] Last Admin: 07/02/20 09:01 Dose: 5,000 unit Documented by: Sodium Chloride (Normal Saline -) 250 mls @ 3,000 mls/hr IV PRN PRN PRN Reason: Hypotension during Dialysis Stop: 07/02/20 11:52 Levothyroxine Sodium (Synthroid -) 100 mcg PO DAILY@0700 [facility] Last Admin: 07/02/20 06:12 Dose: 100 mcg Documented by: Metoprolol Tartrate (Lopressor -) 100 mg PO BID [facility] Last Admin: 07/01/20 21:18 Dose: 100 mg Documented by: - Objective Vital Signs: Vital Signs Temperature 98.6 F 07/02/20 06:00 Pulse Rate 63 07/02/20 06:00 Respiratory Rate 20 07/02/20 08:56 Blood Pressure 125/57 L 07/02/20 06:00 O2 Sat by Pulse Oximetry (%) 97 07/02/20 08:56 Constitutional: Yes: Well Nourished, No Distress, Calm Cardiovascular: Yes: Regular Rate and Rhythm Respiratory: Yes: Regular, CTA Bilaterally Gastrointestinal: Yes: Normal Bowel Sounds, Soft Genitourinary: Yes: Oliguria Musculoskeletal: Yes: WNL Extremities: Yes: WNL Edema: No Peripheral Pulses WNL: Yes Neurological: Yes: Alert, Oriented Psychiatric: Yes: Alert, Oriented Labs: CBC, BMP 07/01/20 08:30 07/01/20 08:30 INR, PTT INR 1.02 (0.83-1.09) 06/30/20 19:30 Problem List - Problems (1) Chest pain Assessment/Plan: -resolved -Cardiology consult -EKG-no changes -Trops negative -2/2 to fluid overload? Problems reviewed: Yes Code(s): R07.9 - CHEST PAIN, UNSPECIFIED (2) ESRD (end stage renal disease) Assessment/Plan: -nephrology consult -Dialysis as per nephrology Problems reviewed: Yes Code(s): N18.6 - END STAGE RENAL DISEASE (3) Anemia Assessment/Plan: -Chronic -2/2 to ESRD -Monitor trend Problems reviewed: Yes Code(s): D64.9 - ANEMIA, UNSPECIFIED Qualifiers: Anemia type: due to chronic kidney disease Chronic kidney disease stage: stage 3 (moderate) Qualified Code(s): N18.3 - Chronic kidney disease, stage 3 (moderate); D63.1 - Anemia in chronic kidney disease; D63.1 - Anemia in chronic kidney disease (4) Shortness of breath Assessment/Plan: -Likely 2/2 to fluid overload -Pulmonary consult -Dialysis as per nephrology Problems reviewed: Yes Code(s): R06.02 - SHORTNESS OF BREATH (5) Diabetes Assessment/Plan: -Recheck A1c -BGM AC HS -Endocrinology consult appreciated -Diabetic renal diet Problems reviewed: Yes Code(s): E11.9 - TYPE 2 DIABETES MELLITUS WITHOUT COMPLICATIONS Assessment/Plan See problem list PT Possible SNF
--- NOTE | 2020-07-02 10:54 | PN ---
Progress Note, Physician History of Present Illness: 64 yo female with pmh of IDDM, CHF, HTN, HLD, CKD presents to ED for chest pain and SOB for two days. Pt explains since yesterday morning pt has had midsternal stabbing chest pain that woke her up from sleep. Pt explains she never had symptoms before, pain comes and goes is pleuritic and worse with exertion but present during rest. Pain is nonpositional. Pt denies nausea, emesis, diaphoresi s, and radiation to arms or back. Pt also has associated vertigo symptoms but has known history of vertigo where she takes meclizine for. Pt denies any fevers, chills, cough, abdominal pain or dysuria or urinary frequency. PMH: CHF, IDDM, HTN, HLD, CKD, HLD (, , Tue), hypothyroidism PSH: Right AV fistula (June 13), knee surgery Allergies: Penicillin Social: Denies smoking, drugs and alcohol PCP: Dr. Tang Cardio: Dr. Georges Nephro: Dr. Denise H ASHD Cardiac cath - OM2 50% otherwise non- obstructive disease 30- 40% October 05, 2013 CHF diastolic CRI 2014 DM HTN Hyperkalemia K 6.8 2011 [facility]. Hyperlipidemia Negative MIBI stress test 2014, 2018 End stage Renal Disease on hemo- dialysis since 2017 - Current Medication List Current Medications: Active Medications Amlodipine Besylate (Norvasc -) 10 mg PO DAILY [facility] Last Admin: 07/01/20 10:43 Dose: 10 mg Documented by: Aspirin (Ecotrin -) 81 mg PO DAILY [facility] Last Admin: 07/02/20 09:00 Dose: 81 mg Documented by: Atorvastatin Calcium (Lipitor -) 20 mg PO HS [facility] Last Admin: 07/01/20 21:18 Dose: 20 mg Documented by: Ferrous Sulfate (Feosol -) 325 mg PO DAILY [facility] Last Admin: 07/02/20 09:00 Dose: 325 mg Documented by: Gabapentin (Neurontin -) 300 mg PO BID [facility] Last Admin: 07/02/20 09:00 Dose: 300 mg Documented by: Heparin Sodium (Porcine) (Heparin -) 5,000 unit SQ BID [facility] Last Admin: 07/02/20 09:01 Dose: 5,000 unit Documented by: Sodium Chloride (Normal Saline -) 250 mls @ 3,000 mls/hr IV PRN PRN PRN Reason: Hypotension during Dialysis Stop: 07/02/20 11:52 Levothyroxine Sodium (Synthroid -) 100 mcg PO DAILY@0700 [facility] Last Admin: 07/02/20 06:12 Dose: 100 mcg Documented by: Metoprolol Tartrate (Lopressor -) 100 mg PO BID [facility] Last Admin: 07/01/20 21:18 Dose: 100 mg Documented by: - Objective Vital Signs: Vital Signs Temperature 98.4 F 07/02/20 10:00 Pulse Rate 64 07/02/20 10:00 Respiratory Rate 20 07/02/20 10:00 Blood Pressure 128/51 L 07/02/20 10:00 O2 Sat by Pulse Oximetry (%) 99 07/02/20 10:00 Eyes: Yes: WNL, Conjunctiva Clear, EOM Intact HENT: Yes: WNL, Atraumatic, Normocephalic Neck: Yes: WNL, Supple, Trachea Midline Cardiovascular: Yes: WNL, Regular Rate and Rhythm Respiratory: Yes: WNL, Regular, CTA Bilaterally Gastrointestinal: Yes: WNL, Normal Bowel Sounds Genitourinary: Yes: WNL Musculoskeletal: Yes: WNL Extremities: Yes: WNL Edema: No Integumentary: Yes: WNL Neurological: Yes: WNL, Alert, Oriented ...Motor Strength: WNL Psychiatric: Yes: WNL Labs: CBC, BMP 07/01/20 08:30 07/01/20 08:30 INR, PTT INR 1.02 (0.83-1.09) 06/30/20 19:30 Problem List - Problems (1) Encounter for screening laboratory testing for COVID-19 virus Code(s): Z11.59 - ENCOUNTER FOR SCREENING FOR OTHER VIRAL DISEASES (2) Hyponatremia Code(s): E87.1 - HYPO-OSMOLALITY AND HYPONATREMIA (3) Chest pain Code(s): R07.9 - CHEST PAIN, UNSPECIFIED (4) EKG abnormalities Code(s): R94.31 - ABNORMAL ELECTROCARDIOGRAM [ECG] [EKG] (5) ESRD (end stage renal disease) Code(s): N18.6 - END STAGE RENAL DISEASE (6) Hyperkalemia Code(s): E87.5 - HYPERKALEMIA (7) (HFpEF) heart failure with preserved ejection fraction Code(s): I50.30 - UNSPECIFIED DIASTOLIC (CONGESTIVE) HEART FAILURE (8) AV fistula Code(s): I77.0 - ARTERIOVENOUS FISTULA, ACQUIRED (9) Anemia Code(s): D64.9 - ANEMIA, UNSPECIFIED Qualifiers: Anemia type: due to chronic kidney disease Chronic kidney disease stage: stage 3 (moderate) Qualified Code(s): N18.3 - Chronic kidney disease, stage 3 (moderate); D63.1 - Anemia in chronic kidney disease; D63.1 - Anemia in chronic kidney disease (10) CKD (chronic kidney disease) Code(s): N18.9 - CHRONIC KIDNEY DISEASE, UNSPECIFIED Qualifiers: (11) [place] cardiac risk >20% in next 10 years Code(s): Z91.89 - OTH PERSONAL RISK FACTORS, NOT ELSEWHERE CLASSIFIED (12) HLD (hyperlipidemia) Code(s): E78.5 - HYPERLIPIDEMIA, UNSPECIFIED (13) Hypothyroidism Code(s): E03.9 - HYPOTHYROIDISM, UNSPECIFIED Qualifiers: Hypothyroidism type: acquired Qualified Code(s): E03.9 - Hypothyroidism, unspecified (14) IDDM (insulin dependent diabetes mellitus) Code(s): E11.9 - TYPE 2 DIABETES MELLITUS WITHOUT COMPLICATIONS; 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 old IWMI End stage Renal Disease on hemo- dialysis since 2017 Plan: Telemetry: NSR; no arrhythmias. r/o [place] (initial TNI < 0.02; f/u serially). Undergoing hemodialysis today; F/u BUn/Cr, electrolytes, daily weight, Is and Os. DVT PLX Cardiac benitez can be follow as outpatient. D/c telemetry
[2020-07-02] MEDS: amLODIPine BESYLATE 10 MG TABLET (FP) PO SCH (11:30)
[2020-07-02] MEDS: METOPROLOL TARTRATE 50 MG TABLET (FP) PO SCH ×2 (11:30→22:11)
[2020-07-02 12:36] LABS: ALBUMIN 2.8 g/dl (3.4-5.0); BILIRUBIN,TOTAL 0.3 mg/dL (0.2-1); BLOOD UREA NITROGEN 23.9 mg/dL (7-18); CALCIUM 8.2 mg/dL (8.5-10.1); CREATININE 3.7 mg/dL (0.55-1.3); POTASSIUM 4.1 mmol/L (3.5-5.1); TOT PROT 6.5 g/dl (6.4-8.2)
[2020-07-02 12:50] LABS: BASO % 0.6 % (0-2.0); EOS % 3.4 % (0-4.5); HEMATOCRIT 25.3 % (32.4-45.2); HEMOGLOBIN 8.4 GM/dL (10.7-15.3); LYMPH % 16.4 % (8-40); MCH 32.4 pg (25.7-33.7); MCHC 33.3 g/dl (32.0-36.0); MEAN CELL VOLUME 97.4 fl (80-96); MEAN PLT VOLUME 10.2 fl (7.5-11.1); MONO % 9.1 % (3.8-10.2); NEUT % 70.5 % (42.8-82.8); PLATELET COUNT 162 K/MM3 (134-434); RBC 2.59 M/mm3 (3.60-5.2); RDW 14.4 % (11.6-15.6)
--- NOTE | 2020-07-02 15:43 | PN ---
Progress Note (short form) - Note Progress Note: Renal Current Medications Generic Name Dose Route Start Last Admin Trade Name Ramandeep PRN Reason Stop Dose Admin Amlodipine Besylate 10 mg 07/01/20 10:00 07/02/20 11:30 Norvasc - PO 10 mg DAILY [facility] Administration Aspirin 81 mg 07/01/20 10:00 07/02/20 09:00 Ecotrin - PO 81 mg DAILY [facility] Administration Atorvastatin Calcium 20 mg 07/01/20 22:00 07/01/20 21:18 Lipitor - PO 20 mg HS [facility] Administration Ferrous Sulfate 325 mg 07/01/20 10:00 07/02/20 09:00 Feosol - PO 325 mg DAILY [facility] Administration Gabapentin 300 mg 07/01/20 10:00 07/02/20 09:00 Neurontin - PO 300 mg BID [facility] Administration Heparin Sodium (Porcine) 5,000 unit 07/01/20 22:00 07/02/20 09:01 Heparin - SQ 5,000 unit BID [facility] Administration Levothyroxine Sodium 100 mcg 07/01/20 07:00 07/02/20 06:12 Synthroid - PO 100 mcg DAILY@0700 [facility] Administration Metoprolol Tartrate 100 mg 07/01/20 10:00 07/02/20 11:30 Lopressor - PO 100 mg BID [facility] Administration Last Vital Signs Temp Pulse Resp BP Pulse Ox 98.2 F 61 20 137/58 L 99 07/02/20 14:00 07/02/20 14:00 07/02/20 14:00 07/02/20 14:00 07/02/20 10:00 CBC, BMP 07/02/20 11:43 07/02/20 11:43 IMPRESSION esrd chf ?GERD PLAN HD again tomorrow PPI trial MV
[2020-07-02 20:48] VITALS: TEMP 98.1
[2020-07-02] MEDS: ATORVASTATIN CA 20 MG TABLET (FP) PO SCH (22:11)
[2020-07-03 07:56] VITALS: BMI 38.0
--- NOTE | 2020-07-03 09:52 | PN ---
Progress Note (short form) - Note Progress Note: Renal pt seen during hd doing well denies complaints Last Vital Signs Temp Pulse Resp BP Pulse Ox 98.1 F 95 H 18 149/46 L 99 07/02/20 20:41 07/03/20 09:35 07/03/20 09:35 07/03/20 09:35 07/02/20 20:41 lungs clear cvs s1s2 r rabd soft ext no edema neuro a+ox3 Current Medications Generic Name Dose Route Start Last Admin Trade Name Ramandeep PRN Reason Stop Dose Admin Amlodipine Besylate 10 mg 07/01/20 10:00 07/02/20 11:30 Norvasc - PO 10 mg DAILY [facility] Administration Aspirin 81 mg 07/01/20 10:00 07/02/20 09:00 Ecotrin - PO 81 mg DAILY [facility] Administration Atorvastatin Calcium 20 mg 07/01/20 22:00 07/02/20 22:11 Lipitor - PO 20 mg HS [facility] Administration Ferrous Sulfate 325 mg 07/01/20 10:00 07/02/20 09:00 Feosol - PO 325 mg DAILY [facility] Administration Gabapentin 300 mg 07/01/20 10:00 07/02/20 22:11 Neurontin - PO 300 mg BID [facility] Administration Heparin Sodium (Porcine) 5,000 unit 07/01/20 22:00 07/02/20 22:11 Heparin - SQ 5,000 unit BID [facility] Administration Levothyroxine Sodium 100 mcg 07/01/20 07:00 07/02/20 06:12 Synthroid - PO 100 mcg DAILY@0700 [facility] Administration Metoprolol Tartrate 100 mg 07/01/20 10:00 07/02/20 22:11 Lopressor - PO 100 mg BID [facility] Administration CBC, BMP 07/02/20 11:43 07/02/20 11:43 IMPRESSION esrd chf ?GERD PLAN continue hd tiw can be discharged from renal perspective, if cleared by cardiology MV
--- NOTE | 2020-07-03 12:00 | DS ---
Physical Examination Vital Signs: Vital Signs Temperature 98.1 F 07/02/20 20:41 Pulse Rate 74 07/03/20 11:35 Respiratory Rate 18 07/03/20 11:35 Blood Pressure 149/36 L 07/03/20 11:35 O2 Sat by Pulse Oximetry (%) 99 07/02/20 20:41 Findings/Remarks: This is a 64 y/o female with a PMHx of ESRD (HD- [facility]), CHF, HTN, HLD, IDDM. Who presents to the ED with SOB and CP x 2 days. Patient describes the pain and sharp non-radiating occurred at rest. Patient reports her last dialysis was on Tuesday. Patient denies fever, chills, dizziness, JENKINS, palpitations, AP, N/V/D, constipation. Patient denies sick contacts or recent travel. (1) Chest pain Assessment/Plan: -resolved -Cardiology consult -EKG-no changes -Trops negative -2/2 to fluid overload Problems reviewed: Yes Code(s): R07.9 - CHEST PAIN, UNSPECIFIED (2) ESRD (end stage renal disease) Assessment/Plan: -nephrology consult -Dialysis as per nephrology Problems reviewed: Yes Code(s): N18.6 - END STAGE RENAL DISEASE (3) Anemia Assessment/Plan: -Chronic -2/2 to ESRD -Monitor trend Problems reviewed: Yes Code(s): D64.9 - ANEMIA, UNSPECIFIED Qualifiers: Anemia type: due to chronic kidney disease Chronic kidney disease stage: stage 3 (moderate) Qualified Code(s): N18.3 - Chronic kidney disease, stage 3 (moderate); D63.1 - Anemia in chronic kidney disease; D63.1 - Anemia in chronic kidney disease (4) Shortness of breath Assessment/Plan: -Likely 2/2 to fluid overload -Pulmonary consult -Dialysis as per nephrology Problems reviewed: Yes Code(s): R06.02 - SHORTNESS OF BREATH (5) Diabetes Assessment/Plan: -A1c at 7.3 -BGM AC HS -Endocrinology consult appreciated -Diabetic renal diet -ISS- continue at home -Start Januvia 25 mg po daily Problems reviewed: Yes Code(s): E11.9 - TYPE 2 DIABETES MELLITUS WITHOUT COMPLICATIONS Assessment/Plan See problem list PT VNS Constitutional: Yes: Well Nourished, No Distress, Calm Cardiovascular: Yes: Regular Rate and Rhythm Respiratory: Yes: Regular, CTA Bilaterally Gastrointestinal: Yes: Normal Bowel Sounds, Soft Renal/: Yes: WNL Musculoskeletal: Yes: Muscle Weakness Extremities: Yes: WNL Edema: No Peripheral Pulses WNL: Yes Neurological: Yes: Alert, Oriented Psychiatric: Yes: Alert, Oriented Labs: CBC, BMP 07/02/20 11:43 07/02/20 11:43 Discharge Summary Problems reviewed: Yes Reason For Visit: CHEST PAIN Current Active Problems Anemia (Acute) CHF (congestive heart failure) (Acute) Diabetes (Acute) Encounter for screening laboratory testing for COVID-19 virus (Acute) HTN (hypertension) (Acute) Hyponatremia (Acute) Shortness of breath (Acute) Condition: Stable - Instructions Referrals: Justin Hyde MD [Primary Care Provider] - Disposition: VNS/HOME HEALTH CARE - Home Medications Comprehensive Discharge Medication List: Ambulatory Orders Levothyroxine [Synthroid -] 100 mcg PO DAILY 04/16/16 Metoprolol Tartrate 100 mg PO BID 01/19/18 Amlodipine Besylate [Norvasc -] 10 mg PO DAILY tablet 02/03/19 Aspirin Coated [Ecotrin -] 81 mg PO DAILY #30 tablet.ec 02/03/19 hydrALAZINE HCL [Apresoline -] 50 mg PO TID #90 tablet 02/03/19 Acetaminophen W/ Codeine #3 [Tylenol # 3 -] 1 tab PO Q6H #20 tablet MDD 4 05/24/19 Ferric Citrate [Auryxia] 210 mg PO BID 06/30/20 Ferrous Sulfate 325 mg PO DAILY 06/30/20 Insulin (Levemir) [Levemir Vial] 0 units SQ BID 06/30/20 Insulin Glulisine [Apidra] 10 unit SQ AM 06/30/20 Insulin Glulisine [Apidra] 15 unit SQ HS 06/30/20 Prescription Drug Monitoring Program (I-STOP) results: I-STOP reviewed and no issues identified
[2020-07-03 12:13] VITALS: BP 143/46; PULSE 66
[2020-07-03] MEDS: ASPIRIN COATED 81 MG TABLET.EC PO SCH (13:58)
[2020-07-03] MEDS: FERROUS SO4 325 MG TABLET (FP) PO SCH (13:58)
[2020-07-03] MEDS: HEPARIN NA (PORCINE) 5,000 UNITS/ML 1ML VIAL SQ SCH (13:59)
[2020-07-03] MEDS: METOPROLOL TARTRATE 50 MG TABLET (FP) PO SCH (13:59)
[2020-07-03] MEDS: amLODIPine BESYLATE 10 MG TABLET (FP) PO SCH (13:59)
[2020-07-03] MEDS: GABAPENTIN 300 MG CAPSULE PO SCH (13:59)
[2020-07-03] MEDS ORDERED: INSULIN SLIDING SCALE (NOVOLOG) 1 VIAL SQ SCH (16:30)
== END 2020-07-03 14:15 | disposition home health service (06) | DRG 291 ==
LOC: JER 15:51 → JERBED 20:55 → J4W 07-01 12:27
PROVIDERS: ADMIT Internal Medicine; ATTEND Family Medicine
PROC: 5A1D70Z Performance of Urinary Filtration, Intermittent, Less than 6 Hours Per Day (ICD-10-PCS; principal; 2020-07-01)
PROC: 5A1D70Z Performance of Urinary Filtration, Intermittent, Less than 6 Hours Per Day (ICD-10-PCS; 2020-07-03)
DX: I13.2 Hypertensive heart and chronic kidney disease with heart failure and with stage 5 chronic kidney disease, or end stage renal disease (principal); I50.33 Acute on chronic diastolic (congestive) heart failure; N18.6 End stage renal disease; E87.1 Hypo-osmolality and hyponatremia; E11.22 Type 2 diabetes mellitus with diabetic chronic kidney disease; E78.5 Hyperlipidemia, unspecified; E03.9 Hypothyroidism, unspecified; E87.5 Hyperkalemia; E87.70 Fluid overload, unspecified; I25.10 Atherosclerotic heart disease of native coronary artery without angina pectoris; R07.89 Other chest pain; E11.43 Type 2 diabetes mellitus with diabetic autonomic (poly)neuropathy; E11.618 Type 2 diabetes mellitus with other diabetic arthropathy; K31.84 Gastroparesis; K21.9 Gastro-esophageal reflux disease without esophagitis; R94.31 Abnormal electrocardiogram [ECG] [EKG]; I44.0 Atrioventricular block, first degree; E66.9 Obesity, unspecified; E11.40 Type 2 diabetes mellitus with diabetic neuropathy, unspecified; D63.1 Anemia in chronic kidney disease; Z91.89 Other specified personal risk factors, not elsewhere classified; Z79.4 Long term (current) use of insulin; Z96.659 Presence of unspecified artificial knee joint; Z88.0 Allergy status to penicillin; Z68.38 Body mass index [BMI] 38.0-38.9, adult
CPT/HCPCS: 36415; 71045-TC-FY; 80053; 81003; 82436; 82550; 82962; 83036; 83735; 83880; 83930; 83935; 84133; 84300; 84484; 85025; 85610; 85730; 86803; 87086; 87340; 93005; 93010; 97116-GP; 97162-GP; 99285-25; G0463-25; J1644; U0003

== ENCOUNTER 2020-08-21 14:23 | Inpatient (IN) | payer OTHER ==
--- NOTE | 2020-08-21 15:08 | PDOC ---
History of Present Illness - General Chief Complaint: Syncope/Near Syncope Stated Complaint: SYNCOPY Time Seen by Provider: 08/21/20 14:42 History Source: Patient, Family - History of Present Illness Initial Comments: 08/21/20 14:55 64F PMH DM ESRD (HD via right chest line , , ), HTN, HLD, CHF BIBEMS from home after experiencing nausea and nbnb vomiting around noon preceeding possible LOC. Pt notes sx started around noon. Aid noted high blood pressure and vomiting but no mention of LOC; she arrived at 1pm. EMS noted low SBP ~70s. Pt had finished a session of HD today around 10:30am. + headache, denies numbness, tingling, weakness. Denies cp/sob, abd pain, f/c, cough, dysuria. Recent runny n ose. Accompanied by daughter. Pt is a poor historian. Nephelder Cummins. Past History - Medical History Allergies/Adverse Reactions: Allergies Allergy/AdvReac Type Severity Reaction Status Date / Time black pepper Allergy Severe Swelling Verified 08/21/20 14:36 Penicillins Allergy Severe Rash Verified 08/21/20 14:36 strawberry Allergy Rash Verified 08/21/20 14:36 Home Medications: Ambulatory Orders Metoprolol Tartrate 100 mg PO BID 01/19/18 Aspirin Coated [Ecotrin -] 81 mg PO DAILY #30 tablet.ec 02/03/19 hydrALAZINE HCL [Apresoline -] 50 mg PO TID #90 tablet 02/03/19 Insulin Glulisine [Apidra] 10 unit SQ AM 06/30/20 Insulin Glulisine [Apidra] 15 unit SQ HS 06/30/20 Atorvastatin Ca [Lipitor] 20 mg PO HS #30 tablet 07/03/20 Gabapentin [Neurontin -] 300 mg PO BID #60 capsule 07/03/20 Sitagliptin Phosphate [Januvia -] 25 mg PO DAILY@0700 #30 tab 07/03/20 Anemia: Yes Asthma: No Cancer: No Cardiac Disorders: No CVA: No COPD: No CHF: Yes Dementia: No Diabetes: Yes Dialysis: Yes (,,tue) GI Disorders: No Disorders: No HTN: Yes Hypercholesterolemia: Yes Liver Disease: No Seizures: No Thyroid Disease: Yes - Surgical History Abdominal Surgery: No Appendectomy: No Cardiac Surgery: No Cholecystectomy: Yes Lung Surgery: No Neurologic Surgery: No Orthopedic Surgery: Yes (right knee replacement) - Reproductive History Is Patient Now?: No - Immunization History Immunization Up to Date: Yes - Psycho-Social/Smoking History Smoking Status: No Smoking History: Never smoked Have you smoked in the past 12 months: No Number of Cigarettes Smoked Daily: 0 - Substance Abuse Hx (Audit-C & DAST Scrn) In the last yr the pt used illegal drug/Rx for NonMed reason: No Score: Yes response is considered Positive: 0 Screen Result (Positive result requires Nsg. DAST-10): Negative Review of Systems - Review of Systems Comments:: CONSTITUTIONAL: Denies F / C HEENT: + headache. Denies sore throat, rhinorrhea RESP: Denies SOB, cough, orthopnea, SNYDER CARD: Denies chest pain, palpitations GI: + n/v. neg abd pain. : Denies dysuria NEURO: Denies numbness, tingling, weakness SKIN: Denies rashes *Physical Exam - Vital Signs Last Vital Signs Temp Pulse Resp BP Pulse Ox 97.5 F L 77 16 140/70 100 08/21/20 14:33 08/21/20 14:41 08/21/20 14:47 08/21/20 14:33 08/21/20 14:47 - Physical Exam GEN: NAD, comfortable. AAOx3 HEENT: NC/AT, EOMI, PERRL. No facial asymmetry. Supple neck w/ FROM CV: S1/S2, RRR, no m/r/g LUNG: CTAB, no wheezes, crackles, rales, rhonchi GI: Soft, ndnt, +BS, no guarding, no rebound MSK: trace pitting LE edema. No obvious deformities of all extremities. SKIN: Warm, dry, no rashes appreciated PSYCH: speaking softly and slow to respond. appropriate responses. NEURO: Moving all extremities ED Treatment Course - LABORATORY CBC & Chemistry Diagram: 08/21/20 15:00 08/21/20 15:00 - ADDITIONAL ORDERS Additional order review: Laboratory Results 08/21/20 14:32 POC Glucometer 72 08/21/20 14:32 POC Glucometer 72 - RADIOLOGY Radiology Studies Ordered: Category Date Time Status CHEST X-RAY PORTABLE* [RAD] Stat Radiology 08/21/20 14:43 Ordered Medical Decision Making - Medical Decision Making 64F ESRD BIBEMS from home for n/v and possible syncope. SBP here 140s. Relative normal exam. Will evaluate for electrolyte and metabolic abnormalities, intracranial pathology, arrhythmias - cbc, cmp, cardiac - EKG, cardiac monitoring - CXR - plan to admit 08/21/20 15:58 downtrending glc d50 push reassess 08/21/20 16:27 labs reviewed EKG 14:42 HR 77 NSR, axis intervals nl, no DAFNE/D, no TWI; Q waves III and aVF. Q waves present in prior 06/30/20 EKG. 08/21/20 18:34 rpt BGM s/p d50 in 100s endorsed to hospitalists for obs Discharge - Discharge Information Problems reviewed: Yes Clinical Impression/Diagnosis: (HFpEF) heart failure with preserved ejection fraction, ESRD (end stage renal disease), Diabetes Syncope Qualifiers: Syncope type: unspecified Qualified Code(s): R55 - Syncope and collapse Vomiting Qualifiers: Vomiting type: unspecified Vomiting Intractability: non-intractable Nausea presence: with nausea Qualified Code(s): R11.2 - Nausea with vomiting, unspecified Condition: Guarded - Admission Yes - Follow up/Referral - Patient Discharge Instructions - Post Discharge Activity
--- NOTE | 2020-08-21 15:11 | PDOC ---
Attending Attestation - Resident Resident Name: EstrellaJorge Luis - ED Attending Attestation I have performed the following: I have examined & evaluated the patient, The case was reviewed & discussed with the resident, I agree w/resident's findings & plan, Exceptions are as noted - HPI HPI: 08/21/20 15:05 64YOF with h/o ESRD (on HD T//Tue and had full session this morning), HTN, HLD, DM, and CHF who was BIBEMS for vomiting and a possible unwitnessed syncopal episode. She finished HD at 10:30am, patient herself states her n/v started around noon but she is not completely sure, NBNB emesis, and she believes she fainted sometime between 12 and 1pm (when she was found by her home health aide vomiting). She missed HD on Tuesday, had a full session on Tuesday, and had a full session today. - Physicial Exam PE: 08/21/20 16:38 GENERAL: well-appearing, obese, A/Ox4, no distress, answers questions appropriately, slightly confused, family member at bedside assists in history HEENT: PERRLA, EOMI, moist mucous membranes NECK/BACK: no midline ttp, no spinal step-off or deformity, no hematoma, full ROM, neck supple CARDIOVASCULAR: regular rate/rhythm, no MGR, strong peripheral pulses, capillary refill <2 seconds, extremities wwp, no edema LUNGS/RESPIRATORY: no respiratory distress, CTAB GI/ABDOMEN: symmetric [id number], normoactive BS, soft, no ttp, no midline pulsatile masses : no CVA tenderness MSK/EXTREMITIES: no muscle atrophy, no acute deformity SKIN: warm and dry, no pallor, no jaundice, no rash, no pathologic-appearing bruising, no skin breakdown, no cuts, no lesions NEUROLOGICAL: GCS 15, CN II-XII grossly intact, 5/5 strength proximally and distally, no facial droop, latency in answering questions - Medical Decision Making 08/21/20 17:44 64YOF with h/o ESRD, HTN, HLD, DM, and CHF who p/w n/v and reported syncopal episode. Initial Vital Signs Temp Pulse Resp BP Pulse Ox 97.5 F L 70 16 140/70 100 08/21/20 14:33 08/21/20 14:33 08/21/20 14:33 08/21/20 14:33 08/21/20 14:33 Most likely pre-syncope, dialysis disequilibrium syndrome, vasovagal, orthostatic, or metabolic derangement. Possible hypoglycemia or volume depletion especially in the context of dialysis today. Less likely but possible arrhythmia, unlikely ICH, unlikely to have been precipitated by any infectious etiology but will do basic lab work. Provider Orders Category Date Time Status HEAD CT WITHOUT CONTRAST [CT] Stat CT Scan 08/21/20 15:10 Taken EKG [ELECTROCARDIOGRAM] [CARD] Stat Cardiology 08/21/20 14:30 Ordered Cardiac Monitoring Continuous Care 08/21/20 14:43 Active EKG needed NOW Care 08/21/20 14:30 Completed CARDIAC PROFILE ([facility]) Stat Lab 08/21/20 15:00 Completed CBC WITH DIFFERENTIAL Stat Lab 08/21/20 15:00 Completed COMP METABOLIC PANEL Stat Lab 08/21/20 15:00 Completed POC GLUCOSE TESTING Routine Lab 08/21/20 14:32 Completed Dextrose 50%-Water - [D50w (Vial) -] Medication 08/21/20 15:55 Discontinued 25 gm IVPUSH NOW ONE Dextrose 50%-Water [D50w (Syringe) -] Medication 08/21/20 16:00 Discontinued 25 gm .ROUTE .STK-MED ONE IV Insert NOW Phy Order 08/21/20 14:43 Active CHEST X-RAY PORTABLE* [RAD] Stat Radiology 08/21/20 14:43 Completed Medications Discontinued Medications Generic Name Dose Route Start Last Admin Trade Name Freq PRN Reason Stop Dose Admin Dextrose 25 gm 08/21/20 15:55 08/21/20 16:08 D50w (Vial) - IVPUSH 08/21/20 15:56 25 gm NOW ONE Administration Dextrose Confirm 08/21/20 16:00 D50w (Syringe) - Administered 08/21/20 16:01 Dose 25 gm .ROUTE .STK-MED ONE Lab Results WBC 7.6 K/mm3 (4.0-10.0) 08/21/20 15:00 RBC 3.39 M/mm3 (3.60-5.2) L 08/21/20 15:00 Hgb 11.1 GM/dL (10.7-15.3) 08/21/20 15:00 Hct 33.1 % (32.4-45.2) D 08/21/20 15:00 MCV 97.7 fl (80-96) H 08/21/20 15:00 MCH 32.7 pg (25.7-33.7) 08/21/20 15:00 MCHC 33.4 g/dl (32.0-36.0) 08/21/20 15:00 RDW 14.8 % (11.6-15.6) 08/21/20 15:00 Plt Count 126 K/MM3 (134-434) L D 08/21/20 15:00 MPV 9.4 fl (7.5-11.1) 08/21/20 15:00 Absolute Neuts (auto) 5.7 K/mm3 (1.5-8.0) 08/21/20 15:00 Neutrophils % 74.9 % (42.8-82.8) 08/21/20 15:00 Lymphocytes % 12.6 % (8-40) D 08/21/20 15:00 Monocytes % 8.3 % (3.8-10.2) 08/21/20 15:00 Eosinophils % 3.2 % (0-4.5) 08/21/20 15:00 Basophils % 1.0 % (0-2.0) 08/21/20 15:00 Nucleated RBC % 0 % (0-0) 08/21/20 15:00 Sodium 136 mmol/L (136-145) 08/21/20 15:00 Potassium 4.7 mmol/L (3.5-5.1) 08/21/20 15:00 Chloride 101 mmol/L (98-107) 08/21/20 15:00 Carbon Dioxide 28 mmol/L (21-32) 08/21/20 15:00 Anion Gap 7 MMOL/L (8-16) L 08/21/20 15:00 BUN 16.0 mg/dL (7-18) 08/21/20 15:00 Creatinine 2.5 mg/dL (0.55-1.3) H 08/21/20 15:00 Est GFR (CKD-EPI)AfAm 22.93 08/21/20 15:00 Est GFR (CKD-EPI)NonAf 19.79 08/21/20 15:00 POC Glucometer 72 UNITS (80-120) 08/21/20 14:32 Random Glucose 66 mg/dL (74-106) L 08/21/20 15:00 Calcium 8.7 mg/dL (8.5-10.1) 08/21/20 15:00 Total Bilirubin 0.2 mg/dL (0.2-1) 08/21/20 15:00 AST 11 U/L (15-37) L 08/21/20 15:00 ALT 13 U/L (13-61) 08/21/20 15:00 Alkaline Phosphatase 133 U/L (45-117) H 08/21/20 15:00 Creatine Kinase 66 U/L (26-192) 08/21/20 15:00 Troponin I 0.02 ng/ml (0.00-0.05) 08/21/20 15:00 Total Protein 7.8 g/dl (6.4-8.2) 08/21/20 15:00 Albumin 3.2 g/dl (3.4-5.0) L 08/21/20 15:00 CT/HEAD CT WITHOUT CONTRAST Cranial CT without contrast Clinical information: syncope Multiplanar imaging was performed. Intravenous contrast was not administered. No prior imaging exam is available at this facility for direct comparison. No intracranial hemorrhage is seen. There is no extra-axial fluid collection. No obvious mass lesion or infarct is noted. Prominent atherosclerotic calcifications are visualized along the cavernous carotid arteries and intracranial vertebral arteries. There is no extra-axial fluid c ollection. No definite abnormal intracranial attenuation is seen. The ventricles and cisterns appear unremarkable. No calvarial defect is noted. Moderate left maxillary and mild to moderate right maxillary sinus mucosal thickening is seen consistent with sinusitis which is probably chronic or subacute, less likely acute. Correlate clin ically. Impression: No CT evidence of acute intracranial pathology. Prominent atherosclerotic vascular calcifications are noted. Correlate with clinical risk factors. Paranasal sinus disease as described above. RAD/CHEST X-RAY PORTABLE* Chest: Syncopal episode AP of the chest has been submitted. Since the prior study of 06/30/2020 patient is rotated to the left. There is a large heart, unfolded aorta, right jugular line as before but no sign of infiltrate or failure. Soft tissues are intact. There are degenerative changes. Correlation recommended Given the patient's CHF and ESRD on HD, Pt is high risk for ventricular dysrhythmia and/or . The Pt is unsafe for discharge at this time. They require further hospital observation, workup, and treatment. Admission procedures per resident note, to Tele. Last Vital Signs Temp Pulse Resp BP Pulse Ox 97.5 F L 90 17 124/61 98 08/21/20 14:33 08/21/20 18:07 08/21/20 18:09 08/21/20 18:07 08/21/20 18:09 Heart Score/ECG Review #1 Sinus rhythm, rate 77, normal axis and intervals, old Q waves in III, no new ischemic ST-T changes Discharge - Discharge Information Problems reviewed: Yes Clinical Impression/Diagnosis: Syncope Qualifiers: Syncope type: unspecified Qualified Code(s): R55 - Syncope and collapse Vomiting Qualifiers: Vomiting type: unspecified Vomiting Intractability: non-intractable Nausea presence: with nausea Qualified Code(s): R11.2 - Nausea with vomiting, unspecified Condition: Guarded - Admission Yes - Follow up/Referral Referrals: Justin Hyde MD [Primary Care Provider] - - Patient Discharge Instructions - Post Discharge Activity
[2020-08-21 15:19] LABS: EOS % 3.2 % (0-4.5); HEMATOCRIT 33.1 % (32.4-45.2); HEMOGLOBIN 11.1 GM/dL (10.7-15.3); LYMPH % 12.6 % (8-40); MCH 32.7 pg (25.7-33.7); MCHC 33.4 g/dl (32.0-36.0); MEAN CELL VOLUME 97.7 fl (80-96); MEAN PLT VOLUME 9.4 fl (7.5-11.1); MONO % 8.3 % (3.8-10.2); NEUT % 74.9 % (42.8-82.8); PLATELET COUNT 126 K/MM3 (134-434); RBC 3.39 M/mm3 (3.60-5.2); RDW 14.8 % (11.6-15.6); WHITE BLOOD COUNT 7.6 K/mm3 (4.0-10.0)
--- OUTSIDE RECORDS SUMMARY | 2020-08-21 15:44 | XMS ---
:1955 Author Organization [facility] Support Name Relationship Address Phone UE, UNEMPLOYED Unavailable Unavailable Unavailable SHAI LUCERO SI Unavailable DISABLED Unavailable Unavailable Unavailable UE Unavailable Unavailable Unavailable Nakita Colbert Child Unavailable NAKITA ALDRICH DAUGHTER [address] [phone] [place] [address] NAKITA ALDRICH Spouse [address] [place] [address] Nakita Colbert Child Unavailable Re-disclosure Warning The records that you are about to access may contain information from federally- assisted alcohol or drug abuse programs. If such information is present, then the following federally mandated warning applies: This information has been disclosed to you from records protected by federal confidentiality rules (42 CFR part 2). The federal rules prohibit you from making any further disclosure of this information unless further disclosure is expressly permitted by the written consent of the person to whom it pertains or as otherwise permitted by 42 CFR part 2. A general authorization for the release of medical or other information is NOT sufficient for this purpose. The Federal rules restrict any use of the information to criminally investigate or prosecute any alcohol or drug abuse patient.The records that you are about to access may contain highly sensitive health information, the redisclosure of which is protected by Article 27-F of the [place] State Public Health law. If you continue you may haveaccess to information: Regarding HIV / AIDS; Provided by facilities licensed or operated by the [facility] Office of Mental Health; or Provided by the [facility] Office for People With Developmental Disabilities. If such information is present, then the following [facility] mandated warning applies: This information has been disclosed to you from confidential records which are protected by state law. State law prohibits you from making any further disclosure of this information without the specific written consent of the person to whom it pertains, or as otherwise permitted by law. Any unauthorized further disclosure in violation of state law may result in a fine or longterm sentence or both. A general authorization for the release of medical or other information is NOT sufficient authorization for further disclosure. Medications Medication Brand Start Product Dose Route Administrative Pharmacy [facility] Indications Reaction Description Data Name Date Form Instructions Instructions Source(s) Polyethylen Systan 10/11/ CAPFUL 1 active Systa ne ODESSA e Glycol e 2018 DOSING (Mount 400 4 MG/ML 0.4-0. 12:00: UNIT [place] on / Propylene 3% 00 AM [place]igh[place] rho glycol 3 Ophtha EST od Health MG/ML [facility]) Ophthalmic Soluti Solution on Systane 0.4-0.3% Ophthalmic Solution Insurance Providers Payer name Policy type / Policy ID Covered Covered libertarian's Policy Plan Coverage type libertarian ID relationship to José Information josé MEDICAID [id number] SP [id number] MEDICARE [id number] SP [id number] 6 36 MEDICAID [id number] SP [id number] MEDICAID [id number] SP [id number] MEDICAID [id number] SP [id number] MEDICAID [id number] SP [id number] MEDICAID [id number] SP [id number] MEDICAID [id number] SP [id number] M [id number] 01 [id number] 6 36 W [id number] 01 [id number] W [id number] 01 [id number] M [id number] 01 [id number] 6 36 M [id number] 01 [id number] 6 36 Medicaid Special [id number] S [id number] Billing Medicaid [id number] S [id number] Wrap Claims Medicaid [id number] MH [id number] S [id number] Psychotherapy Only Medicare-Blue [id number] S [id number] Cross/Blue A Shield Medicaid 4013 [id number] S [id number] Regular Clinic Visit Medicare United [id number] S [id number] Government A Services Medicaid of [place] Individual 0 Self 0 [place] Policy Medicare Part A Individual 0 Self 0 of [place] Policy Medicaid of [place] Individual 0 Self 0 [place] Policy Medicare Part A Individual 0 Self 0 of [place] Policy Medicaid of [place] Individual 0 Self 0 [place] Policy Medicare Part A Individual 0 Self 0 of [place] Policy Medicaid of [place] Individual 0 Self 0 [place] Policy Medicare Part A Individual 0 Self 0 of [place] Policy Results ID Date Data Source [id number] 06/30/2020 07:30:00 PM EDT [facility] Name Value Range Interpretation Description Data Sup porting Code Source(s) Document(s ) SARS [facility] coronavirus 2 RNA This lab was ordered by Health system and reported by [facility]. ID Date Data Source [id number] 06/09/2020 10:45:00 AM EDT [facility] Name Value Range Interpretation Description Data Sup porting Code Source(s) Document(s ) SARS [facility] coronavirus 2 RNA This lab was ordered by Health system and reported by [facility]. Procedure Patient Treatment Plan of Care Planned Activity Planned Date Details Description Data Source (s) Polyethylene Glycol 400 10/11/2018 ADAIR ZELAYA ([place] 4 MG/ML / Propylene 12:00:00 AM [facility] glycol 3 MG/ML [place]) Ophthalmic Solution
[2020-08-21 15:47] LABS: ALBUMIN 3.2 g/dl (3.4-5.0); BILIRUBIN,TOTAL 0.2 mg/dL (0.2-1); CALCIUM 8.7 mg/dL (8.5-10.1); CREATININE 2.5 mg/dL (0.55-1.3); POTASSIUM 4.7 mmol/L (3.5-5.1); TOT PROT 7.8 g/dl (6.4-8.2)
[2020-08-21] MEDS ORDERED: DEXTROSE 50%-WATER - 25 GM/50 ML VIAL IVPUSH ONE (15:55)
[2020-08-21] MEDS ORDERED: DEXTROSE 50%-WATER 25 GM/50 ML DISP.SYRIN ONE (16:00)
--- OUTSIDE RECORDS SUMMARY | 2020-08-21 19:00 | XMS ---
:1955 Author Organization [facility] Support Name Relationship Address Phone UE, UNEMPLOYED Unavailable Unavailable Unavailable SHAI LUCERO SI Unavailable DISABLED Unavailable Unavailable Unavailable UE Unavailable Unavailable Unavailable Nakita Colbert Child Unavailable NAKITA ALDRICH DAUGHTER [address] [place] [address] NAKITA ALDRICH Spouse [address] [place] [address] Nakita Colbert Child Unavailable Re-disclosure Warning The [...] is protected by Article 27-F of the [place] State Public Health law. If you continue you may haveaccess to information: Regarding HIV / AIDS; Provided by facilities licensed or operated by the [facility] Office of Mental Health; or Provided by the [facility] Office for People With Developmental Disabilities. If such information is present, then the following [facility] mandated warning applies: This information has been [...] law may result in a fine or prison sentence or both. A general authorization for the release of medical or other information is NOT sufficient authorization for further disclosure. Medications Medication Brand Start Product Dose Route Administrative Pharmacy [facility] Indications Reaction Description Data Name Date Form Instructions Instructions Source(s) Polyethylen Systan 10/11/ CAPFUL 1 active Systa ne ODESSA e Glycol e 2018 DOSING ([place] 400 4 MG/ML 0.4-0. 12:00: UNIT [place] on / Propylene 3% 00 AM [place] rho glycol 3 Ophtha EST od Health MG/ML [facility]) Ophthalmic Soluti Solution on Systane 0.4-0.3% Ophthalmic Solution Insurance Providers Payer name Policy type / Policy ID Covered Covered democrat's Policy Plan Coverage type democrat ID relationship to José Information josé MEDICAID [id number] SP [id number] MEDICARE [id number] SP [id number] 6 36 MEDICAID [id number] SP [id number] MEDICAID [id number] SP [id number] MEDICAID [id number] SP [id number] MEDICAID [id number] SP [id number] MEDICAID [id number] SP [id number] MEDICAID [id number] SP [id number] M [id number] 01 [id number] 6 36 W [id number] 01 [id number] W [id number] 01 [id number] M [id number] 01 [id number] 6 36 M [id number] 01 [id number] 6 36 Medicaid Special [id number] S [id number] Billing Medicaid 1609 [id number] S [id number] Wrap Claims Medicaid 4011 MH [id number] S [id number] Psychotherapy Only Medicare-Blue [id number] S [id number] Cross/Blue A Shield Medicaid 4013 [id number] S [id number] Regular Clinic Visit Medicare United [id number] S [id number] Government A Services Medicaid of [place] Individual [...] [place] Policy Results ID Date Data Source [id number] 06/30/2020 07:30:00 PM EDT [facility] Name Value Range Interpretation Description Data Sup porting Code Source(s) Document(s ) SARS [facility] coronavirus 2 RNA This lab was ordered by [facility] and reported by [facility]. ID Date Data Source [id number] 06/09/2020 10:45:00 AM EDT [facility] Name Value Range Interpretation Description Data Sup porting Code Source(s) Document(s ) SARS [facility] coronavirus 2 RNA This lab was ordered by [facility] and reported by [facility]. Procedure Patient Treatment Plan of Care Planned Activity Planned Date Details Description Data Source (s) Polyethylene Glycol 400 10/11/2018 ADAIR ZELAYA ([place] 4 MG/ML / Propylene 12:00:00 AM [facility] glycol 3 MG/ML [place]) Ophthalmic Solution
--- NOTE | 2020-08-21 20:00 | HP ---
CHIEF COMPLAINT:?syncopized after dialysis today PCP:Dr. [facility] Professional: Dr. Cooper HISTORY OF PRESENT ILLNESS: 64 year old female with a past medical history ESRD (on HD and had full session this morning), hypertension, hyperlipidemia, diabetes mellitus, and CHF who presented to Er by ambulance for vomiting and a possible unwitnessed syncopal episode. She finished hemodialysis this morning at 10:30am, patient states n/v started around 12 pm and she believes she fainted sometime between 12 and 1pm and was found by her home health aide vomiting. ER course notable for normal vital signs, normal troponin, electrolytes, hgb/hct and LFT's EKG- normal sinus rhythm , no prolongation of Qtc interval. Ct scan of head with no acute abnormalities. CXR with large heart and no infiltrate or failure seen. Recent Travel: no PAST MEDICAL HISTORY: ESRD Hypertension Hyperlipidemia Diabetes mellitus Diastolic Congestive Heart Failure PAST SURGICAL HISTORY: none Social History: Smoking:no Alcohol:no Drugs: no Allergies black pepper Allergy (Severe, Verified 08/21/20 14:36) Swelling Penicillins Allergy (Severe, Verified 08/21/20 14:36) Rash strawberry Allergy (Verified 08/21/20 14:36) Rash HOME MEDICATIONS: Home Medications Medication Instructions Recorded Metoprolol Tartrate 100 mg PO BID 01/19/18 Aspirin Coated [Ecotrin -] 81 mg PO DAILY #30 tablet.ec 02/03/19 hydrALAZINE HCL [Apresoline -] 50 mg PO TID #90 tablet 02/03/19 Insulin Glulisine [Apidra] 10 unit SQ AM 06/30/20 Insulin Glulisine [Apidra] 15 unit SQ HS 06/30/20 Atorvastatin Ca [Lipitor] 20 mg PO HS #30 tablet 07/03/20 Gabapentin [Neurontin -] 300 mg PO BID #60 capsule 07/03/20 Sitagliptin Phosphate [Januvia -] 25 mg PO DAILY@0700 #30 tab 07/03/20 REVIEW OF SYSTEMS CONSTITUTIONAL: Absent: fever, chills, diaphoresis, generalized weakness, malaise, loss of appetite, weight change HEENT: Absent: rhinorrhea, nasal congestion, throat pain, throat swelling, difficulty swallowing, mouth swelling, ear pain, eye pain, visual changes CARDIOVASCULAR: Absent: chest pain, syncope, palpitations, irregular heart rate, lightheadedness, peripheral edema RESPIRATORY: Absent: cough, shortness of breath, dyspnea with exertion, orthopnea, wheezing, stridor, hemoptysis GASTROINTESTINAL: Absent: abdominal pain, abdominal distension, nausea, vomiting, diarrhea, constipation, melena, hematochezia GENITOURINARY: Absent: dysuria, frequency, urgency, hesitancy, hematuria, flank pain, genital pain MUSCULOSKELETAL: Absent: myalgia, arthralgia, joint swelling, back pain, neck pain SKIN: Absent: rash, itching, pallor HEMATOLOGIC/IMMUNOLOGIC: Absent: easy bleeding, easy bruising, lymphadenopathy, frequent infections ENDOCRINE: Absent: unexplained weight gain, unexplained weight loss, heat intolerance, cold intolerance NEUROLOGIC: Absent: headache, focal weakness or paresthesias, dizziness, unsteady gait, seizure, mental status changes, bladder or bowel incontinence PSYCHIATRIC: Absent: anxiety, depression, suicidal or homicidal ideation, hallucinations. PHYSICAL EXAMINATION Vital Signs - 24 hr 08/21/20 08/21/20 08/21/20 14:33 14:41 14:47 Temperature 97.5 F L Pulse Rate 70 77 Pulse Rate [ Apical] Respiratory 16 16 Rate Blood Pressure 140/70 Blood Pressure [Left Arm] O2 Sat by Pulse 100 100 100 Oximetry (%) 08/21/20 08/21/20 08/21/20 18:07 18:09 19:34 Temperature Pulse Rate Pulse Rate [ 90 83 Apical] Respiratory 17 17 15 Rate Blood Pressure Blood Pressure 124/61 125/94 [Left Arm] O2 Sat by Pulse 98 98 99 Oximetry (%) General no acute distress Vital signs reviewed afebrile Neck no JVD Lungs CTA nonlabored breathing effort no rales no wheezing Heart s1s2 rate regular no murmrus Abdomen soft nontender nondisteded Extremities warm to touch no pitting edema no cyanosis Skin nail beds and lips pink Mood calm Laboratory Results - last 24 hr 08/21/20 08/21/20 08/21/20 14:32 15:00 15:00 WBC 7.6 RBC 3.39 L Hgb 11.1 Hct 33.1 D MCV 97.7 H MCH 32.7 MCHC 33.4 RDW 14.8 Plt Count 126 L D MPV 9.4 Absolute Neuts (auto) 5.7 Neutrophils % 74.9 Lymphocytes % 12.6 D Monocytes % 8.3 Eosinophils % 3.2 Basophils % 1.0 Nucleated RBC % 0 Sodium 136 Potassium 4.7 Chloride 101 Carbon Dioxide 28 Anion Gap 7 L BUN 16.0 Creatinine 2.5 H Est GFR (CKD-EPI)AfAm 22.93 Est GFR (CKD-EPI)NonAf 19.79 POC Glucometer 72 Random Glucose 66 L Calcium 8.7 Total Bilirubin 0.2 AST 11 L ALT 13 Alkaline Phosphatase 133 H Creatine Kinase 66 Troponin I 0.02 Total Protein 7.8 Albumin 3.2 L 08/21/20 18:03 WBC RBC Hgb Hct MCV MCH MCHC RDW Plt Count MPV Absolute Neuts (auto) Neutrophils % Lymphocytes % Monocytes % Eosinophils % Basophils % Nucleated RBC % Sodium Potassium Chloride Carbon Dioxide Anion Gap BUN Creatinine Est GFR (CKD-EPI)AfAm Est GFR (CKD-EPI)NonAf POC Glucometer 159 Random Glucose Calcium Total Bilirubin AST ALT Alkaline Phosphatase Creatine Kinase Troponin I Total Protein Albumin ASSESSMENT/PLAN: Mrs. Scott is a 64 year old female with a past medical history ESRD (on HD //Tue and had full session this morning), hypertension, hyperlipidemia, diabetes mellitus, nonobstrictive CAD by cath in 2012 and diastolic congestive heart failure. who presented with vomiting and a possible unwitnessed syncopal episode. Admit to telemetry. 1. ? Syncopy(etiology unclear) troponin and CT head normal , labs unremarkable vital signs stable continue to trend troponins monitor on telemetry check orthostatic vital signs check carotid doppler check echocardiogram to exclude aortic stenosis and evaluate LVEF check TSH Neurology- Dr. Mcmullen consulted Cardiology- Dr. Cooper consulted 2. Hypertension controlled c/w metoprolol tartrate and hydralazine 3. Hyperlipidemia LFT's normal c/w statin therapy 4. Diabetes Mellitus BGM achs insulin as per sliding scale check [id number] c/w asa and statin therapy 5. Chronic Diastolic Congestive Heart Failure appears euvolemic on exam CXR with no acute congestive heart failure c/w metoprolol tartrate 6. Nonobstructive CAD (cath in 2012) troponin normal EKG with no signs of acute ischemia c/w asa and statin c/w metoprolol 7. ESRD on HD Renal- Dr. Yuan consulted 8. Rule Out COVID follow up on COVID test maintain strict droplet and airborne precautions maintain o2 sat >90% FEN avoid IVF to prevent acute pulmonary edema and on HD BMP daily and replete as needed ADA, renal, low sodium diet DVT Prophylaxis heparin 5000 U BID Family Medical History Family History: Denies Visit type - Emergency Visit Emergency Visit: Yes ED Registration Date: 08/21/20 Care time: The patient presented to the Emergency Department on the above date and was hospitalized for further evaluation of their emergent condition. - New Patient This patient is new to me today: Yes Date on this admission: 08/21/20 - Critical Care Critical Care patient: No
[2020-08-21] MEDS ORDERED: ATORVASTATIN CA 20 MG TABLET (FP) PO SCH (22:00)
[2020-08-21] MEDS ORDERED: ATORVASTATIN CA 20 MG TABLET (FP) ONE (22:52)
[2020-08-21] MEDS ORDERED: INSULIN SLIDING SCALE (NOVOLOG) 1 VIAL SQ ONE (22:52)
[2020-08-21] MEDS ORDERED: HEPARIN NA (PORCINE) 5,000 UNITS/ML 1ML VIAL ONE (22:52)
[2020-08-21] MEDS ORDERED: METOPROLOL TARTRATE 50 MG TABLET (FP) ONE (22:52)
[2020-08-21] MEDS ORDERED: hydrALAZINE HCL 25 MG TABLET (FP) ONE (22:52)
[2020-08-21] MEDS: hydrALAZINE HCL 50 MG TABLET (FP) PO SCH (23:00)
[2020-08-21] MEDS: INSULIN SLIDING SCALE (NOVOLOG) 1 VIAL SQ SCH (23:16)
[2020-08-21] MEDS: HEPARIN NA (PORCINE) 5,000 UNITS/ML 1ML VIAL SQ SCH (23:16)
[2020-08-21] MEDS: METOPROLOL TARTRATE 50 MG TABLET (FP) PO SCH (23:16)
[2020-08-22] MEDS ORDERED: hydrALAZINE HCL 25 MG TABLET (FP) ONE (06:18)
[2020-08-22] MEDS: INSULIN SLIDING SCALE (NOVOLOG) 1 VIAL SQ SCH ×3 (06:23→17:22)
[2020-08-22] MEDS: hydrALAZINE HCL 50 MG TABLET (FP) PO SCH ×2 (06:23→14:09)
[2020-08-22 06:25] LABS: HEMATOCRIT 34.4 % (32.4-45.2); HEMOGLOBIN 11.5 GM/dL (10.7-15.3); MCH 32.5 pg (25.7-33.7); MCHC 33.5 g/dl (32.0-36.0); MEAN CELL VOLUME 97.3 fl (80-96); MEAN PLT VOLUME 9.6 fl (7.5-11.1); PLATELET COUNT 134 K/MM3 (134-434); RBC 3.53 M/mm3 (3.60-5.2); RDW 14.8 % (11.6-15.6); WHITE BLOOD COUNT 8.5 K/mm3 (4.0-10.0)
[2020-08-22 06:54] LABS: BLOOD UREA NITROGEN 22.7 mg/dL (7-18); CALCIUM 9.2 mg/dL (8.5-10.1); CREATININE 3.4 mg/dL (0.55-1.3); POTASSIUM 5.5 mmol/L (3.5-5.1)
[2020-08-22] MEDS ORDERED: FLU VACCINE (FLULAVAL) PF 60 MCG/0.5 ML SYRINGE 2020-2021 IM ONE ×2 (08:03→09:45)
--- NOTE | 2020-08-22 09:16 | CON.CARD ---
Consult Consult Specialty:: Cardiology - History of Present Illness History of Present Illness: 64YOF with h/o ESRD (on HD T//Tue and had full session this morning), HTN, HLD, DM, and CHF who was BIBEMS for vomiting and a possible unwitnessed syncopal episode. She finished HD at 10:30am, patient herself states her n/v started around noon but she is not completely sure, NBNB emesis, and she believes she fainted sometime between 12 and 1pm (when she was found by her home health aide vomiting). She missed HD on Tuesday, had a full session on Tuesday, and had a full session today. PMH ASHD Cardiac cath - OM2 50% otherwise non- obstructive disease 30- 40% October 05, 2013 CHF diastolic CRI 2014 DM HTN Hyperkalemia K 6.8 2011 [facility]. Hyperlipidemia Negative MIBI stress test 2014, 2018 End stage Renal Disease on hemo- dialysis since 2017 - History Source History Provided By: Patient, Medical Record - Past Medical History Cardio/Vascular: Yes: CHF, HTN, Hyperlipdemia Pulmonary: No: Asthma, Bronchitis, Cancer, COPD, O2 Dependent, Pneumonia, Previously Intubated, Pulmonary Embolus, Pulmonary Fibrosis, Sleep Apnea, Other Renal/: Yes: Renal Inusuff, Hemodialysis, Other ...: No Endocrine: Yes: Diabetes Mellitus, Hypothyroidism, Other (hyponatremia) Additional Medical History: hyperkalemia, morbid obesity BMI=37 - Past Surgical History Past Surgical History: Yes: AV Fistula/Graft, Cataract Removal, Cholecystectomy, , Tubal Ligation - Alcohol/Substance Use Hx Alcohol Use: No (occasionally) History of Substance Use: reports: None - Smoking History Smoking history: Never smoked Have you smoked in the past 12 months: No Aproximately how many cigarettes per day: 0 - Social History Usual Living Arrangement: Alone ADL: Support Services ([facility] 4 hours for 2days/week) History of Recent Travel: No Home Medications - Allergies Allergies/Adverse Reactions: Allergies Allergy/AdvReac Type Severity Reaction Status Date / Time black pepper Allergy Severe Swelling Verified 08/21/20 14:36 Penicillins Allergy Severe Rash Verified 08/21/20 14:36 strawberry Allergy Rash Verified 08/21/20 14:36 - Home Medications Home Medications: Ambulatory Orders Metoprolol Tartrate 100 mg PO BID 01/19/18 Aspirin Coated [Ecotrin -] 81 mg PO DAILY #30 tablet.ec 02/03/19 hydrALAZINE HCL [Apresoline -] 50 mg PO TID #90 tablet 02/03/19 Insulin Glulisine [Apidra] 10 unit SQ AM 06/30/20 Insulin Glulisine [Apidra] 15 unit SQ HS 06/30/20 Atorvastatin Ca [Lipitor] 20 mg PO HS #30 tablet 07/03/20 Gabapentin [Neurontin -] 300 mg PO BID #60 capsule 07/03/20 Sitagliptin Phosphate [Januvia -] 25 mg PO DAILY@0700 #30 tab 07/03/20 Family Medical History Family Hx Coronary Artery Disease: Mother ( age 75) Family Hx Diabetes: Father Review of Systems - Review of Systems Constitutional: reports: No Symptoms Eyes: reports: No Symptoms HENT: reports: No Symptoms Neck: reports: No Symptoms Cardiovascular: reports: No Symptoms Gastrointestinal: reports: No Symptoms Genitourinary: reports: No Symptoms Breasts: reports: No Symptoms Reported Musculoskeletal: reports: No Symptoms Integumentary: reports: No Symptoms Neurological: reports: Syncope Endocrine: reports: No Symptoms Hematology/Lymphatic: reports: No Symptoms Psychiatric: reports: No Symptoms Vital Signs: Vital Signs Temperature 97.6 F 08/22/20 06:30 Pulse Rate 65 08/22/20 06:30 Respiratory Rate 18 08/22/20 06:30 Blood Pressure 134/49 L 08/22/20 06:30 O2 Sat by Pulse Oximetry (%) 97 08/22/20 06:30 Constitutional: Yes: Well Nourished, No Distress, Calm Eyes: Yes: WNL, Conjunctiva Clear, EOM Intact HENT: Yes: WNL, Atraumatic, Normocephalic Neck: Yes: WNL, Supple, Trachea Midline Respiratory: Yes: WNL, Regular, CTA Bilaterally Gastrointestinal: Yes: WNL, Normal Bowel Sounds Renal/: Yes: WNL Cardiovascular: Yes: WNL, Regular Rate and Rhythm Musculoskeletal: Yes: WNL Extremities: Yes: WNL Integumentary: Yes: WNL - Other Data Labs, Other Data: CBC, BMP 08/22/20 05:39 08/22/20 05:39 Troponin, BNP 08/21/20 08/22/20 15:00 05:39 Troponin I 0.02 0.02 Troponin, BNP 08/21/20 08/22/20 15:00 05:39 Troponin I 0.02 0.02 Imaging - Results Chest X-ray: Image Reviewed (cm no i/e) EKG: Image Reviewed (sr rep abn prolonged qtc) Problem List - Problems (1) Diabetes Code(s): E11.9 - TYPE 2 DIABETES MELLITUS WITHOUT COMPLICATIONS (2) ESRD (end stage renal disease) Code(s): N18.6 - END STAGE RENAL DISEASE (3) Syncope Code(s): R55 - SYNCOPE AND COLLAPSE Qualifiers: Syncope type: unspecified Qualified Code(s): R55 - Syncope and collapse (4) Vomiting Code(s): R11.10 - VOMITING, UNSPECIFIED Qualifiers: Vomiting type: unspecified Vomiting Intractability: non-intractable Na usea presence: with nausea Qualified Code(s): R11.2 - Nausea with vomiting, unspecified (5) (HFpEF) heart failure with preserved ejection fraction Code(s): I50.30 - UNSPECIFIED DIASTOLIC (CONGESTIVE) HEART FAILURE (6) Anemia Code(s): D64.9 - ANEMIA, UNSPECIFIED (7) CHF (congestive heart failure) Code(s): I50.9 - HEART FAILURE, UNSPECIFIED (8) Chest pain Code(s): R07.9 - CHEST PAIN, UNSPECIFIED (9) EKG abnormalities Code(s): R94.31 - ABNORMAL ELECTROCARDIOGRAM [ECG] [EKG] (10) Encounter for screening laboratory testing for COVID-19 virus Code(s): Z11.59 - ENCOUNTER FOR SCREENING FOR OTHER VIRAL DISEASES (11) HTN (hypertension) Code(s): I10 - ESSENTIAL (PRIMARY) HYPERTENSION (12) Hyperkalemia Code(s): E87.5 - HYPERKALEMIA (13) Hyponatremia Code(s): E87.1 - HYPO-OSMOLALITY AND HYPONATREMIA (14) Shortness of breath Code(s): R06.02 - SHORTNESS OF BREATH (15) AV fistula Code(s): I77.0 - ARTERIOVENOUS FISTULA, ACQUIRED (16) Anemia Code(s): D64.9 - ANEMIA, UNSPECIFIED Qualifiers: Anemia type: due to chronic kidney disease Chronic kidney disease stage: stage 3 (moderate) (17) CKD (chronic kidney disease) Code(s): N18.9 - CHRONIC KIDNEY DISEASE, UNSPECIFIED Qualifiers: (18) [place] cardiac risk >20% in next 10 years Code(s): Z91.89 - [place] PERSONAL RISK FACTORS, NOT ELSEWHERE CLASSIFIED (19) HLD (hyperlipidemia) Code(s): E78.5 - HYPERLIPIDEMIA, UNSPECIFIED (20) Hypothyroidism Code(s): E03.9 - HYPOTHYROIDISM, UNSPECIFIED Qualifiers: Hypothyroidism type: acquired Qualified Code(s): E03.9 - Hypothyroidism, unspecified (21) IDDM (insulin dependent diabetes mellitus) Code(s): E11.9 - TYPE 2 DIABETES MELLITUS WITHOUT COMPLICATIONS; Z79.4 - DRAPERY COUNSELOR (CURRENT) USE OF INSULIN (22) Obesity Code(s): E66.9 - OBESITY, UNSPECIFIED (23) Sedentary lifestyle Code(s): Z91.89 - [facility] PERSONAL RISK FACTORS, NOT ELSEWHERE CLASSIFIED (24) Chest pain at rest Code(s): R07.9 - CHEST PAIN, UNSPECIFIED Assessment/Plan ESRD (on HD T/Th/Sat and had full session this morning), HTN, HLD, DM, and CHF who was BIBEMS for vomiting and a possible unwitnessed syncopal episode. Plan; CE serial EKGs telemetry
--- NOTE | 2020-08-22 09:26 | PN ---
Progress Note, Physician History of Present Illness: 64YOF with h/o ESRD (on HD T//Tue and had full session this morning), HTN, HLD, DM, and CHF who was BIBEMS for vomiting and a possible unwitnessed syncopal episode. She finished HD at 10:30am, patient herself states her n/v started around noon but she is not completely sure, NBNB emesis, and she believes she fainted sometime between 12 and 1pm (when she was found by her home health aide vomiting). She missed HD on Tuesday, had a full session on Tuesday, and had a full session today. PMH ASHD Cardiac cath - OM2 50% otherwise non- obstructive disease 30- 40% October 05, 2013 CHF diastolic CRI 2014 DM HTN Hyperkalemia K 6.8 2011 [facility]. Hyperlipidemia Negative MIBI stress test 2018 End stage Renal Disease on hemo- dialysis since 2017 - Current Medication List Current Medications: Active Medications Aspirin (Ecotrin -) 81 mg PO DAILY [facility] Atorvastatin Calcium (Lipitor -) 20 mg PO HS [facility] Last Admin: 08/21/20 23:16 Dose: 20 mg Documented by: Heparin Sodium (Porcine) (Heparin -) 5,000 unit SQ BID [facility] Last Admin: 08/21/20 23:16 Dose: 5,000 unit Documented by: Hydralazine HCl (Apresoline -) 50 mg PO TID [facility] Last Admin: 08/22/20 06:23 Dose: 50 mg Documented by: Insulin Aspart (Novolog Vial Sliding Scale -) 1 vial SQ ACHS [facility]; Protocol Last Admin: 08/22/20 06:23 Dose: Not Given Documented by: Metoprolol Tartrate (Lopressor -) 100 mg PO BID [facility] Last Admin: 08/21/20 23:16 Dose: 100 mg Documented by: - Objective Vital Signs: Vital Signs Temperature 97.6 F 08/22/20 06:30 Pulse Rate 65 08/22/20 06:30 Respiratory Rate 18 08/22/20 06:30 Blood Pressure 134/49 L 08/22/20 06:30 O2 Sat by Pulse Oximetry (%) 97 08/22/20 06:30 Eyes: Yes: WNL, Conjunctiva Clear, EOM Intact HENT: Yes: WNL, Atraumatic, Normocephalic Neck: Yes: WNL, Supple, Trachea Midline Cardiovascular: Yes: WNL, Regular Rate and Rhythm Respiratory: Yes: WNL, Regular, CTA Bilaterally Gastrointestinal: Yes: WNL, Normal Bowel Sounds Genitourinary: Yes: WNL Musculoskeletal: Yes: WNL Extremities: Yes: WNL Edema: No Integumentary: Yes: WNL Neurological: Yes: WNL, Alert, Oriented ...Motor Strength: WNL Psychiatric: Yes: WNL Labs: CBC, BMP 08/22/20 05:39 08/22/20 05:39 Problem List - Problems (1) Diabetes Code(s): E11.9 - TYPE 2 DIABETES MELLITUS WITHOUT COMPLICATIONS (2) ESRD (end stage renal disease) Code(s): N18.6 - END STAGE RENAL DISEASE (3) Syncope Code(s): R55 - SYNCOPE AND COLLAPSE Qualifiers: Syncope type: unspecified Qualified Code(s): R55 - Syncope and collapse (4) Vomiting Code(s): R11.10 - VOMITING, UNSPECIFIED Qualifiers: Vomiting type: unspecified Vomiting Intractability: non-intractable Nausea presence: with nausea Qualified Code(s): R11.2 - Nausea with vomiting, unspecified (5) (HFpEF) heart failure with preserved ejection fraction Code(s): I50.30 - UNSPECIFIED DIASTOLIC (CONGESTIVE) HEART FAILURE (6) Anemia Code(s): D64.9 - ANEMIA, UNSPECIFIED (7) CHF (congestive heart failure) Code(s): I50.9 - HEART FAILURE, UNSPECIFIED (8) Chest pain Code(s): R07.9 - CHEST PAIN, UNSPECIFIED (9) EKG abnormalities Code(s): R94.31 - ABNORMAL ELECTROCARDIOGRAM [ECG] [EKG] (10) Encounter for screening laboratory testing for COVID-19 virus Code(s): Z11.59 - ENCOUNTER FOR SCREENING FOR OTHER VIRAL DISEASES (11) HTN (hypertension) Code(s): I10 - ESSENTIAL (PRIMARY) HYPERTENSION (12) Hyperkalemia Code(s): E87.5 - HYPERKALEMIA (13) Hyponatremia Code(s): E87.1 - HYPO-OSMOLALITY AND HYPONATREMIA (14) Shortness of breath Code(s): R06.02 - SHORTNESS OF BREATH (15) AV fistula Code(s): I77.0 - ARTERIOVENOUS FISTULA, ACQUIRED (16) Anemia Code(s): D64.9 - ANEMIA, UNSPECIFIED Qualifiers: Anemia type: due to chronic kidney disease Chronic kidney disease stage: stage 3 (moderate) (17) CKD (chronic kidney disease) Code(s): N18.9 - CHRONIC KIDNEY DISEASE, UNSPECIFIED Qualifiers: (18) [place] cardiac risk >20% in next 10 years Code(s): Z91.89 - [facility] PERSONAL RISK FACTORS, NOT ELSEWHERE CLASSIFIED (19) HLD (hyperlipidemia) Code(s): E78.5 - HYPERLIPIDEMIA, UNSPECIFIED (20) Hypothyroidism Code(s): E03.9 - HYPOTHYROIDISM, UNSPECIFIED Qualifiers: Hypothyroidism type: acquired Qualified Code(s): E03.9 - Hypothyroidism, unspecified (21) IDDM (insulin dependent diabetes mellitus) Code(s): E11.9 - TYPE 2 DIABETES MELLITUS WITHOUT COMPLICATIONS; Z79.4 - INTERMEDIATE (CURRENT) USE OF INSULIN (22) Obesity Code(s): E66.9 - OBESITY, UNSPECIFIED (23) Sedentary lifestyle Code(s): Z91.89 - [facility] PERSONAL RISK FACTORS, NOT ELSEWHERE CLASSIFIED (24) Chest pain at rest Code(s): R07.9 - CHEST PAIN, UNSPECIFIED Assessment/Plan ESRD (on HD T//Tue and had full session this morning), HTN, HLD, DM, and CHF who was BIBEMS for vomiting and a possible unwitnessed syncopal episode. ECHO nl EF, CE negative, EKG no acute st t-wave changes, c duplex moderate atherosclerosis no obstrucion. Plan; Cardiac benitez stable Non obstructive CAD 2012, Negative Persantine MIBI ST April 2019 Doubt cardiogenic syncope. More likely vaso vagal - triggered by vomiting post dialysis. Will f/u as outpatient.
[2020-08-22] MEDS ORDERED: ASPIRIN COATED 81 MG TABLET.EC PO SCH (10:00)
[2020-08-22] MEDS ORDERED: ASPIRIN COATED 81 MG TABLET.EC ONE (10:22)
[2020-08-22] MEDS ORDERED: METOPROLOL TARTRATE 50 MG TABLET (FP) ONE (10:22)
[2020-08-22] MEDS: METOPROLOL TARTRATE 50 MG TABLET (FP) PO SCH (10:34)
[2020-08-22] MEDS ORDERED: HEPARIN NA (PORCINE) 5,000 UNITS/ML 1ML VIAL ONE (10:35)
--- NOTE | 2020-08-22 10:36 | EKG ---
Test Reason : Blood Pressure : / mmHG Vent. Rate : 077 BPM Atrial Rate : 077 BPM P-R Int : 204 ms QRS Dur : 082 ms QT Int : 414 ms P-R-T Axes : 034 023 033 degrees QTc Int : 468 ms POOR DATA QUALITY, INTERPRETATION MAY BE ADVERSELY AFFECTED NORMAL SINUS RHYTHM INFERIOR INFARCT (CITED ON OR BEFORE 30-JUN-2020) POSSIBLE ANTERIOR INFARCT , AGE UNDETERMINED ABNORMAL ECG WHEN COMPARED WITH ECG OF 30-JUN-2020 19:48, [place] INTERVAL HAS DECREASED T WAVE INVERSION NO LONGER EVIDENT IN INFERIOR LEADS Confirmed by VALENTINO JOSE MD ([id number]) on 08/22/2020 10:35:43 AM Referred By: Confirmed By:VALENTINO JOSE MD
[2020-08-22] MEDS: HEPARIN NA (PORCINE) 5,000 UNITS/ML 1ML VIAL SQ SCH (10:40)
--- NOTE | 2020-08-22 11:13 | ECHO ---
Version: 1 Name: BOUBACAR HUFFMAN Exam: Adult Echocardiogram Study Date: 08/22/2020, 9:21 AM Age: 64 Years MMode/2D Measurements & Calculations IVSd: 1.07 cm LVIDs: 3.6 cm LVIDd: 4.5 cm LVPWd: 1.46 cm LAV (MOD-bp): 103.0 ml ACS: 1.45 cm Ao root diam: 2.7 cm LVOT diam: 2.14 cm LA dimension: 4.2 cm Doppler Measurements & Calculations MV E max shiva: 143.1 cm/sec MV V2 max: 184.6 cm/sec MV A max shiva: 164.7 cm/sec MV max P.6 mmHg MV mean P.4 mmHg Med E/e': 34.4 MV E/A: 0.87 Med Peak E' Shiva: 4.2 cm/sec Lat E/e': 26.6 Lat Peak E' Shiva: 5.4 cm/sec Ao max P.7 mmHg Ao V2 max: 191.8 cm/sec Procedure The study was technically difficult with many images being suboptimal in quality. Left Ventricle Left ventricular systolic function is grossly normal. Ejection Fraction = 55-60%. The transmitral sp ectral Doppler flow pattern is suggestive of impaired LV relaxation. Right Ventricle The right ventricle is normal in size and function. Atria The left atrium is mildly dilated. Right atrial size is normal. Mitral Valve There is moderate to severe mitral annular calcification. There is mild to moderate mitral valve thi ckening. Mild mitral stenosis, may be functional secondary to annular calcification- leaflets not well seen. There is mild mitral regurgitation. Tricuspid Valve There is mild tricuspid regurgitation. Aortic Valve There is mild aortic sclerosis.;. No hemodynamically significant valvular aortic stenosis. No aortic regurgitation is present. Pulmonic Valve There is no pulmonic valvular stenosis. Mild pulmonic valvular regurgitation. Great Vessels The aortic root is normal size. Pericardium/Pleura There is no pericardial effusion. Summary Statements Left ventricular systolic function is grossly normal. The transmitral spectral Doppler flow pattern is suggestive of impaired LV relaxation. The right ventricle is normal in size and function. The left atrium is mildly dilated. There is moderate to severe mitral annular calcification. There is mild to moderate mitral valve thickening. Mild mitral stenosis, may be functional secondary to annular calcification- leaflets not well seen. There is mild mitral regurgitation. There is mild tricuspid regurgitation. There is mild aortic sclerosis.; There is no pericardial effusion. MD Moss *Swapnil 08/22/2020, 11:12 AM Ordering Physician: Suha Mills Referring Physician: SUHA MILLS Performed By: Sonja Rousseau
--- NOTE | 2020-08-22 11:19 | PN ---
Progress Note, Physician Chief Complaint: Syncope ESRD DMII History of Present Illness: 64 year old female with a past medical history ESRD (on HD / and had full session this morning), hypertension, hyperlipidemia, diabetes mellitus, and CHF who presented to [facility] by ambulance for vomiting and a possible unwitnessed syncopal episode. She finished hemodialysis this morning at 10:30am, patient states n/v started around 12 pm and she believes she fainted sometime between 12 and 1pm and was found by her home health aide vomiting. NAD Denies any dizziness, light headedness, N or V - Current Medication List Current Medications: Active Medications Aspirin (Ecotrin -) 81 mg PO DAILY [facility] Last Admin: 08/22/20 10:34 Dose: 81 mg Documented by: Atorvastatin Calcium (Lipitor -) 20 mg PO HS [facility] Last Admin: 08/21/20 23:16 Dose: 20 mg Documented by: Heparin Sodium (Porcine) (Heparin -) 5,000 unit SQ BID [facility] Last Admin: 08/22/20 10:40 Dose: 5,000 unit Documented by: Hydralazine HCl (Apresoline -) 50 mg PO TID [facility] Last Admin: 08/22/20 06:23 Dose: 50 mg Documented by: Influenza Virus Vaccine (Flulaval Quad [id number] Syr) 60 mcg IM .ONCE ONE Stop: 08/22/20 09:46 Insulin Aspart (Novolog Vial Sliding Scale -) 1 vial SQ [facility]; Protocol Last Admin: 08/22/20 06:23 Dose: Not Given Documented by: Metoprolol Tartrate (Lopressor -) 100 mg PO BID [facility] Last Admin: 08/22/20 10:34 Dose: 100 mg Documented by: - Objective Vital Signs: Vital Signs Temperature 97.6 F 08/22/20 06:30 Pulse Rate 65 08/22/20 06:30 Respiratory Rate 18 08/22/20 06:30 Blood Pressure 134/49 L 08/22/20 06:30 O2 Sat by Pulse Oximetry (%) 97 08/22/20 06:30 Constitutional: Yes: Well Nourished, No Distress, Calm Cardiovascular: Yes: Regular Rate and Rhythm Respiratory: Yes: Regular, CTA Bilaterally Gastrointestinal: Yes: Normal Bowel Sounds, Soft Genitourinary: Yes: Oliguria Musculoskeletal: Yes: Muscle Weakness Extremities: Yes: WNL Edema: No Peripheral Pulses WNL: Yes Neurological: Yes: Alert, Oriented Psychiatric: Yes: Alert, Oriented Labs: CBC, BMP 08/22/20 05:39 08/22/20 05:39 Problem List - Problems (1) Diabetes Assessment/Plan: -Last A1c 7.3 in 06/2020 -[facility] -[facility] -Diabetic/low sodium/ renal diet Problems reviewed: Yes Code(s): E11.9 - TYPE 2 DIABETES MELLITUS WITHOUT COMPLICATIONS (2) ESRD (end stage renal disease) Assessment/Plan: -Nephrology consult -HD as per renal Problems reviewed: Yes Code(s): N18.6 - END STAGE RENAL DISEASE (3) Syncope Assessment/Plan: -CT head negative -Cardiology consult appreciated -Echo -Carotid U/S BL common carotid arteries atherosclerosis -Tele monitor -EKG unremarkable -Trops x 2 negative Problems reviewed: Yes Code(s): R55 - SYNCOPE AND COLLAPSE Qualifiers: Syncope type: unspecified Qualified Code(s): R55 - Syncope and collapse Assessment/Plan See problem list
--- NOTE | 2020-08-22 13:59 | CON.NEP ---
Consult Consult Specialty:: nephrology Reason for Consultation:: esrd - History of Present Illness Chief Complaint: vomiting after hd History of Present Illness: This is a 64 year old obese woman with history of dm, htn, esrd who was dialyzed yesterday and had vomiting after HD . Her aide called 911 and said she almost passed out. She is currently well. Says her glucose was low. Feels well now. Had a full dialysis session yesterday. - Past Medical History Cardio/Vascular: Yes: CHF, HTN, Hyperlipdemia Pulmonary: No: Asthma, Bronchitis, Cancer, COPD, O2 Dependent, Pneumonia, Previously Intubated, Pulmonary Embolus, Pulmonary Fibrosis, Sleep Apnea, Other Renal/: Yes: Renal Inusuff, Hemodialysis, Other ...: No Endocrine: Yes: Diabetes Mellitus, Hypothyroidism, Other (hyponatremia) Additional Medical History: hyperkalemia, morbid obesity BMI=37 - Past Surgical History Past Surgical History: Yes: AV Fistula/Graft, Cataract Removal, Cholecystectomy, , Tubal Ligation - Alcohol/Substance Use Hx Alcohol Use: No (occasionally) History of Substance Use: reports: None - Smoking History Smoking history: Never smoked Have you smoked in the past 12 months: No Aproximately how many cigarettes per day: 0 - Social History Usual Living Arrangement: Alone ADL: Support Services ([facility] 4 hours for 2days/week) History of Recent Travel: No Home Medications - Allergies Allergies/Adverse Reactions: Allergies Allergy/AdvReac Type Severity Reaction Status Date / Time black pepper Allergy Severe Swelling Verified 08/21/20 14:36 Penicillins Allergy Severe Rash Verified 08/21/20 14:36 strawberry Allergy Rash Verified 08/21/20 14:36 - Home Medications Home Medications: Ambulatory Orders Metoprolol Tartrate 100 mg PO BID 01/19/18 Aspirin Coated [Ecotrin -] 81 mg PO DAILY #30 tablet.ec 02/03/19 hydrALAZINE HCL [Apresoline -] 50 mg PO TID #90 tablet 02/03/19 Insulin Glulisine [Apidra] 10 unit SQ AM 06/30/20 Insulin Glulisine [Apidra] 15 unit SQ HS 06/30/20 Atorvastatin Ca [Lipitor] 20 mg PO HS #30 tablet 07/03/20 Gabapentin [Neurontin -] 300 mg PO BID #60 capsule 07/03/20 Sitagliptin Phosphate [Januvia -] 25 mg PO DAILY@0700 #30 tab 07/03/20 Family Medical History Family Hx Coronary Artery Disease: Mother ( age 75) Family Hx Diabetes: Father Review of Systems - Review of Systems Constitutional: reports: No Symptoms Eyes: reports: No Symptoms HENT: reports: No Symptoms Neck: reports: No Symptoms Cardiovascular: reports: No Symptoms Respiratory: reports: No Symptoms Gastrointestinal: reports: No Symptoms Genitourinary: reports: No Symptoms Breasts: reports: No Symptoms Reported Musculoskeletal: reports: No Symptoms Integumentary: reports: No Symptoms Neurological: reports: No Symptoms Endocrine: reports: No Symptoms Hematology/Lymphatic: reports: No Symptoms Psychiatric: reports: No Symptoms Nephrology Consult - Height Height: 5 ft 2 in - Weight Weight: 200 lb - BMI Body Mass Index (BMI): 36.6 - Lab Results CBC,BMP: CBC, BMP 08/22/20 05:39 08/22/20 05:39 Anion Gap: Anion Gap Anion Gap 9 MMOL/L (8-16) 08/22/20 05:39 - Imaging Chest X-ray: Report Reviewed Cat Scan: Report Reviewed - Physical Examination Vital Signs: Vital Signs Temperature 97.6 F 08/22/20 06:30 Pulse Rate 64 08/22/20 13:27 Respiratory Rate 17 08/22/20 13:27 Blood Pressure 125/46 L 08/22/20 13:27 O2 Sat by Pulse Oximetry (%) 99 08/22/20 13:27 Constitutional: Yes: Well Nourished, No Distress, Calm Eyes: Yes: Conjunctiva Clear, EOM Intact HENT: Yes: Atraumatic, Normocephalic Neck: Yes: Supple, Trachea Midline Cardiovascular: Yes: Regular Rate and Rhythm Respiratory: Yes: Regular, CTA Bilaterally Gastrointestinal: Yes: Normal Bowel Sounds Renal/: Yes: WNL. No: Bladder Distention Access for Hemodialysis: Permacath Musculoskeletal: Yes: WNL Extremities: Yes: WNL Edema: No Integumentary: Yes: WNL Neurological: Yes: Alert, Oriented Psychiatric: Yes: Alert, Oriented Assessment/Plan IMPRESSION ESRD HTN post hd vomiting- ? dysequilibrium vs hypoglycemia DM previous AL noted on EKG PLAN syncope work up HD tomorrow will need to adjust meds... endocrine Pt needs an avf MV
[2020-08-22 14:11] VITALS: PULSE 67
[2020-08-22] MEDS ORDERED: HEPARIN NA (PORCINE) 5,000 UNITS/ML 1ML VIAL IVPUSH ONE (14:11)
[2020-08-22] MEDS ORDERED: SODIUM CHLORIDE 250 ML IV PRN (14:11)
[2020-08-22 14:42] VITALS: BP 134/62; TEMP 98.7
[2020-08-22 15:37] VITALS: BMI 45.3
== END 2020-08-22 17:30 | disposition home or self-care (01) | DRG 312 ==
LOC: JER 14:23 → JERBED 17:54 → INTOOBSV 17:54 → OBSVTOIN 19:33 → J4S 08-22 14:25
PROVIDERS: ADMIT Hospitalist; ATTEND Family Medicine
DX: R55 Syncope and collapse (principal); N18.6 End stage renal disease; I13.0 Hypertensive heart and chronic kidney disease with heart failure and stage 1 through stage 4 chronic kidney disease, or unspecified chronic kidney disease; I50.32 Chronic diastolic (congestive) heart failure; Z68.42 Body mass index [BMI] 45.0-49.9, adult; E11.9 Type 2 diabetes mellitus without complications; I25.10 Atherosclerotic heart disease of native coronary artery without angina pectoris; E78.5 Hyperlipidemia, unspecified; I65.23 Occlusion and stenosis of bilateral carotid arteries; E66.9 Obesity, unspecified
CPT/HCPCS: 36415; 70450-TC; 71045-TC-FY; 80048; 80053; 82550; 82962; 84443; 84484; 85025; 85027; 93005; 93010; 93306-TC; 93880-TC; 99285-25; C9803; G0378; J1644; U0003

== ENCOUNTER 2020-10-22 10:38 | Inpatient (IN) | payer OTHER ==
[2020-10-22 11:58] LABS: BASO % 0.4 % (0-2.0); EOS % 4.6 % (0-4.5); HEMATOCRIT 30.7 % (32.4-45.2); LYMPH % 8.8 % (8-40); MCHC 32.7 g/dl (32.0-36.0); MEAN PLT VOLUME 10.2 fl (7.5-11.1); MONO % 5.6 % (3.8-10.2); NEUT % 80.6 % (42.8-82.8); PLATELET COUNT 204 K/MM3 (134-434); RBC 3.04 M/mm3 (3.60-5.2); RDW 14.2 % (11.6-15.6); WHITE BLOOD COUNT 9.9 K/mm3 (4.0-10.0)
[2020-10-22 12:21] LABS: ALBUMIN 2.7 g/dl (3.4-5.0); CALCIUM 8.7 mg/dL (8.5-10.1)
[2020-10-22 12:24] LABS: CREATININE 6.9 mg/dL (0.55-1.3)
[2020-10-22 12:26] LABS: BILIRUBIN,TOTAL 0.4 mg/dL (0.2-1); TOT PROT 7.9 g/dl (6.4-8.2)
[2020-10-22 13:09] LABS: POTASSIUM 8.6 mmol/L (3.5-5.1)
[2020-10-22] MEDS ORDERED: CEFTRIAXONE 1,000 MG in DEXTROSE 5%-WATER - 50 ML IVPB ONE (13:34)
[2020-10-22] MEDS ORDERED: CEFTRIAXONE 1 GM/50 ML BAG ONE (13:53)
[2020-10-22] MEDS ORDERED: DEXTROSE 50%-WATER - 25 GM/50 ML VIAL IVPUSH ONE ×2 (15:48→15:49)
[2020-10-22] MEDS ORDERED: FUROSEMIDE 40 MG/4 ML INJECTABLE VIAL IVPUSH ONE (15:49)
[2020-10-22] MEDS ORDERED: CALCIUM GLUCONATE 10% - 1,000 MG/10 ML VIAL IVPB ONE (15:49)
[2020-10-22] MEDS ORDERED: INSULIN REGULAR HUMAN 100 UNITS/ML *VIAL IVPUSH ONE (15:50)
[2020-10-22 15:59] LABS: POTASSIUM 5.8 mmol/L (3.5-5.1)
[2020-10-22 16:01] LABS: ALBUMIN 2.8 g/dl (3.4-5.0)
[2020-10-22 16:05] LABS: BILIRUBIN,TOTAL 0.4 mg/dL (0.2-1); CREATININE 6.9 mg/dL (0.55-1.3); TOT PROT 7.4 g/dl (6.4-8.2)
[2020-10-22] MEDS ORDERED: DEXTROSE 50%-WATER - 25 GM/50 ML VIAL ONE (16:10)
[2020-10-22] MEDS ORDERED: CALCIUM GLUCONATE 10% - 1,000 MG/10 ML VIAL ONE (16:10)
[2020-10-22] MEDS ORDERED: DEXTROSE 50%-WATER 25 GM/50 ML DISP.SYRIN ONE (16:11)
[2020-10-22] MEDS ORDERED: INSULIN REGULAR HUMAN 100 UNITS/ML *VIAL ONE (16:11)
[2020-10-22] MEDS ORDERED: FUROSEMIDE 40 MG/4 ML INJECTABLE VIAL ONE (16:11)
[2020-10-22] MEDS ORDERED: ACETAMINOPHEN 325 MG TABLET (FP) PO PRN (16:13)
[2020-10-22] MEDS: INSULIN SLIDING SCALE (NOVOLOG) 1 VIAL SQ SCH (17:53)
[2020-10-22] MEDS ORDERED: HEPARIN NA (PORCINE) 5,000 UNITS/ML 1ML VIAL IVPUSH ONE (20:15)
[2020-10-22] MEDS ORDERED: SODIUM CHLORIDE 250 ML IV PRN (20:15)
[2020-10-22] MEDS: HEPARIN NA (PORCINE) 5,000 UNITS/ML 1ML VIAL IVPUSH SCH ×3 (20:15→22:15)
[2020-10-22] MEDS ORDERED: PATIENT'S OWN MEDICATION (NON-FORMULARY) (Metoprolol Tartrate [Metoprolol Tartrate] 100 MG PO SCH (22:00)
[2020-10-23 01:41] VITALS: BMI 33.2
[2020-10-23] MEDS: GABAPENTIN 300 MG CAPSULE PO SCH ×3 (02:02→21:40)
[2020-10-23] MEDS: LABETALOL HCL 200 MG TABLET (FP) PO SCH ×3 (02:02→21:42)
[2020-10-23] MEDS: HEPARIN NA (PORCINE) 5,000 UNITS/ML 1ML VIAL SQ SCH ×3 (02:03→21:41)
[2020-10-23] MEDS: INSULIN SLIDING SCALE (NOVOLOG) 1 VIAL SQ SCH ×3 (06:24→17:01)
[2020-10-23] MEDS: INSULIN (LEVEMIR) 100 UNITS/ML UNITS SQ SCH (06:24)
[2020-10-23 08:55] LABS: BASO % 0.8 % (0-2.0); EOS % 10.6 % (0-4.5); HEMATOCRIT 32.5 % (32.4-45.2); HEMOGLOBIN 10.6 GM/dL (10.7-15.3); LYMPH % 13.5 % (8-40); MCH 32.3 pg (25.7-33.7); MCHC 32.5 g/dl (32.0-36.0); MEAN CELL VOLUME 99.3 fl (80-96); MEAN PLT VOLUME 9.7 fl (7.5-11.1); MONO % 5.8 % (3.8-10.2); NEUT % 69.3 % (42.8-82.8); PLATELET COUNT 216 K/MM3 (134-434); RBC 3.27 M/mm3 (3.60-5.2); WHITE BLOOD COUNT 7.2 K/mm3 (4.0-10.0)
[2020-10-23 09:13] LABS: POTASSIUM 4.6 mmol/L (3.5-5.1)
[2020-10-23 09:17] LABS: ALBUMIN 2.8 g/dl (3.4-5.0); CALCIUM 8.7 mg/dL (8.5-10.1)
[2020-10-23 09:21] LABS: CREATININE 4.4 mg/dL (0.55-1.3)
[2020-10-23 09:22] LABS: TOT PROT 7.7 g/dl (6.4-8.2)
[2020-10-23 09:23] LABS: BILIRUBIN,TOTAL 0.9 mg/dL (0.2-1)
[2020-10-23 09:26] LABS: PHOSPHOROUS 3.6 mg/dL (2.5-4.9)
[2020-10-23 09:27] LABS: BLOOD UREA NITROGEN 37.9 mg/dL (7-18)
[2020-10-23 09:41] LABS: EPI CELLS 11 /uL (0-25.1); HYALINE CASTS 0 /uL (0-3.1); PH,URINE >= 9.0 (5.0-8.0); URINE APPEARANCE CLEAR; URINE BACTERIA 6 /uL (0-1359); URINE BILIRUBIN NEGATIVE (NEGATIVE); URINE COLOR YELLOW; URINE GLUCOSE (UA) NEGATIVE (NEGATIVE); URINE KETONE NEGATIVE (NEGATIVE); URINE LEUK ESTERASE NEGATIVE (NEGATIVE); URINE NITRITE NEGATIVE (NEGATIVE); URINE PROTEIN 2+ (NEGATIVE); URINE RBC 3 /uL (0-23.9); URINE UROBILINOGEN 0.2 mg/dL (0.2-1.0); URINE WBC 4 /uL (0-25.8)
[2020-10-23] MEDS ORDERED: LABETALOL HCL 100 MG TABLET (FP) ONE ×2 (09:41→21:22)
[2020-10-23] MEDS: ASPIRIN COATED 81 MG TABLET.EC PO SCH (09:45)
[2020-10-23] MEDS: FERROUS SO4 325 MG TABLET (FP) PO SCH (09:45)
[2020-10-24] MEDS: INSULIN SLIDING SCALE (NOVOLOG) 1 VIAL SQ SCH ×2 (06:42→13:41)
[2020-10-24] MEDS: INSULIN (LEVEMIR) 100 UNITS/ML UNITS SQ SCH (06:44)
[2020-10-24 09:34] LABS: EOS % 16.1 % (0-4.5); HEMATOCRIT 30.4 % (32.4-45.2); HEMOGLOBIN 9.7 GM/dL (10.7-15.3); LYMPH % 17.9 % (8-40); MCH 32.4 pg (25.7-33.7); MCHC 32.1 g/dl (32.0-36.0); MEAN CELL VOLUME 101.1 fl (80-96); MEAN PLT VOLUME 9.7 fl (7.5-11.1); MONO % 10.4 % (3.8-10.2); NEUT % 54.6 % (42.8-82.8); PLATELET COUNT 189 K/MM3 (134-434); RDW 14.5 % (11.6-15.6); WHITE BLOOD COUNT 5.3 K/mm3 (4.0-10.0)
[2020-10-24 09:55] LABS: POTASSIUM 4.7 mmol/L (3.5-5.1)
[2020-10-24 10:01] LABS: ALBUMIN 2.5 g/dl (3.4-5.0); BLOOD UREA NITROGEN 47.5 mg/dL (7-18)
[2020-10-24 10:04] LABS: CREATININE 5.2 mg/dL (0.55-1.3)
[2020-10-24 10:05] LABS: BILIRUBIN,TOTAL 0.3 mg/dL (0.2-1)
[2020-10-24 10:06] LABS: TOT PROT 6.7 g/dl (6.4-8.2)
[2020-10-24 10:09] VITALS: TEMP 98
[2020-10-24 10:17] LABS: CALCIUM 8.7 mg/dL (8.5-10.1)
[2020-10-24] MEDS ORDERED: HEPARIN NA (PORCINE) 5,000 UNITS/ML 1ML VIAL IVPUSH ONE (10:45)
[2020-10-24] MEDS ORDERED: SODIUM CHLORIDE 250 ML IV PRN (10:45)
[2020-10-24] MEDS: HEPARIN NA (PORCINE) 5,000 UNITS/ML 1ML VIAL IVPUSH SCH ×3 (10:55→12:55)
[2020-10-24] MEDS ORDERED: LABETALOL HCL 100 MG TABLET (FP) ONE (11:49)
[2020-10-24] MEDS: HEPARIN NA (PORCINE) 5,000 UNITS/ML 1ML VIAL SQ SCH (13:40)
[2020-10-24] MEDS: FERROUS SO4 325 MG TABLET (FP) PO SCH (13:50)
[2020-10-24] MEDS: LABETALOL HCL 200 MG TABLET (FP) PO SCH (13:50)
[2020-10-24] MEDS: GABAPENTIN 300 MG CAPSULE PO SCH (13:50)
[2020-10-24] MEDS: ASPIRIN COATED 81 MG TABLET.EC PO SCH (13:50)
[2020-10-24 14:59] VITALS: BP 143/59; PULSE 77
== END 2020-10-24 15:44 | disposition home or self-care (01) | DRG 694 ==
LOC: JER 10:38 → JERBED 15:18 → OBSVTOIN 15:18 → J6S 10-23 00:42
PROVIDERS: ADMIT Family Medicine; ATTEND Family Medicine
PROC: 5A1D70Z Performance of Urinary Filtration, Intermittent, Less than 6 Hours Per Day (ICD-10-PCS; principal; 2020-10-22)
PROC: 5A1D70Z Performance of Urinary Filtration, Intermittent, Less than 6 Hours Per Day (ICD-10-PCS; 2020-10-24)
DX: N13.39 Other hydronephrosis (principal); I13.2 Hypertensive heart and chronic kidney disease with heart failure and with stage 5 chronic kidney disease, or end stage renal disease; N18.6 End stage renal disease; E87.5 Hyperkalemia; E78.5 Hyperlipidemia, unspecified; E11.22 Type 2 diabetes mellitus with diabetic chronic kidney disease; I50.9 Heart failure, unspecified; I44.0 Atrioventricular block, first degree; D63.1 Anemia in chronic kidney disease; E03.9 Hypothyroidism, unspecified; E66.9 Obesity, unspecified; Z68.32 Body mass index [BMI] 32.0-32.9, adult; Q63.1 Lobulated, fused and horseshoe kidney; Z91.15 Patient's noncompliance with renal dialysis; Z99.2 Dependence on renal dialysis; Z88.0 Allergy status to penicillin; Z96.651 Presence of right artificial knee joint
CPT/HCPCS: 36415; 71045-TC-FY; 76775-TC; 76856-TC; 80053; 81003; 82728; 82962; 83036; 83540; 83550; 83735; 84100; 85025; 86803; 87086; 87340; 93005; 93010; 97116-GP; 97162-GP; 99285-25; C9803; J1644; U0003

== ENCOUNTER 2021-07-11 13:29 | Emergency (ER) | payer OTHER ==
[2021-07-11 14:02] VITALS: BMI 32.0
[2021-07-11 17:34] LABS: BASO % 1.2 % (0-2.0); EOS % 10.7 % (0-4.5); HEMATOCRIT 28.5 % (32.4-45.2); HEMOGLOBIN 9.6 GM/dL (10.7-15.3); LYMPH % 15.9 % (8-40); MCH 32.3 pg (25.7-33.7); MCHC 33.8 g/dl (32.0-36.0); MEAN CELL VOLUME 95.6 fl (80-96); MEAN PLT VOLUME 8.9 fl (7.5-11.1); MONO % 5.6 % (3.8-10.2); NEUT % 66.6 % (42.8-82.8); PLATELET COUNT 208 10^3/uL (134-434); RBC 2.98 M/mm3 (3.60-5.2); RDW 14.7 % (11.6-15.6); WHITE BLOOD COUNT 7.3 K/mm3 (4.0-10.0)
[2021-07-11 17:42] LABS: INR 1.04 (0.83-1.09); PROTHROMBIN TIME (PATIENT) 12.6 SEC (9.7-13.0)
[2021-07-11 17:45] LABS: ACTIVATED PTT 28.7 SECONDS (25.2-36.5)
[2021-07-11 17:57] LABS: ALBUMIN 3.7 g/dl (3.4-5.0); BLOOD UREA NITROGEN 55.6 mg/dL (7-18)
[2021-07-11 17:58] LABS: MAGNESIUM 2.3 mg/dL (1.8-2.4)
[2021-07-11 18:00] LABS: CREATININE 5.4 mg/dL (0.55-1.3); PHOSPHOROUS 6.4 mg/dL (2.5-4.9)
[2021-07-11 18:02] LABS: BILIRUBIN,TOTAL 0.3 mg/dL (0.2-1)
[2021-07-11] MEDS ORDERED: SODIUM ZIRCONIUM CYCLOSILICATE (LOKELMA) 5 GM PACKET ONE (18:45)
[2021-07-11] MEDS ORDERED: SODIUM ZIRCONIUM CYCLOSILICATE (LOKELMA) 5 GM PACKET PO SCH (18:45)
[2021-07-11 20:03] VITALS: TEMP 97.9
[2021-07-12 01:13] VITALS: BP 145/58; PULSE 87
== END 2021-07-12 06:48 | disposition home or self-care (01) ==
LOC: JER 13:29
DX: E87.5 Hyperkalemia (principal)
CPT/HCPCS: 36415; 80053; 83735; 84100; 85025; 85610; 85730; 86850; 86900; 86901; 93005; 93010; 99284-25; C9803; U0003; U0005

== ENCOUNTER 2021-09-19 10:18 | Inpatient (IN) | payer OTHER ==
[2021-09-19] MEDS ORDERED: ACETAMINOPHEN 1000 MG/100 ML VIAL IVPB ONE (11:18)
[2021-09-19] MEDS ORDERED: ACETAMINOPHEN INJECTION 100 ML IVPB ONE ×2 (11:46→12:28)
[2021-09-19 13:21] LABS: BASO % 0.7 % (0-2.0); EOS % 6.2 % (0-4.5); HEMOGLOBIN 7.4 GM/dL (10.7-15.3); MCH 34.5 pg (25.7-33.7); MCHC 33.6 g/dl (32.0-36.0); MEAN CELL VOLUME 102.5 fl (80-96); MEAN PLT VOLUME 9.4 fl (7.5-11.1); MONO % 5.3 % (3.8-10.2); NEUT % 73.8 % (42.8-82.8); PLATELET COUNT 188 10^3/uL (134-434); RBC 2.14 M/mm3 (3.60-5.2); RDW 13.5 % (11.6-15.6); WHITE BLOOD COUNT 7.5 K/mm3 (4.0-10.0)
[2021-09-19 13:28] LABS: INR 1.19 (0.83-1.09); PROTHROMBIN TIME (PATIENT) 13.4 SEC (9.7-13.0)
[2021-09-19 13:47] LABS: CHLORIDE 111 mmol/L (98-107); SODIUM 139 mmol/L (136-145)
[2021-09-19 13:48] LABS: BLOOD UREA NITROGEN 81.4 mg/dL (7-18)
[2021-09-19 13:50] LABS: ALBUMIN 3.4 g/dl (3.4-5.0); ANION GAP 9 MMOL/L (8-16); CO2 20 mmol/L (21-32); GLUCOSE,RANDOM 152 mg/dL (74-106)
[2021-09-19 13:52] LABS: MAGNESIUM 2.5 mg/dL (1.8-2.4); PHOSPHOROUS 6.5 mg/dL (2.5-4.9); SGPT/ALT 11 U/L (13-61)
[2021-09-19 13:53] LABS: CREATININE 5.5 mg/dL (0.55-1.3); SGOT/AST 7 U/L (15-37)
[2021-09-19 13:54] LABS: BILIRUBIN,TOTAL 0.4 mg/dL (0.2-1); TOT PROT 8.1 g/dl (6.4-8.2)
[2021-09-19 13:55] LABS: ALK PHOS 133 U/L (45-117)
[2021-09-19 14:40] LABS: N-TERMINAL BNP 22664.5 pg/ml (5-125)
[2021-09-20] MEDS ORDERED: METOPROLOL TARTRATE 50 MG TABLET (FP) ONE ×2 (01:30→12:57)
[2021-09-20] MEDS ORDERED: GABAPENTIN 100 MG CAPSULE ONE ×2 (01:31→12:57)
[2021-09-20] MEDS: METOPROLOL TARTRATE 50 MG TABLET (FP) PO SCH ×4 (01:42→21:35)
[2021-09-20] MEDS: GABAPENTIN 300 MG CAPSULE PO SCH ×3 (01:42→21:34)
[2021-09-20 07:18] LABS: BASO % 0.6 % (0-2.0); EOS % 8.7 % (0-4.5); HEMATOCRIT 21.7 % (32.4-45.2); HEMOGLOBIN 7.4 GM/dL (10.7-15.3); LYMPH % 16.3 % (8-40); MCH 34.9 pg (25.7-33.7); MCHC 34.1 g/dl (32.0-36.0); MEAN CELL VOLUME 102.4 fl (80-96); MEAN PLT VOLUME 8.9 fl (7.5-11.1); MONO % 5.5 % (3.8-10.2); NEUT % 68.9 % (42.8-82.8); PLATELET COUNT 172 10^3/uL (134-434); RBC 2.12 M/mm3 (3.60-5.2); WHITE BLOOD COUNT 6.4 K/mm3 (4.0-10.0)
[2021-09-20 07:36] LABS: BLOOD UREA NITROGEN 79.3 mg/dL (7-18); CALCIUM 8.7 mg/dL (8.5-10.1)
[2021-09-20 07:39] LABS: CREATININE 5.6 mg/dL (0.55-1.3)
[2021-09-20] MEDS: INSULIN SLIDING SCALE (NOVOLOG) 1 VIAL SQ SCH ×4 (08:31→21:35)
[2021-09-20] MEDS ORDERED: SODIUM ZIRCONIUM CYCLOSILICATE (LOKELMA) 5 GM PACKET PO ONE (11:30)
[2021-09-20] MEDS ORDERED: ASPIRIN COATED 81 MG TABLET.EC ONE (12:57)
[2021-09-20] MEDS ORDERED: SODIUM ZIRCONIUM CYCLOSILICATE (LOKELMA) 5 GM PACKET ONE (12:59)
[2021-09-20] MEDS: ASPIRIN COATED 81 MG TABLET.EC PO SCH (13:08)
[2021-09-20] MEDS: HEPARIN NA (PORCINE) 5,000 UNITS/ML 1ML VIAL SQ SCH (22:33)
[2021-09-21] MEDS: HEPARIN NA (PORCINE) 5,000 UNITS/ML 1ML VIAL SQ SCH ×3 (05:42→21:07)
[2021-09-21] MEDS: INSULIN SLIDING SCALE (NOVOLOG) 1 VIAL SQ SCH ×4 (06:11→21:07)
[2021-09-21 06:46] LABS: BASO % 0.9 % (0-2.0); EOS % 8.6 % (0-4.5); HEMATOCRIT 24.5 % (32.4-45.2); HEMOGLOBIN 8.1 GM/dL (10.7-15.3); LYMPH % 18.6 % (8-40); MCHC 33.2 g/dl (32.0-36.0); MEAN CELL VOLUME 102.3 fl (80-96); MEAN PLT VOLUME 8.7 fl (7.5-11.1); MONO % 5.9 % (3.8-10.2); PLATELET COUNT 165 10^3/uL (134-434); RDW 13.4 % (11.6-15.6)
[2021-09-21 07:05] LABS: ALBUMIN 3.3 g/dl (3.4-5.0); BLOOD UREA NITROGEN 81.3 mg/dL (7-18); CALCIUM 8.8 mg/dL (8.5-10.1)
[2021-09-21 07:08] LABS: CREATININE 5.6 mg/dL (0.55-1.3)
[2021-09-21 07:10] LABS: BILIRUBIN,TOTAL 0.3 mg/dL (0.2-1)
[2021-09-21] MEDS: METOPROLOL TARTRATE 50 MG TABLET (FP) PO SCH ×2 (10:47→21:07)
[2021-09-21] MEDS: GABAPENTIN 300 MG CAPSULE PO SCH ×2 (10:48→21:07)
[2021-09-21] MEDS: ASPIRIN COATED 81 MG TABLET.EC PO SCH (10:48)
[2021-09-21] MEDS: PANTOPRAZOLE SODIUM 40 MG VIAL IVPUSH SCH ×2 (10:48→14:28)
[2021-09-22] MEDS ORDERED: ACETAMINOPHEN 325 MG TABLET (FP) PO ONE (03:29)
[2021-09-22] MEDS: HEPARIN NA (PORCINE) 5,000 UNITS/ML 1ML VIAL SQ SCH ×3 (05:12→21:39)
[2021-09-22] MEDS: INSULIN SLIDING SCALE (NOVOLOG) 1 VIAL SQ SCH ×4 (06:01→21:40)
[2021-09-22] MEDS: METOPROLOL TARTRATE 50 MG TABLET (FP) PO SCH ×2 (09:38→21:40)
[2021-09-22] MEDS: PANTOPRAZOLE SODIUM 40 MG VIAL IVPUSH SCH (09:38)
[2021-09-22] MEDS: ASPIRIN COATED 81 MG TABLET.EC PO SCH (09:39)
[2021-09-22] MEDS: GABAPENTIN 300 MG CAPSULE PO SCH ×2 (09:39→21:40)
[2021-09-22 23:15] VITALS: BMI 34.4
[2021-09-23] MEDS: INSULIN SLIDING SCALE (NOVOLOG) 1 VIAL SQ SCH ×4 (06:25→22:09)
[2021-09-23] MEDS: HEPARIN NA (PORCINE) 5,000 UNITS/ML 1ML VIAL SQ SCH ×3 (06:26→22:12)
[2021-09-23] MEDS: PANTOPRAZOLE SODIUM 40 MG VIAL IVPUSH SCH (09:00)
[2021-09-23] MEDS: METOPROLOL TARTRATE 50 MG TABLET (FP) PO SCH ×2 (09:00→22:13)
[2021-09-23] MEDS: ASPIRIN COATED 81 MG TABLET.EC PO SCH (09:00)
[2021-09-23] MEDS ORDERED: SODIUM CHLORIDE 250 ML IV PRN (11:27)
[2021-09-23] MEDS: GABAPENTIN 300 MG CAPSULE PO SCH ×2 (11:29→22:13)
[2021-09-23] MEDS ORDERED: EPOETIN ALFA-EPBX 4,000 UNIT/ML VIAL IVPUSH ONE (12:05)
[2021-09-24] MEDS: HEPARIN NA (PORCINE) 5,000 UNITS/ML 1ML VIAL SQ SCH (06:35)
[2021-09-24] MEDS: INSULIN SLIDING SCALE (NOVOLOG) 1 VIAL SQ SCH ×2 (06:35→10:46)
[2021-09-24] MEDS ORDERED: INSULIN (LEVEMIR) 100 UNITS/ML UNITS SQ SCH (07:00)
[2021-09-24] MEDS: GABAPENTIN 300 MG CAPSULE PO SCH (10:42)
[2021-09-24] MEDS: ASPIRIN COATED 81 MG TABLET.EC PO SCH (10:42)
[2021-09-24] MEDS: PANTOPRAZOLE SODIUM 40 MG VIAL IVPUSH SCH (10:42)
[2021-09-24] MEDS: METOPROLOL TARTRATE 50 MG TABLET (FP) PO SCH (10:42)
[2021-09-24 15:53] VITALS: BP 145/55; PULSE 57; TEMP 98.2
== END 2021-09-24 17:56 | disposition home or self-care (01) | DRG 291 ==
LOC: JER 10:18 → JERBED 14:18 → J4W 09-20 18:26
PROVIDERS: ATTEND Family Medicine
PROC: 5A1D70Z Performance of Urinary Filtration, Intermittent, Less than 6 Hours Per Day (ICD-10-PCS; principal; 2021-09-21)
PROC: 5A1D70Z Performance of Urinary Filtration, Intermittent, Less than 6 Hours Per Day (ICD-10-PCS; 2021-09-23)
DX: I13.2 Hypertensive heart and chronic kidney disease with heart failure and with stage 5 chronic kidney disease, or end stage renal disease (principal); N18.6 End stage renal disease; E87.70 Fluid overload, unspecified; I50.32 Chronic diastolic (congestive) heart failure; E11.22 Type 2 diabetes mellitus with diabetic chronic kidney disease; D64.9 Anemia, unspecified; E78.5 Hyperlipidemia, unspecified; E87.5 Hyperkalemia; E03.9 Hypothyroidism, unspecified; R50.9 Fever, unspecified; F41.8 Other specified anxiety disorders; E66.8 Other obesity; Z68.34 Body mass index [BMI] 34.0-34.9, adult; Z99.2 Dependence on renal dialysis; Z91.89 Other specified personal risk factors, not elsewhere classified
CPT/HCPCS: 36415; 71045-TC-FY; 80048; 80053; 80061; 82272; 82550; 82962; 83036; 83735; 83880; 84100; 84484; 85025; 85610; 86803; 87340; 93005; 93010; 93306-TC; 99285-25; C9803; J0131; J1644; Q5106; U0003; U0005

== ENCOUNTER 2021-12-16 14:25 | Observation (INO) | payer OTHER ==
[2021-12-16 15:33] LABS: BASO % 0.7 % (0-2.0); EOS % 8.9 % (0-4.5); HEMATOCRIT 37.2 % (32.4-45.2); HEMOGLOBIN 12.5 GM/dL (10.7-15.3); LYMPH % 14.1 % (8-40); MCH 31.9 pg (25.7-33.7); MCHC 33.6 g/dl (32.0-36.0); MEAN CELL VOLUME 95.1 fl (80-96); MEAN PLT VOLUME 9.2 fl (7.5-11.1); MONO % 6.1 % (3.8-10.2); NEUT % 70.2 % (42.8-82.8); PLATELET COUNT 251 10^3/uL (134-434); RBC 3.92 M/mm3 (3.60-5.2); RDW 15.9 % (11.6-15.6); WHITE BLOOD COUNT 6.3 K/mm3 (4.0-10.0)
[2021-12-16] MEDS ORDERED: ACETAMINOPHEN 1000 MG/100 ML BAG IVPB ONE (15:37)
[2021-12-16 15:51] LABS: CHLORIDE 110 mmol/L (98-107); SODIUM 137 mmol/L (136-145)
[2021-12-16 15:54] LABS: ALBUMIN 3.2 g/dl (3.4-5.0); ANION GAP 9 MMOL/L (8-16); BLOOD UREA NITROGEN 73.1 mg/dL (7-18); CO2 17 mmol/L (21-32); GLUCOSE,RANDOM 103 mg/dL (74-106)
[2021-12-16] MEDS ORDERED: ACETAMINOPHEN INJECTION 100 ML IVPB ONE (15:56)
[2021-12-16 15:57] LABS: CREATININE 4.7 mg/dL (0.55-1.3); SGOT/AST 26 U/L (15-37); SGPT/ALT 15 U/L (13-61)
[2021-12-16 15:58] LABS: BILIRUBIN,TOTAL 0.4 mg/dL (0.2-1); TOT PROT 8.5 g/dl (6.4-8.2)
[2021-12-16 16:00] LABS: ALK PHOS 157 U/L (45-117)
[2021-12-16 18:29] LABS: CALCIUM 8.8 mg/dL (8.5-10.1)
[2021-12-16 18:30] LABS: BLOOD UREA NITROGEN 72.5 mg/dL (7-18)
[2021-12-16 18:33] LABS: CREATININE 4.6 mg/dL (0.55-1.3)
[2021-12-16] MEDS ORDERED: INSULIN REGULAR HUMAN 100 UNITS/ML *VIAL IVPUSH ONE (19:01)
[2021-12-16] MEDS ORDERED: CALCIUM GLUCONATE 10% - 1,000 MG/10 ML VIAL IVPB ONE (19:01)
[2021-12-16] MEDS ORDERED: DEXTROSE 50%-WATER - 25 GM/50 ML VIAL IVPUSH ONE (19:01)
[2021-12-16] MEDS ORDERED: SODIUM ZIRCONIUM CYCLOSILICATE (LOKELMA) 5 GM PACKET PO ONE (19:04)
[2021-12-16] MEDS ORDERED: CALCIUM GLUCONATE 10% - 1,000 MG/10 ML VIAL ONE (19:17)
[2021-12-16] MEDS ORDERED: SODIUM ZIRCONIUM CYCLOSILICATE (LOKELMA) 5 GM PACKET ONE ×2 (19:17)
[2021-12-16] MEDS ORDERED: DEXTROSE 50%-WATER 25 GM/50 ML DISP.SYRIN ONE (19:17)
[2021-12-17 07:40] LABS: BASO % 0.6 % (0-2.0); EOS % 8.3 % (0-4.5); HEMOGLOBIN 11.1 GM/dL (10.7-15.3); LYMPH % 14.7 % (8-40); MCH 31.4 pg (25.7-33.7); MCHC 32.7 g/dl (32.0-36.0); MEAN CELL VOLUME 95.9 fl (80-96); NEUT % 70.4 % (42.8-82.8); PLATELET COUNT 193 10^3/uL (134-434); RBC 3.55 M/mm3 (3.60-5.2); RDW 15.4 % (11.6-15.6); WHITE BLOOD COUNT 6.6 K/mm3 (4.0-10.0)
[2021-12-17 08:10] LABS: ALBUMIN 2.9 g/dl (3.4-5.0); BLOOD UREA NITROGEN 74.3 mg/dL (7-18); CALCIUM 8.9 mg/dL (8.5-10.1)
[2021-12-17 08:14] LABS: CREATININE 4.9 mg/dL (0.55-1.3)
[2021-12-17 08:15] LABS: BILIRUBIN,TOTAL 0.4 mg/dL (0.2-1); TOT PROT 7.5 g/dl (6.4-8.2)
[2021-12-17 10:06] VITALS: BMI 30.9
[2021-12-17] MEDS ORDERED: SODIUM CHLORIDE 250 ML IV PRN (10:13)
[2021-12-17] MEDS ORDERED: EPOETIN ALFA-EPBX 4,000 UNIT/ML VIAL SQ ONE (10:13)
[2021-12-17] MEDS: METOPROLOL TARTRATE 50 MG TABLET (FP) PO SCH ×3 (11:05→22:03)
[2021-12-17] MEDS: PANTOPRAZOLE 40 MG TABLET PO SCH ×2 (11:06→17:45)
[2021-12-17] MEDS: GABAPENTIN 300 MG CAPSULE PO SCH ×3 (11:06→22:04)
[2021-12-17] MEDS ORDERED: HEPARIN NA (PORCINE) 5,000 UNITS/ML 1ML VIAL IVPUSH ONE (11:45)
[2021-12-17] MEDS: amLODIPine BESYLATE 5 MG TABLET (FP) PO SCH (23:09)
[2021-12-18] MEDS: amLODIPine BESYLATE 5 MG TABLET (FP) PO SCH (09:13)
[2021-12-18] MEDS: PANTOPRAZOLE 40 MG TABLET PO SCH (09:13)
[2021-12-18] MEDS: METOPROLOL TARTRATE 50 MG TABLET (FP) PO SCH ×2 (09:13→21:25)
[2021-12-18] MEDS: GABAPENTIN 300 MG CAPSULE PO SCH ×2 (09:13→21:25)
[2021-12-18 09:17] LABS: BASO % 1.1 % (0-2.0); EOS % 1.6 % (0-4.5); HEMATOCRIT 36.3 % (32.4-45.2); HEMOGLOBIN 11.5 GM/dL (10.7-15.3); LYMPH % 9.5 % (8-40); MCH 30.7 pg (25.7-33.7); MCHC 31.7 g/dl (32.0-36.0); MEAN CELL VOLUME 96.7 fl (80-96); MEAN PLT VOLUME 9.3 fl (7.5-11.1); MONO % 8.4 % (3.8-10.2); NEUT % 79.4 % (42.8-82.8); PLATELET COUNT 180 10^3/uL (134-434); RBC 3.75 M/mm3 (3.60-5.2); RDW 15.8 % (11.6-15.6); WHITE BLOOD COUNT 5.1 K/mm3 (4.0-10.0)
[2021-12-18 10:07] LABS: CHLORIDE 107 mmol/L (98-107); SODIUM 140 mmol/L (136-145)
[2021-12-18 10:11] LABS: CALCIUM 8.3 mg/dL (8.5-10.1); GLUCOSE,RANDOM 134 mg/dL (74-106)
[2021-12-18 10:13] LABS: ANION GAP 6 MMOL/L (8-16); CO2 26 mmol/L (21-32); SGPT/ALT 11 U/L (13-61)
[2021-12-18 10:14] LABS: CREATININE 3.1 mg/dL (0.55-1.3); SGOT/AST 8 U/L (15-37)
[2021-12-18 10:15] LABS: BILIRUBIN,TOTAL 0.4 mg/dL (0.2-1); TOT PROT 7.9 g/dl (6.4-8.2)
[2021-12-18 10:16] LABS: ALK PHOS 129 U/L (45-117)
[2021-12-18 10:52] LABS: BLOOD UREA NITROGEN 30.3 mg/dL (7-18)
[2021-12-18] MEDS ORDERED: SODIUM CHLORIDE 250 ML IV PRN (11:45)
[2021-12-18] MEDS ORDERED: HEPARIN NA (PORCINE) 5,000 UNITS/ML 1ML VIAL IVPUSH PRN ×2 (14:59)
[2021-12-18] MEDS ORDERED: HEPARIN INFUSION - 25,000 UNITS/500 ML INFUS.BAG IVPB SCH (15:00)
[2021-12-19] MEDS: amLODIPine BESYLATE 5 MG TABLET (FP) PO SCH ×2 (09:52→13:45)
[2021-12-19] MEDS: GABAPENTIN 300 MG CAPSULE PO SCH ×3 (09:52→22:20)
[2021-12-19] MEDS: METOPROLOL TARTRATE 50 MG TABLET (FP) PO SCH ×3 (09:52→22:20)
[2021-12-19] MEDS: PANTOPRAZOLE 40 MG TABLET PO SCH ×2 (09:53→13:46)
[2021-12-19] MEDS ORDERED: LIDOCAINE 5% TOPICAL PATCH TP ONE (13:30)
[2021-12-20] MEDS ORDERED: LIDOCAINE PATCH REMOVAL MC SCH (01:30)
[2021-12-20 07:38] LABS: HEMATOCRIT 30.5 % (32.4-45.2); HEMOGLOBIN 10.1 GM/dL (10.7-15.3); MCH 31.4 pg (25.7-33.7); MCHC 33.1 g/dl (32.0-36.0); MEAN PLT VOLUME 9.7 fl (7.5-11.1); PLATELET COUNT 142 10^3/uL (134-434); RBC 3.21 M/mm3 (3.60-5.2); RDW 15.5 % (11.6-15.6); WHITE BLOOD COUNT 5.4 K/mm3 (4.0-10.0)
[2021-12-20] MEDS: GABAPENTIN 300 MG CAPSULE PO SCH ×2 (09:28→21:22)
[2021-12-20] MEDS: PANTOPRAZOLE 40 MG TABLET PO SCH (09:28)
[2021-12-20] MEDS: METOPROLOL TARTRATE 50 MG TABLET (FP) PO SCH ×2 (09:29→21:22)
[2021-12-20] MEDS: amLODIPine BESYLATE 10 MG TABLET (FP) PO SCH (09:29)
[2021-12-20] MEDS: ASPIRIN COATED 81 MG TABLET.EC PO SCH (14:16)
[2021-12-21 08:35] LABS: HEMATOCRIT 29.6 % (32.4-45.2); HEMOGLOBIN 9.9 GM/dL (10.7-15.3); MCH 31.7 pg (25.7-33.7); MCHC 33.4 g/dl (32.0-36.0); MEAN CELL VOLUME 94.8 fl (80-96); MEAN PLT VOLUME 9.9 fl (7.5-11.1); PLATELET COUNT 138 10^3/uL (134-434); RBC 3.12 M/mm3 (3.60-5.2); RDW 15.3 % (11.6-15.6); WHITE BLOOD COUNT 6.5 K/mm3 (4.0-10.0)
[2021-12-21] MEDS ORDERED: REGADENOSON 0.4 MG/5 ML PRE-FILLED SYRINGE IVPUSH ONE ×2 (10:07→10:30)
[2021-12-21] MEDS: ASPIRIN COATED 81 MG TABLET.EC PO SCH (12:49)
[2021-12-21] MEDS: amLODIPine BESYLATE 10 MG TABLET (FP) PO SCH (12:50)
[2021-12-21] MEDS: METOPROLOL TARTRATE 50 MG TABLET (FP) PO SCH ×2 (12:50→21:11)
[2021-12-21] MEDS: PANTOPRAZOLE 40 MG TABLET PO SCH (12:50)
[2021-12-21] MEDS: GABAPENTIN 300 MG CAPSULE PO SCH ×2 (12:51→21:11)
[2021-12-21] MEDS: APIXABAN 5 MG TABLET PO SCH (23:54)
[2021-12-22] MEDS ORDERED: EPOETIN ALFA-EPBX 3,000 UNIT/ML VIAL IVPUSH ONE (07:00)
[2021-12-22] MEDS ORDERED: SODIUM CHLORIDE 250 ML IV PRN (07:00)
[2021-12-22 07:37] LABS: HEMATOCRIT 32.2 % (32.4-45.2); HEMOGLOBIN 10.7 GM/dL (10.7-15.3); MCH 31.9 pg (25.7-33.7); MCHC 33.4 g/dl (32.0-36.0); MEAN CELL VOLUME 95.5 fl (80-96); MEAN PLT VOLUME 9.8 fl (7.5-11.1); PLATELET COUNT 144 10^3/uL (134-434); RBC 3.37 M/mm3 (3.60-5.2); RDW 15.5 % (11.6-15.6); WHITE BLOOD COUNT 6.7 K/mm3 (4.0-10.0)
[2021-12-22] MEDS: PANTOPRAZOLE 40 MG TABLET PO SCH (10:37)
[2021-12-22] MEDS: amLODIPine BESYLATE 10 MG TABLET (FP) PO SCH (10:37)
[2021-12-22] MEDS: GABAPENTIN 300 MG CAPSULE PO SCH ×2 (10:37→22:20)
[2021-12-22] MEDS: APIXABAN 5 MG TABLET PO SCH ×2 (10:37→22:20)
[2021-12-23 07:54] LABS: HEMOGLOBIN 10.7 GM/dL (10.7-15.3); MCHC 32.4 g/dl (32.0-36.0); MEAN CELL VOLUME 95.8 fl (80-96); MEAN PLT VOLUME 10.5 fl (7.5-11.1); PLATELET COUNT 160 10^3/uL (134-434); RBC 3.45 M/mm3 (3.60-5.2); RDW 15.3 % (11.6-15.6)
[2021-12-23] MEDS: PANTOPRAZOLE 40 MG TABLET PO SCH (09:58)
[2021-12-23] MEDS: GABAPENTIN 300 MG CAPSULE PO SCH (09:58)
[2021-12-23] MEDS: APIXABAN 5 MG TABLET PO SCH (09:58)
[2021-12-23] MEDS: amLODIPine BESYLATE 10 MG TABLET (FP) PO SCH (09:58)
[2021-12-23 13:50] VITALS: PULSE 56
[2021-12-23 15:51] VITALS: BP 144/54; TEMP 98
== END 2021-12-23 17:18 | disposition home or self-care (01) ==
LOC: JER 14:25 → JERBED 15:22 → J4W 12-17 04:09
PROVIDERS: ADMIT Internal Medicine; ATTEND Family Medicine
PROC: 3E033NZ Introduction of Analgesics, Hypnotics, Sedatives into Peripheral Vein, Percutaneous Approach (ICD-10-PCS; principal; 2021-12-16)
PROC: 3E033GC Introduction of Other Therapeutic Substance into Peripheral Vein, Percutaneous Approach (ICD-10-PCS; 2021-12-16)
PROC: 3E033VG Introduction of Insulin into Peripheral Vein, Percutaneous Approach (ICD-10-PCS; 2021-12-16)
DX: I13.2 Hypertensive heart and chronic kidney disease with heart failure and with stage 5 chronic kidney disease, or end stage renal disease (principal); E11.22 Type 2 diabetes mellitus with diabetic chronic kidney disease; N18.6 End stage renal disease; Z99.2 Dependence on renal dialysis; D63.1 Anemia in chronic kidney disease; Z91.15 Patient's noncompliance with renal dialysis; E78.5 Hyperlipidemia, unspecified; E03.9 Hypothyroidism, unspecified; Z88.0 Allergy status to penicillin; Z91.018 Allergy to other foods
CPT/HCPCS: 36415; 71045-TC-FY; 71275-TC; 73030-TC-LT-FY; 74176-TC; 78452-TC; 80048; 80053; 82550; 82553; 84484; 85025; 85027; 85730; 86803; 87340; 87804; 93005; 93010; 93017; 93306-TC; 96365; 96366; 96375; 99285-25; A9502; C9803; G0378; J0131; J1644; J2785; Q5106; Q9967; U0003; U0005

== ENCOUNTER 2022-01-22 11:12 | Observation (INO) | payer OTHER ==
[2022-01-22 11:44] VITALS: BMI 32.3
[2022-01-22 12:48] LABS: EOS % 9.4 % (0-4.5); HEMOGLOBIN 9.3 GM/dL (10.7-15.3); LYMPH % 12.9 % (8-40); MCH 31.7 pg (25.7-33.7); MCHC 33.1 g/dl (32.0-36.0); MEAN CELL VOLUME 95.7 fl (80-96); MEAN PLT VOLUME 7.8 fl (7.5-11.1); MONO % 4.7 % (3.8-10.2); PLATELET COUNT 193 10^3/uL (134-434); RBC 2.92 M/mm3 (3.60-5.2); RDW 16.7 % (11.6-15.6); WHITE BLOOD COUNT 5.9 K/mm3 (4.0-10.0)
[2022-01-22 12:56] LABS: INR 1.21 (0.83-1.09)
[2022-01-22 13:10] LABS: CHLORIDE 108 mmol/L (98-107); SODIUM 137 mmol/L (136-145)
[2022-01-22 13:13] LABS: ALBUMIN 3.5 g/dl (3.4-5.0); BLOOD UREA NITROGEN 75.6 mg/dL (7-18); CALCIUM 9.1 mg/dL (8.5-10.1); CO2 19 mmol/L (21-32); GLUCOSE,RANDOM 118 mg/dL (74-106)
[2022-01-22 13:16] LABS: ACTIVATED PTT 32.4 SECONDS (25.2-36.5); SGOT/AST 4 U/L (15-37); SGPT/ALT 12 U/L (13-61)
[2022-01-22 13:17] LABS: CREATININE 5.5 mg/dL (0.55-1.3)
[2022-01-22 13:18] LABS: BILIRUBIN,TOTAL 0.4 mg/dL (0.2-1); TOT PROT 8.4 g/dl (6.4-8.2)
[2022-01-22 13:20] LABS: ALK PHOS 163 U/L (45-117); ANION GAP 10 MMOL/L (8-16)
[2022-01-22] MEDS ORDERED: CALCIUM GLUCONATE 10% - 1,000 MG/10 ML VIAL IVPUSH ONE (13:26)
[2022-01-22] MEDS ORDERED: INSULIN REGULAR HUMAN 100 UNITS/ML *VIAL IVPUSH ONE (13:27)
[2022-01-22] MEDS ORDERED: DEXTROSE 50%-WATER - 25 GM/50 ML VIAL IVPUSH ONE (13:28)
[2022-01-22] MEDS ORDERED: DEXTROSE 50%-WATER 25 GM/50 ML DISP.SYRIN ONE (13:29)
[2022-01-22] MEDS ORDERED: SODIUM ZIRCONIUM CYCLOSILICATE (LOKELMA) 5 GM PACKET PO ONE (13:30)
[2022-01-22] MEDS ORDERED: SODIUM ZIRCONIUM CYCLOSILICATE (LOKELMA) 5 GM PACKET ONE (13:34)
[2022-01-22] MEDS ORDERED: CALCIUM GLUCONATE 10% - 1,000 MG/10 ML VIAL ONE (13:35)
[2022-01-22 15:14] LABS: CALCIUM 9.3 mg/dL (8.5-10.1)
[2022-01-22 15:15] LABS: BLOOD UREA NITROGEN 74.9 mg/dL (7-18)
[2022-01-22 15:18] LABS: CREATININE 5.5 mg/dL (0.55-1.3)
[2022-01-22] MEDS ORDERED: ACETAMINOPHEN 325 MG TABLET (FP) PO PRN (15:46)
[2022-01-22] MEDS: INSULIN SLIDING SCALE (NOVOLOG) 1 VIAL SQ SCH ×2 (18:01→21:15)
[2022-01-22] MEDS ORDERED: APIXABAN 5 MG TABLET ONE (21:08)
[2022-01-22] MEDS ORDERED: GABAPENTIN 100 MG CAPSULE ONE (21:09)
[2022-01-22] MEDS ORDERED: METOPROLOL TARTRATE 50 MG TABLET (FP) ONE (21:09)
[2022-01-22] MEDS: GABAPENTIN 300 MG CAPSULE PO SCH (21:21)
[2022-01-22] MEDS: METOPROLOL TARTRATE 50 MG TABLET (FP) PO SCH (21:21)
[2022-01-22] MEDS: APIXABAN 5 MG TABLET PO SCH (21:21)
[2022-01-23] MEDS ORDERED: ACETAMINOPHEN 325 MG TABLET (FP) ONE (04:50)
[2022-01-23] MEDS ORDERED: GABAPENTIN 100 MG CAPSULE ONE (06:10)
[2022-01-23] MEDS: GABAPENTIN 300 MG CAPSULE PO SCH (06:13)
[2022-01-23] MEDS ORDERED: SODIUM CHLORIDE 250 ML IV PRN (07:00)
[2022-01-23] MEDS ORDERED: EPOETIN ALFA-EPBX 4,000 UNIT/ML VIAL IVPUSH ONE (07:00)
[2022-01-23] MEDS: INSULIN SLIDING SCALE (NOVOLOG) 1 VIAL SQ SCH ×2 (07:26→11:13)
[2022-01-23 08:11] VITALS: TEMP 97.4
[2022-01-23] MEDS ORDERED: PANTOPRAZOLE 40 MG TABLET PO SCH (10:00)
[2022-01-23] MEDS ORDERED: ASPIRIN COATED 81 MG TABLET.EC PO SCH (10:00)
[2022-01-23] MEDS ORDERED: amLODIPine BESYLATE 10 MG TABLET (FP) PO SCH (10:00)
[2022-01-23] MEDS ORDERED: PANTOPRAZOLE 40 MG TABLET ONE (11:12)
[2022-01-23] MEDS ORDERED: ASPIRIN COATED 81 MG TABLET.EC ONE (11:12)
[2022-01-23] MEDS ORDERED: METOPROLOL TARTRATE 50 MG TABLET (FP) ONE (11:13)
[2022-01-23] MEDS ORDERED: amLODIPine BESYLATE 10 MG TABLET (FP) ONE (11:13)
[2022-01-23] MEDS ORDERED: APIXABAN 5 MG TABLET ONE (11:13)
[2022-01-23] MEDS: APIXABAN 5 MG TABLET PO SCH (11:56)
[2022-01-23] MEDS: METOPROLOL TARTRATE 50 MG TABLET (FP) PO SCH (11:56)
[2022-01-23 11:57] VITALS: BP 148/70; PULSE 88
[2022-01-23 13:07] LABS: SARS-CoV-2 NAA Not Detected (Not Detected)
[2022-01-23] MEDS ORDERED: SODIUM ZIRCONIUM CYCLOSILICATE (LOKELMA) 5 GM PACKET PO ONE (13:30)
== END 2022-01-23 12:30 | disposition home or self-care (01) ==
LOC: JER 11:12 → INTOOBSV 14:15 → JERBED 14:15
PROVIDERS: ADMIT Family Medicine; ATTEND Family Medicine
PROC: 3E033GC Introduction of Other Therapeutic Substance into Peripheral Vein, Percutaneous Approach (ICD-10-PCS; principal; 2022-01-22)
PROC: 3E013VG Introduction of Insulin into Subcutaneous Tissue, Percutaneous Approach (ICD-10-PCS; 2022-01-22)
DX: I13.2 Hypertensive heart and chronic kidney disease with heart failure and with stage 5 chronic kidney disease, or end stage renal disease (principal); E11.22 Type 2 diabetes mellitus with diabetic chronic kidney disease; Z99.2 Dependence on renal dialysis; E87.5 Hyperkalemia; D64.9 Anemia, unspecified; N18.6 End stage renal disease; E78.5 Hyperlipidemia, unspecified; Z88.0 Allergy status to penicillin; Z91.018 Allergy to other foods; E66.8 Other obesity; Z68.32 Body mass index [BMI] 32.0-32.9, adult; M62.81 Muscle weakness (generalized); Z98.49 Cataract extraction status, unspecified eye; Z90.49 Acquired absence of other specified parts of digestive tract; Z96.651 Presence of right artificial knee joint
CPT/HCPCS: 36415; 71045-TC-FY; 80048; 80053; 82962; 85025; 85610; 85730; 86803; 87340; 93005; 93010; 96374; 96375; 99291; C9803; G0378; Q5106; U0003; U0005

== ENCOUNTER 2022-09-18 14:53 | Inpatient (IN) | payer OTHER ==
[2022-09-18 15:36] VITALS: BMI 27.4
[2022-09-18 20:55] LABS: EPI CELLS 13 /uL (0-25.1); HYALINE CASTS 2 /uL (0-3.1); URINE APPEARANCE Error; URINE BACTERIA >9,000 /uL (0-1359); URINE BILIRUBIN NEGATIVE (NEGATIVE); URINE COLOR YELLOW; URINE GLUCOSE (UA) NEGATIVE (NEGATIVE); URINE KETONE NEGATIVE (NEGATIVE); URINE LEUK ESTERASE 3+ (NEGATIVE); URINE NITRITE NEGATIVE (NEGATIVE); URINE PROTEIN 2+ (NEGATIVE); URINE RBC 26 /uL (0-23.9); URINE UROBILINOGEN 0.2 mg/dL (0.2-1.0); URINE WBC 1566 /uL (0-25.8)
[2022-09-18 21:08] LABS: VENOUS O2 SATURATION 67.5 % (70-80); VENOUS PCO2 36.9 mmHg (38-52); VENOUS PH 7.299 (7.310-7.410)
[2022-09-18 21:14] LABS: BASO % 0.7 % (0-2.0); EOS % 2.8 % (0-4.5); HEMATOCRIT 32.6 % (32.4-45.2); HEMOGLOBIN 11.2 GM/dL (10.7-15.3); LYMPH % 16.7 % (8-40); MCH 32.6 pg (25.7-33.7); MCHC 34.4 g/dl (32.0-36.0); MEAN CELL VOLUME 94.8 fl (80-96); MEAN PLT VOLUME 9.5 fl (7.5-11.1); MONO % 7.5 % (3.8-10.2); NEUT % 72.3 % (42.8-82.8); PLATELET COUNT 171 10^3/uL (134-434); RBC 3.45 M/mm3 (3.60-5.2); RDW 14.4 % (11.6-15.6)
[2022-09-18] MEDS ORDERED: FUROSEMIDE 40 MG/4 ML INJECTABLE VIAL IVPUSH ONE (21:16)
[2022-09-18 21:20] LABS: INR 1.07 (0.83-1.09); PROTHROMBIN TIME (PATIENT) 12.3 SEC (9.7-13.0)
[2022-09-18 21:23] LABS: ACTIVATED PTT 29.2 SECONDS (25.2-36.5)
[2022-09-18 21:53] LABS: CHLORIDE 99 mmol/L (98-107); SODIUM 126 mmol/L (136-145)
[2022-09-18 21:56] LABS: ALBUMIN 3.5 g/dl (3.4-5.0); BLOOD UREA NITROGEN 25.3 mg/dL (7-18); CALCIUM 9.3 mg/dL (8.5-10.1); CO2 18 mmol/L (21-32); GLUCOSE,RANDOM 158 mg/dL (74-106)
[2022-09-18 21:58] LABS: PHOSPHOROUS 2.8 mg/dL (2.5-4.9)
[2022-09-18 21:59] LABS: CREATININE 2.6 mg/dL (0.55-1.3); SGOT/AST 24 U/L (15-37); SGPT/ALT 14 U/L (13-61)
[2022-09-18 22:01] LABS: BILIRUBIN,TOTAL 0.4 mg/dL (0.2-1); TOT PROT 8.1 g/dl (6.4-8.2)
[2022-09-18 22:02] LABS: ALK PHOS 175 U/L (45-117); N-TERMINAL BNP 8246.8 pg/ml (5-125)
[2022-09-18 22:05] LABS: ANION GAP 9 MMOL/L (8-16)
[2022-09-18] MEDS ORDERED: FUROSEMIDE 40 MG/4 ML INJECTABLE VIAL ONE (22:19)
[2022-09-18] MEDS ORDERED: ACETAMINOPHEN 325 MG TABLET (FP) ONE (22:19)
[2022-09-18] MEDS: ACETAMINOPHEN 325 MG TABLET (FP) PO PRN (22:32)
[2022-09-18 23:09] LABS: CALCIUM 9.4 mg/dL (8.5-10.1)
[2022-09-18 23:10] LABS: BLOOD UREA NITROGEN 26.8 mg/dL (7-18)
[2022-09-18 23:13] LABS: CREATININE 2.6 mg/dL (0.55-1.3)
[2022-09-19 07:35] LABS: BASO % 0.6 % (0-2.0); EOS % 3.1 % (0-4.5); HEMATOCRIT 33.6 % (32.4-45.2); HEMOGLOBIN 11.2 GM/dL (10.7-15.3); LYMPH % 15.4 % (8-40); MCH 31.6 pg (25.7-33.7); MCHC 33.5 g/dl (32.0-36.0); MEAN CELL VOLUME 94.4 fl (80-96); MEAN PLT VOLUME 9.4 fl (7.5-11.1); MONO % 8.5 % (3.8-10.2); NEUT % 72.4 % (42.8-82.8); PLATELET COUNT 176 10^3/uL (134-434); RBC 3.56 M/mm3 (3.60-5.2); RDW 14.3 % (11.6-15.6)
[2022-09-19 09:06] LABS: CALCIUM 9.7 mg/dL (8.5-10.1)
[2022-09-19 09:07] LABS: ALBUMIN 3.3 g/dl (3.4-5.0); MAGNESIUM 2.1 mg/dL (1.8-2.4)
[2022-09-19 09:08] LABS: BLOOD UREA NITROGEN 30.5 mg/dL (7-18)
[2022-09-19 09:10] LABS: CREATININE 2.9 mg/dL (0.55-1.3)
[2022-09-19 09:11] LABS: TOT PROT 7.6 g/dl (6.4-8.2)
[2022-09-19 09:13] LABS: BILIRUBIN,TOTAL 0.5 mg/dL (0.2-1)
[2022-09-19] MEDS ORDERED: CEFTRIAXONE 1,000 MG in DEXTROSE 5%-WATER - 50 ML IVPB SCH (10:00)
[2022-09-19] MEDS ORDERED: SODIUM CHLORIDE 250 ML IV PRN ×2 (10:41→10:43)
[2022-09-19] MEDS ORDERED: METOPROLOL TARTRATE 50 MG TABLET (FP) ONE (11:41)
[2022-09-19] MEDS ORDERED: ASPIRIN COATED 81 MG TABLET.EC ONE (11:41)
[2022-09-19] MEDS ORDERED: amLODIPine BESYLATE 10 MG TABLET (FP) ONE (11:41)
[2022-09-19] MEDS: amLODIPine BESYLATE 10 MG TABLET (FP) PO SCH (12:26)
[2022-09-19] MEDS: METOPROLOL TARTRATE 50 MG TABLET (FP) PO SCH ×2 (12:26→23:22)
[2022-09-19] MEDS: ASPIRIN COATED 81 MG TABLET.EC PO SCH (12:26)
[2022-09-19] MEDS ORDERED: CEFTRIAXONE 1 GM/50 ML BAG ONE (19:01)
[2022-09-19] MEDS: CEFTRIAXONE 1 GM in DEXTROSE 5%-WATER - 50 ML IVPB SCH (19:06)
[2022-09-20] MEDS: CEFTRIAXONE 1 GM in DEXTROSE 5%-WATER - 50 ML IVPB SCH (10:34)
[2022-09-20] MEDS: amLODIPine BESYLATE 10 MG TABLET (FP) PO SCH (10:34)
[2022-09-20] MEDS: ASPIRIN COATED 81 MG TABLET.EC PO SCH (10:34)
[2022-09-20] MEDS: METOPROLOL TARTRATE 50 MG TABLET (FP) PO SCH ×2 (10:34→21:30)
[2022-09-20] MEDS ORDERED: SODIUM CHLORIDE 250 ML IV PRN (11:47)
[2022-09-20] MEDS ORDERED: EPOETIN ALFA-EPBX 3,000 UNIT/ML VIAL SQ ONE (11:47)
[2022-09-20] MEDS: ACETAMINOPHEN 325 MG TABLET (FP) PO PRN (17:31)
[2022-09-21] MEDS ORDERED: CASPOFUNGIN ACETATE 70 MG in SODIUM CHLORIDE 250 ML IVPB ONE (13:00)
[2022-09-21] MEDS: amLODIPine BESYLATE 10 MG TABLET (FP) PO SCH (14:22)
[2022-09-21] MEDS: ASPIRIN COATED 81 MG TABLET.EC PO SCH (14:22)
[2022-09-21] MEDS: METOPROLOL TARTRATE 50 MG TABLET (FP) PO SCH ×2 (14:22→21:17)
[2022-09-21] MEDS: CEFTRIAXONE 1 GM in DEXTROSE 5%-WATER - 50 ML IVPB SCH (14:28)
[2022-09-22] MEDS ORDERED: methylPREDNISolone ACET (DEPO) 80 MG/1 ML VIAL IAR ONE (08:14)
[2022-09-22] MEDS ORDERED: LIDOCAINE HCL 1%, 10 MG/ML (20ML VIAL) SQ ONE (08:15)
[2022-09-22] MEDS: CEFTRIAXONE 1 GM in DEXTROSE 5%-WATER - 50 ML IVPB SCH (09:28)
[2022-09-22] MEDS: amLODIPine BESYLATE 10 MG TABLET (FP) PO SCH (09:30)
[2022-09-22] MEDS: ASPIRIN COATED 81 MG TABLET.EC PO SCH (09:31)
[2022-09-22] MEDS: METOPROLOL TARTRATE 50 MG TABLET (FP) PO SCH ×2 (09:31→23:12)
[2022-09-22] MEDS: CASPOFUNGIN ACETATE 50 MG in SODIUM CHLORIDE 250 ML IVPB SCH (14:04)
[2022-09-23] MEDS ORDERED: SODIUM CHLORIDE 250 ML IV PRN (10:47)
[2022-09-23] MEDS: CEFTRIAXONE 1 GM in DEXTROSE 5%-WATER - 50 ML IVPB SCH (13:03)
[2022-09-23] MEDS: ASPIRIN COATED 81 MG TABLET.EC PO SCH (13:04)
[2022-09-23] MEDS: amLODIPine BESYLATE 10 MG TABLET (FP) PO SCH (13:06)
[2022-09-23] MEDS: METOPROLOL TARTRATE 50 MG TABLET (FP) PO SCH (14:10)
[2022-09-23] MEDS: CASPOFUNGIN ACETATE 50 MG in SODIUM CHLORIDE 250 ML IVPB SCH (14:30)
[2022-09-24] MEDS: ACETAMINOPHEN 325 MG TABLET (FP) PO PRN ×2 (02:00→17:04)
[2022-09-24] MEDS: ASPIRIN COATED 81 MG TABLET.EC PO SCH (09:28)
[2022-09-24] MEDS: CEFTRIAXONE 1 GM in DEXTROSE 5%-WATER - 50 ML IVPB SCH (09:28)
[2022-09-24] MEDS: amLODIPine BESYLATE 10 MG TABLET (FP) PO SCH (09:28)
[2022-09-24] MEDS: CASPOFUNGIN ACETATE 50 MG in SODIUM CHLORIDE 250 ML IVPB SCH (14:07)
[2022-09-24] MEDS ORDERED: SODIUM CHLORIDE 250 ML IV PRN (17:59)
[2022-09-25] MEDS: amLODIPine BESYLATE 10 MG TABLET (FP) PO SCH (10:55)
[2022-09-25] MEDS: ASPIRIN COATED 81 MG TABLET.EC PO SCH (10:55)
[2022-09-25] MEDS ORDERED: BISACODYL 5 MG TABLET.DR (FP) PO ONE (13:20)
[2022-09-25] MEDS ORDERED: BISACODYL 10 MG SUPP.RECT PR PRN (13:25)
[2022-09-25] MEDS: DOCUSATE SODIUM 100 MG CAPSULE (FP) PO SCH ×2 (13:39→21:08)
[2022-09-25] MEDS: CASPOFUNGIN ACETATE 50 MG in SODIUM CHLORIDE 250 ML IVPB SCH (14:24)
[2022-09-25] MEDS ORDERED: LIDOCAINE HCL 1%, 10 MG/ML (20ML VIAL) ONE (16:16)
[2022-09-26] MEDS: ACETAMINOPHEN 325 MG TABLET (FP) PO PRN ×2 (02:41→09:33)
[2022-09-26 08:21] LABS: BASO % 0.7 % (0-2.0); EOS % 4.8 % (0-4.5); HEMATOCRIT 29.2 % (32.4-45.2); HEMOGLOBIN 10.2 GM/dL (10.7-15.3); LYMPH % 26.1 % (8-40); MCH 32.8 pg (25.7-33.7); MCHC 34.8 g/dl (32.0-36.0); MEAN CELL VOLUME 94.2 fl (80-96); MEAN PLT VOLUME 9.9 fl (7.5-11.1); MONO % 7.9 % (3.8-10.2); NEUT % 60.5 % (42.8-82.8); PLATELET COUNT 188 10^3/uL (134-434); RDW 14.2 % (11.6-15.6); WHITE BLOOD COUNT 6.6 K/mm3 (4.0-10.0)
[2022-09-26 08:38] LABS: CALCIUM 9.1 mg/dL (8.5-10.1)
[2022-09-26 08:39] LABS: ALBUMIN 3.2 g/dl (3.4-5.0)
[2022-09-26 08:40] LABS: CREATININE 3.4 mg/dL (0.55-1.3)
[2022-09-26 08:43] LABS: TOT PROT 6.7 g/dl (6.4-8.2)
[2022-09-26 08:44] LABS: BILIRUBIN,TOTAL 0.3 mg/dL (0.2-1)
[2022-09-26] MEDS: DOCUSATE SODIUM 100 MG CAPSULE (FP) PO SCH ×2 (09:02→21:41)
[2022-09-26] MEDS: ASPIRIN COATED 81 MG TABLET.EC PO SCH (09:02)
[2022-09-26] MEDS: amLODIPine BESYLATE 10 MG TABLET (FP) PO SCH (09:02)
[2022-09-26] MEDS: CASPOFUNGIN ACETATE 50 MG in SODIUM CHLORIDE 250 ML IVPB SCH (14:26)
[2022-09-27] MEDS: amLODIPine BESYLATE 10 MG TABLET (FP) PO SCH (09:35)
[2022-09-27] MEDS: ASPIRIN COATED 81 MG TABLET.EC PO SCH (09:35)
[2022-09-27] MEDS: DOCUSATE SODIUM 100 MG CAPSULE (FP) PO SCH ×2 (09:35→21:40)
[2022-09-27] MEDS: CASPOFUNGIN ACETATE 50 MG in SODIUM CHLORIDE 250 ML IVPB SCH (13:40)
[2022-09-28] MEDS: DOCUSATE SODIUM 100 MG CAPSULE (FP) PO SCH ×2 (09:53→21:25)
[2022-09-28] MEDS: ASPIRIN COATED 81 MG TABLET.EC PO SCH (09:53)
[2022-09-28] MEDS: amLODIPine BESYLATE 10 MG TABLET (FP) PO SCH (09:54)
[2022-09-28] MEDS: CASPOFUNGIN ACETATE 50 MG in SODIUM CHLORIDE 250 ML IVPB SCH (13:14)
[2022-09-28] MEDS: ACETAMINOPHEN 325 MG TABLET (FP) PO PRN (21:25)
[2022-09-29] MEDS ORDERED: FUROSEMIDE 40 MG TABLET (FP) PO ONE (08:03)
[2022-09-29 08:28] LABS: BASO % 0.7 % (0-2.0); EOS % 5.9 % (0-4.5); HEMATOCRIT 30.9 % (32.4-45.2); HEMOGLOBIN 10.4 GM/dL (10.7-15.3); LYMPH % 22.6 % (8-40); MCH 31.8 pg (25.7-33.7); MCHC 33.7 g/dl (32.0-36.0); MEAN CELL VOLUME 94.2 fl (80-96); MEAN PLT VOLUME 10.3 fl (7.5-11.1); MONO % 7.5 % (3.8-10.2); NEUT % 63.3 % (42.8-82.8); PLATELET COUNT 204 10^3/uL (134-434); RBC 3.28 M/mm3 (3.60-5.2); RDW 14.9 % (11.6-15.6); WHITE BLOOD COUNT 6.7 K/mm3 (4.0-10.0)
[2022-09-29 09:23] LABS: CALCIUM 9.4 mg/dL (8.5-10.1)
[2022-09-29 09:27] LABS: CREATININE 4.8 mg/dL (0.55-1.3); PHOSPHOROUS 5.2 mg/dL (2.5-4.9)
[2022-09-29] MEDS: ASPIRIN COATED 81 MG TABLET.EC PO SCH (09:40)
[2022-09-29] MEDS: DOCUSATE SODIUM 100 MG CAPSULE (FP) PO SCH ×2 (09:40→21:56)
[2022-09-29] MEDS: amLODIPine BESYLATE 10 MG TABLET (FP) PO SCH (09:40)
[2022-09-29] MEDS: CASPOFUNGIN ACETATE 50 MG in SODIUM CHLORIDE 250 ML IVPB SCH (14:09)
[2022-09-30] MEDS: DOCUSATE SODIUM 100 MG CAPSULE (FP) PO SCH ×2 (10:12→22:25)
[2022-09-30] MEDS: ASPIRIN COATED 81 MG TABLET.EC PO SCH (10:12)
[2022-09-30] MEDS: amLODIPine BESYLATE 10 MG TABLET (FP) PO SCH (10:12)
[2022-09-30] MEDS: CASPOFUNGIN ACETATE 50 MG in SODIUM CHLORIDE 250 ML IVPB SCH (14:51)
[2022-09-30] MEDS: ACETAMINOPHEN 325 MG TABLET (FP) PO PRN (22:26)
[2022-10-01] MEDS: DOCUSATE SODIUM 100 MG CAPSULE (FP) PO SCH ×2 (10:10→21:27)
[2022-10-01] MEDS: PANTOPRAZOLE 40 MG TABLET PO SCH (10:10)
[2022-10-01] MEDS: amLODIPine BESYLATE 10 MG TABLET (FP) PO SCH (10:10)
[2022-10-01] MEDS: ASPIRIN COATED 81 MG TABLET.EC PO SCH (10:10)
[2022-10-01] MEDS: CASPOFUNGIN ACETATE 50 MG in SODIUM CHLORIDE 250 ML IVPB SCH (13:13)
[2022-10-02] MEDS: amLODIPine BESYLATE 10 MG TABLET (FP) PO SCH (09:22)
[2022-10-02] MEDS: ASPIRIN COATED 81 MG TABLET.EC PO SCH (09:22)
[2022-10-02] MEDS: DOCUSATE SODIUM 100 MG CAPSULE (FP) PO SCH ×2 (09:22→21:15)
[2022-10-02] MEDS: PANTOPRAZOLE 40 MG TABLET PO SCH (09:22)
[2022-10-02] MEDS: CASPOFUNGIN ACETATE 50 MG in SODIUM CHLORIDE 250 ML IVPB SCH (13:31)
[2022-10-02] MEDS: FUROSEMIDE 40 MG TABLET (FP) PO SCH (18:13)
[2022-10-02] MEDS: ACETAMINOPHEN 325 MG TABLET (FP) PO PRN (21:16)
[2022-10-03] MEDS: PANTOPRAZOLE 40 MG TABLET PO SCH (11:12)
[2022-10-03] MEDS: ASPIRIN COATED 81 MG TABLET.EC PO SCH (11:12)
[2022-10-03] MEDS: FUROSEMIDE 40 MG TABLET (FP) PO SCH (11:12)
[2022-10-03] MEDS: amLODIPine BESYLATE 10 MG TABLET (FP) PO SCH (11:13)
[2022-10-03] MEDS: DOCUSATE SODIUM 100 MG CAPSULE (FP) PO SCH ×2 (11:13→22:30)
[2022-10-03] MEDS: CASPOFUNGIN ACETATE 50 MG in SODIUM CHLORIDE 250 ML IVPB SCH (13:10)
[2022-10-03] MEDS: ACETAMINOPHEN 325 MG TABLET (FP) PO PRN (22:30)
[2022-10-04 07:45] LABS: HEMATOCRIT 24.1 % (32.4-45.2); HEMOGLOBIN 8.5 GM/dL (10.7-15.3); MCH 33.5 pg (25.7-33.7); MCHC 35.1 g/dl (32.0-36.0); MEAN CELL VOLUME 95.4 fl (80-96); PLATELET COUNT 166 10^3/uL (134-434); RBC 2.53 M/mm3 (3.60-5.2); RDW 14.7 % (11.6-15.6); WHITE BLOOD COUNT 6.9 K/mm3 (4.0-10.0)
[2022-10-04 08:22] LABS: CALCIUM 9.2 mg/dL (8.5-10.1)
[2022-10-04 08:23] LABS: BLOOD UREA NITROGEN 74.5 mg/dL (7-18)
[2022-10-04 08:26] LABS: CREATININE 6.1 mg/dL (0.55-1.3)
[2022-10-04] MEDS: DOCUSATE SODIUM 100 MG CAPSULE (FP) PO SCH ×2 (10:00→21:10)
[2022-10-04] MEDS: PANTOPRAZOLE 40 MG TABLET PO SCH (14:50)
[2022-10-04] MEDS: ASPIRIN COATED 81 MG TABLET.EC PO SCH (14:50)
[2022-10-04] MEDS: amLODIPine BESYLATE 10 MG TABLET (FP) PO SCH (14:50)
[2022-10-04] MEDS: CASPOFUNGIN ACETATE 50 MG in SODIUM CHLORIDE 250 ML IVPB SCH (14:50)
[2022-10-04] MEDS: ACETAMINOPHEN 325 MG TABLET (FP) PO PRN (21:10)
[2022-10-05] MEDS: PANTOPRAZOLE 40 MG TABLET PO SCH (09:55)
[2022-10-05] MEDS: DOCUSATE SODIUM 100 MG CAPSULE (FP) PO SCH ×3 (09:55→21:14)
[2022-10-05] MEDS: ASPIRIN COATED 81 MG TABLET.EC PO SCH (09:55)
[2022-10-05] MEDS: amLODIPine BESYLATE 10 MG TABLET (FP) PO SCH (09:55)
[2022-10-05] MEDS: CASPOFUNGIN ACETATE 50 MG in SODIUM CHLORIDE 250 ML IVPB SCH (14:18)
[2022-10-05] MEDS ORDERED: SODIUM CHLORIDE 250 ML IV PRN (15:08)
[2022-10-05] MEDS: ACETAMINOPHEN 325 MG TABLET (FP) PO PRN (17:58)
[2022-10-05] MEDS ORDERED: FUROSEMIDE 40 MG/4 ML INJECTABLE VIAL IVPUSH ONE (20:46)
[2022-10-06] MEDS: PANTOPRAZOLE 40 MG TABLET PO SCH (10:25)
[2022-10-06] MEDS: amLODIPine BESYLATE 10 MG TABLET (FP) PO SCH (10:25)
[2022-10-06] MEDS: DOCUSATE SODIUM 100 MG CAPSULE (FP) PO SCH ×3 (10:25→21:10)
[2022-10-06 11:10] LABS: ALBUMIN 2.6 g/dl (3.4-5.0); BLOOD UREA NITROGEN 79.3 mg/dL (7-18); CALCIUM 9.3 mg/dL (8.5-10.1)
[2022-10-06 11:11] LABS: MAGNESIUM 2.1 mg/dL (1.8-2.4)
[2022-10-06 11:13] LABS: PHOSPHOROUS 4.6 mg/dL (2.5-4.9)
[2022-10-06 11:14] LABS: CREATININE 6.3 mg/dL (0.55-1.3)
[2022-10-06 11:16] LABS: BILIRUBIN,TOTAL 0.4 mg/dL (0.2-1); TOT PROT 6.6 g/dl (6.4-8.2)
[2022-10-06] MEDS: ASPIRIN COATED 81 MG TABLET.EC PO SCH (11:36)
[2022-10-06 13:00] LABS: BASO % 0.2 % (0-2.0); EOS % 1.5 % (0-4.5); HEMATOCRIT 24.9 % (32.4-45.2); HEMOGLOBIN 8.2 GM/dL (10.7-15.3); LYMPH % 7.6 % (8-40); MCH 31.7 pg (25.7-33.7); MCHC 32.8 g/dl (32.0-36.0); MEAN CELL VOLUME 96.6 fl (80-96); MEAN PLT VOLUME 10.1 fl (7.5-11.1); MONO % 5.3 % (3.8-10.2); NEUT % 85.4 % (42.8-82.8); PLATELET COUNT 189 10^3/uL (134-434); RBC 2.58 M/mm3 (3.60-5.2); RDW 14.2 % (11.6-15.6); WHITE BLOOD COUNT 13.7 K/mm3 (4.0-10.0)
[2022-10-06] MEDS ORDERED: EPOETIN ALFA-EPBX 2,000 UNIT/ML VIAL SQ ONE (18:00)
[2022-10-06] MEDS ORDERED: EPOETIN ALFA-EPBX 10,000 UNIT/ML VIAL SQ ONE (19:00)
[2022-10-06] MEDS: ACETAMINOPHEN 325 MG TABLET (FP) PO PRN (20:16)
[2022-10-06] MEDS: CASPOFUNGIN ACETATE 50 MG in SODIUM CHLORIDE 250 ML IVPB SCH (20:17)
[2022-10-07 08:24] LABS: BASO % 0.5 % (0-2.0); EOS % 1.9 % (0-4.5); HEMATOCRIT 25.1 % (32.4-45.2); HEMOGLOBIN 8.7 GM/dL (10.7-15.3); LYMPH % 7.6 % (8-40); MCH 33.1 pg (25.7-33.7); MCHC 34.6 g/dl (32.0-36.0); MEAN CELL VOLUME 95.5 fl (80-96); MEAN PLT VOLUME 9.2 fl (7.5-11.1); MONO % 6.2 % (3.8-10.2); NEUT % 83.8 % (42.8-82.8); PLATELET COUNT 239 10^3/uL (134-434); RBC 2.63 M/mm3 (3.60-5.2); RDW 14.6 % (11.6-15.6); WHITE BLOOD COUNT 10.7 K/mm3 (4.0-10.0)
[2022-10-07 08:51] LABS: CHLORIDE 102 mmol/L (98-107); SODIUM 140 mmol/L (136-145)
[2022-10-07 09:03] LABS: CALCIUM 9.4 mg/dL (8.5-10.1)
[2022-10-07 09:04] LABS: ALBUMIN 2.7 g/dl (3.4-5.0); ANION GAP 10 MMOL/L (8-16); CO2 27 mmol/L (21-32); GLUCOSE,RANDOM 141 mg/dL (74-106)
[2022-10-07 09:05] LABS: BILIRUBIN,TOTAL 0.5 mg/dL (0.2-1)
[2022-10-07 09:06] LABS: SGOT/AST < 3 U/L (15-37); SGPT/ALT 8 U/L (13-61); TOT PROT 6.9 g/dl (6.4-8.2)
[2022-10-07 09:07] LABS: ALK PHOS 122 U/L (45-117)
[2022-10-07 09:18] LABS: BLOOD UREA NITROGEN 40.9 mg/dL (7-18)
[2022-10-07] MEDS: PANTOPRAZOLE 40 MG TABLET PO SCH (10:07)
[2022-10-07] MEDS: DOCUSATE SODIUM 100 MG CAPSULE (FP) PO SCH ×2 (10:07→22:00)
[2022-10-07] MEDS: amLODIPine BESYLATE 10 MG TABLET (FP) PO SCH (10:07)
[2022-10-07] MEDS: ASPIRIN COATED 81 MG TABLET.EC PO SCH (10:07)
[2022-10-07] MEDS ORDERED: VANCOMYCIN/WATER FOR INJ (PEG) 1,000 MG/200 ML BAG IVPB ONE (10:38)
[2022-10-07] MEDS ORDERED: GENTAMICIN 80 MG PREMIXED IVPB 80 MG/100 ML BAG IVPB ONE (10:39)
[2022-10-07] MEDS: CASPOFUNGIN ACETATE 50 MG in SODIUM CHLORIDE 250 ML IVPB SCH (15:25)
[2022-10-07] MEDS: ACETAMINOPHEN 325 MG TABLET (FP) PO PRN (22:03)
[2022-10-08 08:14] LABS: BASO % 0.5 % (0-2.0); EOS % 5.2 % (0-4.5); HEMATOCRIT 23.6 % (32.4-45.2); HEMOGLOBIN 7.9 GM/dL (10.7-15.3); MCHC 33.2 g/dl (32.0-36.0); MEAN CELL VOLUME 96.3 fl (80-96); MEAN PLT VOLUME 9.3 fl (7.5-11.1); MONO % 5.2 % (3.8-10.2); NEUT % 76.1 % (42.8-82.8); PLATELET COUNT 256 10^3/uL (134-434); RBC 2.45 M/mm3 (3.60-5.2); RDW 14.1 % (11.6-15.6); WHITE BLOOD COUNT 10.4 K/mm3 (4.0-10.0)
[2022-10-08 08:37] LABS: ALBUMIN 2.7 g/dl (3.4-5.0); BLOOD UREA NITROGEN 53.3 mg/dL (7-18); CALCIUM 9.8 mg/dL (8.5-10.1)
[2022-10-08 08:40] LABS: CREATININE 4.7 mg/dL (0.55-1.3)
[2022-10-08 08:42] LABS: BILIRUBIN,TOTAL 0.7 mg/dL (0.2-1)
[2022-10-08] MEDS: amLODIPine BESYLATE 10 MG TABLET (FP) PO SCH (10:34)
[2022-10-08] MEDS: ASPIRIN COATED 81 MG TABLET.EC PO SCH (10:34)
[2022-10-08] MEDS: DOCUSATE SODIUM 100 MG CAPSULE (FP) PO SCH ×2 (10:34→21:32)
[2022-10-08] MEDS: PANTOPRAZOLE 40 MG TABLET PO SCH (10:34)
[2022-10-08] MEDS: metoPROLOL SUCCINATE 25 MG TAB.SR.24H (FP) PO SCH (11:47)
[2022-10-08] MEDS ORDERED: SODIUM CHLORIDE 250 ML IV PRN (12:17)
[2022-10-08] MEDS ORDERED: EPOETIN ALFA-EPBX 10,000 UNIT/ML VIAL SQ ONE (13:00)
[2022-10-08] MEDS: CASPOFUNGIN ACETATE 50 MG in SODIUM CHLORIDE 250 ML IVPB SCH ×2 (14:00→17:35)
[2022-10-09] MEDS: amLODIPine BESYLATE 10 MG TABLET (FP) PO SCH (10:45)
[2022-10-09] MEDS: PANTOPRAZOLE 40 MG TABLET PO SCH (10:45)
[2022-10-09] MEDS: ASPIRIN COATED 81 MG TABLET.EC PO SCH (10:45)
[2022-10-09] MEDS: DOCUSATE SODIUM 100 MG CAPSULE (FP) PO SCH ×2 (10:45→21:40)
[2022-10-09] MEDS: metoPROLOL SUCCINATE 25 MG TAB.SR.24H (FP) PO SCH (10:45)
[2022-10-09] MEDS: CASPOFUNGIN ACETATE 50 MG in SODIUM CHLORIDE 250 ML IVPB SCH (15:11)
[2022-10-09] MEDS: ACETAMINOPHEN 325 MG TABLET (FP) PO PRN (21:37)
[2022-10-10 08:42] LABS: BASO % 0.6 % (0-2.0); HEMATOCRIT 26.2 % (32.4-45.2); HEMOGLOBIN 8.8 GM/dL (10.7-15.3); LYMPH % 13.7 % (8-40); MCH 32.1 pg (25.7-33.7); MCHC 33.6 g/dl (32.0-36.0); MEAN CELL VOLUME 95.6 fl (80-96); MEAN PLT VOLUME 9.2 fl (7.5-11.1); MONO % 6.2 % (3.8-10.2); NEUT % 72.5 % (42.8-82.8); PLATELET COUNT 341 10^3/uL (134-434); RBC 2.73 M/mm3 (3.60-5.2); RDW 14.1 % (11.6-15.6); WHITE BLOOD COUNT 8.8 K/mm3 (4.0-10.0)
[2022-10-10 08:59] LABS: BLOOD UREA NITROGEN 35.8 mg/dL (7-18)
[2022-10-10 09:03] LABS: CREATININE 3.8 mg/dL (0.55-1.3)
[2022-10-10 09:04] LABS: BILIRUBIN,TOTAL 0.4 mg/dL (0.2-1); TOT PROT 7.6 g/dl (6.4-8.2)
[2022-10-10] MEDS: amLODIPine BESYLATE 10 MG TABLET (FP) PO SCH (09:52)
[2022-10-10] MEDS: metoPROLOL SUCCINATE 25 MG TAB.SR.24H (FP) PO SCH (09:52)
[2022-10-10] MEDS: DOCUSATE SODIUM 100 MG CAPSULE (FP) PO SCH ×2 (09:52→21:15)
[2022-10-10] MEDS: ASPIRIN COATED 81 MG TABLET.EC PO SCH (09:52)
[2022-10-10] MEDS: PANTOPRAZOLE 40 MG TABLET PO SCH (09:52)
[2022-10-10] MEDS: CASPOFUNGIN ACETATE 50 MG in SODIUM CHLORIDE 250 ML IVPB SCH (14:21)
[2022-10-10] MEDS: ACETAMINOPHEN 325 MG TABLET (FP) PO PRN (21:15)
[2022-10-11] MEDS ORDERED: EPOETIN ALFA-EPBX 10,000 UNIT/ML VIAL IVPUSH ONE (09:00)
[2022-10-11 09:53] LABS: HEMATOCRIT 22.3 % (32.4-45.2); HEMOGLOBIN 7.4 GM/dL (10.7-15.3); MCH 31.8 pg (25.7-33.7); MCHC 32.9 g/dl (32.0-36.0); MEAN CELL VOLUME 96.4 fl (80-96); MEAN PLT VOLUME 9.1 fl (7.5-11.1); PLATELET COUNT 304 10^3/uL (134-434); RBC 2.32 M/mm3 (3.60-5.2); RDW 14.2 % (11.6-15.6); WHITE BLOOD COUNT 9.7 K/mm3 (4.0-10.0)
[2022-10-11 10:14] LABS: CALCIUM 9.7 mg/dL (8.5-10.1)
[2022-10-11 10:15] LABS: BLOOD UREA NITROGEN 44.8 mg/dL (7-18)
[2022-10-11 10:18] LABS: CREATININE 4.3 mg/dL (0.55-1.3)
[2022-10-11] MEDS: amLODIPine BESYLATE 10 MG TABLET (FP) PO SCH (12:09)
[2022-10-11] MEDS: DOCUSATE SODIUM 100 MG CAPSULE (FP) PO SCH ×2 (12:09→21:57)
[2022-10-11] MEDS: ASPIRIN COATED 81 MG TABLET.EC PO SCH (12:09)
[2022-10-11] MEDS: metoPROLOL SUCCINATE 25 MG TAB.SR.24H (FP) PO SCH (12:10)
[2022-10-11] MEDS: PANTOPRAZOLE 40 MG TABLET PO SCH (12:10)
[2022-10-11] MEDS: CASPOFUNGIN ACETATE 50 MG in SODIUM CHLORIDE 250 ML IVPB SCH (14:14)
[2022-10-11] MEDS: ACETAMINOPHEN 325 MG TABLET (FP) PO PRN (21:58)
[2022-10-12] MEDS: PANTOPRAZOLE 40 MG TABLET PO SCH (09:31)
[2022-10-12] MEDS: DOCUSATE SODIUM 100 MG CAPSULE (FP) PO SCH ×2 (09:31→21:23)
[2022-10-12] MEDS: amLODIPine BESYLATE 10 MG TABLET (FP) PO SCH (09:31)
[2022-10-12] MEDS: metoPROLOL SUCCINATE 25 MG TAB.SR.24H (FP) PO SCH (09:31)
[2022-10-12] MEDS: ASPIRIN COATED 81 MG TABLET.EC PO SCH (09:32)
[2022-10-12] MEDS: CASPOFUNGIN ACETATE 50 MG in SODIUM CHLORIDE 250 ML IVPB SCH (13:55)
[2022-10-12] MEDS: ACETAMINOPHEN 325 MG TABLET (FP) PO PRN (21:27)
[2022-10-13] MEDS ORDERED: PROPOFOL 20 ML ONE (10:28)
[2022-10-13] MEDS ORDERED: FENTANYL CITRATE/PF 50 MCG/ML VIAL ONE (10:30)
[2022-10-13] MEDS ORDERED: MIDAZOLAM HCL 2 MG/2 ML SINGLE DOSE VIAL ONE (10:30)
[2022-10-13] MEDS ORDERED: ONDANSETRON 4 MG/2 ML VIAL IVPUSH PRN ×2 (10:54→13:52)
[2022-10-13] MEDS ORDERED: LIDOCAINE HCL 1%, 10 MG/ML (20ML VIAL) ONE (11:03)
[2022-10-13] MEDS: DOCUSATE SODIUM 100 MG CAPSULE (FP) PO SCH ×2 (11:18→21:34)
[2022-10-13] MEDS: metoPROLOL SUCCINATE 25 MG TAB.SR.24H (FP) PO SCH (11:18)
[2022-10-13] MEDS: PANTOPRAZOLE 40 MG TABLET PO SCH (11:19)
[2022-10-13] MEDS: ASPIRIN COATED 81 MG TABLET.EC PO SCH (11:19)
[2022-10-13] MEDS: amLODIPine BESYLATE 10 MG TABLET (FP) PO SCH (11:19)
[2022-10-13] MEDS ORDERED: ceFAZolin 2 GRAM PREMIX BAG IVPB ONE (12:53)
[2022-10-13] MEDS ORDERED: ceFAZolin SODIUM 1 GM VIAL ONE (13:01)
[2022-10-13] MEDS ORDERED: SODIUM CHLORIDE 0.9% P/F 10 ML VIAL IJ ONE (13:01)
[2022-10-13] MEDS ORDERED: LIDOCAINE HCL 1%, 10 MG/ML (50 mL VIAL) INF ONE (13:06)
[2022-10-13] MEDS ORDERED: ACETAMINOPHEN 325 MG TABLET (FP) PO PRN (13:52)
[2022-10-13] MEDS ORDERED: BISACODYL 10 MG SUPP.RECT PR PRN (13:52)
[2022-10-13] MEDS: CASPOFUNGIN ACETATE 50 MG in SODIUM CHLORIDE 250 ML IVPB SCH (14:30)
[2022-10-13 16:03] VITALS: RESP 18
[2022-10-14] MEDS ORDERED: PANTOPRAZOLE 40 MG TABLET PO SCH (10:00)
[2022-10-14] MEDS ORDERED: metoPROLOL SUCCINATE 25 MG TAB.SR.24H (FP) PO SCH (10:00)
[2022-10-14] MEDS ORDERED: amLODIPine BESYLATE 10 MG TABLET (FP) PO SCH (10:00)
[2022-10-14] MEDS ORDERED: ASPIRIN COATED 81 MG TABLET.EC PO SCH (10:00)
[2022-10-14] MEDS ORDERED: SODIUM CHLORIDE 250 ML IV PRN (12:33)
[2022-10-14] MEDS ORDERED: EPOETIN ALFA-EPBX 10,000 UNIT/ML VIAL SQ ONE (12:45)
[2022-10-14] MEDS: CASPOFUNGIN ACETATE 50 MG in SODIUM CHLORIDE 250 ML IVPB SCH (13:39)
[2022-10-14 15:51] LABS: HEMATOCRIT 21.7 % (32.4-45.2); HEMOGLOBIN 7.1 GM/dL (10.7-15.3); MCH 31.9 pg (25.7-33.7); MCHC 32.9 g/dl (32.0-36.0); MEAN PLT VOLUME 9.6 fl (7.5-11.1); PLATELET COUNT 355 10^3/uL (134-434); RBC 2.24 M/mm3 (3.60-5.2); RDW 14.5 % (11.6-15.6); WHITE BLOOD COUNT 10.8 K/mm3 (4.0-10.0)
[2022-10-14 16:10] LABS: ALBUMIN 2.6 g/dl (3.4-5.0); BLOOD UREA NITROGEN 50.7 mg/dL (7-18)
[2022-10-14 16:13] LABS: CREATININE 4.6 mg/dL (0.55-1.3)
[2022-10-14 16:14] LABS: TOT PROT 6.8 g/dl (6.4-8.2)
[2022-10-14 16:15] LABS: BILIRUBIN,TOTAL 0.3 mg/dL (0.2-1)
[2022-10-14 16:56] VITALS: TEMP 98
[2022-10-14] MEDS: DOCUSATE SODIUM 100 MG CAPSULE (FP) PO SCH (17:47)
[2022-10-14 17:57] VITALS: BP 128/59; PULSE 68
== END 2022-10-14 21:50 | disposition home health service (06) | DRG 698 ==
LOC: JER 14:53 → JERBED 23:08 → J4W 09-19 23:17
PROVIDERS: ADMIT Internal Medicine; ATTEND Family Medicine
PROC: 02HV33Z Insertion of Infusion Device into Superior Vena Cava, Percutaneous Approach (ICD-10-PCS; 2022-10-06)
PROC: B518YZA Fluoroscopy of Superior Vena Cava using Other Contrast, Guidance (ICD-10-PCS; 2022-10-13)
PROC: B548ZZA Ultrasonography of Superior Vena Cava, Guidance (ICD-10-PCS; 2022-10-13)
PROC: 02H633Z Insertion of Infusion Device into Right Atrium, Percutaneous Approach (ICD-10-PCS; principal; 2022-10-13 12:00)
PROC: 5A1D70Z Performance of Urinary Filtration, Intermittent, Less than 6 Hours Per Day (ICD-10-PCS; 2022-10-14)
DX: T82.41XA Breakdown (mechanical) of vascular dialysis catheter, initial encounter (principal); N18.6 End stage renal disease; I13.0 Hypertensive heart and chronic kidney disease with heart failure and stage 1 through stage 4 chronic kidney disease, or unspecified chronic kidney disease; N39.0 Urinary tract infection, site not specified; E87.1 Hypo-osmolality and hyponatremia; R78.81 Bacteremia; I50.20 Unspecified systolic (congestive) heart failure; B49 Unspecified mycosis; E11.9 Type 2 diabetes mellitus without complications; D64.9 Anemia, unspecified; E78.5 Hyperlipidemia, unspecified; E03.9 Hypothyroidism, unspecified; E87.5 Hyperkalemia; K59.00 Constipation, unspecified; T82.9XXA Unspecified complication of cardiac and vascular prosthetic device, implant and graft, initial encounter; Y83.9 Surgical procedure, unspecified as the cause of abnormal reaction of the patient, or of later complication, without mention of misadventure at the time of the procedure
CPT/HCPCS: 0241U-QW; 36415; 71045-TC-FY; 71250-TC; 76000-TC-FY; 80048; 80053; 80061; 81003; 82803; 82962; 83036; 83735; 83880; 84100; 84443; 84484; 85025; 85027; 85610; 85730; 86803; 87040; 87086; 87106; 87186; 87340; 93005; 93010; 93306-TC; 94760; 94761; 97116-GP; 97162-GP; 99285-25; C1750; J0637; J1644; Q5106

== ENCOUNTER 2022-10-19 13:40 | Inpatient (IN) | payer OTHER ==
[2022-10-19 17:45] LABS: BASO % 0.5 % (0-2.0); EOS % 4.2 % (0-4.5); HEMATOCRIT 21.8 % (32.4-45.2); HEMOGLOBIN 7.2 GM/dL (10.7-15.3); LYMPH % 12.3 % (8-40); MCHC 32.9 g/dl (32.0-36.0); MEAN CELL VOLUME 97.1 fl (80-96); MEAN PLT VOLUME 8.9 fl (7.5-11.1); MONO % 8.5 % (3.8-10.2); NEUT % 74.5 % (42.8-82.8); PLATELET COUNT 268 10^3/uL (134-434); RBC 2.25 M/mm3 (3.60-5.2); RDW 15.6 % (11.6-15.6); WHITE BLOOD COUNT 9.8 K/mm3 (4.0-10.0)
[2022-10-19 17:52] LABS: INR 1.39 (0.83-1.09)
[2022-10-19 17:54] LABS: ACTIVATED PTT 42.7 SECONDS (25.2-36.5)
[2022-10-19 18:04] LABS: ALBUMIN 2.8 g/dl (3.4-5.0); CALCIUM 9.1 mg/dL (8.5-10.1); MAGNESIUM 2.2 mg/dL (1.8-2.4)
[2022-10-19 18:07] LABS: CREATININE 3.4 mg/dL (0.55-1.3); PHOSPHOROUS 3.4 mg/dL (2.5-4.9)
[2022-10-19 18:09] LABS: BILIRUBIN,TOTAL 0.4 mg/dL (0.2-1); TOT PROT 6.9 g/dl (6.4-8.2)
[2022-10-19 18:17] LABS: BLOOD UREA NITROGEN 20.6 mg/dL (7-18)
[2022-10-20] MEDS ORDERED: ACETAMINOPHEN 325 MG TABLET (FP) PO PRN (00:14)
[2022-10-20] MEDS ORDERED: ACETAMINOPHEN 325 MG TABLET (FP) ONE (00:21)
[2022-10-20 08:07] LABS: EOS % 4.6 % (0-4.5); HEMATOCRIT 21.1 % (32.4-45.2); LYMPH % 14.6 % (8-40); MCHC 33.3 g/dl (32.0-36.0); MEAN CELL VOLUME 96.2 fl (80-96); MEAN PLT VOLUME 9.3 fl (7.5-11.1); MONO % 7.2 % (3.8-10.2); NEUT % 72.6 % (42.8-82.8); PLATELET COUNT 288 10^3/uL (134-434); RBC 2.19 M/mm3 (3.60-5.2); RDW 15.4 % (11.6-15.6); WHITE BLOOD COUNT 8.5 K/mm3 (4.0-10.0)
[2022-10-20 08:44] LABS: BLOOD UREA NITROGEN 26.6 mg/dL (7-18)
[2022-10-20 08:46] LABS: ALBUMIN 2.7 g/dl (3.4-5.0)
[2022-10-20 08:48] LABS: CREATININE 3.8 mg/dL (0.55-1.3)
[2022-10-20 08:49] LABS: BILIRUBIN,TOTAL 0.4 mg/dL (0.2-1); TOT PROT 6.8 g/dl (6.4-8.2)
[2022-10-20 13:01] VITALS: BMI 28.9
[2022-10-20] MEDS ORDERED: SODIUM CHLORIDE 250 ML IV PRN (13:27)
[2022-10-20] MEDS ORDERED: LIDOCAINE HCL 1%, 10 MG/ML (20ML VIAL) ONE (18:21)
[2022-10-20] MEDS ORDERED: MIDAZOLAM HCL 2 MG/2 ML SINGLE DOSE VIAL ONE (18:22)
[2022-10-20] MEDS ORDERED: FENTANYL CITRATE/PF 50 MCG/ML VIAL ONE (18:22)
[2022-10-20] MEDS ORDERED: PROPOFOL 20 ML ONE (18:23)
[2022-10-20] MEDS ORDERED: FENTANYL CITRATE/PF 50 MCG/ML VIAL IVPUSH PRN ×2 (18:26→19:41)
[2022-10-20] MEDS ORDERED: ONDANSETRON 4 MG/2 ML VIAL IVPUSH PRN ×2 (18:26→19:41)
[2022-10-20] MEDS ORDERED: ceFAZolin SODIUM 1 GM VIAL IVPB ONE ×2 (18:55→18:57)
[2022-10-20] MEDS ORDERED: ONDANSETRON 4 MG/2 ML VIAL ONE (18:57)
[2022-10-20] MEDS ORDERED: ceFAZolin SODIUM 1 GM VIAL ONE (18:57)
[2022-10-20] MEDS ORDERED: LIDOCAINE HCL 1%, 10 MG/ML (20ML VIAL) INF ONE (19:05)
[2022-10-20] MEDS: ATORVASTATIN CA 20 MG TABLET (FP) PO SCH (22:26)
[2022-10-21] MEDS: INSULIN SLIDING SCALE (NOVOLOG) 1 VIAL SQ SCH ×3 (06:03→17:33)
[2022-10-21] MEDS ORDERED: SODIUM CHLORIDE 250 ML IV PRN (08:29)
[2022-10-21 09:56] LABS: HEMATOCRIT 20.9 % (32.4-45.2); MCH 31.8 pg (25.7-33.7); MCHC 32.9 g/dl (32.0-36.0); MEAN CELL VOLUME 96.5 fl (80-96); MEAN PLT VOLUME 8.9 fl (7.5-11.1); PLATELET COUNT 306 10^3/uL (134-434); RBC 2.17 M/mm3 (3.60-5.2); RDW 15.5 % (11.6-15.6); WHITE BLOOD COUNT 7.8 K/mm3 (4.0-10.0)
[2022-10-21 10:03] LABS: HEMOGLOBIN 6.9 GM/dL (10.7-15.3)
[2022-10-21 10:24] LABS: BLOOD UREA NITROGEN 26.8 mg/dL (7-18); CALCIUM 8.6 mg/dL (8.5-10.1)
[2022-10-21] MEDS ORDERED: EPOETIN ALFA-EPBX 10,000 UNIT/ML VIAL SQ ONE ×2 (11:00→13:27)
[2022-10-21] MEDS: metoPROLOL SUCCINATE 25 MG TAB.SR.24H (FP) PO SCH (13:03)
[2022-10-21] MEDS: amLODIPine BESYLATE 10 MG TABLET (FP) PO SCH (13:04)
[2022-10-21] MEDS: ASPIRIN 81 MG CHEWABLE TABLETS PO SCH (13:04)
[2022-10-21] MEDS: HEPARIN NA (PORCINE) 5,000 UNITS/ML 1ML VIAL SQ SCH (21:41)
[2022-10-21] MEDS: ATORVASTATIN CA 20 MG TABLET (FP) PO SCH (21:42)
[2022-10-21] MEDS: ACETAMINOPHEN 325 MG TABLET (FP) PO PRN (21:43)
[2022-10-22] MEDS: INSULIN SLIDING SCALE (NOVOLOG) 1 VIAL SQ SCH ×4 (00:26→17:19)
[2022-10-22 09:45] LABS: HEMATOCRIT 35.1 % (32.4-45.2); HEMOGLOBIN 11.8 GM/dL (10.7-15.3); MCH 30.9 pg (25.7-33.7); MCHC 33.5 g/dl (32.0-36.0); MEAN CELL VOLUME 92.3 fl (80-96); MEAN PLT VOLUME 8.3 fl (7.5-11.1); PLATELET COUNT 278 10^3/uL (134-434); RBC 3.81 M/mm3 (3.60-5.2); RDW 18.5 % (11.6-15.6); WHITE BLOOD COUNT 9.1 K/mm3 (4.0-10.0)
[2022-10-22 10:53] VITALS: RESP 18
[2022-10-22] MEDS: ASPIRIN 81 MG CHEWABLE TABLETS PO SCH (10:55)
[2022-10-22] MEDS: metoPROLOL SUCCINATE 25 MG TAB.SR.24H (FP) PO SCH (10:55)
[2022-10-22] MEDS: amLODIPine BESYLATE 10 MG TABLET (FP) PO SCH (10:56)
[2022-10-22] MEDS: HEPARIN NA (PORCINE) 5,000 UNITS/ML 1ML VIAL SQ SCH ×2 (10:56→21:19)
[2022-10-22] MEDS: ATORVASTATIN CA 20 MG TABLET (FP) PO SCH (21:19)
[2022-10-22] MEDS: ACETAMINOPHEN 325 MG TABLET (FP) PO PRN (21:20)
[2022-10-23] MEDS: INSULIN SLIDING SCALE (NOVOLOG) 1 VIAL SQ SCH ×4 (06:46→17:08)
[2022-10-23] MEDS ORDERED: EPOETIN ALFA-EPBX 10,000 UNIT/ML VIAL IVPUSH ONE (09:45)
[2022-10-23] MEDS ORDERED: SODIUM CHLORIDE 250 ML IV PRN (09:45)
[2022-10-23] MEDS: ASPIRIN 81 MG CHEWABLE TABLETS PO SCH (10:00)
[2022-10-23] MEDS: metoPROLOL SUCCINATE 25 MG TAB.SR.24H (FP) PO SCH (10:00)
[2022-10-23] MEDS: HEPARIN NA (PORCINE) 5,000 UNITS/ML 1ML VIAL SQ SCH ×2 (10:00→21:45)
[2022-10-23] MEDS: amLODIPine BESYLATE 10 MG TABLET (FP) PO SCH (10:00)
[2022-10-23 10:06] LABS: MCH 30.8 pg (25.7-33.7); MCHC 33.4 g/dl (32.0-36.0); MEAN CELL VOLUME 92.1 fl (80-96); MEAN PLT VOLUME 9.2 fl (7.5-11.1); PLATELET COUNT 300 10^3/uL (134-434); RBC 3.26 M/mm3 (3.60-5.2); RDW 18.2 % (11.6-15.6); WHITE BLOOD COUNT 7.9 K/mm3 (4.0-10.0)
[2022-10-23 10:29] LABS: CHLORIDE 100 mmol/L (98-107); SODIUM 138 mmol/L (136-145)
[2022-10-23 10:30] LABS: CALCIUM 8.9 mg/dL (8.5-10.1)
[2022-10-23 10:32] LABS: ALBUMIN 2.6 g/dl (3.4-5.0); ANION GAP 8 MMOL/L (8-16); BLOOD UREA NITROGEN 21.6 mg/dL (7-18); CO2 30 mmol/L (21-32); GLUCOSE,RANDOM 174 mg/dL (74-106)
[2022-10-23 10:34] LABS: CREATININE 3.4 mg/dL (0.55-1.3); SGOT/AST 9 U/L (15-37)
[2022-10-23 10:35] LABS: TOT PROT 6.7 g/dl (6.4-8.2)
[2022-10-23 10:36] LABS: BILIRUBIN,TOTAL 0.3 mg/dL (0.2-1)
[2022-10-23 10:37] LABS: ALK PHOS 126 U/L (45-117); SGPT/ALT < 6 U/L (13-61)
[2022-10-23] MEDS: ATORVASTATIN CA 20 MG TABLET (FP) PO SCH (21:45)
[2022-10-24] MEDS: INSULIN SLIDING SCALE (NOVOLOG) 1 VIAL SQ SCH ×3 (00:25→11:59)
[2022-10-24 06:03] VITALS: PULSE 72; TEMP 98
[2022-10-24 06:04] VITALS: BP 136/60
[2022-10-24] MEDS: metoPROLOL SUCCINATE 25 MG TAB.SR.24H (FP) PO SCH (10:17)
[2022-10-24] MEDS: amLODIPine BESYLATE 10 MG TABLET (FP) PO SCH (10:17)
[2022-10-24] MEDS: ASPIRIN 81 MG CHEWABLE TABLETS PO SCH (10:17)
[2022-10-24] MEDS: HEPARIN NA (PORCINE) 5,000 UNITS/ML 1ML VIAL SQ SCH (10:18)
== END 2022-10-24 14:00 | disposition home or self-care (01) | DRG 698 ==
LOC: JER 13:40 → JERBED 17:06 → J4W 10-20 12:27 → OBSVTOIN 10-21 09:38
PROVIDERS: ADMIT Internal Medicine; ATTEND Family Medicine
PROC: 0J2SXYZ Change Other Device in Head and Neck Subcutaneous Tissue and Fascia, External Approach (ICD-10-PCS; principal; 2022-10-20 18:00)
PROC: 30233N1 Transfusion of Nonautologous Red Blood Cells into Peripheral Vein, Percutaneous Approach (ICD-10-PCS; 2022-10-21)
PROC: 5A1D70Z Performance of Urinary Filtration, Intermittent, Less than 6 Hours Per Day (ICD-10-PCS; 2022-10-21)
PROC: 5A1D70Z Performance of Urinary Filtration, Intermittent, Less than 6 Hours Per Day (ICD-10-PCS; 2022-10-23)
DX: T82.41XA Breakdown (mechanical) of vascular dialysis catheter, initial encounter (principal); N18.6 End stage renal disease; I13.2 Hypertensive heart and chronic kidney disease with heart failure and with stage 5 chronic kidney disease, or end stage renal disease; I50.32 Chronic diastolic (congestive) heart failure; Y84.8 Other medical procedures as the cause of abnormal reaction of the patient, or of later complication, without mention of misadventure at the time of the procedure; E11.22 Type 2 diabetes mellitus with diabetic chronic kidney disease; E78.5 Hyperlipidemia, unspecified; D64.9 Anemia, unspecified; E03.9 Hypothyroidism, unspecified; T82.868A Thrombosis due to vascular prosthetic devices, implants and grafts, initial encounter; I05.0 Rheumatic mitral stenosis; E66.9 Obesity, unspecified; Z68.29 Body mass index [BMI] 29.0-29.9, adult; Z99.2 Dependence on renal dialysis; Z88.0 Allergy status to penicillin; Z91.89 Other specified personal risk factors, not elsewhere classified
CPT/HCPCS: 0241U-QW; 36415; 36430; 71045-TC-FY; 76000-TC-FY; 80048; 80053; 82962; 83735; 84100; 84484; 85025; 85027; 85610; 85730; 86803; 86850; 86900; 86901; 86922; 87340; 93005; 93010; 93971; 94760; 99285-25; C1750; G0378; J1644; P9058; Q5106

== ENCOUNTER 2023-05-12 15:16 | Inpatient (IN) | payer OTHER ==
[2023-05-12 17:56] LABS: CHLORIDE 103 mmol/L (98-107); SODIUM 128 mmol/L (136-145)
[2023-05-12 17:59] LABS: CALCIUM 9.4 mg/dL (8.5-10.1); CO2 24 mmol/L (21-32); GLUCOSE,RANDOM 88 mg/dL (74-106); MAGNESIUM 2.7 mg/dL (1.8-2.4)
[2023-05-12 18:01] LABS: ALBUMIN 3.6 g/dl (3.4-5.0)
[2023-05-12 18:02] LABS: CREATININE 4.6 mg/dL (0.55-1.3); PHOSPHOROUS 7.4 mg/dL (2.5-4.9)
[2023-05-12 18:05] LABS: ALK PHOS 135 U/L (45-117); BILIRUBIN,TOTAL 0.3 mg/dL (0.2-1); TOT PROT 9.1 g/dl (6.4-8.2)
[2023-05-12 18:13] LABS: ANION GAP 1 MMOL/L (8-16); POTASSIUM > 10.0 mmol/L (3.5-5.1); SGOT/AST 62 U/L (15-37); SGPT/ALT 24 U/L (13-61)
[2023-05-12] MEDS ORDERED: CALCIUM GLUCONATE 10% - 1,000 MG/10 ML VIAL IVPUSH ONE (19:22)
[2023-05-12] MEDS ORDERED: CALCIUM GLUCONATE 10% - 1,000 MG/10 ML VIAL ONE (19:27)
[2023-05-12 19:36] LABS: BASO % 0.8 % (0-2.0); EOS % 7.7 % (0-4.5); HEMATOCRIT 35.8 % (32.4-45.2); HEMOGLOBIN 11.7 GM/dL (10.7-15.3); LYMPH % 14.4 % (8-40); MCH 32.6 pg (25.7-33.7); MCHC 32.6 g/dl (32.0-36.0); MEAN PLT VOLUME 9.2 fl (7.5-11.1); MONO % 7.6 % (3.8-10.2); NEUT % 69.5 % (42.8-82.8); PLATELET COUNT 194 10^3/uL (134-434); RBC 3.58 M/mm3 (3.60-5.2); WHITE BLOOD COUNT 7.9 K/mm3 (4.0-10.0)
[2023-05-12 19:54] LABS: CHLORIDE 106 mmol/L (98-107); SODIUM 136 mmol/L (136-145)
[2023-05-12 19:56] LABS: CALCIUM 9.3 mg/dL (8.5-10.1)
[2023-05-12 19:58] LABS: ALBUMIN 3.4 g/dl (3.4-5.0); BLOOD UREA NITROGEN 52.1 mg/dL (7-18); CO2 22 mmol/L (21-32); GLUCOSE,RANDOM 89 mg/dL (74-106)
[2023-05-12 20:01] LABS: CREATININE 4.5 mg/dL (0.55-1.3); SGOT/AST 7 U/L (15-37); SGPT/ALT 17 U/L (13-61)
[2023-05-12 20:02] LABS: BILIRUBIN,TOTAL 0.3 mg/dL (0.2-1); TOT PROT 7.9 g/dl (6.4-8.2)
[2023-05-12 20:04] LABS: ALK PHOS 124 U/L (45-117)
[2023-05-12 20:47] LABS: ANION GAP 8 MMOL/L (8-16); POTASSIUM 6.2 mmol/L (3.5-5.1)
[2023-05-12] MEDS ORDERED: INSULIN REGULAR HUMAN 100 UNITS/ML *VIAL IVPUSH ONE (21:04)
[2023-05-12] MEDS ORDERED: DEXTROSE 50%-WATER - 25 GM/50 ML VIAL IVPUSH ONE (21:04)
[2023-05-12] MEDS ORDERED: DEXTROSE 50%-WATER 25 GM/50 ML DISP.SYRIN ONE (21:24)
[2023-05-13 00:22] LABS: POTASSIUM 5.7 mmol/L (3.5-5.1)
[2023-05-13 00:24] LABS: BLOOD UREA NITROGEN 49.3 mg/dL (7-18); CALCIUM 9.7 mg/dL (8.5-10.1)
[2023-05-13 00:28] LABS: CREATININE 4.6 mg/dL (0.55-1.3)
[2023-05-13] MEDS: INSULIN SLIDING SCALE (NOVOLOG) 1 VIAL SQ SCH ×4 (07:04→22:47)
[2023-05-13 07:49] LABS: BASO % 0.8 % (0-2.0); EOS % 7.4 % (0-4.5); HEMATOCRIT 34.9 % (32.4-45.2); HEMOGLOBIN 11.3 GM/dL (10.7-15.3); LYMPH % 13.3 % (8-40); MCH 32.9 pg (25.7-33.7); MCHC 32.3 g/dl (32.0-36.0); MEAN CELL VOLUME 102.1 fl (80-96); MEAN PLT VOLUME 9.6 fl (7.5-11.1); MONO % 7.2 % (3.8-10.2); NEUT % 71.3 % (42.8-82.8); PLATELET COUNT 213 10^3/uL (134-434); RBC 3.42 M/mm3 (3.60-5.2); RDW 13.6 % (11.6-15.6); WHITE BLOOD COUNT 8.8 K/mm3 (4.0-10.0)
[2023-05-13 07:52] LABS: INR 1.1 (0.83-1.09); PROTHROMBIN TIME (PATIENT) 12.8 SEC (9.7-13.0)
[2023-05-13 07:54] LABS: ACTIVATED PTT 30.3 SECONDS (25.2-36.5)
[2023-05-13 08:02] LABS: POTASSIUM 5.9 mmol/L (3.5-5.1)
[2023-05-13 08:06] LABS: CALCIUM 9.1 mg/dL (8.5-10.1)
[2023-05-13 08:09] LABS: CREATININE 4.6 mg/dL (0.55-1.3)
[2023-05-13] MEDS: APIXABAN 5 MG TABLET PO SCH ×2 (09:50→22:43)
[2023-05-13 09:55] VITALS: BMI 28.3
[2023-05-13] MEDS ORDERED: SODIUM CHLORIDE 250 ML IV PRN ×2 (09:58→10:00)
[2023-05-13] MEDS ORDERED: METOPROLOL TARTRATE 50 MG TABLET (FP) PO SCH (10:00)
[2023-05-13] MEDS: ATORVASTATIN CA 20 MG TABLET (FP) PO SCH (22:43)
[2023-05-13] MEDS: METOPROLOL TARTRATE 50 MG TABLET (FP) PO SCH (22:43)
[2023-05-14] MEDS: INSULIN SLIDING SCALE (NOVOLOG) 1 VIAL SQ SCH ×4 (06:19→21:06)
[2023-05-14 07:52] LABS: POTASSIUM 4.7 mmol/L (3.5-5.1)
[2023-05-14 08:56] LABS: BLOOD UREA NITROGEN 26.4 mg/dL (7-18)
[2023-05-14] MEDS: METOPROLOL TARTRATE 50 MG TABLET (FP) PO SCH (09:27)
[2023-05-14] MEDS: APIXABAN 5 MG TABLET PO SCH ×2 (09:27→21:05)
[2023-05-14] MEDS: ATORVASTATIN CA 20 MG TABLET (FP) PO SCH (21:05)
[2023-05-14] MEDS: METOPROLOL TARTRATE 25 MG TABLET (FP) PO SCH (21:06)
[2023-05-15] MEDS: INSULIN SLIDING SCALE (NOVOLOG) 1 VIAL SQ SCH ×4 (06:32→21:40)
[2023-05-15 09:55] LABS: CALCIUM 9.3 mg/dL (8.5-10.1)
[2023-05-15 09:56] LABS: BLOOD UREA NITROGEN 34.6 mg/dL (7-18)
[2023-05-15 09:59] LABS: CREATININE 3.6 mg/dL (0.55-1.3)
[2023-05-15] MEDS: APIXABAN 5 MG TABLET PO SCH ×2 (10:10→21:40)
[2023-05-15] MEDS: METOPROLOL TARTRATE 25 MG TABLET (FP) PO SCH ×2 (10:10→21:40)
[2023-05-15] MEDS ORDERED: INSULIN (NOVOLOG) ASPART 100 UNITS/ML 10ML VIAL ONE (11:35)
[2023-05-15] MEDS: hydrALAZINE HCL 25 MG TABLET (FP) PO SCH ×2 (14:45→21:40)
[2023-05-15] MEDS: ATORVASTATIN CA 20 MG TABLET (FP) PO SCH (21:39)
[2023-05-16] MEDS: INSULIN SLIDING SCALE (NOVOLOG) 1 VIAL SQ SCH ×4 (06:03→22:01)
[2023-05-16] MEDS: METOPROLOL TARTRATE 25 MG TABLET (FP) PO SCH ×2 (09:22→22:00)
[2023-05-16] MEDS: APIXABAN 5 MG TABLET PO SCH ×2 (09:22→22:00)
[2023-05-16] MEDS: hydrALAZINE HCL 25 MG TABLET (FP) PO SCH ×2 (09:23→22:00)
[2023-05-16] MEDS ORDERED: INSULIN (NOVOLOG) ASPART 100 UNITS/ML 10ML VIAL ONE (11:04)
[2023-05-16] MEDS: ATORVASTATIN CA 20 MG TABLET (FP) PO SCH (22:00)
[2023-05-17] MEDS: INSULIN SLIDING SCALE (NOVOLOG) 1 VIAL SQ SCH ×4 (06:17→21:14)
[2023-05-17 09:31] LABS: HEMATOCRIT 35.3 % (32.4-45.2); HEMOGLOBIN 11.6 GM/dL (10.7-15.3); MCH 32.6 pg (25.7-33.7); MCHC 32.9 g/dl (32.0-36.0); MEAN CELL VOLUME 99.2 fl (80-96); MEAN PLT VOLUME 9.5 fl (7.5-11.1); PLATELET COUNT 240 10^3/uL (134-434); RBC 3.55 M/mm3 (3.60-5.2); RDW 13.8 % (11.6-15.6); WHITE BLOOD COUNT 8.2 K/mm3 (4.0-10.0)
[2023-05-17 10:39] LABS: POTASSIUM 5.2 mmol/L (3.5-5.1)
[2023-05-17 10:41] LABS: CALCIUM 9.3 mg/dL (8.5-10.1)
[2023-05-17 10:45] LABS: CREATININE 4.4 mg/dL (0.55-1.3)
[2023-05-17] MEDS: APIXABAN 5 MG TABLET PO SCH ×2 (12:04→21:13)
[2023-05-17] MEDS: METOPROLOL TARTRATE 25 MG TABLET (FP) PO SCH ×2 (12:04→21:13)
[2023-05-17] MEDS: hydrALAZINE HCL 25 MG TABLET (FP) PO SCH ×2 (12:04→21:13)
[2023-05-17] MEDS ORDERED: INSULIN (NOVOLOG) ASPART 100 UNITS/ML 10ML VIAL ONE (16:35)
[2023-05-17] MEDS: ATORVASTATIN CA 20 MG TABLET (FP) PO SCH (21:13)
[2023-05-18] MEDS: INSULIN SLIDING SCALE (NOVOLOG) 1 VIAL SQ SCH (06:16)
[2023-05-18 06:28] VITALS: RESP 20
[2023-05-18] MEDS: APIXABAN 5 MG TABLET PO SCH (09:05)
[2023-05-18] MEDS: hydrALAZINE HCL 25 MG TABLET (FP) PO SCH (09:05)
[2023-05-18] MEDS: METOPROLOL TARTRATE 25 MG TABLET (FP) PO SCH (09:06)
[2023-05-18 10:17] VITALS: BP 160/69; PULSE 72; TEMP 97.6
== END 2023-05-18 11:14 | disposition home or self-care (01) | DRG 640 ==
LOC: JER 15:16 → JERBED 22:44 → J4W 05-13 01:25 → OBSVTOIN 05-16 08:13
PROVIDERS: ADMIT Internal Medicine; ATTEND Family Medicine
PROC: 5A1D70Z Performance of Urinary Filtration, Intermittent, Less than 6 Hours Per Day (ICD-10-PCS; principal; 2023-05-17)
DX: E87.5 Hyperkalemia (principal); N18.6 End stage renal disease; I13.2 Hypertensive heart and chronic kidney disease with heart failure and with stage 5 chronic kidney disease, or end stage renal disease; I50.30 Unspecified diastolic (congestive) heart failure; E11.9 Type 2 diabetes mellitus without complications; Z99.2 Dependence on renal dialysis; R00.1 Bradycardia, unspecified; E78.5 Hyperlipidemia, unspecified
CPT/HCPCS: 36415; 80048; 80053; 82962; 83735; 84100; 84484; 85025; 85027; 85610; 85730; 86803; 87340; 93005; 93010; 93306-TC; 99285-25; G0378

== ENCOUNTER 2023-07-08 14:20 | Inpatient (IN) | payer OTHER ==
[2023-07-08 18:04] LABS: BASO % 0.5 % (0-2.0); EOS % 7.1 % (0-4.5); HEMATOCRIT 33.4 % (32.4-45.2); LYMPH % 13.6 % (8-40); MCH 33.5 pg (25.7-33.7); MEAN CELL VOLUME 101.6 fl (80-96); MEAN PLT VOLUME 8.5 fl (7.5-11.1); MONO % 8.9 % (3.8-10.2); NEUT % 69.9 % (42.8-82.8); PLATELET COUNT 221 10^3/uL (134-434); RBC 3.29 M/mm3 (3.60-5.2); RDW 14.4 % (11.6-15.6); WHITE BLOOD COUNT 8.6 K/mm3 (4.0-10.0)
[2023-07-08 18:19] LABS: INR 1.11 (0.83-1.09); PROTHROMBIN TIME (PATIENT) 12.9 SEC (9.7-13.0)
[2023-07-08 18:22] LABS: ACTIVATED PTT 27.8 SECONDS (25.2-36.5)
[2023-07-08 18:56] LABS: CALCIUM 9.2 mg/dL (8.5-10.1)
[2023-07-08 18:57] LABS: BLOOD UREA NITROGEN 51.7 mg/dL (7-18)
[2023-07-08 18:58] LABS: ALBUMIN 3.2 g/dl (3.4-5.0)
[2023-07-08 19:00] LABS: CREATININE 4.6 mg/dL (0.55-1.3)
[2023-07-08 19:03] LABS: BILIRUBIN,TOTAL 0.3 mg/dL (0.2-1); TOT PROT 7.7 g/dl (6.4-8.2)
[2023-07-08] MEDS ORDERED: SODIUM ZIRCONIUM CYCLOSILICATE (LOKELMA) 5 GM PACKET ONE ×2 (20:49→22:43)
[2023-07-08] MEDS ORDERED: CALCIUM GLUCONATE 10% - 1,000 MG/10 ML VIAL IVPUSH ONE (22:27)
[2023-07-08] MEDS ORDERED: DEXTROSE 50%-WATER - 25 GM/50 ML VIAL IVPUSH ONE (22:28)
[2023-07-08] MEDS ORDERED: INSULIN REGULAR HUMAN 100 UNITS/ML *VIAL IVPUSH ONE (22:29)
[2023-07-08] MEDS ORDERED: ATORVASTATIN CA 20 MG TABLET (FP) ONE (22:29)
[2023-07-08] MEDS ORDERED: METOPROLOL TARTRATE 25 MG TABLET (FP) ONE (22:29)
[2023-07-08] MEDS ORDERED: hydrALAZINE HCL 25 MG TABLET (FP) ONE (22:30)
[2023-07-08] MEDS ORDERED: SODIUM ZIRCONIUM CYCLOSILICATE (LOKELMA) 5 GM PACKET PO ONE (22:33)
[2023-07-08] MEDS: ATORVASTATIN CA 20 MG TABLET (FP) PO SCH (22:36)
[2023-07-08] MEDS: METOPROLOL TARTRATE 25 MG TABLET (FP) PO SCH (22:36)
[2023-07-08] MEDS: hydrALAZINE HCL 25 MG TABLET (FP) PO SCH (22:36)
[2023-07-08] MEDS ORDERED: CALCIUM GLUCONATE 10% - 1,000 MG/10 ML VIAL ONE (22:43)
[2023-07-08] MEDS ORDERED: DEXTROSE 50%-WATER 25 GM/50 ML DISP.SYRIN ONE (22:43)
[2023-07-09 02:32] LABS: POTASSIUM 5.7 mmol/L (3.5-5.1)
[2023-07-09 02:34] LABS: BLOOD UREA NITROGEN 51.8 mg/dL (7-18); CALCIUM 9.1 mg/dL (8.5-10.1)
[2023-07-09 02:38] LABS: CREATININE 4.7 mg/dL (0.55-1.3)
[2023-07-09] MEDS: METOPROLOL TARTRATE 25 MG TABLET (FP) PO SCH ×2 (09:31→21:19)
[2023-07-09] MEDS: hydrALAZINE HCL 25 MG TABLET (FP) PO SCH ×2 (09:31→21:19)
[2023-07-09] MEDS: APIXABAN 5 MG TABLET PO SCH ×3 (09:31→21:19)
[2023-07-09 09:51] LABS: WHITE BLOOD COUNT 7.9 K/mm3 (4.0-10.0)
[2023-07-09 09:52] LABS: BASO % 0.8 % (0-2.0); EOS % 8.2 % (0-4.5); HEMATOCRIT 32.7 % (32.4-45.2); HEMOGLOBIN 10.8 GM/dL (10.7-15.3); MCHC 33.1 g/dl (32.0-36.0); MEAN CELL VOLUME 102.8 fl (80-96); MEAN PLT VOLUME 8.8 fl (7.5-11.1); MONO % 8.6 % (3.8-10.2); NEUT % 68.4 % (42.8-82.8); PLATELET COUNT 243 10^3/uL (134-434); RBC 3.19 M/mm3 (3.60-5.2); RDW 14.1 % (11.6-15.6)
[2023-07-09 10:15] LABS: ALBUMIN 2.9 g/dl (3.4-5.0); BLOOD UREA NITROGEN 53.1 mg/dL (7-18); MAGNESIUM 2.2 mg/dL (1.8-2.4)
[2023-07-09 10:18] LABS: CREATININE 4.9 mg/dL (0.55-1.3)
[2023-07-09 10:20] LABS: BILIRUBIN,TOTAL 0.5 mg/dL (0.2-1); TOT PROT 7.3 g/dl (6.4-8.2)
[2023-07-09 11:53] VITALS: BMI 25.9
[2023-07-09] MEDS ORDERED: SODIUM CHLORIDE 250 ML IV PRN (11:59)
[2023-07-09] MEDS: INSULIN SLIDING SCALE (NOVOLOG) 1 VIAL SQ SCH ×2 (16:47→21:19)
[2023-07-09] MEDS ORDERED: SODIUM ZIRCONIUM CYCLOSILICATE (LOKELMA) 5 GM PACKET PO ONE ×2 (20:25→21:49)
[2023-07-09] MEDS: ATORVASTATIN CA 20 MG TABLET (FP) PO SCH (21:19)
[2023-07-10] MEDS: INSULIN SLIDING SCALE (NOVOLOG) 1 VIAL SQ SCH ×4 (06:14→22:33)
[2023-07-10] MEDS: METOPROLOL TARTRATE 25 MG TABLET (FP) PO SCH ×2 (09:27→22:33)
[2023-07-10] MEDS: hydrALAZINE HCL 25 MG TABLET (FP) PO SCH ×2 (09:28→22:33)
[2023-07-10 09:49] LABS: POTASSIUM 5.9 mmol/L (3.5-5.1)
[2023-07-10 09:52] LABS: BLOOD UREA NITROGEN 59.2 mg/dL (7-18)
[2023-07-10 09:55] LABS: CREATININE 5.2 mg/dL (0.55-1.3)
[2023-07-10] MEDS ORDERED: SODIUM ZIRCONIUM CYCLOSILICATE (LOKELMA) 5 GM PACKET PO SCH (10:00)
[2023-07-10] MEDS: SODIUM ZIRCONIUM CYCLOSILICATE (LOKELMA) 5 GM PACKET PO SCH (11:23)
[2023-07-10] MEDS ORDERED: SODIUM CHLORIDE 250 ML IV PRN (16:00)
[2023-07-10] MEDS: ATORVASTATIN CA 20 MG TABLET (FP) PO SCH (22:33)
[2023-07-11] MEDS: INSULIN SLIDING SCALE (NOVOLOG) 1 VIAL SQ SCH ×4 (06:05→22:41)
[2023-07-11] MEDS: METOPROLOL TARTRATE 25 MG TABLET (FP) PO SCH (09:24)
[2023-07-11] MEDS: hydrALAZINE HCL 25 MG TABLET (FP) PO SCH ×2 (09:24→22:40)
[2023-07-11 10:49] LABS: CHLORIDE 108 mmol/L (98-107); SODIUM 136 mmol/L (136-145)
[2023-07-11 10:51] LABS: CALCIUM 8.6 mg/dL (8.5-10.1); CO2 18 mmol/L (21-32); GLUCOSE,RANDOM 78 mg/dL (74-106)
[2023-07-11 10:52] LABS: BLOOD UREA NITROGEN 67.1 mg/dL (7-18)
[2023-07-11 10:55] LABS: ANION GAP 10 MMOL/L (8-16); CREATININE 5.3 mg/dL (0.55-1.3); POTASSIUM 6.5 mmol/L (3.5-5.1)
[2023-07-11] MEDS: SODIUM ZIRCONIUM CYCLOSILICATE (LOKELMA) 5 GM PACKET PO SCH (11:45)
[2023-07-11 13:01] LABS: POTASSIUM 6.2 mmol/L (3.5-5.1)
[2023-07-11] MEDS ORDERED: LIDOCAINE HCL 1%, 10 MG/ML (20ML VIAL) ONE (15:59)
[2023-07-11] MEDS ORDERED: LIDOCAINE HCL 1%, 10 MG/ML (20ML VIAL) INF ONE (18:13)
[2023-07-11] MEDS ORDERED: SODIUM CHLORIDE 50 ML IV STA (18:14)
[2023-07-11] MEDS ORDERED: ONDANSETRON 4 MG/2 ML VIAL IVPUSH PRN (18:14)
[2023-07-11] MEDS ORDERED: SODIUM CHLORIDE 250 ML IV PRN (20:20)
[2023-07-11] MEDS ORDERED: METOPROLOL TARTRATE 25 MG TABLET (FP) PO SCH (22:00)
[2023-07-11] MEDS: APIXABAN 5 MG TABLET PO SCH (22:40)
[2023-07-11] MEDS: ATORVASTATIN CA 20 MG TABLET (FP) PO SCH (22:40)
[2023-07-12] MEDS: INSULIN SLIDING SCALE (NOVOLOG) 1 VIAL SQ SCH ×4 (06:53→21:49)
[2023-07-12] MEDS: hydrALAZINE HCL 25 MG TABLET (FP) PO SCH ×2 (10:02→21:47)
[2023-07-12] MEDS: SODIUM ZIRCONIUM CYCLOSILICATE (LOKELMA) 5 GM PACKET PO SCH (10:02)
[2023-07-12] MEDS: APIXABAN 5 MG TABLET PO SCH ×2 (10:02→21:46)
[2023-07-12] MEDS: amLODIPine BESYLATE 2.5 MG TABLET (FP) PO SCH (13:15)
[2023-07-12 14:22] LABS: POTASSIUM 4.7 mmol/L (3.5-5.1)
[2023-07-12 14:23] LABS: CALCIUM 8.8 mg/dL (8.5-10.1)
[2023-07-12 14:27] LABS: CREATININE 4.4 mg/dL (0.55-1.3)
[2023-07-12 14:31] LABS: N-TERMINAL BNP 27515.8 pg/ml (5-125)
[2023-07-12] MEDS ORDERED: SODIUM CHLORIDE 250 ML IV PRN (17:08)
[2023-07-12] MEDS ORDERED: EPOETIN ALFA-EPBX 4,000 UNIT/ML VIAL IVPUSH ONE (17:15)
[2023-07-12] MEDS ORDERED: ACETAMINOPHEN 325 MG TABLET (FP) PO ONE (20:07)
[2023-07-12] MEDS: ATORVASTATIN CA 20 MG TABLET (FP) PO SCH (21:47)
[2023-07-13] MEDS: INSULIN SLIDING SCALE (NOVOLOG) 1 VIAL SQ SCH ×4 (06:04→21:54)
[2023-07-13] MEDS: APIXABAN 5 MG TABLET PO SCH ×2 (10:12→21:54)
[2023-07-13] MEDS: amLODIPine BESYLATE 2.5 MG TABLET (FP) PO SCH (10:12)
[2023-07-13] MEDS: SODIUM ZIRCONIUM CYCLOSILICATE (LOKELMA) 5 GM PACKET PO SCH (10:12)
[2023-07-13] MEDS: hydrALAZINE HCL 25 MG TABLET (FP) PO SCH ×2 (10:12→21:54)
[2023-07-13] MEDS: ATORVASTATIN CA 20 MG TABLET (FP) PO SCH (21:54)
[2023-07-14] MEDS: INSULIN SLIDING SCALE (NOVOLOG) 1 VIAL SQ SCH ×2 (06:00→12:35)
[2023-07-14] MEDS ORDERED: SODIUM CHLORIDE 250 ML IV PRN (07:01)
[2023-07-14 11:16] VITALS: RESP 18
[2023-07-14 12:08] VITALS: TEMP 97.7
[2023-07-14] MEDS: amLODIPine BESYLATE 2.5 MG TABLET (FP) PO SCH (12:35)
[2023-07-14] MEDS: hydrALAZINE HCL 25 MG TABLET (FP) PO SCH (12:35)
[2023-07-14] MEDS: SODIUM ZIRCONIUM CYCLOSILICATE (LOKELMA) 5 GM PACKET PO SCH (12:35)
[2023-07-14] MEDS: APIXABAN 5 MG TABLET PO SCH (12:35)
[2023-07-14 12:45] VITALS: BP 140/64; PULSE 78
== END 2023-07-14 16:35 | disposition home or self-care (01) | DRG 314 ==
LOC: JER 14:20 → JERBED 19:40 → J4S 07-09 02:03 → OBSVTOIN 07-11 10:05
PROVIDERS: ADMIT Internal Medicine; ATTEND Family Medicine
PROC: 5A1D70Z Performance of Urinary Filtration, Intermittent, Less than 6 Hours Per Day (ICD-10-PCS; 2023-07-11)
PROC: 02H633Z Insertion of Infusion Device into Right Atrium, Percutaneous Approach (ICD-10-PCS; principal; 2023-07-11 13:30)
PROC: 5A1D70Z Performance of Urinary Filtration, Intermittent, Less than 6 Hours Per Day (ICD-10-PCS; 2023-07-12)
PROC: 5A1D70Z Performance of Urinary Filtration, Intermittent, Less than 6 Hours Per Day (ICD-10-PCS; 2023-07-14)
DX: T82.520A Displacement of surgically created arteriovenous fistula, initial encounter (principal); N18.6 End stage renal disease; I13.2 Hypertensive heart and chronic kidney disease with heart failure and with stage 5 chronic kidney disease, or end stage renal disease; I50.32 Chronic diastolic (congestive) heart failure; E11.51 Type 2 diabetes mellitus with diabetic peripheral angiopathy without gangrene; E78.5 Hyperlipidemia, unspecified; E03.9 Hypothyroidism, unspecified; I48.0 Paroxysmal atrial fibrillation; E87.5 Hyperkalemia; Y83.8 Other surgical procedures as the cause of abnormal reaction of the patient, or of later complication, without mention of misadventure at the time of the procedure; E11.22 Type 2 diabetes mellitus with diabetic chronic kidney disease; Z99.2 Dependence on renal dialysis; Z96.651 Presence of right artificial knee joint; E66.9 Obesity, unspecified; Z68.26 Body mass index [BMI] 26.0-26.9, adult
CPT/HCPCS: 36415; 71045-TC-FY; 76000-TC-FY; 80048; 80053; 80061; 82962; 83036; 83735; 83880; 84132; 85025; 85610; 85730; 86704; 86803; 86850; 86900; 86901; 87340; 87517; 93005; 93010; 94760; 99285-25; C1750; G0378; J1644; Q5106

== ENCOUNTER 2023-10-27 13:41 | Inpatient (IN) | payer OTHER ==
[2023-10-27 15:44] LABS: BASO % 0.6 % (0-2.0); EOS % 5.3 % (0-4.5); HEMATOCRIT 38.3 % (32.4-45.2); HEMOGLOBIN 12.7 GM/dL (10.7-15.3); LYMPH % 10.7 % (8-40); MCH 33.2 pg (25.7-33.7); MCHC 33.2 g/dl (32.0-36.0); MEAN CELL VOLUME 100.2 fl (80-96); MEAN PLT VOLUME 9.8 fl (7.5-11.1); NEUT % 78.4 % (42.8-82.8); PLATELET COUNT 339 10^3/uL (134-434); RBC 3.83 M/mm3 (3.60-5.2); RDW 14.5 % (11.6-15.6); WHITE BLOOD COUNT 8.1 K/mm3 (4.0-10.0)
[2023-10-27 16:02] LABS: CHLORIDE 104 mmol/L (98-107); SODIUM 132 mmol/L (136-145); VENOUS BASE EXCESS -8.4 mmol/L (-2-2); VENOUS O2 SATURATION 30.8 % (70-80); VENOUS PCO2 47.5 mmHg (38-52); VENOUS PH 7.224 (7.310-7.410)
[2023-10-27 16:04] LABS: ALBUMIN 3.6 g/dl (3.4-5.0); CALCIUM 9.1 mg/dL (8.5-10.1); CO2 21 mmol/L (21-32); GLUCOSE,RANDOM 86 mg/dL (74-106)
[2023-10-27 16:05] LABS: MAGNESIUM 2.5 mg/dL (1.8-2.4)
[2023-10-27 16:07] LABS: CREATININE 5.2 mg/dL (0.55-1.3); SGOT/AST 71 U/L (15-37)
[2023-10-27 16:09] LABS: BILIRUBIN,TOTAL 0.4 mg/dL (0.2-1); TOT PROT 9.5 g/dl (6.4-8.2)
[2023-10-27 16:10] LABS: ALK PHOS 174 U/L (45-117)
[2023-10-27] MEDS ORDERED: SODIUM CHLORIDE 250 ML IV PRN (16:31)
[2023-10-27 16:37] LABS: ANION GAP 6 mmol/L (4-13); POTASSIUM 9.5 mmol/L (3.5-5.1); SGPT/ALT 43 U/L (13-61)
[2023-10-27 17:12] LABS: CHLORIDE 106 mmol/L (98-107); SODIUM 133 mmol/L (136-145)
[2023-10-27 17:14] LABS: CALCIUM 9.6 mg/dL (8.5-10.1)
[2023-10-27 17:15] LABS: ALBUMIN 3.4 g/dl (3.4-5.0); BLOOD UREA NITROGEN 59.5 mg/dL (7-18); CO2 22 mmol/L (21-32); GLUCOSE,RANDOM 90 mg/dL (74-106)
[2023-10-27 17:18] LABS: CREATININE 5.1 mg/dL (0.55-1.3); SGOT/AST 17 U/L (15-37); SGPT/ALT 39 U/L (13-61)
[2023-10-27 17:19] LABS: BILIRUBIN,TOTAL 0.4 mg/dL (0.2-1); TOT PROT 8.5 g/dl (6.4-8.2)
[2023-10-27 17:21] LABS: ALK PHOS 160 U/L (45-117)
[2023-10-27 17:28] LABS: ANION GAP 6 mmol/L (4-13); POTASSIUM 7.5 mmol/L (3.5-5.1)
[2023-10-27] MEDS: SODIUM ZIRCONIUM CYCLOSILICATE (LOKELMA) 5 GM PACKET PO SCH (22:11)
[2023-10-27] MEDS ORDERED: SODIUM ZIRCONIUM CYCLOSILICATE (LOKELMA) 10 GM PACKET ONE (22:11)
[2023-10-28] MEDS: SODIUM ZIRCONIUM CYCLOSILICATE (LOKELMA) 5 GM PACKET PO SCH (09:30)
[2023-10-28] MEDS: ATORVASTATIN CA 20 MG TABLET (FP) PO SCH (09:45)
[2023-10-28] MEDS ORDERED: FLU VACCINE (FLULAVAL) PF 60 MCG/0.5 ML SYRINGE 2023-2024 IM ONE (10:00)
[2023-10-28 11:46] LABS: BASO % 0.5 % (0-2.0); HEMATOCRIT 34.7 % (32.4-45.2); HEMOGLOBIN 11.6 GM/dL (10.7-15.3); LYMPH % 10.8 % (8-40); MCH 33.5 pg (25.7-33.7); MCHC 33.3 g/dl (32.0-36.0); MEAN CELL VOLUME 100.7 fl (80-96); MEAN PLT VOLUME 8.6 fl (7.5-11.1); MONO % 7.4 % (3.8-10.2); NEUT % 77.3 % (42.8-82.8); PLATELET COUNT 244 10^3/uL (134-434); RBC 3.45 M/mm3 (3.60-5.2); RDW 13.9 % (11.6-15.6); WHITE BLOOD COUNT 7.8 K/mm3 (4.0-10.0)
[2023-10-28 12:21] LABS: POTASSIUM 5.9 mmol/L (3.5-5.1)
[2023-10-28 12:25] LABS: ALBUMIN 3.2 g/dl (3.4-5.0); BLOOD UREA NITROGEN 39.8 mg/dL (7-18); MAGNESIUM 2.1 mg/dL (1.8-2.4)
[2023-10-28] MEDS ORDERED: SODIUM CHLORIDE 250 ML IV PRN (19:04)
[2023-10-28] MEDS: GABAPENTIN 300 MG CAPSULE PO SCH (21:45)
[2023-10-28] MEDS: hydrALAZINE HCL 25 MG TABLET (FP) PO SCH (21:45)
[2023-10-29 10:58] VITALS: BMI 27.6
[2023-10-29] MEDS: APIXABAN 5 MG TABLET PO SCH ×2 (13:40→21:04)
[2023-10-29] MEDS: ASPIRIN COATED 81 MG TABLET.EC PO SCH (13:40)
[2023-10-29] MEDS: GABAPENTIN 300 MG CAPSULE PO SCH ×2 (13:40→21:04)
[2023-10-29] MEDS: hydrALAZINE HCL 25 MG TABLET (FP) PO SCH ×2 (13:40→21:04)
[2023-10-29] MEDS: amLODIPine BESYLATE 2.5 MG TABLET (FP) PO SCH (13:41)
[2023-10-29] MEDS: SODIUM ZIRCONIUM CYCLOSILICATE (LOKELMA) 5 GM PACKET PO SCH (15:43)
[2023-10-29] MEDS: ATORVASTATIN CA 20 MG TABLET (FP) PO SCH (21:04)
[2023-10-30] MEDS: APIXABAN 5 MG TABLET PO SCH ×2 (09:33→21:36)
[2023-10-30] MEDS: amLODIPine BESYLATE 2.5 MG TABLET (FP) PO SCH (09:33)
[2023-10-30] MEDS: GABAPENTIN 300 MG CAPSULE PO SCH ×2 (09:33→21:36)
[2023-10-30] MEDS: hydrALAZINE HCL 25 MG TABLET (FP) PO SCH ×2 (09:33→21:36)
[2023-10-30] MEDS: ASPIRIN COATED 81 MG TABLET.EC PO SCH (09:33)
[2023-10-30] MEDS: SODIUM ZIRCONIUM CYCLOSILICATE (LOKELMA) 5 GM PACKET PO SCH (09:33)
[2023-10-30] MEDS: ATORVASTATIN CA 20 MG TABLET (FP) PO SCH (21:36)
[2023-10-31] MEDS: APIXABAN 5 MG TABLET PO SCH (09:56)
[2023-10-31] MEDS: ASPIRIN COATED 81 MG TABLET.EC PO SCH (09:56)
[2023-10-31] MEDS: GABAPENTIN 300 MG CAPSULE PO SCH ×2 (09:56→21:11)
[2023-10-31] MEDS: amLODIPine BESYLATE 2.5 MG TABLET (FP) PO SCH (09:56)
[2023-10-31] MEDS: hydrALAZINE HCL 25 MG TABLET (FP) PO SCH ×2 (09:56→21:11)
[2023-10-31] MEDS: SODIUM ZIRCONIUM CYCLOSILICATE (LOKELMA) 5 GM PACKET PO SCH (09:56)
[2023-10-31] MEDS: ATORVASTATIN CA 20 MG TABLET (FP) PO SCH (21:11)
[2023-10-31] MEDS ORDERED: SODIUM CHLORIDE 250 ML IV PRN (21:28)
[2023-10-31] MEDS ORDERED: EPOETIN ALFA-EPBX 3,000 UNIT/ML VIAL SQ ONE (21:28)
[2023-11-01] MEDS: amLODIPine BESYLATE 2.5 MG TABLET (FP) PO SCH (09:16)
[2023-11-01] MEDS: GABAPENTIN 300 MG CAPSULE PO SCH ×2 (09:16→21:30)
[2023-11-01] MEDS: hydrALAZINE HCL 25 MG TABLET (FP) PO SCH ×2 (09:16→21:29)
[2023-11-01] MEDS: ASPIRIN COATED 81 MG TABLET.EC PO SCH (09:16)
[2023-11-01] MEDS: SODIUM ZIRCONIUM CYCLOSILICATE (LOKELMA) 5 GM PACKET PO SCH (11:16)
[2023-11-01] MEDS ORDERED: ATORVASTATIN CA 40 MG TABLET (FP) PO SCH (17:23)
[2023-11-02 07:46] LABS: BASO % 0.5 % (0-2.0); EOS % 7.3 % (0-4.5); HEMATOCRIT 32.9 % (32.4-45.2); HEMOGLOBIN 11.1 GM/dL (10.7-15.3); LYMPH % 17.5 % (8-40); MCHC 33.8 g/dl (32.0-36.0); MEAN CELL VOLUME 100.5 fl (80-96); MEAN PLT VOLUME 9.1 fl (7.5-11.1); NEUT % 65.7 % (42.8-82.8); PLATELET COUNT 215 10^3/uL (134-434); RBC 3.28 M/mm3 (3.60-5.2); RDW 13.9 % (11.6-15.6); WHITE BLOOD COUNT 6.5 K/mm3 (4.0-10.0)
[2023-11-02 07:55] LABS: POTASSIUM 4.2 mmol/L (3.5-5.1)
[2023-11-02 08:02] LABS: BLOOD UREA NITROGEN 31.4 mg/dL (7-18); CALCIUM 9.1 mg/dL (8.5-10.1)
[2023-11-02 08:06] LABS: CREATININE 3.5 mg/dL (0.55-1.3)
[2023-11-02] MEDS ORDERED: LIDOCAINE HCL 1%, 10 MG/ML (20ML VIAL) ONE (08:07)
[2023-11-02] MEDS ORDERED: ONDANSETRON 4 MG/2 ML VIAL IVPUSH PRN (08:59)
[2023-11-02] MEDS ORDERED: SODIUM CHLORIDE 1,000 ML IV SCH (09:00)
[2023-11-02] MEDS ORDERED: MIDAZOLAM HCL 2 MG/2 ML SINGLE DOSE VIAL ONE (09:08)
[2023-11-02] MEDS ORDERED: ceFAZolin SODIUM 1 GM VIAL IVPB ONE (09:43)
[2023-11-02] MEDS ORDERED: ceFAZolin SODIUM 1 GM VIAL ONE (09:47)
[2023-11-02 11:25] VITALS: TEMP 97.9
[2023-11-02] MEDS: ASPIRIN COATED 81 MG TABLET.EC PO SCH (11:26)
[2023-11-02] MEDS: GABAPENTIN 300 MG CAPSULE PO SCH (11:26)
[2023-11-02] MEDS: hydrALAZINE HCL 25 MG TABLET (FP) PO SCH (11:26)
[2023-11-02] MEDS: amLODIPine BESYLATE 2.5 MG TABLET (FP) PO SCH (11:26)
[2023-11-02] MEDS: SODIUM ZIRCONIUM CYCLOSILICATE (LOKELMA) 5 GM PACKET PO SCH (14:16)
[2023-11-02 15:26] VITALS: BP 132/63; PULSE 77; RESP 18
== END 2023-11-02 15:25 | disposition home or self-care (01) | DRG 698 ==
LOC: JER 13:41 → JERBED 16:23 → UNDOADMIN 16:23 → J4W 10-28 07:17 → UNDODISIN 10-28 15:28
PROVIDERS: ADMIT Internal Medicine; ATTEND Internal Medicine
PROC: 5A1D70Z Performance of Urinary Filtration, Intermittent, Less than 6 Hours Per Day (ICD-10-PCS; principal; 2023-10-27)
PROC: 5A1D70Z Performance of Urinary Filtration, Intermittent, Less than 6 Hours Per Day (ICD-10-PCS; 2023-10-29)
PROC: 5A1D70Z Performance of Urinary Filtration, Intermittent, Less than 6 Hours Per Day (ICD-10-PCS; 2023-11-01)
PROC: 02H633Z Insertion of Infusion Device into Right Atrium, Percutaneous Approach (ICD-10-PCS; 2023-11-02)
PROC: 02PAX3Z Removal of Infusion Device from Heart, External Approach (ICD-10-PCS; 2023-11-02)
PROC: B518ZZA Fluoroscopy of Superior Vena Cava, Guidance (ICD-10-PCS; 2023-11-02)
DX: T82.49XA Other complication of vascular dialysis catheter, initial encounter (principal); N18.6 End stage renal disease; I13.2 Hypertensive heart and chronic kidney disease with heart failure and with stage 5 chronic kidney disease, or end stage renal disease; I50.32 Chronic diastolic (congestive) heart failure; E11.51 Type 2 diabetes mellitus with diabetic peripheral angiopathy without gangrene; J44.9 Chronic obstructive pulmonary disease, unspecified; E03.9 Hypothyroidism, unspecified; E78.5 Hyperlipidemia, unspecified; E11.22 Type 2 diabetes mellitus with diabetic chronic kidney disease; E87.5 Hyperkalemia; I48.91 Unspecified atrial fibrillation; Y83.8 Other surgical procedures as the cause of abnormal reaction of the patient, or of later complication, without mention of misadventure at the time of the procedure; Y92.9 Unspecified place or not applicable; Z99.2 Dependence on renal dialysis; Z79.4 Long term (current) use of insulin; Z99.81 Dependence on supplemental oxygen
CPT/HCPCS: 0241U-QW; 36415; 71045-TC-FY; 76000-TC-FY; 80048; 80053; 82803; 82962; 83735; 83880; 84484; 85025; 86850; 86900; 86901; 87340; 90686; 93005; 93010; 94760; 97116-GP; 97162-GP; 99285-25; C1750; G0008; J1644

== ENCOUNTER 2025-06-29 14:12 | Inpatient (IN) | payer OTHER ==
[2025-06-29 15:50] LABS: MCHC 32.0 g/dl (32.2-35.5); MEAN CELL VOLUME 101.9 fl (79.4-94.8); MEAN PLT VOLUME 12.1 fl (9.4-12.3); RDW 14.0 % (12.4-16.4)
[2025-06-29] MEDS ORDERED: FAMOTIDINE 10 MG/ML VIAL IVPB ONE (16:05)
[2025-06-29] MEDS ORDERED: ACETAMINOPHEN INJECTION 100 ML ONE (16:05)
[2025-06-29] MEDS: ACETAMINOPHEN 1000 MG/100 ML BAG IVPB ONE (16:12)
[2025-06-29] MEDS: FAMOTIDINE 20 MG/50 ML IVPB 20 MG/50 ML MG IVPB ONE (16:12)
[2025-06-29 16:16] LABS: GLUCOSE,RANDOM 167.0 mg/dL (74-106)
[2025-06-29 16:17] LABS: TOT PROT 6.9 g/dl (6.4-8.2)
[2025-06-29 16:18] LABS: CO2 26.0 mmol/L (21-32)
[2025-06-29 16:19] LABS: ALK PHOS 154.0 U/L (40-150)
[2025-06-29 16:21] LABS: EPI CELLS 10 /uL (0-25.1); HYALINE CASTS 0 /uL (0-3.1); URINE APPEARANCE TURBID; URINE BACTERIA >9,000 /uL (0-1359); URINE BILIRUBIN NEGATIVE (NEGATIVE); URINE COLOR YELLOW; URINE GLUCOSE (UA) NEGATIVE (NEGATIVE); URINE KETONE NEGATIVE (NEGATIVE); URINE LEUK ESTERASE 3+ (NEGATIVE); URINE NITRITE NEGATIVE (NEGATIVE); URINE PROTEIN 2+ (NEGATIVE); URINE RBC 34 /uL (0-23.9); URINE UROBILINOGEN 0.2 mg/dL (0.2-1.0); URINE WBC 907 /uL (0-25.8)
[2025-06-29 16:22] LABS: SGOT/AST 22.0 U/L (5-34); SGPT/ALT 25.0 U/L (0-55)
[2025-06-29 16:23] LABS: CREATININE 2.79 mg/dL (0.55-1.3)
[2025-06-29] MEDS ORDERED: CEFTRIAXONE 1 GM/50 ML BAG ONE (16:37)
[2025-06-29 16:40] LABS: HCV DIAGNOSTIC IN-HOUSE W/RFLX NON-REACTIVE (NONREACTIVE); HIV INTERPRETATION NEGATIVE (NEGATIVE)
[2025-06-29] MEDS: CEFTRIAXONE 1 GM in DEXTROSE 5%-WATER - 100 ML IVPB ONE (16:41)
[2025-06-29] MEDS ORDERED: AZITHROMYCIN IVPB 500 MG/250 ML BAG IVPB ONE (18:23)
[2025-06-29] MEDS: AZITHROMYCIN IVPB 500 MG in DEXTROSE 5%-WATER - 250 ML IVPB ONE (18:30)
[2025-06-29] MEDS ORDERED: ACETAMINOPHEN 500 MG TABLET (FP) PO PRN (20:09)
[2025-06-29] MEDS ORDERED: POLYETHYLENE GLYCOL (HEALTHYLAX) 3350 17 GM PACKET PO PRN (20:20)
[2025-06-29] MEDS: VANCOMYCIN PREMIX 1.75 GM 1,750 MG/350 ML PIGGYBACK IVPB ONE (21:40)
[2025-06-29] MEDS: INSULIN ASPART SLIDING SCALE (NOVOLOG) 1 VIAL SQ SCH (21:40)
[2025-06-30 07:44] LABS: ABSOLUTE IMMATURE GRANULOCYTES 0.04 x10^3/uL (0.0-0.031); BASOPHILS # 0.03 x10^3/uL (0.01-0.08); EOSINOPHIL % 3.4 % (0.7-5.8); EOSINOPHILS # 0.25 x10^3/uL (0.04-0.36); MCHC 30.2 g/dl (32.2-35.5); MEAN CELL VOLUME 103.7 fl (79.4-94.8); MEAN PLT VOLUME 12.2 fl (9.4-12.3); MONOCYTE # 0.73 x10^3/uL (0.24-0.86); MONOCYTE % 10.1 % (4.7-12.5); RDW 14.2 % (12.4-16.4)
[2025-06-30 07:48] LABS: INR 1.34 (0.83-1.09); PROTHROMBIN TIME (PATIENT) 14.7 SEC (9.7-13.0)
[2025-06-30 07:51] LABS: ACTIVATED PTT 26.2 SECONDS (25.2-36.5)
[2025-06-30 08:11] LABS: GLUCOSE,RANDOM 91.0 mg/dL (74-106)
[2025-06-30 08:12] LABS: CO2 25.0 mmol/L (21-32)
[2025-06-30 08:17] LABS: CREATININE 3.38 mg/dL (0.55-1.3)
[2025-06-30] MEDS ORDERED: amLODIPine BESYLATE 2.5 MG TABLET (FP) PO SCH (10:00)
[2025-06-30] MEDS: APIXABAN 5 MG TABLET PO SCH (10:25)
[2025-06-30] MEDS: FUROSEMIDE 40 MG/4 ML INJECTABLE VIAL IVPUSH ONE (10:25)
[2025-06-30] MEDS: AZITHROMYCIN IVPB 500 MG/250 ML BAG IVPB SCH (16:24)
[2025-06-30] MEDS: CEFTRIAXONE 2 GM in DEXTROSE 5%-WATER 100 ML IVPB SCH (18:49)
[2025-06-30] MEDS: ATORVASTATIN CA 40 MG TABLET (FP) PO SCH (21:56)
[2025-07-01] MEDS ORDERED: POLYETHYLENE GLYCOL (HEALTHYLAX) 3350 17 GM PACKET PO PRN (02:48)
[2025-07-01] MEDS ORDERED: ACETAMINOPHEN 500 MG TABLET (FP) PO PRN (02:48)
[2025-07-01 06:33] LABS: MCHC 31.5 g/dl (32.2-35.5); MEAN CELL VOLUME 101.4 fl (79.4-94.8); MEAN PLT VOLUME 11.8 fl (9.4-12.3); RDW 13.8 % (12.4-16.4)
[2025-07-01] MEDS: INSULIN ASPART SLIDING SCALE (NOVOLOG) 1 VIAL SQ SCH (06:36)
[2025-07-01 06:56] LABS: GLUCOSE,RANDOM 84.0 mg/dL (74-106); TOT PROT 6.6 g/dl (6.4-8.2)
[2025-07-01 06:57] LABS: CO2 23.0 mmol/L (21-32)
[2025-07-01 07:01] LABS: SGPT/ALT 18.0 U/L (0-55)
[2025-07-01 07:02] LABS: CREATININE 4.12 mg/dL (0.55-1.3); SGOT/AST 12.0 U/L (5-34)
[2025-07-01 07:12] LABS: IRON SERUM 33.0 ug/dL (50-175)
[2025-07-01 07:17] LABS: ALK PHOS 139.0 U/L (40-150)
[2025-07-01] MEDS: SODIUM ZIRCONIUM CYCLOSILICATE (LOKELMA) 5 GM PACKET PO SCH (08:41)
[2025-07-01] MEDS: APIXABAN 5 MG TABLET PO SCH (09:39)
[2025-07-01] MEDS: AZITHROMYCIN IVPB 500 MG/250 ML BAG IVPB SCH (09:39)
[2025-07-01 19:33] LABS: HEPATITIS B SURF AG NON-MATERN NON-REACTIVE (NONREACTIVE)
[2025-07-01] MEDS: ATORVASTATIN CA 40 MG TABLET (FP) PO SCH (22:29)
[2025-07-02] MEDS ORDERED: SODIUM CHLORIDE 250 ML IV PRN (10:00)
[2025-07-02] MEDS: EPOETIN ALFA-EPBX 10,000 UNIT/ML VIAL IVPUSH ONE (12:14)
[2025-07-03 06:54] LABS: ABSOLUTE IMMATURE GRANULOCYTES 0.02 x10^3/uL (0.0-0.031); BASOPHILS # 0.05 x10^3/uL (0.01-0.08); EOSINOPHIL % 4.9 % (0.7-5.8); EOSINOPHILS # 0.29 x10^3/uL (0.04-0.36); MCHC 32.1 g/dl (32.2-35.5); MEAN CELL VOLUME 99.2 fl (79.4-94.8); MEAN PLT VOLUME 11.8 fl (9.4-12.3); MONOCYTE # 0.67 x10^3/uL (0.24-0.86); MONOCYTE % 11.4 % (4.7-12.5); RDW 13.3 % (12.4-16.4)
[2025-07-03 07:34] LABS: GLUCOSE,RANDOM 71.0 mg/dL (74-106); TOT PROT 6.2 g/dl (6.4-8.2)
[2025-07-03 07:35] LABS: CO2 29.0 mmol/L (21-32)
[2025-07-03 07:40] LABS: CREATININE 3.06 mg/dL (0.55-1.3); SGOT/AST 8.0 U/L (5-34); SGPT/ALT 6.0 U/L (0-55)
[2025-07-03 07:41] LABS: ALK PHOS 121.0 U/L (40-150)
[2025-07-03] MEDS: SODIUM ZIRCONIUM CYCLOSILICATE (LOKELMA) 5 GM PACKET PO SCH (12:23)
[2025-07-04 06:42] LABS: MCHC 32.1 g/dl (32.2-35.5); MEAN CELL VOLUME 98.9 fl (79.4-94.8); MEAN PLT VOLUME 11.7 fl (9.4-12.3); RDW 13.4 % (12.4-16.4)
[2025-07-04] MEDS ORDERED: SODIUM CHLORIDE 250 ML IV PRN (09:00)
[2025-07-04 10:03] LABS: GLUCOSE,RANDOM 140.0 mg/dL (74-106); TOT PROT 6.7 g/dl (6.4-8.2)
[2025-07-04 10:06] LABS: ALK PHOS 128.0 U/L (40-150)
[2025-07-04 10:08] LABS: SGOT/AST 8.0 U/L (5-34); SGPT/ALT 7.0 U/L (0-55)
[2025-07-04 10:09] LABS: CREATININE 2.84 mg/dL (0.55-1.3)
[2025-07-04] MEDS: EPOETIN ALFA-EPBX 10,000 UNIT/ML VIAL SQ ONE (10:15)
[2025-07-04 10:37] LABS: CO2 28.0 mmol/L (21-32)
[2025-07-04] MEDS: POLYETHYLENE GLYCOL (HEALTHYLAX) 3350 17 GM PACKET PO SCH (12:17)
[2025-07-05] MEDS: ENOXAPARIN NA (PORCINE) 60 MG/0.6 ML DISP.SYRIN SQ SCH (09:51)
[2025-07-05] MEDS ORDERED: SODIUM CHLORIDE 250 ML IV PRN (13:40)
[2025-07-06 06:55] LABS: MCHC 31.8 g/dl (32.2-35.5); MEAN CELL VOLUME 99.3 fl (79.4-94.8); MEAN PLT VOLUME 11.2 fl (9.4-12.3); RDW 13.6 % (12.4-16.4)
[2025-07-06 09:53] LABS: GLUCOSE,RANDOM 122.0 mg/dL (74-106)
[2025-07-06 09:54] LABS: CO2 27.0 mmol/L (21-32)
[2025-07-06] MEDS: EPOETIN ALFA-EPBX 10,000 UNIT/ML VIAL SQ ONE (10:57)
[2025-07-06 14:14] LABS: CREATININE 3.24 mg/dL (0.55-1.3)
[2025-07-06] MEDS ORDERED: ACETAMINOPHEN 500 MG TABLET (FP) PO PRN (20:44)
[2025-07-06] MEDS: ATORVASTATIN CA 40 MG TABLET (FP) PO SCH (22:07)
[2025-07-06] MEDS: INSULIN ASPART SLIDING SCALE (NOVOLOG) 1 VIAL SQ SCH (22:55)
[2025-07-07 08:13] LABS: ABSOLUTE IMMATURE GRANULOCYTES 0.02 x10^3/uL (0.0-0.031); BASOPHILS # 0.07 x10^3/uL (0.01-0.08); EOSINOPHIL % 6.3 % (0.7-5.8); EOSINOPHILS # 0.43 x10^3/uL (0.04-0.36); MCHC 31.6 g/dl (32.2-35.5); MEAN CELL VOLUME 100.3 fl (79.4-94.8); MEAN PLT VOLUME 11.0 fl (9.4-12.3); MONOCYTE # 0.71 x10^3/uL (0.24-0.86); MONOCYTE % 10.4 % (4.7-12.5); RDW 13.9 % (12.4-16.4)
[2025-07-07 08:29] LABS: TOT PROT 6.7 g/dl (6.4-8.2)
[2025-07-07 08:30] LABS: CO2 28 mmol/L (21-32)
[2025-07-07 08:32] LABS: ALK PHOS 128 U/L (40-150)
[2025-07-07 08:35] LABS: CREATININE 2.68 mg/dL (0.55-1.3); SGOT/AST 8 U/L (5-34)
[2025-07-07 08:47] LABS: GLUCOSE,RANDOM 76 mg/dL (74-106); SGPT/ALT < 6 U/L (0-55)
[2025-07-07] MEDS: ENOXAPARIN NA (PORCINE) 60 MG/0.6 ML DISP.SYRIN SQ SCH (10:03)
[2025-07-07] MEDS: POLYETHYLENE GLYCOL (HEALTHYLAX) 3350 17 GM PACKET PO SCH (10:03)
[2025-07-07] MEDS: AZITHROMYCIN IVPB 500 MG/250 ML BAG IVPB SCH (10:04)
[2025-07-07] MEDS: CEFTRIAXONE 2 GM in DEXTROSE 5%-WATER 100 ML IVPB SCH (11:24)
[2025-07-07 15:04] VITALS: BMI 26.2
[2025-07-07] MEDS ORDERED: BISACODYL 5 MG TABLET.DR (FP) PO ONE (16:00)
[2025-07-07] MEDS: PEG 3350/NA SULF BICARB CL/KCL 4000 ML SOLN.RECON PO ONE (16:44)
[2025-07-07] MEDS: BISACODYL 5 MG TABLET.DR (FP) PO ONE (16:45)
[2025-07-07] MEDS ORDERED: PEG 3350/NA SULF BICARB CL/KCL 4000 ML SOLN.RECON PO ONE (17:00)
[2025-07-08 08:28] LABS: INR 1.43 (0.83-1.09); PROTHROMBIN TIME (PATIENT) 15.7 SEC (9.7-13.0)
[2025-07-08 08:29] LABS: ABSOLUTE IMMATURE GRANULOCYTES 0.03 x10^3/uL (0.0-0.031); BASOPHILS # 0.04 x10^3/uL (0.01-0.08); EOSINOPHIL % 5.9 % (0.7-5.8); EOSINOPHILS # 0.38 x10^3/uL (0.04-0.36); MCHC 32.3 g/dl (32.2-35.5); MEAN CELL VOLUME 98.6 fl (79.4-94.8); MEAN PLT VOLUME 11.3 fl (9.4-12.3); MONOCYTE # 0.51 x10^3/uL (0.24-0.86); MONOCYTE % 7.9 % (4.7-12.5); RDW 13.8 % (12.4-16.4)
[2025-07-08 08:51] LABS: GLUCOSE,RANDOM 72.0 mg/dL (74-106); TOT PROT 6.8 g/dl (6.4-8.2)
[2025-07-08 08:52] LABS: CO2 25.0 mmol/L (21-32)
[2025-07-08 08:53] LABS: ALK PHOS 129.0 U/L (40-150)
[2025-07-08 08:56] LABS: SGOT/AST 11.0 U/L (5-34); SGPT/ALT 8.0 U/L (0-55)
[2025-07-08 08:57] LABS: CREATININE 3.31 mg/dL (0.55-1.3)
[2025-07-08] MEDS: PEG 3350/NA SULF BICARB CL/KCL 4000 ML SOLN.RECON PO ONE (14:34)
[2025-07-08] MEDS ORDERED: INSULIN ASPART SLIDING SCALE (NOVOLOG) 1 VIAL SQ ONE (18:40)
[2025-07-09 07:38] LABS: ABSOLUTE IMMATURE GRANULOCYTES 0.14 x10^3/uL (0.0-0.031); BASOPHILS # 0.04 x10^3/uL (0.01-0.08); EOSINOPHIL % 2.4 % (0.7-5.8); EOSINOPHILS # 0.24 x10^3/uL (0.04-0.36); MCHC 32.2 g/dl (32.2-35.5); MEAN CELL VOLUME 99.3 fl (79.4-94.8); MEAN PLT VOLUME 10.8 fl (9.4-12.3); MONOCYTE # 0.58 x10^3/uL (0.24-0.86); MONOCYTE % 5.9 % (4.7-12.5); RDW 14.0 % (12.4-16.4)
[2025-07-09 07:44] LABS: INR 1.4 (0.83-1.09); PROTHROMBIN TIME (PATIENT) 15.3 SEC (9.7-13.0)
[2025-07-09 08:01] LABS: GLUCOSE,RANDOM 56.0 mg/dL (74-106); TOT PROT 7.1 g/dl (6.4-8.2)
[2025-07-09 08:02] LABS: CO2 25.0 mmol/L (21-32)
[2025-07-09 08:04] LABS: ALK PHOS 155.0 U/L (40-150)
[2025-07-09 08:06] LABS: CREATININE 4.03 mg/dL (0.55-1.3); SGOT/AST 10.0 U/L (5-34); SGPT/ALT 7.0 U/L (0-55)
[2025-07-09] MEDS ORDERED: SODIUM CHLORIDE 250 ML IV PRN (10:20)
[2025-07-09] MEDS ORDERED: EPOETIN ALFA-EPBX 3,000 UNIT/ML VIAL IVPUSH ONE (10:21)
[2025-07-09] MEDS: PEG 3350/NA SULF BICARB CL/KCL 4000 ML SOLN.RECON PO ONE (11:36)
[2025-07-09] MEDS: BISACODYL 5 MG TABLET.DR (FP) PO ONE (22:00)
[2025-07-10 08:46] LABS: ABSOLUTE IMMATURE GRANULOCYTES 0.03 x10^3/uL (0.0-0.031); BASOPHILS # 0.06 x10^3/uL (0.01-0.08); EOSINOPHIL % 4.9 % (0.7-5.8); EOSINOPHILS # 0.36 x10^3/uL (0.04-0.36); MCHC 31.5 g/dl (32.2-35.5); MEAN CELL VOLUME 101.1 fl (79.4-94.8); MEAN PLT VOLUME 11.4 fl (9.4-12.3); MONOCYTE # 0.56 x10^3/uL (0.24-0.86); MONOCYTE % 7.6 % (4.7-12.5); RDW 14.6 % (12.4-16.4)
[2025-07-10 08:52] LABS: INR 1.5 (0.83-1.09); PROTHROMBIN TIME (PATIENT) 16.3 SEC (9.7-13.0)
[2025-07-10 09:35] LABS: TOT PROT 7.0 g/dl (6.4-8.2)
[2025-07-10 09:36] LABS: CO2 26.0 mmol/L (21-32)
[2025-07-10 09:40] LABS: SGOT/AST 14.0 U/L (5-34); SGPT/ALT 11.0 U/L (0-55)
[2025-07-10 09:41] LABS: ALK PHOS 148.0 U/L (40-150); CREATININE 3.35 mg/dL (0.55-1.3); GLUCOSE,RANDOM 56.0 mg/dL (74-106)
[2025-07-10] MEDS: BISACODYL 5 MG TABLET.DR (FP) PO ONE (09:46)
[2025-07-10] MEDS: BISACODYL 10 MG SUPP.RECT PR ONE (09:46)
[2025-07-10] MEDS ORDERED: SODIUM CHLORIDE 250 ML IV PRN (18:20)
[2025-07-10] MEDS: DEXTROSE 5%-NORMAL SALINE 1,000 ML IV SCH (21:30)
[2025-07-11] MEDS: EPOETIN ALFA-EPBX 4,000 UNIT/ML VIAL IVPUSH ONE (10:07)
[2025-07-11] MEDS: PANTOPRAZOLE 40 MG TABLET PO SCH (14:28)
[2025-07-11 19:53] VITALS: TEMP 98.2
[2025-07-12 02:46] VITALS: BP 133/67; PULSE 61; RESP 19
== END 2025-07-11 22:15 | disposition home or self-care (01) | DRG 291 ==
LOC: JER 14:12 → JERBED 18:14 → J8W 06-30 01:46 → J4W 06-30 18:40 → J7W 07-06 15:16
PROVIDERS: ADMIT Family Medicine; ATTEND Family Medicine
PROC: 0DB78ZX Excision of Stomach, Pylorus, Via Natural or Artificial Opening Endoscopic, Diagnostic (ICD-10-PCS; 2025-07-10)
PROC: 0DB68ZX Excision of Stomach, Via Natural or Artificial Opening Endoscopic, Diagnostic (ICD-10-PCS; 2025-07-10)
PROC: 0DB48ZX Excision of Esophagogastric Junction, Via Natural or Artificial Opening Endoscopic, Diagnostic (ICD-10-PCS; 2025-07-10)
PROC: 0DBK8ZX Excision of Ascending Colon, Via Natural or Artificial Opening Endoscopic, Diagnostic (ICD-10-PCS; 2025-07-10)
PROC: 0DBH8ZX Excision of Cecum, Via Natural or Artificial Opening Endoscopic, Diagnostic (ICD-10-PCS; 2025-07-10)
PROC: 0W3P8ZZ Control Bleeding in Gastrointestinal Tract, Via Natural or Artificial Opening Endoscopic (ICD-10-PCS; 2025-07-10)
PROC: 0DB98ZX Excision of Duodenum, Via Natural or Artificial Opening Endoscopic, Diagnostic (ICD-10-PCS; principal; 2025-07-10 10:30)
PROC: 0DBN8ZX Excision of Sigmoid Colon, Via Natural or Artificial Opening Endoscopic, Diagnostic (ICD-10-PCS; 2025-07-11)
PROC: 5A1D70Z Performance of Urinary Filtration, Intermittent, Less than 6 Hours Per Day (ICD-10-PCS; 2025-07-11)
DX: I13.2 Hypertensive heart and chronic kidney disease with heart failure and with stage 5 chronic kidney disease, or end stage renal disease (principal); I50.33 Acute on chronic diastolic (congestive) heart failure; J18.9 Pneumonia, unspecified organism; N18.6 End stage renal disease; N39.0 Urinary tract infection, site not specified; I69.354 Hemiplegia and hemiparesis following cerebral infarction affecting left non-dominant side; E03.9 Hypothyroidism, unspecified; D64.9 Anemia, unspecified; E11.22 Type 2 diabetes mellitus with diabetic chronic kidney disease; I48.91 Unspecified atrial fibrillation; K29.70 Gastritis, unspecified, without bleeding; K31.7 Polyp of stomach and duodenum; K63.5 Polyp of colon; Z99.2 Dependence on renal dialysis; I35.0 Nonrheumatic aortic (valve) stenosis
CPT/HCPCS: 36415; 71045-TC-FY; 72192-TC; 72195-TC; 74176-TC; 80048; 80053; 81003; 82550; 82607; 82746; 82962; 83540; 83550; 83690; 83735; 84100; 84484; 85025; 85027; 85610; 85730; 86704; 86707; 86803; 86850; 86900; 86901; 87040; 87070; 87086; 87205; 87340; 87389; 87899; 88305-TC; 88342-TC; 93005; 93010; 93306-TC; 97116-GP; 97162-GP; 99285-25; J3373; Q5106